=== PATIENT | male | born 1955 | race Caucasian/White ===

== ENCOUNTER 2017-04-09 11:20 | Inpatient (IN) | payer OTHER ==
[~2017-04-09] VITALS: Ht 167.6 cm; Wt 94.5 kg
[~2017-04-09 11:20] MED LIST: BUPR-75; CHOL400C; LISI20TA11; OMEG500C3; SIMV20TA; THIO1CAP; THIO5CAP2; [UNRECOGNIZED DRUG - CODE]
[2017-04-09 11:21] VITALS: Ht 167.6 cm; Wt 94.5 kg
[2017-04-09 12:01] LABS: ABNORMAL IP MESSAGE 1; HEMATOCRIT 22.3 % (42.0-52.0); MEAN CORPUSCULAR HEMOGLOBIN 32.7 pg (29.0-33.0); MEAN CORPUSCULAR HGB CONC 30.5 g/dl (32.0-37.0); MEAN CORPUSCULAR VOLUME 107.2 fl (82.0-101.0); MEAN PLATELET VOLUME 10.6 fl (7.4-10.4); NUCLEATED RED BLOOD CELLS% 37.3 /100WBC (0.0-0.0); PLATELET COUNT 130 10^3/UL (140-415); POSITIVE DIFF @See below; RED BLOOD COUNT 2.08 10^6/ul (4.70-6.10); RED CELL DISTRIBUTION WIDTH 27.4 % (11.5-14.5); WHITE BLOOD COUNT 10.4 10^3/ul (4.8-10.8)
[2017-04-09 12:06] LABS: HEMOGLOBIN 6.8 g/dl (14.0-18.0)
[2017-04-09] MEDS ORDERED: SOD CHLORIDE 0.9% 250 ML IV ONE (12:08)
[2017-04-09 12:24] LABS: INR 1.28; PARTIAL THROMBOPLASTIN TIME 33.2 Sec (25.0-35.0); PROTIME 16.1 Sec (12.2-14.2); PT RATIO 1.3
[2017-04-09 12:32] LABS: ALBUMIN/GLOBULIN RATIO 1.07; BILIRUBIN,INDIRECT 0.6 mg/dl (0-1.1); BILIRUBIN,TOTAL 0.6 mg/dl (0.2-1.3); CALCIUM 8.2 mg/dl (8.4-10.2); CREATININE 0.77 mg/dl (0.61-1.24); POTASSIUM 4.7 mmol/L (3.5-5.1); TOTAL PROTEIN 5.8 g/dl (6.1-8.1)
[2017-04-09 12:38] LABS: ANISOCYTOSIS 2+ (0-0); BASOPHILS % (M) 1 % (0-2); EOSINOPHILS % (M) 2 % (0-7); ERYTHROBLAST% (NRBC) (M) 51 % (0-0); METAMYELOCYTES %M 1 % (0-0); MICROCYTOSIS 1+ (0-0); MONOCYTES % (M) 4 % (0-11); PLATELET ESTIMATE DECREASED; POIKILOCYTOSIS 1+ (0-0); POLYCHROMASIA 3+ (0-0); REACTIVE LYMPHOCYTES% (M) 1 % (0-0)
[2017-04-09 12:43] LABS: TROPONIN-I 0.013 ng/ml (0.00-0.12)
[2017-04-09] MEDS ORDERED: BUPR-75 PO (12:51)
[2017-04-09] MEDS ORDERED: SIMV20TA PO (12:54)
[2017-04-09] MEDS ORDERED: THIO5CAP2 PO (12:55)
[2017-04-09] MEDS ORDERED: ONDANSETRON 4 MG INJ IV PRN ×2 (13:30→15:30)
[2017-04-09] MEDS ORDERED: ACETAMINOPHEN 325 MG TAB PO PRN (13:30)
--- NOTE | 2017-04-09 13:39 | RADRPT ---
PROCEDURE: XR Chest. CLINICAL INDICATION: Shortness of breath. TECHNIQUE: A single portable view of the chest was obtained. COMPARISON: None FINDINGS: The cardiomediastinal silhouette is within normal limits. Mild bibasilar opacities are seen. The rem aining lungs and pleural spaces are clear. The soft tissues and osseous structures are unremarkable . IMPRESSION: Mild bibasilar opacities which may represent atelectasis. RPTAT: HPNM Physician [place] Date Time Electronically viewed and signed by Lyndon Odonnell Physician on 04/09/2017 13:38 /
[2017-04-09 13:45] VITALS: TEMP 98.5
--- NOTE | 2017-04-09 14:24 | ERA ---
ER Documentation Chief Complaint Date/Time DATE: 04/09/17 TIME: 14:19 Chief Complaint Sent from for evaluation and treatment severe Anemia HPI This is a 61-year-old male history of schizophrenia, anemia who was sent by primary care physician's office for anemia. The patient describes generalized malaise for several days. He denies any hematemesis or melena no chest pain or shortness of breath. He denies any fevers or chills. The patient has never had a blood transfusion in the past. He believes he has had a recent colonoscopy but is unsure of the results. ROS All systems reviewed and are negative except as per history of present illness. Medications Home Meds Reported Medications Thiothixene* (Navane*) 5 Mg Cap, 5 MG PO DAILY, CAP 04/09/17 Simvastatin* (Zocor*) 20 Mg Tablet, 20 MG PO QHS, #30 TAB 04/09/17 Bupropion Hcl* (Wellbutrin XL*) 150 Mg Tab.sr.24h, 150 MG PO DAILY, TAB.SA 04/09/17 Discontinued Reported Medications Clayton-3 Fatty Acids (Fish Oil) 500 Mg Capsule 09/23/10 Ergocalciferol (Vitamin D) 400 Unit Capsule 09/23/10 Thiothixene* (Navane*) 1 Mg Cap 09/23/10 Thiothixene* (Navane*) 5 Mg Cap 09/23/10 Bupropion Hcl* (Wellbutrin XL*) 150 Mg Tab.sr.24h 09/23/10 Hctz/Lisinopril (Prinzide 20/12.5) 1 Tab Tab 09/23/10 Lisinopril* (Lisinopril*) 20 Mg Tablet 09/23/10 Simvastatin* (Zocor*) 20 Mg Tablet 09/23/10 Allergies Allergies: Coded Allergies: iodine (Verified Allergy, Intermediate, ITCHING, 04/09/17) amoxicillin (Verified Allergy, Mild, ITCHING, 04/09/17) diphenhydramine (Verified Allergy, Mild, ITCHING, 04/09/17) PMhx/Soc History of Surgery: No Anesthesia Reaction: No Hx Neurological Disorder: No Hx Respiratory Disorders: No Hx Cardiac Disorders: Yes (HTN,HYPERLIPIDEMIA) Hx Psychiatric Problems: Yes (DEPRESSION) Hx Miscellaneous Medical Probl: No Hx Alcohol Use: No Hx Substance Use: No Hx Tobacco Use: No Smoking Status: Never smoker FmHx Family History: No diabetes Physical Exam Vitals Vital Signs Date Time Temp Pulse Resp B/P Pulse Ox O2 Delivery O2 Flow Rate FiO2 04/09/17 14:12 102 23 125/75 100 Nasal Cannula 2.0 04/09/17 13:45 98.5 95 17 126/71 100 Nasal Cannula 2.0 04/09/17 11:21 98.4 131 20 147/64 100 Physical Exam General: Well developed, well nourished, no acute distress, pallor Head: Normocephalic, atraumatic. Eyes: Pupils equally reactive, EOM intact ENT: Moist mucous membranes Neck: Supple, no lymphadenopathy Respiratory: Lungs clear bilaterally, no distress Cardiovascular: RRR, no murmurs, rubs, or gallops Abdominal: Soft, non-tender, non-distended, no peritoneal signs : Brown stool, no melena MSK: No edema, no unilateral swelling, 5/5 strength Neurologic: Alert and oriented, moving all extremities, normal speech, no focal weakness, no cerebellar signs Skin: No rash Psych: Normal mood Result Diagram: 04/09/17 1150 04/09/17 1150 Results 24 hrs Laboratory Tests Test 04/09/17 11:50 White Blood Count 10.410^3/ul Red Blood Count 2.0810^6/ul Hemoglobin 6.8g/dl Hematocrit 22.3% Mean Corpuscular Volume 107.2fl Mean Corpuscular Hemoglobin 32.7pg Mean Corpuscular Hemoglobin Concent 30.5g/dl Red Cell Distribution Width 27.4% Platelet Count 14170^3/UL Mean Platelet Volume 10.6fl Neutrophils % % Segmented Neutrophils % (Manual) 62% Lymphocytes % % Lymphocytes % (Manual) 27% Reactive Lymphocytes % (Manual) 1% Monocytes % % Monocytes % (Manual) 4% Eosinophils % % Eosinophils % (Manual) 2% Basophils % % Basophils % (Manual) 1% Metamyelocytes % (manual) 1% Nucleated Red Blood Cells % 51% Neutrophils # 10^3/ul Absolute Lymphocytes (Manual) 2.810^3/ul Lymphocytes # 10^3/ul Reactive Lymphocytes # 0.110^3/ul Monocytes # 10^3/ul Absolute Monocytes (Manual) 0.410^3/ul Eosinophils # 10^3/ul Basophils # 10^3/ul Basophils # (Manual) 0.110^3/ul Metamyelocytes # 0.110^3/ul Nucleated Red Blood Cells # 10^3/ul Smudge Cells % 4% Platelet Estimate DECREASED Polychromasia 3+ Poikilocytosis 1+ Anisocytosis 2+ Microcytosis 1+ Macrocytosis 1+ Prothrombin Time 16.1Sec Prothrombin Time Ratio 1.3 INR International Normalized Ratio 1.28 Activated Partial Thromboplast Time 33.2Sec Sodium Level 139mmol/L Potassium Level 4.7mmol/L Chloride Level 103mmol/L Carbon Dioxide Level 21mmol/L Anion Gap 20 Blood Urea Nitrogen 18mg/dl Creatinine 0.77mg/dl Glucose Level 156mg/dl Calcium Level 8.2mg/dl Total Bilirubin 0.6mg/dl Direct Bilirubin 0.00mg/dl Indirect Bilirubin 0.6mg/dl Aspartate Amino Transf (AST/SGOT) 90IU/L Alanine Aminotransferase (ALT/SGPT) 78IU/L Alkaline Phosphatase 1319IU/L Troponin I 0.013ng/ml Total Protein 5.8g/dl Albumin 3.0g/dl Globulin 2.80g/dl Albumin/Globulin Ratio 1.07 Current Medications Medications (Trade) Dose Ordered Sig/Vicenta Route PRN Reason Start Time Stop Time Status Last Admin Dose Admin Sodium Chloride (NS) 250 ml @ 0 mls/hr Q0M ONCE IV 04/09/17 12:08 04/09/17 12:10 DC 04/09/17 12:08 Ondansetron HCl (Zofran Inj) 4 mg BRIDGE ORDER PRN IV NAUSEA AND/OR VOMITING 04/09/17 13:30 04/10/17 13:29 Acetaminophen (Tylenol Tab) 650 mg ER BRIDGE PRN PO MILD PAIN/FEVER 04/09/17 13:30 04/10/17 13:29 Procedures/MDM EKG, MONITORS, & DIAGNOSTIC IMAGING: EKG: I reviewed and interpreted a 12-lead EKG. Rhythm: Normal sinus rhythm Ectopy: None Intervals: No abnormalities ST segments: No elevations or depressions T waves: No contiguous inversions Chest x-ray: I reviewed and interpreted a 1 view of the chest Mediastinum: No enlargement Cardiac silhouette: No cardiomegaly Airspace: Clear lung frias bilaterally without evidence of pneumothorax Bones: No evidence of fracture LAB INTERPRETATION: Significant anemia MEDICAL DECISION MAKING: The patient presents for likely symptomatic anemia. Unclear source at this time , consider possible chronic disease. The patient's PSA has been more elevated than baseline per his report, consider malignancy. Further workup as an inpatient as appropriate. I discussed with the patient and/or family the risks, benefits, alternatives of blood transfusion. This includes allergic reaction and infections including HIV and hepatitis. The patient and/or family were able to verbalize these risks , stated understanding. A document has been signed and placed in the chart. ER COURSE: Patient typed and crossmatch for 2 units packed red blood cells and will be transfused. The patient does have some slight thrombus cytopenia of 130. This is concerning for possible malignancy. Further workup is likely indicated. The patient does not have any diarrhea or altered mental status or renal failure to suggest TTP. I kept the patient and/or family informed of laboratory and diagnostic imaging results throughout the emergency room course. DISPOSITION PLAN: Medical surgical admission for treatment of symptomatically anemia CONSULTATION: Accepting care team and consultations: I discussed the current laboratory data, diagnostic imaging and emergency care provided. Admitting team: Dr. Thorpe Admitting team indication: Insurance directed Departure Diagnosis: Primary Impression: Symptomatic anemia Condition: Stable ALLYN JOSEPH MD Apr 09, 2017 14:24
[2017-04-09 14:34] VITALS: BP 137/67; PULSE 102; RESP 16
[2017-04-09] MEDS ORDERED: morphine 2 MG INJ IV PRN (15:30)
[2017-04-09] MEDS ORDERED: ACETAMINOPHEN 650 MG SUPP PR PRN (15:30)
[2017-04-09] MEDS ORDERED: NACL 0.9% 3 ML SYG IV SCH (15:30)
--- NOTE | 2017-04-09 15:35 | HP ---
Date/Time of Note Date/Time of Note DATE: 04/09/17 TIME: 15:35 Assessment/Plan VTE Prophylaxis VTE Prophylaxis Intervention: ambulation, SCD's Lines/Catheters IV Catheter Type (from [facility]): Peripheral IV Urinary Cath still in place: No Assessment/Plan Assessment/Plan This is a 61-year-old male who was sent from primary care physician to the emergency room for anemia workup. 1. Anemia, acute, unknown etiology. Status post 1 unit PRBC from ER -Admit as inpatient. Monitor H&H every 12 hours and transfuse if hemoglobin is less than 8.0 -Obtain urine and stool to detect RBC loss. -GI consult for endoscopy consideration. -Consider heme/onco if indicated 2. Transaminase elevation-needs further investigation. Rule out gallbladder pathology vs possible malignances (pls note tat pt also has significant anemia with elevated LFTs leading suspicion of possible metastatic process). Ofnote, patient also on Wellbutrin 150mg daily-known hepatotoxin with recommended hepatic dosing 150 q 48hrs -Obtain CT abdomen and pelvis to rule out any gallbladder pathologies vs possible malignancies-Consider oncology eval if indicated after imaging studies --Hold home medications including statin for now and monitor LFTs. 3. Dyslipidemia. Obtain a lipid panel. Hold statin secondary to abnormal LFTs. 4. Schizophrenia/depression. Stable -Due to transaminase elevation, we will hold home medications and treat patient with PRN Ativan for now. Plan: Patient will be admitted to medical surgical floor. We will also obtain a baseline CT brain and CT abdomen to rule out any possible malignancies that can cause unexplained anemia. He also presented with abnormal liver function.Follow-up with a.m. labs and diagnostic findings. Follow-up with GI recommendations. Will consider heme/onco if indicated. Monitor H&H closely and transfuse as indicated. Once again, this gentleman who is also somewhat poor historian presented with unexplained acute anemia who needs further work-ups in house and will be closely followed up and referred to appropriate specialities as indicated over the course of hospitalization. Patient does not need any DVT or PUD prophylaxis at this time as he is on a diet and ambulatory. Approximately 60 minutes was spent on this history and physical. Case discussed with Dr. Ila MAX/ELSA Admit Date/Time Admit Date/Time Apr 09, 2017 at 13:02 Hx of Present Illness This is a 61-year-old male,somewhat poor historian, with a past medical history of dyslipidemia, internal hemorrhoids, basal cell carcinoma with status post excision, schizophrenia, depression, epilepsy, hypertension and now off treatment due to hypotension, who was sent from primary care office for evaluation of anemia. Upon further questioning, he also reported poor appetite and malaise for the past few months. Patient denied any shortness of breath, chest pain, palpitation, loss of consciousness, dizziness or headache. Patient denied any nausea, vomiting, abdominal pain, hematochezia, hematemesis, melena, hematuria or other bleeding episodes. Patient denied fever or chills. Patient was not sure about any other malignancies. Up on chart review, in 2010,patient had colonoscopy with finding of internal hemorrhoids. He currently denied any constipation,hematochezia or melena. Initial workup showed a hemoglobin 6.8, hematocrit 22.3 and platelet 130. Patient also had elevated AST, ALT and alkaline phosphatase. CBC with some smudge cells. Patient received 1 unit of packed RBC in the emergency room and was admitted for further evaluation. ROS A 12 point review of system was assessed and is negative other than what is mentioned in HPI. PMH/Family/Social Past Medical History See HPI Past Surgical History See HPI Social History Denied alcohol, smoking or illicit drug use. Smoking Status: Former smoker Exam/Review of Systems Vital Signs Vitals Vital Signs Date Time Temp Pulse Resp B/P Pulse Ox O2 Delivery O2 Flow Rate FiO2 04/09/17 15:04 Nasal Cannula 2.0 04/09/17 14:34 97.7 102 16 137/67 98 Exam Exam General: Well developed,adequately built, not in any acute distress . HEENT: Normocephalic, Atraumatic, No laceration or hematoma; Eyes: PEERL, Conjunctiva clear, Anicteric sclera Neck: Supple without any lymphadenopathy, nontender, no JVD, no carotid bruits, trachea midline, no thyromegaly Cardiac: S1, S2 auscultated, regular rhythm and rate, no mumurs or gallop Pulmonary: Normal respiratory effort. Chest clear to auscultation bilaterally, no adventitious breath sounds GI: Abdomen normal to inspection. Soft, non tender, non- distended, no masses, no rebound tenderness or guarding. Bowel sounds active on all four quadrants Genitourinary: Deferred Extremities: No cyanosis, clubbing, or edema. Pulses [2+] bilaterally. Full ROM on all four extremities. No focal weakness appreciated. Neurologic: Alert to person, place, time, and situation. Affect appropriate, intact sensation. Skin: Pale looking. Clean,dry, and intact. No ecchymosis, no rashes, or lesions Labs Result Diagram: 04/09/17 1150 04/09/17 1150 Medications Medications Current Medications Sodium Chloride (NS) 1,000 ml @ 75 mls/hr [id number] IV ; Start 04/09/17 at 15:25; Status UNV Ondansetron HCl (Zofran Inj) 4 mg Q6H PRN IV NAUSEA AND/OR VOMITING; Start 04/09 at 15:30; Status UNV Acetaminophen (Tylenol Tab) 650 mg Q6H PRN PO PAIN LEVEL 1-3 OR FEVER; Start at 15:30; Status UNV Acetaminophen (Tylenol Supp) 650 mg Q6H PRN [place] PAIN LEVEL 1-3 OR FEVER; Start 04/09/17 at 15:30; Status UNV Morphine Sulfate (morphine) 2 mg Q4H PRN IV SEVERE PAIN LEVEL 7-10; Start at 15:30; Status UNV TONIO HUMPHREY NP Apr 09, 2017 15:35
[2017-04-09 15:41] LABS: FOLATE 11.1 ng/ml (2.8-20.0)
[2017-04-09] MEDS: SOD CHLORIDE 0.9% 1,000 ML IV SCH (15:58)
[2017-04-09 16:33] LABS: HEMATOCRIT 23.1 % (42.0-52.0)
[2017-04-09 16:37] LABS: HEMOGLOBIN 6.9 g/dl (14.0-18.0)
[2017-04-09 16:53] LABS: IRON 81 ug/dl (35-150)
[2017-04-09 17:03] LABS: TOTAL IRON BINDING CAPACITY 301 ug/dl (241-421)
[2017-04-09 19:25] VITALS: BP 121/59; RESP 18
--- NOTE | 2017-04-09 19:28 | OPR ---
Date/Time of Note Date/Time of Note DATE: 04/09/17 TIME: 19:26 Operative Report Preoperative Diagnosis Anemia Postoperative Diagnosis Impression: * Moderate distal esophagitis * Severe antral gastritis. Rule out H. pylori infection. Biopsies obtained Plan: * PPI therapy * Monitor for further bleeding * Advance diet as tolerated Operation/Procedure Performed EGD with biopsies Surgeon: ALEKS HESTER MD Anesthesia Type: MAC Estimated Blood Loss: none Transfusion Required: no Specimens Gastric antrum Grafts/Implants: none Complications: no ALEKS HESTER MD Apr 09, 2017 19:28
--- NOTE | 2017-04-09 20:08 | RADRPT ---
PROCEDURE: Noncontrast CT Head. CLINICAL INDICATION: Intracranial lesion. TECHNIQUE: Noncontrast CT of the head was obtained. The administered radiation dose was CTDI vol = 43.68 mGy, DLP = 810.25 mGy-cm. One or more of the following dose reduction techniques were used: Au tomated exposure control, Adjustment of the mA and/or kV according to patient size, or Use of iterat nu reconstruction technique. COMPARISON: There are no similar studies submitted for comparison. FINDINGS: There is minimal generalized cerebral volume loss. There is prominent bilateral parietal subarachnoid space which may related to focal volume loss. There is no loss of stringer-white differentiation to suggest acute territorial infarction. There is no acute intracranial hemorrhage or extra-axial fluid collection. There is no mass effect. No midline shift is identified. The orbits are within normal limits. The paranasal sinuses are well aerated. No destructive osseous lesion is identified. There is a smooth osseous lesion along the left parieta l inner table which is indeterminate but may represent a hemangioma, venous dietz, pacchionian granul ation, versus other etiologies. IMPRESSION: Evaluation for intracranial lesions is limited on noncontrast CT. 1. No acute intracranial hemorrhage or extra-axial fluid collection. 2. Minimal generalized cerebral volume loss which is more focal within the bilateral parietal lobes. 3. No significant mass effect or midline shift. Further findings as detailed above. RPTAT: HVF .Spencer Gaston MD, Date Time Electronically viewed and signed by .Spencer Gaston MD, on 04/09/2017 20:08 .F/
[2017-04-09] MEDS: ACETAMINOPHEN 325 MG TAB PO PRN (21:08)
[2017-04-09 23:09] LABS: ADD UMIC YES; UR ASCORBIC ACID NEGATIVE (NEGATIVE); UR BILIRUBIN (Dip) NEGATIVE (NEGATIVE); UR BLOOD (Dip) NEGATIVE (NEGATIVE); UR CLARITY CLOUDY (CLEAR); UR COLOR AMBER (YELLOW); UR GLUCOSE (Dip) NEGATIVE (NEGATIVE); UR KETONES (Dip) NEGATIVE (NEGATIVE); UR LEUKOCYTE ESTERASE (Dip) TRACE Leu/ul (NEGATIVE); UR MUCUS MODERATE /HPF (NONE SEEN); UR NITRITE (Dip) NEGATIVE (NEGATIVE); UR RBC 1 /HPF (0-5); UR SQUAMOUS EPITHELIAL CELL FEW /HPF (FEW); UR TOTAL PROTEIN (Dip) 1+ mg/dl (NEGATIVE); UR UROBILINOGEN (Dip) 1+ mg/dL (NEGATIVE)
[2017-04-10] VITALS (18 sets, daily range): BP systolic 97–139; BP diastolic 62–86; PULSE 91–111; RESP 16–25
--- NOTE | 2017-04-10 02:11 | RADRPT ---
PROCEDURE: CT of the abdomen and pelvis without contrast CLINICAL INDICATION: Elevated liver function tests. Question neoplasm.. TECHNIQUE: Spiral CT images through the abdomen and pelvis without the use of contrast. The admin istered radiation dose is CTDI 16.06 and DLP 964.45. One or more of the following dose reduction te chniques were used: automated exposure control, adjustment of the mA and/or kV according to patient size, or use of iterative reconstruction technique. COMPARISON: None FINDINGS: Lack of oral and intravenous contrast somewhat limits evaluation. Moderately large bilateral pleu ral effusions are seen. Bibasilar atelectasis is seen with dense material in the lung bases suggest ing possible prior contrast aspiration. Hyperinflated lung bases suggesting a background of emphyse ma. Normal heart size. Trace pericardial fluid.. Lack of intravenous contrast limits sensitivity for hepatic masses. No definite masses are seen. S mall stones are seen in the gallbladder neck. There is mild pericholecystic fluid. Mild free fluid is seen throughout the upper abdomen. No definite biliary or pancreatic ductal dilatation.. The a drenals are slightly nodular in contour which could reflect hypertrophy or possibly small nodules hernadez ch as tiny adenomas. These are too small to characterize but density. Tiny nonobstructing right re nal calyceal stones are seen. No left renal stones are seen. No hydronephrosis is seen. The pancr eas is unremarkable in appearance. There is a suggestion of wall thickening of the distal esophagus and possible mild wall thickening of the stomach is seen. Edema of the subcutaneous soft tissues i s seen. The appendix is not definitely identified. The prostate is slightly enlarged. The urinary bladder is slightly distended without definite stones or wall thickening. Mild presacral edema is seen. A small of free fluid is seen in the paracolic gutters and the pelvis. No definite small bow el obstruction, free air, or abscess. Tiny fat-containing umbilical hernia. There is extensive diff use sclerotic density of the entire visualized bony skeleton. No definite fracture is seen.. IMPRESSION: Limited noncontrast study without definite hepatic mass. Ascites of the abdomen pelvis. Diffuse sclerotic density of the entire visualized bony skeleton, presumably due to diffuse osseous metastatic disease. The prostate is enlarged, correlate for PSA level. Suggestion of wall thickening of the distal esophagus and stomach. Endoscopic correlation could be considered to evaluate for ulcer disease or underlying mass. Possible tiny bilateral adrenal nodules which could reflect tiny adenomas. Small stones in the neck of the gallbladder without definite ductal dilatation. Probable emphysema. Possible prior contrast aspiration. RPTAT: HLBE Lilly Galvin Physician Date Time Electronically viewed and signed by Lilly Galvin Physician on 04/10/2017 02:10 LE/
[2017-04-10] MEDS: SOD CHLORIDE 0.9% 1,000 ML IV SCH ×3 (04:45→17:23)
[2017-04-10 05:35] LABS: ABNORMAL IP MESSAGE 1; BASOPHIL # 0.1 10^3/ul (0.0-0.1); BASOPHILS % 0.7 % (0.0-2.0); EOSINOPHILS % 0.4 % (0.0-7.0); HEMATOCRIT 26.3 % (42.0-52.0); HEMOGLOBIN 8.2 g/dl (14.0-18.0); LYMPHOCYTES # 2.3 10^3/ul (0.8-2.9); LYMPHOCYTES % 29.8 % (15.0-51.0); MEAN CORPUSCULAR HEMOGLOBIN 30.7 pg (29.0-33.0); MEAN CORPUSCULAR HGB CONC 31.2 g/dl (32.0-37.0); MEAN CORPUSCULAR VOLUME 98.5 fl (82.0-101.0); MEAN PLATELET VOLUME 10.5 fl (7.4-10.4); MONOCYTE # 1.1 10^3/ul (0.3-0.9); MONOCYTES % 14.8 % (0.0-11.0); NEUTROPHILS % 52.2 % (39.0-77.0); NUCLEATED RED BLOOD CELLS # 3.2 10^3/ul (0.0-0.0); PLATELET COUNT 98 10^3/UL (140-415); POSITIVE DIFF @See below; RED BLOOD COUNT 2.67 10^6/ul (4.70-6.10); RED CELL DISTRIBUTION WIDTH 25.3 % (11.5-14.5); WHITE BLOOD COUNT 7.7 10^3/ul (4.8-10.8)
[2017-04-10 06:09] LABS: ALBUMIN 2.5 g/dl (3.3-4.9); ALBUMIN/GLOBULIN RATIO 1.04; BILIRUBIN,INDIRECT 0.7 mg/dl (0-1.1); BILIRUBIN,TOTAL 0.7 mg/dl (0.2-1.3); CALCIUM 7.9 mg/dl (8.4-10.2); CHOL/HDL RATIO 3.7 RATIO; CREATININE 0.74 mg/dl (0.61-1.24); MAGNESIUM 2.3 mg/dl (1.7-2.5); PHOSPHORUS 2.7 mg/dl (2.5-4.9); TOTAL PROTEIN 4.9 g/dl (6.1-8.1)
[2017-04-10] MEDS: THIOTHIXENE 5 MG CAP PO SCH (09:00)
[2017-04-10] MEDS: BUPROPION (XL) 150 MG TAB PO SCH (09:54)
--- NOTE | 2017-04-10 15:41 | CONS ---
Date/Time of Note Date/Time of Note DATE: 04/10/17 TIME: 15:22 Assessment/Plan Assessment/Plan Additional Assessment/Plan Assessment * Anemia Upper GI bleed vs lower GI Bleed CT scan of abdomen Limited noncontrast study without definite hepatic mass. Ascites of the abdomen pelvis. Diffuse sclerotic density of the entire visualized bony skeleton, presumably due to diffuse osseous metastatic disease. The prostate is enlarged, correlate for PSA level. Suggestion of wall thickening of the distal esophagus and stomach. Endoscopic correlation could be considered to evaluate for ulcer disease or underlying mass. Possible tiny bilateral adrenal nodules which could reflect tiny adenomas. Small stones in the neck of the gallbladder without definite ductal dilatation. Elevated transaminase CT cholelithiasis neck of gallbladder R/O Choledocholithiasis Plan * EGD today risks and benefit explained to patient agreed with procedure * MRCP * NPO * continue present management * further orders will depend clinical course Consultation Date/Type/Reason Admit Date/Time Apr 09, 2017 at 13:02 Date of Consultation: Apr 10, 2017 Type of Consultation: Gastroenterology Reason for Consultation anemia/elevated transaminase Referring Provider: CATHY TORRES MD Hx of Present Illness 61 year old male with past medical history of schizophrenia presented in the emergency room with anemia from his primary care,Patient denies any episode of hematemesis,hematochezia,chest pain ,nausea nor vomiting/,He claims recent colonoscopy but results unknown Laboratory workup revealed Anemia with hemoglobin 6.8 transfuse with 2 units of PRBC present hemoglobin 8.2. AST 90, ALT 78,Alkaline phosphatase 1319 Ct scan of abdomen Limited noncontrast study without definite hepatic mass. Ascites of the abdomen pelvis. Diffuse sclerotic density of the entire visualized bony skeleton, presumably due to diffuse osseous metastatic disease. The prostate is enlarged, correlate for PSA level. Suggestion of wall thickening of the distal esophagus and stomach. Endoscopic correlation could be considered to evaluate for ulcer disease or underlying mass. Possible tiny bilateral adrenal nodules which could reflect tiny adenomas. Small stones in the neck of the gallbladder without definite ductal dilatation. Probable emphysema. Possible prior contrast aspiration.Presently ,no episode of vomiting or any active bleeding Constitutional: no complaints Eyes: no complaints ENT: no complaints Respiratory: no complaints Cardiovascular: no complaints Gastrointestinal: no complaints Genitourinary: no complaints Musculoskeletal: no complaints Skin: no complaints Neurologic: no complaints Endocrine: no complaints Lymphatic: no complaints Psychological: nl mood/affect, no complaints Immunologic: no complaints Past Medical History Medical History: other (schizophrenia) Past Surgical History Past Surgical Hx: no surgical history Family History Significant Family History: no pertinent family hx Social History Smoking Status: Former smoker Exam/Review of Systems Vital Signs Vitals Vital Signs Date Time Temp Pulse Resp B/P Pulse Ox O2 Delivery O2 Flow Rate FiO2 04/10/17 13:56 98.0 99 18 130/69 99 04/10/17 09:00 Nasal Cannula 2.0 Intake and Output 04/09/17 04/09/17 04/10/17 15:00 23:00 07:00 Intake Total 250 ml 850 ml Output Total 50 ml 550 ml Balance 200 ml 300 ml Exam Constitutional: alert, oriented, well developed Psych: nl mood/affect, no complaints Head: atraumatic, normocephalic Eyes: PERRL, nl conjunctiva, nl sclera ENMT: nl nasal mucosa & septum Neck: non-tender, supple Respiratory: clear to auscultation, normal air movement Cardiovascular: nl pulses, regular rate and rhythm Gastrointestinal: nl liver, spleen, non-tender, soft Musculoskeletal: nl extremities to inspection, nl gait and stance Extremities: normal pulses Neurological: [employer] II-XII intact, nl mental status, nl speech, nl strength Skin: nl turgor, No rash or lesions Lymph: nl lymph nodes Results Result Diagram: 04/10/17 0433 04/10/17 0433 Results 24 hrs Laboratory Tests Test 04/09/17 16:24 04/09/17 17:57 04/10/17 04:33 04/10/17 08:14 Hemoglobin 6.9 *L 8.2 L Hematocrit 23.1 L 26.3 L Iron Level 81 Total Iron Binding Capacity 301 Percent Iron Saturation 27 Urine Color CLAUDIA Urine Clarity CLOUDY A Urine pH 5.0 Urine Specific [place] 1.030 Urine Ketones NEGATIVE Urine Nitrite NEGATIVE Urine Bilirubin NEGATIVE Urine Urobilinogen 1+ H Urine Leukocyte Esterase TRACE A Urine Microscopic RBC 1 Urine Microscopic WBC 10 H Urine Squamous Epithelial Cells FEW Urine Mucus MODERATE Urine Hemoglobin NEGATIVE Urine Glucose NEGATIVE Urine Total Protein 1+ H White Blood Count 7.7 # Red Blood Count 2.67 #L Mean Corpuscular Volume 98.5 Mean Corpuscular Hemoglobin 30.7 Mean Corpuscular Hemoglobin Concent 31.2 L Red Cell Distribution Width 25.3 H Platelet Count 98 #L Mean Platelet Volume 10.5 H Neutrophils % 52.2 Lymphocytes % 29.8 Monocytes % 14.8 H Eosinophils % 0.4 Basophils % 0.7 Nucleated Red Blood Cells % 41.0 H Neutrophils # 4.0 Lymphocytes # 2.3 Monocytes # 1.1 H Eosinophils # 0.0 Basophils # 0.1 Nucleated Red Blood Cells # 3.2 H Sodium Level 140 Potassium Level 4.0 Chloride Level 107 Carbon Dioxide Level 24 Anion Gap 13 # Blood Urea Nitrogen 15 Creatinine 0.74 Glucose Level 100 # Hemoglobin A1c 4.8 Calcium Level 7.9 L Phosphorus Level 2.7 Magnesium Level 2.3 Total Bilirubin 0.7 Direct Bilirubin 0.00 Indirect Bilirubin 0.7 Aspartate Amino Transf (AST/SGOT) 90 H Alanine Aminotransferase (ALT/SGPT) 75 H Alkaline Phosphatase 1092 H Total Protein 4.9 L Albumin 2.5 L Globulin 2.40 Albumin/Globulin Ratio 1.04 Triglycerides Level 77 Cholesterol Level 82 L LDL Cholesterol, Calculated 45 HDL Cholesterol 22 L Cholesterol/HDL Ratio 3.7 Lab Scanned Report BLOOD TRANSFUSION Medications Medications Current Medications Sodium Chloride (NS) 1,000 ml @ 75 mls/hr [id number] IV Last administered on 14:08; Admin Dose 75 MLS/HR; Start 04/09/17 at 15:25 Ondansetron HCl (Zofran Inj) 4 mg Q6H PRN IV NAUSEA AND/OR VOMITING; Start 04/09 at 15:30 Acetaminophen (Tylenol Tab) 650 mg Q6H PRN PO PAIN LEVEL 1-3 OR FEVER Last administered on 04/09/17 21:08; Admin Dose 650 MG; Start 04/09/17 at 15:30 Acetaminophen (Tylenol Supp) 650 mg Q6H PRN [place] PAIN LEVEL 1-3 OR FEVER; Start 04/09/17 at 15:30 Morphine Sulfate (morphine) 2 mg Q4H PRN IV SEVERE PAIN LEVEL 7-10; Start at 15:30 Bupropion HCl (Wellbutrin Xl) 150 mg DAILY PO Last administered on 04/10/17 09: 54; Admin Dose 150 MG; Start 04/10/17 at 09:00 Thiothixene (Navane) 5 mg DAILY PO ; Start 04/10/17 at 09:00 Atorvastatin Calcium (Lipitor) 10 mg QHS PO ; Start 04/10/17 at 21:00 ALESK HESTER MD Apr 10, 2017 15:39
--- NOTE | 2017-04-10 16:03 | RADRPT ---
PROCEDURE: US Abdomen (right upper quadrant). CLINICAL INDICATION: Abnormal liver function tests. TECHNIQUE: Multiple real-time longitudinal and transverse images of the right upper quadrant of th e abdomen were acquired utilizing a curved array transducer. Images were reviewed on a high-resoluti on PACS workstation. COMPARISON: None FINDINGS: The liver is normal in size and normal in echogenicity. There is no focal hepatic lesion. A gallstone is present in the gallbladder neck. There is no gallbladder wall thickening. The bile ducts are normal with the common bile duct measuring 4.0 mm in diameter. The visualized portions of the pancreas are unremarkable with obscuration of the tail of the pancrea s. There is mild ascites. There is a right pleural effusion. The right kidney measures 11.0 cm. There is normal echogenicity of the right kidney. There is no perinephric fluid collection. No hydronephrosis, mass, or calculus is seen. IMPRESSION: 1. Gallstone in the gallbladder neck. 2. No evidence of cholecystitis. 3. Mild ascites. 4. Right pleural effusion. 5. Otherwise unremarkable right upper quadrant abdomen ultrasound. RPTAT: QQ .Brody Suarez MD, Date Time Electronically viewed and signed by .Brody Suarez MD, on 04/10/2017 16:03 .R/
[2017-04-10 16:53] LABS: HEMATOCRIT 26.5 % (42.0-52.0); HEMOGLOBIN 8.4 g/dl (14.0-18.0)
--- NOTE | 2017-04-10 17:20 | PN ---
Date/Time of Note Date/Time of Note DATE: 04/10/17 TIME: 17:17 Assessment/Plan VTE Prophylaxis VTE Prophylaxis Intervention: SCD's Lines/Catheters IV [facility] Peripheral IV Urinary Cath still in place: No Assessment/Plan Assessment/Plan 61 yo M with pmhx schizophrenia admitted for macrocytic anemia of unclear etio #anemia: b12, folate, TSH all normal hgb responded to transfusion heme consult for further eval. given that platelets low too, might need BMB #transaminitis: etio unclear, US without liver abn, +gallstone in GB neck GI on cs, MRCP ordered #schizophrenia: cont home meds #h/o elevated PSA: consider rechecking after today's heme/onc eval. No mention of large prostate/prostate nodules on abd CT Subjective 24 Hr Interval Summary Free Text/Dictation pt denies being told he had low blood counts before. OF NOTE states he had a period of nausea in November, was ?diagnosed with prostatitis? Since then has unintentionally lost 35 pounds. Denies EtOH use or any hx of known liver disease Exam/Review of Systems Vital Signs Vitals Vital Signs Date Time Temp Pulse Resp B/P Pulse Ox O2 Delivery O2 Flow Rate FiO2 04/10/17 13:56 98.0 99 18 130/69 99 04/10/17 09:00 Nasal Cannula 2.0 Intake and Output 04/09/17 04/09/17 04/10/17 15:00 23:00 07:00 Intake Total 250 ml 850 ml Output Total 50 ml 550 ml Balance 200 ml 300 ml Exam sitting up in bed, nad no mrg lungs clear abd soft no rashes Results Result Diagram: 04/10/17 1645 04/10/17 0433 Results 24 hrs Laboratory Tests Test 04/09/17 17:57 04/10/17 04:33 04/10/17 08:14 04/10/17 16:45 Urine Color CLAUDIA Urine Clarity CLOUDY A Urine pH 5.0 Urine Specific [place] 1.030 Urine Ketones NEGATIVE Urine Nitrite NEGATIVE Urine Bilirubin NEGATIVE Urine Urobilinogen 1+ H Urine Leukocyte Esterase TRACE A Urine Microscopic RBC 1 Urine Microscopic WBC 10 H Urine Squamous Epithelial Cells FEW Urine Mucus MODERATE Urine Hemoglobin NEGATIVE Urine Glucose NEGATIVE Urine Total Protein 1+ H White Blood Count 7.7 # Red Blood Count 2.67 #L Hemoglobin 8.2 L 8.4 L Hematocrit 26.3 L 26.5 L Mean Corpuscular Volume 98.5 Mean Corpuscular Hemoglobin 30.7 Mean Corpuscular Hemoglobin Concent 31.2 L Red Cell Distribution Width 25.3 H Platelet Count 98 #L Mean Platelet Volume 10.5 H Neutrophils % 52.2 Lymphocytes % 29.8 Monocytes % 14.8 H Eosinophils % 0.4 Basophils % 0.7 Nucleated Red Blood Cells % 41.0 H Neutrophils # 4.0 Lymphocytes # 2.3 Monocytes # 1.1 H Eosinophils # 0.0 Basophils # 0.1 Nucleated Red Blood Cells # 3.2 H Sodium Level 140 Potassium Level 4.0 Chloride Level 107 Carbon Dioxide Level 24 Anion Gap 13 # Blood Urea Nitrogen 15 Creatinine 0.74 Glucose Level 100 # Hemoglobin A1c 4.8 Calcium Level 7.9 L Phosphorus Level 2.7 Magnesium Level 2.3 Total Bilirubin 0.7 Direct Bilirubin 0.00 Indirect Bilirubin 0.7 Aspartate Amino Transf (AST/SGOT) 90 H Alanine Aminotransferase (ALT/SGPT) 75 H Alkaline Phosphatase 1092 H Total Protein 4.9 L Albumin 2.5 L Globulin 2.40 Albumin/Globulin Ratio 1.04 Triglycerides Level 77 Cholesterol Level 82 L LDL Cholesterol, Calculated 45 HDL Cholesterol 22 L Cholesterol/HDL Ratio 3.7 Lab Scanned Report BLOOD TRANSFUSION Medications Medications Current Medications Sodium Chloride (NS) 1,000 ml @ 75 mls/hr [id number] IV Last administered on 14:08; Admin Dose 75 MLS/HR; Start 04/09/17 at 15:25 Ondansetron HCl (Zofran Inj) 4 mg Q6H PRN IV NAUSEA AND/OR VOMITING; Start 04/09 at 15:30 Acetaminophen (Tylenol Tab) 650 mg Q6H PRN PO PAIN LEVEL 1-3 OR FEVER Last administered on 04/09/17 21:08; Admin Dose 650 MG; Start 04/09/17 at 15:30 Acetaminophen (Tylenol Supp) 650 mg Q6H PRN [place] PAIN LEVEL 1-3 OR FEVER; Start 04/09/17 at 15:30 Morphine Sulfate (morphine) 2 mg Q4H PRN IV SEVERE PAIN LEVEL 7-10; Start at 15:30 Bupropion HCl (Wellbutrin Xl) 150 mg DAILY PO Last administered on 04/10/17 09: 54; Admin Dose 150 MG; Start 04/10/17 at 09:00 Thiothixene (Navane) 5 mg DAILY PO ; Start 04/10/17 at 09:00 Atorvastatin Calcium (Lipitor) 10 mg QHS PO ; Start 04/10/17 at 21:00 CATHY TORRES MD Apr 10, 2017 17:20
[2017-04-10] MEDS ORDERED: PROPOFOL 20 ML ONE (17:58)
[2017-04-10] MEDS ORDERED: LIDOCAINE 2% (SDV) 5 ML INJ ONE (17:58)
[2017-04-10 18:06] LABS: RETICULOCYTE COUNT % 5.6 % (0.5-1.5)
--- NOTE | 2017-04-10 18:09 | OPPN ---
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 Multiple biopsies obtained * Very large clearly malignant mass in the fundus of the stomach with extensive infiltration to the mid stomach. Biopsies obtained Plan: * Review pathology * Oncology consult/radiation oncology consult * Surgical consult . Operation/Procedure Performed EGD with biopsies Provider: ALEKS HESTER MD Anesthesia Type: MAC Estimated blood loss: minimal Transfusion Required: no Specimens 1. Proximal stomach mass 2. Distal esophagus mass Grafts/Implants: none Complications: no ALEKS HESTER MD Apr 10, 2017 18:09
[2017-04-10] MEDS ORDERED: FENTAnyl 50 MCG/ML VIAL IV PRN (19:00)
[2017-04-10] MEDS ORDERED: morphine (1 MG/ML) 10ML SYRINGE IV PRN (19:00)
[2017-04-10] MEDS ORDERED: MEPERIDINE 25 MG INJ IV PRN (19:00)
[2017-04-10] MEDS ORDERED: ONDANSETRON 4 MG INJ IV PRN (19:00)
[2017-04-10] MEDS ORDERED: LABETALOL HCL 20MG INJ IV PRN (19:00)
[2017-04-10 19:08] LABS: PROSTATE SPECIFIC ANTIGEN 4.4 ng/ml (0.0-4.0)
--- NOTE | 2017-04-10 20:47 | EN ---
Date/Time of Note Date/Time of Note DATE: 04/10/17 TIME: 20:35 Event Note Medicine Medicine Event Note Hematology/Oncology note dictated--JOB #[id number]. Pt is a 61 y/o male with schizophrenia. Admitted with significant macrocytic anemia but B12 and Folate are nl. Peripheral blood demonstrates a leukoerythroblastic picture in RBC shape and size changes, circulating immature neutrophils and many nucleated RBC's (50/100 WBC's). This suggests a bone marrow infiltrative process. Alkaline phosphatase is >1000 and x-rays demonstrate diffuse sclerotic changes. This is most consistent with metastatic prostate carcinoma but the PSA is only 4.4. This does not r/o prostatic carcinoma. Pt has also lost 35 lbs in past 3-4 mos. Denies dysphagia or odynophagia but EGD done today demonstrates a malignant appearing mass in distal esophagus and also in gastic fundus. Bx's have been taken. This may explain entire picture or pt may have 2 separate processes. Will request NM bone scan, metastatic skeletal survey, CT of the chest without contrast and PAP. Copies To: CC: CATHY TORRES MD,ELIEL Guzman MD Apr 10, 2017 20:45
[2017-04-10] MEDS: ATORVASTATIN 10 MG TAB PO SCH ×2 (20:53→21:00)
--- NOTE | 2017-04-10 21:25 | GILP ---
DATE OF PROCEDURE: 04/10/2017 PROCEDURE ESOPHAGOGASTRODUODENOSCOPY WITH BIOPSIES: HISTORY AND INDICATIONS: Patient with significant anemia and questionable thickening of the distal esophagus and proximal stomach. PREMEDICATION: Monitored anesthesia care by anesthesiologist. INSTRUMENT USED: TECHNIQUE: After informed consent, with the patient/relatives understanding the procedure, its indications, potential risks and complications, including but not limited to: allergic reaction, bleeding, perforation or infection, and after all pertinent questions were answered to the patients satisfaction, the patient/relatives signed witnessed informed consent. Following this, premedication was administered slowly IV push under careful cardiovascular and respiratory monitoring with pulse oximetry, automatic blood pressure and monitor and storage bin tender. Once the sedative effect was achieved the patient was place in the left lateral decubitus, the panendoscope was introduced and advanced under visual control. Careful examination of the upper gastrointestinal tract, both on insertion as well as withdrawal of the instrument disclosed the following findings: ESOPHAGUS: The distal esophagus shows the presence of a significant mass which measures at least 4-5 cm and the mass has a clearly malignant appearance and appears to be infiltration in the circumference of the distal esophagus. There is moderate obstruction due to the mass. STOMACH: Upon entrance to the stomach air was insufflated, the gastric singh distended normally. The proximal stomach appears to be infiltrated with significant tumor. Retroflexion disclosed the tumor appears ulcerated and extensive, arising from the area of the fundus at the cardia. Multiple biopsies were obtained. The distal stomach appears unremarkable. PYLORUS: The pylorus appears patent and within normal limits, with no evidence of gastric outlet obstruction. DUODENUM: The duodenal mucosa was carefully examined in the duodenal bulb as well as the second portion of the duodenum and appears unremarkable with no evidence of duodenitis, ulcer or neoplasm. The instrument was then withdrawn, the patient tolerated the procedure well and was transfer out of the endoscopy suite awake, and in good condition to continue recovery under observation. IMPRESSION: 1. Large distal esophageal mass, clearly malignant. Multiple biopsies obtained. 2. Very large malignant neoplasm occupying the proximal half of the stomach. Multiple biopsies obtained. PLAN: The patient will be treated with PPIs and Oncology and Radiation Oncology consultation will be advisable. Surgical consultation should also be considered. Dictated By: Vernon Pittman MD /[email or web address]/berenice /Document#: [id number] ; FAX [phone]
--- NOTE | 2017-04-10 22:49 | CONS ---
DATE OF ADMISSION: 04/09/2017 DATE OF CONSULTATION: 04/10/2017 Hematology Oncology Consultation PHYSICIAN REQUESTING CONSULTATION: Yamile Thorpe MD REASON FOR CONSULTATION: Macrocytic anemia. Dear Dr. Thorpe, Thank you very much for asking me to see this very pleasant patient in hematologic consultation. As you know Mr. Braxton is a 61-year-old male who was admitted to [facility] on 04/09/2017. The patient apparently had been seen by his primary physician and was noted to have anemia. It is unclear for how long this patient has had anemia. He does state; however, that he had been experiencing increasing weakness and fatigue for several days. The patient also states that he has lost approximately 35 pounds in the past 5 or 6 months. On admission to the hospital the patient had a white count of 10,400. This included 62 percent segmented cells, 27 percent lymphocytes. There were 4 percent monocytes, 2 percent eosinophils, 1 percent basophil, 1 percent metamyelocytes, but 51 percent nucleated red blood cells. Red blood cell count was 2.08 million, hemoglobin 6.8, hematocrit 22.3, MCV 107.2, MCH 32.7, MCHC 30.5, RDW 27.4, platelet count 130,000, MPV 10.6. The patient has since been transfused with 2 units of packed red blood cells. Post transfusion, hemoglobin is 8.4, and hematocrit is 26.5. Reticulocyte count is 5.6. Unfortunately, the patient is not a very good historian. He has also recently had an upper GI endoscopy and is somewhat sedated from this procedure. He cannot tell me for how long he has had this anemia. He denies complaints of dysphagia. He does state he has had some nausea after being given ciprofloxacin for some type of infection. He denies hematemesis. He has had no melena or hematochezia. He denies any dysphagia or odynophagia. The patient chemistries on admission included a comprehensive metabolic panel, which was normal except for calcium of 8.2 with an albumin of 3.0 and a total protein of 5.8, the total bilirubin was 0.6 with an indirect of 0.6, AST 98, ALT 78, but an alkaline phosphatase of 1,319. Troponin was 0.013. Repeat bilirubin was 0.7, with indirect 0.7, AST 90, ALT 75, alkaline phosphatase 1,092. Vitamin B12 level is greater than 1,000, folic acid level is 11.2. Serum iron is 81, iron binding capacity 301, and percent saturation 7 percent. LDH is stated to be 1,355. PSA is stated to only be 4.4. The patient on admission did have a CT scan of the abdomen and pelvis without contrast. This did show some diffuse sclerotic density of the entire visualized bony system. The prostate gland was enlarged. There was suggestion of wall thickening of the distal esophagus and stomach. There were possible bilateral tiny adrenal nodules. Small stones were noted in the neck of the gallbladder without ductal dilatation. There is possible emphysema. A CT scan of the brain did not show any intracranial hemorrhage or mass. There was a generalized volume loss. Chest x-ray showed bilateral basilar opacities, which were felt to represent atelectasis. The patient has been seen in consultation by Dr. Pittman and in fact an upper GI endoscopy was performed today. This showed a large "clearly malignant mass" in the distal 3rd of the esophagus. There were multiple biopsies obtained. There was also a very large malignant mass in the fundus of the stomach with extensive infiltration to the mid stomach. PAST MEDICAL HISTORY: Includes a history of schizophrenia. The patient also states he has been told in the past of hypertension as well as hypercholesterolemia. MEDICATION: At the time of admission include: 1. Navane 5 mg daily. 2. Simvastatin 20 mg daily. 3. Bupropion 150 mg daily. 4. Lisinopril 20 mg daily. ALLERGIES: THE PATIENT STATES HE IS ALLERGIC TO IODINE WHICH CAUSES A RASH AND ITCHING. THE PATIENT ALSO HAS IS ALLERGIC TO AMOXICILLIN AND DIPHENHYDRAMINE. PAST SURGICAL HISTORY: Patient has had no prior surgeries. SOCIAL HISTORY: The patient is not . 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 He has not knowingly been exposed to any industrial toxins or ionizing radiation. Does not consume alcohol. Previously smoked a pipe, but has not smoked now since 1981. FAMILY HISTORY: Is remarkable in that his father in his 70s of nonalcoholic cirrhosis. There was also no known history of hepatitis. Patient's mother was a suicide. He has 1 sister who is 60 years old and in good health. He has no children. PHYSICAL EXAMINATION: GENERAL APPEARANCE: Reveals a well-developed, well-nourished, male who is in no acute distress. VITAL SIGNS: Temperature 97.5, pulse 100 per minute and regular, respirations 18, blood pressure 138/68, and pulse oximetry is 96 percent on room air. SKIN: Pale. No ecchymosis. No petechiae or rashes. HEENT: Normocephalic, no evidence of trauma. The pupils equal, round, react to light and accommodation. Sclerae nonicteric. Oral mucosa is moist without lesions. Tongue is well papillated. There is no gingival hyperplasia. No hypertrophy of Waldeyer's ring. Both the oral mucosa and conjunctivae are pale. NECK: Supple. No jugular distention, or thyroid enlargement. No carotid bruits. CHEST: Clear to auscultation and percussion. No rhonchi, wheezes, rales, or rubs. NODES: No palpable lymphadenopathy in any lymph node bearing area. BREASTS: No gynecomastia. HEART: Sinus tachycardia. No S3, S4 or murmurs. ABDOMEN: Soft. No masses. No ascites. Bowel sounds are active. EXTREMITIES: Good range of motion. No clubbing. No edema or cyanosis. No palpable cords or Homans sign. NEUROLOGIC: The patient has somewhat flat affect and stuttering speech. There is increased rigidity and somewhat of a pill- rolling resting tremor. LABORATORY: The peripheral smear has been reviewed. There is full significant red blood cell size and shape changes. There is definite red blood cell fragmentation. There is a population of the echinocytes and acanthocytes. White blood cells are normal in number, but there is a definite leukoerythroblastic picture with myelocytes and promyelocytes, as well as a very large population of nucleated red blood cells. 50 percent of the nucleated cells in the periphery are nucleated red blood cells. There are no blasts seen. Lymphocytes are normal in number and appearance. Platelets are slightly decreased. There is some unusual platelet form seen. DISCUSSION: This patient has a marked macrocytic anemia and thrombocytopenia. Review of the peripheral smear does show a leukoerythroblastic picture. This in concert with the marked elevated alkaline phosphatase as well as the sclerotic bones seen on imaging studies suggest the possibility of metastatic carcinoma. The most frequent malignancy to present with this picture of bone marrow infiltration and diffusely sclerotic bones is metastatic prostate carcinoma. The patient states he has had elevated PSAs up to 15 in the past. The PSA however ordered earlier by myself earlier today is only 4.4. At the same time, this patient has a malignant appearing mass in the distal esophagus as well as in the fundus of the stomach. These masses have been biopsied. Certainly this patient could have both a malignancy of the gastroesophageal junction as well as a prostate carcinoma. It is interesting to note, however, that there does not appear to be retroperitoneal and periaortic lymphadenopathy which one would expect in a prostate carcinoma. The PSA of only 4.4, of course, does not rule out the possibility of prostatic carcinoma. Highly malignant and dedifferentiated prostatic carcinoma may not produce PSA. As noted, the patient has a mass in the distal esophagus and fundus of the stomach. This suggest a primary lesion of the gastroesophageal junction. It is unlikely that this mass would be on the basis of a metastatic prostate carcinoma. I have taken the liberty of requesting a nuclear medicine bone scan. I will expect that this will be a "super scan" in which there is diffuse uptake rather than isolated lesions. Will also obtain a metastatic bone survey. Other studies will include an ultrasound of the kidney. We will also request a CEA. Also a CT scan of the chest. This will have to be done without contrast because of the of the patient's iodine allergy. Any further suggestions regarding treatment or further diagnosis will depend upon the results of the above-mentioned studies. Once again, thank you very much for the opportunity of participating in the medical care of this very pleasant patient. I will be happy to follow this patient with you and assist in his hematologic and oncologic evaluation and followup as necessary. Dictated By: Shyam Cuevas MD /angelika/berenice /Document#: [id number] CC: Yamile Thorpe MD; Dr. John Osman;*EndCC*
[2017-04-11 00:21] VITALS: BP 134/64; RESP 18
[2017-04-11 05:15] LABS: HEMATOCRIT 27.7 % (42.0-52.0); HEMOGLOBIN 8.6 g/dl (14.0-18.0)
[2017-04-11] MEDS: PANTOPRAZOLE 40 MG INJ IV SCH (05:35)
[2017-04-11] MEDS: SOD CHLORIDE 0.9% 1,000 ML IV SCH ×2 (05:35→20:18)
[2017-04-11] MEDS ORDERED: PROPOFOL 200 MG INJ ONE (07:00)
[2017-04-11 07:45] VITALS: BP 136/69; RESP 18
[2017-04-11] MEDS: BUPROPION (XL) 150 MG TAB PO SCH (09:00)
--- NOTE | 2017-04-11 09:07 | RADRPT ---
PROCEDURE: Retroperitoneal US. CLINICAL INDICATION: Flank pain, prostatic cancer TECHNIQUE: Multiple sonographic images of the kidneys and retroperitoneum were obtained. The imag es were reviewed on a PACS workstation. COMPARISON: 04/10/2017, 04/09/2017 FINDINGS: The kidneys are normal in size, contour, cortical thickness and cortical echogenicity. The right kidney measures 12.1 cm. The left kidney measures 11.4 cm. No kidney stones are visualized. There is mild left-sided hydronephrosis. The urinary bladder is moderately distended with internal debris. There is a moderate amount of ascites. There are bilateral pleural effusions. RPTAT: AA IMPRESSION: Mild left-sided hydronephrosis. Moderately distended urinary bladder with internal debris. Moderate amount of ascites. Bilateral pleural effusions. .Leroy Johnston MD, Date Time Electronically viewed and signed by .Leroy Johnston MD, MD on 04/11/2017 09:07 .S/
--- NOTE | 2017-04-11 11:18 | RADRPT ---
PROCEDURE: Whole body bone scan study CLINICAL INDICATION: 61 -year-old patient with diffuse sclerotic density of the entire body skelet on on the CT scan, for evaluation for skeletal metastases. TECHNIQUE: Following the intravenous injection of 25.1 mCi of Tc-99m MDP, whole body anterior and posterior planar images were obtained along with spot views of the chest, abdomen and pelvis. COMPARISON: No prior bone scans are available for comparison. CT scan of the abdomen and pelvis da janay April 09, 2017. FINDINGS: Slightly heterogeneous distribution of radionuclide is visualized throughout the entire skeletal sys tem. No definite abnormal focal areas of increased activity or asymmetries are visualized in the study an d distribution of radionuclide is homogeneous in the skull, spine, rib cages, sternum, pelvis and vi sualized portions of the upper and lower extremities. Of incidental note, the kidneys are poorly visualized. IMPRESSION: Slightly heterogeneous distribution of radionuclide throughout the visualized skeletal system and a poor visualization of the kidneys most consistent with "super scan" due to multiple skeletal metasta ses. RPTAT: HH .Kristal Garibay MD, Date Time Electronically viewed and signed by .Kristal Garibay MD, on 04/10/2017 23:17 .L/
--- NOTE | 2017-04-11 13:23 | PN ---
Date/Time of Note Date/Time of Note DATE: 04/11/17 TIME: 13:22 Assessment/Plan VTE Prophylaxis VTE Prophylaxis Intervention: SCD's Lines/Catheters IV [facility]ter [facility] (from [facility]): Peripheral IV Urinary Cath still in place: No Assessment/Plan Assessment/Plan 61 yo M admitted for symptomatic anemia, EGD done yesterday with multiple malignant looking masses. Bone scan concerning for advanced malignancy PLAN onc already on consult. biopsy results pending defer gen surg/rad onc eval pending biopsy results cont home psych meds Subjective 24 Hr Interval Summary Free Text/Dictation Reviewed results of yesterday's EGD with patient and then with his sister over the phone. Exam/Review of Systems Vital Signs Vitals Vital Signs Date Time Temp Pulse Resp B/P Pulse Ox O2 Delivery O2 Flow Rate FiO2 04/11/17 09:00 Nasal Cannula 2.0 04/11/17 07:45 97.6 110 18 136/69 97 Intake and Output 04/10/17 04/10/17 04/11/17 15:00 23:00 07:00 Intake Total 300 ml 640 ml 360 ml Output Total 450 ml 500 ml Balance 300 ml 190 ml -140 ml Exam nad, laying in bed no mrg lungs clear abd soft no rashes Results Result Diagram: 04/11/17 0452 04/10/17 0433 Results 24 hrs Laboratory Tests Test 04/10/17 16:45 04/10/17 17:00 04/10/17 20:42 04/11/17 04:52 Hemoglobin 8.4 L 8.6 L Hematocrit 26.5 L 27.7 L Absolute Reticulocyte Count 0.150 H Percent Reticulocyte Count 5.6 H Carcinoembryonic Antigen 116.0 H Medications Medications Current Medications Sodium Chloride (NS) 1,000 ml @ 75 mls/hr [id number] IV Last administered on 05:35; Admin Dose 75 MLS/HR; Start 04/09/17 at 15:25 Ondansetron HCl (Zofran Inj) 4 mg Q6H PRN IV NAUSEA AND/OR VOMITING; Start 04/09 at 15:30 Acetaminophen (Tylenol Tab) 650 mg Q6H PRN PO PAIN LEVEL 1-3 OR FEVER Last administered on 04/09/17 21:08; Admin Dose 650 MG; Start 04/09/17 at 15:30 Acetaminophen (Tylenol Supp) 650 mg Q6H PRN OR PAIN LEVEL 1-3 OR FEVER; Start 04/09/17 at 15:30 Morphine Sulfate (morphine) 2 mg Q4H PRN IV SEVERE PAIN LEVEL 7-10; Start at 15:30 Bupropion HCl (Wellbutrin Xl) 150 mg DAILY PO Last administered on 04/10/17 09: 54; Admin Dose 150 MG; Start 04/10/17 at 09:00 Thiothixene (Navane) 5 mg DAILY PO ; Start 04/10/17 at 09:00 Atorvastatin Calcium (Lipitor) 10 mg QHS PO ; Start 04/10/17 at 21:00 Pantoprazole (Protonix Iv) 40 mg DAILY@06 IV Last administered on 04/11/17 05: 35; Admin Dose 40 MG; Start 04/11/17 at 06:00 CATHY TORRES MD Apr 11, 2017 13:23
--- NOTE | 2017-04-11 14:58 | PN ---
Date/Time of Note Date/Time of Note DATE: 04/11/17 TIME: 14:52 Assessment/Plan VTE Prophylaxis VTE Prophylaxis Intervention: SCD's Lines/Catheters IV [facility]): Peripheral IV Urinary Cath still in place: No Assessment/Plan Assessment/Plan Assessment * Anemia * EGD Large clearly malignant mass distal third of the esophagus. Multiple biopsies obtained Very large clearly malignant mass in the fundus of the stomach with extensive infiltration to the mid stomach. Biopsies obtained * Elevated transaminase * Schizophrenia * Multiple metastasis by bone scan Plan * continue present management * will await biopsy results * case discuss with Dr Pittman * Further orders will depend on clinical course Subjective 24 Hr Interval Summary Free Text/Dictation * Course reviewed with RN * Patient seen and examined * EGD . Large distal esophageal mass, clearly malignant. Multiple biopsies obtained. . Very large malignant neoplasm occupying the proximal half of the stomach. Multiple biopsies obtained. Exam/Review of Systems Vital Signs Vitals Vital Signs Date Time Temp Pulse Resp B/P Pulse Ox O2 Delivery O2 Flow Rate FiO2 04/11/17 09:00 Nasal Cannula 2.0 04/11/17 07:45 97.6 110 18 136/69 97 Intake and Output 04/10/17 04/10/17 04/11/17 15:00 23:00 07:00 Intake Total 300 ml 640 ml 360 ml Output Total 450 ml 500 ml Balance 300 ml 190 ml -140 ml Exam Constitutional: frail Neck: non-tender, supple Respiratory: clear to auscultation, normal air movement Cardiovascular: nl pulses, regular rate and rhythm Gastrointestinal: distended, non-tender, soft Musculoskeletal: muscle weakness Extremities: normal pulses Neurological: nl speech Skin: nl turgor, No rash or lesions Lymph: nl lymph nodes Results Result Diagram: 04/11/17 0452 04/10/17 0433 Results 24 hrs Laboratory Tests Test 04/10/17 16:45 04/10/17 17:00 04/10/17 20:42 04/11/17 04:52 Hemoglobin 8.4 L 8.6 L Hematocrit 26.5 L 27.7 L Absolute Reticulocyte Count 0.150 H Percent Reticulocyte Count 5.6 H Carcinoembryonic Antigen 116.0 H Medications Medications Current Medications Sodium Chloride (NS) 1,000 ml @ 75 mls/hr [id number] IV Last administered on t 05:35; Admin Dose 75 MLS/HR; Start 04/09/17 at 15:25 Ondansetron HCl (Zofran Inj) 4 mg Q6H PRN IV NAUSEA AND/OR VOMITING; Start 04/09 at 15:30 Acetaminophen (Tylenol Tab) 650 mg Q6H PRN PO PAIN LEVEL 1-3 OR FEVER Last administered on 04/09/17 21:08; Admin Dose 650 MG; Start 04/09/17 at 15:30 Acetaminophen (Tylenol Supp) 650 mg Q6H PRN [place] PAIN LEVEL 1-3 OR FEVER; Start 04/09/17 at 15:30 Morphine Sulfate (morphine) 2 mg Q4H PRN IV SEVERE PAIN LEVEL 7-10; Start at 15:30 Bupropion HCl (Wellbutrin Xl) 150 mg DAILY PO Last administered on 04/10/17 09: 54; Admin Dose 150 MG; Start 04/10/17 at 09:00 Thiothixene (Navane) 5 mg DAILY PO ; Start 04/10/17 at 09:00 Atorvastatin Calcium (Lipitor) 10 mg QHS PO ; Start 04/10/17 at 21:00 Pantoprazole (Protonix Iv) 40 mg DAILY@06 IV Last administered on 04/11/17 05: 35; Admin Dose 40 MG; Start 04/11/17 at 06:00 ALIREZA PENN NP Apr 11, 2017 14:58
[2017-04-11 15:36] VITALS: BP 137/65; RESP 20
[2017-04-11] MEDS: ATORVASTATIN 10 MG TAB PO SCH (20:18)
[2017-04-11] MEDS ORDERED: SOD CHLORIDE 0.9% 500 ML IV ONE (21:00)
[2017-04-11 21:11] VITALS: BP 167/82; RESP 18
--- NOTE | 2017-04-11 21:42 | PN ---
DATE: 04/11/2017 Hematology Oncology Progress Note SUBJECTIVE: The patient has just come back from an MRI. The patient got up to the bathroom, became diaphoretic. The patient denies chest pain. Denies shortness of breath. He has not had nausea, vomiting. OBJECTIVE DATA: GENERAL: The patient is a well-developed, diaphoretic and pale male. VITAL SIGNS: Temperature is 98.3, pulse 120 per minute and regular, respirations 20, blood pressure 160/80. Pulse oximetry is 99 percent on room air. VITAL SIGNS: Skin is moist to the touch and cool. HEENT: HEENT normocephalic, no evidence of trauma. Pupils equal, round, react to light and accommodation. Sclerae nonicteric. Oral mucosa and conjunctivae are pale. Tongue is well papillated. No gingival hyperplasia. No hypertrophy of Waldeyer's ring. NECK: Neck is supple. No jugular distention, or thyroid enlargement. No carotid bruits. CHEST: Chest is clear to auscultation, percussion. No rhonchi, wheezes, rales, or rubs. No pain on percussion of the spine, sternum, clavicles or ribs. HEART: Heart sinus tachycardia. No S3, S4 or murmurs. NODES: No palpable lymphadenopathy in the lymph node bearing area. ABDOMEN: Abdomen soft. No masses. No ascites. EXTREMITIES: Good range of motion. No clubbing. No edema or cyanosis. No palpable cords or Homans sign. NEUROLOGIC: Neurologic is normal. LABORATORY AND DIAGNOSTIC DATA: Patient's hemoglobin today was 8.6, hematocrit 26.7. The PSA as noted, was only 4.4, CEA is 116. LDH 1,355. The patient has had a nuclear medicine bone scan, which does show changes consistent with a "super scan." There is poor visualization of the kidneys. A renal ultrasound; however, does demonstrate mild left-sided hydronephrosis. There is a mildly distended urinary bladder with internal debris. There was a moderate amount of ascites and bilateral pleural effusions are noted. ASSESSMENT AND PLAN: 1. Anemia with a leukoerythroblastic peripheral blood. This likely represents a bone marrow infiltration by tumor. 2. Abnormal bone scan consistent with metastatic carcinoma. DISCUSSION: As previously noted the patient has a scan consistent with a "super scan", this is usually seen in prostatic carcinoma. The patient has a PSA of only 4.4, but if poorly differentiated, the prostatic tumor may not actually produce PSA. The patient has; however, a malignant-appearing lesion in both the distal esophagus and fundus of the stomach. Biopsies are pending, but the CEA is elevated at 116. This certainly is consistent with a metastatic carcinoma. The patient is diaphoretic following return from MRI and having a bowel movement. Will check a STAT hemoglobin and hematocrit to make sure that the patient has not become more anemic due to GI blood loss. Will also check a CBC in the morning. Will give the patient a 500 mL bolus of normal saline in the next hour also, although the patient's blood pressure is normal. Have discussed the patient the findings with the patient and told him that I do feel a bone marrow aspiration and biopsy is not necessary. Will request a CT-guided needle biopsy to be performed by Interventional Radiology. Dictated By: Shyam Cuevas MD /angelika/berenice /Document#: [id number]
[2017-04-11 22:36] LABS: ABNORMAL IP MESSAGE 1; BASOPHIL # 0.1 10^3/ul (0.0-0.1); BASOPHILS % 0.8 % (0.0-2.0); EOSINOPHILS % 0.2 % (0.0-7.0); HEMOGLOBIN 9.4 g/dl (14.0-18.0); LYMPHOCYTES # 2.1 10^3/ul (0.8-2.9); LYMPHOCYTES % 24.6 % (15.0-51.0); MEAN CORPUSCULAR HEMOGLOBIN 30.8 pg (29.0-33.0); MEAN CORPUSCULAR HGB CONC 30.3 g/dl (32.0-37.0); MEAN CORPUSCULAR VOLUME 101.6 fl (82.0-101.0); MEAN PLATELET VOLUME 11.1 fl (7.4-10.4); MONOCYTES % 11.6 % (0.0-11.0); NEUTROPHIL # 5.2 10^3/ul (1.6-7.5); NEUTROPHILS % 61.2 % (39.0-77.0); NUCLEATED RED BLOOD CELLS # 2.6 10^3/ul (0.0-0.0); NUCLEATED RED BLOOD CELLS% 30.7 /100WBC (0.0-0.0); PLATELET COUNT 109 10^3/UL (140-415); POSITIVE DIFF @See below; RED BLOOD COUNT 3.05 10^6/ul (4.70-6.10); RED CELL DISTRIBUTION WIDTH 26.5 % (11.5-14.5); WHITE BLOOD COUNT 8.6 10^3/ul (4.8-10.8)
[2017-04-12] VITALS (7 sets, daily range): BP systolic 110–147; BP diastolic 54–74; PULSE 95–107; RESP 18–20
[2017-04-12 05:12] LABS: ABNORMAL IP MESSAGE 1; BASOPHIL # 0.1 10^3/ul (0.0-0.1); BASOPHILS % 0.7 % (0.0-2.0); EOSINOPHILS % 0.4 % (0.0-7.0); HEMATOCRIT 28.2 % (42.0-52.0); HEMOGLOBIN 8.5 g/dl (14.0-18.0); LYMPHOCYTES # 2.1 10^3/ul (0.8-2.9); LYMPHOCYTES % 25.3 % (15.0-51.0); MEAN CORPUSCULAR HGB CONC 30.1 g/dl (32.0-37.0); MEAN CORPUSCULAR VOLUME 99.6 fl (82.0-101.0); MEAN PLATELET VOLUME 11.2 fl (7.4-10.4); MONOCYTE # 1.1 10^3/ul (0.3-0.9); MONOCYTES % 13.5 % (0.0-11.0); NEUTROPHIL # 4.8 10^3/ul (1.6-7.5); NUCLEATED RED BLOOD CELLS # 2.4 10^3/ul (0.0-0.0); PLATELET COUNT 106 10^3/UL (140-415); POSITIVE DIFF @See below; RED BLOOD COUNT 2.83 10^6/ul (4.70-6.10); RED CELL DISTRIBUTION WIDTH 26.5 % (11.5-14.5); WHITE BLOOD COUNT 8.1 10^3/ul (4.8-10.8)
[2017-04-12] MEDS: PANTOPRAZOLE 40 MG INJ IV SCH (05:28)
--- NOTE | 2017-04-12 07:09 | RADRPT ---
PROCEDURE: MRCP without contrast. CLINICAL INDICATION: Right upper quadrant abdominal pain. TECHNIQUE: Routine MRCP was obtained without the administration of intravenous contrast. COMPARISON: None. FINDINGS: Essentially nondiagnostic evaluation of the biliary tree. The liver and spleen appear normal in size but are otherwise poorly evaluated. No yarely morphologic changes of cirrhosis. Pancreas, adrenal glands, kidneys, and gallbladder are poorly evaluated. Vis ualized bowel loops are nondilated. Diffuse anasarca, small ascites, and bilateral pleural effusions. IMPRESSION: Nondiagnostic evaluation of the biliary tree due to severe respiratory motion artifact and central s tanding wave artifact. Consider ERCP. Diffuse anasarca, small ascites, and bilateral pleural effusions. RPTAT: EE .Anil Park MD, MD Date Time Electronically viewed and signed by .Anil Park MD, MD on 04/12/2017 07:14 .C/
--- NOTE | 2017-04-12 08:47 | RADRPT ---
PROCEDURE: CT Chest without contrast. CLINICAL INDICATION: Malignancy. TECHNIQUE: Volumetrically acquired images of the thorax without intravenous contrast were reformat janay in the axial, sagittal, and coronal planes. Radiation dose: CTDIvol (mGy) = 14.9; total DLP mGy-cm = 548. One or more of the following radiation dose techniques were used: -Automated exposure control. -Adjust of the mA and/or kV according to patient size. -Use of iterative reconstruction technique. COMPARISON: None. FINDINGS: Moderate pleural effusions with passive atelectasis of the bilateral lower lobes. The atelectatic l ower lobes demonstrates diffuse foci of calcification. Upper lobe predominant along the septal thickening, consistent with hydrostatic interstitial edema. Scattered punctate foci of calcification also noted in the bilateral upper lobes. No pulmonary nodule or mass concerning for primary or secondary malignancy. Normal heart size without pericardial effusion. No mediastinal or hilar lymphadenopathy. Mild overlying anasarca. Included upper abdomen demonstrates small upper abdominal ascites and multiple gallstones. Diffuse sclerotic appearance of the visualized osseous structures. IMPRESSION: 1. Diffuse sclerotic appearance of the visualized osseous structures in the thorax. Differential c onsiderations include a systemic infiltrative marrow disorder, such as myelofibrosis. Recommend eboni ne marrow biopsy. 2. Moderate bilateral pleural effusions with hydrostatic interstitial edema. 3. Diffuse punctate foci of calcification identified throughout the bilateral lung frias, albeit n onspecific. This may be related to chronic renal disease or possibly, a systemic underlying metabol ic disorder. RPTAT: EE .Anil Park MD, MD Date Time Electronically viewed and signed by .Anil Park MD, MD on 04/12/2017 08:52 .C/
[2017-04-12] MEDS: THIOTHIXENE 5 MG CAP PO SCH ×2 (09:00→20:49)
[2017-04-12] MEDS: BUPROPION (XL) 150 MG TAB PO SCH ×2 (09:00→20:49)
--- NOTE | 2017-04-12 09:24 | RADRPT ---
PROCEDURE: Metastatic skeletal survey. CLINICAL INDICATION: History of prostate cancer. TECHNIQUE: Plain radiographs of the skeleton were performed as follows: Frontal and lateral jerod rium, frontal and oblique bilateral ribs, frontal and lateral entire spine, frontal and lateral gurinder ri, frontal and lateral forearms, frontal and lateral femoral, frontal and lateral tibia and fibula, frontal pelvis, frontal chest. COMPARISON: CT scan of the chest done earlier the same day which demonstrated diffuse sclerosis th roughout the entire visualized skeleton. CT scan of the abdomen and pelvis dated 04/09/2018 which d emonstrated diffuse sclerosis throughout the entire visualized skeleton. FINDINGS: As seen on proper CT scan of the chest, abdomen, pelvis, there is diffuse sclerosis throughout the s pine, ribs, pelvis, and proximal femurs consistent with diffuse metastatic disease. There is some s paring of the calvarium, forearms, and calf bones. There is no pathologic fracture. IMPRESSION: 1. Diffuse skeletal sclerotic metastases. 2. No pathologic fracture. RPTAT: QQ .Brody Suarez MD, MD Date Time Electronically viewed and signed by .Brody Suarez MD, MD on 04/12/2017 09:23 .R/
[2017-04-12] MEDS: SOD CHLORIDE 0.9% 1,000 ML IV SCH ×3 (10:25→23:25)
--- NOTE | 2017-04-12 13:55 | PN ---
Date/Time of Note Date/Time of Note DATE: 04/12/17 TIME: 13:52 Assessment/Plan VTE Prophylaxis VTE Prophylaxis Intervention: contraindicated VTE Contraindication Reason: bleeding Lines/Catheters IV [facility] Peripheral IV Urinary Cath still in place: No Assessment/Plan Assessment/Plan ssessment * Anemia * EGD Large clearly malignant mass distal third of the esophagus. Multiple biopsies obtained Very large clearly malignant mass in the fundus of the stomach with extensive infiltration to the mid stomach. Biopsies obtained * Elevated transaminase * Schizophrenia * Multiple metastasis by bone scan Plan * continue present management * will await biopsy results * case discuss with Dr Pittman * Further orders will depend on clinical course Subjective 24 Hr Interval Summary Free Text/Dictation * Course reviewed with rn * patient seen and examined * latest hemoglobin 8.5 * stillll awaiting biopsy results Exam/Review of Systems Vital Signs Vitals Vital Signs Date Time Temp Pulse Resp B/P Pulse Ox O2 Delivery O2 Flow Rate FiO2 04/12/17 08:48 97.6 79 18 132/68 97 04/11/17 09:00 Nasal Cannula 2.0 Intake and Output 04/11/17 04/11/17 04/12/17 15:00 23:00 07:00 Intake Total 1400 ml 1050 ml Output Total 400 ml Balance 1000 ml 1050 ml Exam Constitutional: alert, frail Head: atraumatic, normocephalic Eyes: nl conjunctiva, nl lids, nl sclera Neck: non-tender, supple Respiratory: clear to auscultation, normal air movement Cardiovascular: nl pulses, regular rate and rhythm Gastrointestinal: non-tender, soft Musculoskeletal: nl extremities to inspection, nl gait and stance Extremities: normal pulses Neurological: nl mental status, nl speech Skin: nl turgor, No rash or lesions Lymph: nl lymph nodes Results Result Diagram: 04/12/17 0439 04/10/17 0433 Results 24 hrs Laboratory Tests Test 04/11/17 20:49 04/11/17 21:03 04/12/17 04:39 Bedside Glucose 192 White Blood Count 8.6 8.1 Red Blood Count 3.05 L 2.83 L Hemoglobin 9.4 L 8.5 L Hematocrit 31.0 L 28.2 L Mean Corpuscular Volume 101.6 H 99.6 Mean Corpuscular Hemoglobin 30.8 30.0 Mean Corpuscular Hemoglobin Concent 30.3 L 30.1 L Red Cell Distribution Width 26.5 H 26.5 H Platelet Count 109 L 106 L Mean Platelet Volume 11.1 H 11.2 H Neutrophils % 61.2 59.0 Lymphocytes % 24.6 25.3 Monocytes % 11.6 H 13.5 H Eosinophils % 0.2 0.4 Basophils % 0.8 0.7 Nucleated Red Blood Cells % 30.7 H 29.0 H Neutrophils # 5.2 4.8 Lymphocytes # 2.1 2.1 Monocytes # 1.0 H 1.1 H Eosinophils # 0.0 0.0 Basophils # 0.1 0.1 Nucleated Red Blood Cells # 2.6 H 2.4 H Medications Medications Current Medications Sodium Chloride (NS) 1,000 ml @ 75 mls/hr [id number] IV Last administered on 04/12 10:25; Admin Dose 75 MLS/HR; Start 04/09/17 at 15:25 Ondansetron HCl (Zofran Inj) 4 mg Q6H PRN IV NAUSEA AND/OR VOMITING Last administered on 04/12/17 12:04; Admin Dose 4 MG; Start 04/09/17 at 15:30 Acetaminophen (Tylenol Tab) 650 mg Q6H PRN PO PAIN LEVEL 1-3 OR FEVER Last administered on 04/09/17 21:08; Admin Dose 650 MG; Start 04/09/17 at 15:30 Acetaminophen (Tylenol Supp) 650 mg Q6H PRN [place] PAIN LEVEL 1-3 OR FEVER; Start 04/09/17 at 15:30 Morphine Sulfate (morphine) 2 mg Q4H PRN IV SEVERE PAIN LEVEL 7-10; Start at 15:30 Bupropion HCl (Wellbutrin Xl) 150 mg DAILY PO Last administered on 04/10/17 09: 54; Admin Dose 150 MG; Start 04/10/17 at 09:00 Thiothixene (Navane) 5 mg DAILY PO ; Start 04/10/17 at 09:00 Atorvastatin Calcium (Lipitor) 10 mg QHS PO ; Start 04/10/17 at 21:00 Pantoprazole (Protonix Iv) 40 mg DAILY@06 IV Last administered on 04/12/17 05: 28; Admin Dose 40 MG; Start 04/11/17 at 06:00 ALIREZA PENN NP Apr 12, 2017 13:55
[2017-04-12] MEDS ORDERED: FENTAnyl 50 MCG/ML VIAL ONE (14:41)
[2017-04-12] MEDS ORDERED: ONDANSETRON 4 MG INJ ONE (14:41)
[2017-04-12] MEDS ORDERED: MIDAZOLAM 1 MG/ML 2 ML INJ ONE (14:41)
[2017-04-12] MEDS ORDERED: LIDOCAINE 1% (MDV) 20 ML INJ ONE (14:41)
--- NOTE | 2017-04-12 15:15 | PN ---
Date/Time of Note Date/Time of Note DATE: 04/12/17 TIME: 15:14 Assessment/Plan VTE Prophylaxis VTE Prophylaxis Intervention: SCD's Lines/Catheters IV Catheter Type (from Nrs): Peripheral IV Urinary Cath still in place: No Assessment/Plan Assessment/Plan 61 yo M admitted for symptomatic anemia, EGD done yesterday with multiple malignant looking masses. Bone scan concerning for advanced malignancy PLAN onc already on consult. biopsy results pending defer gen surg/rad onc eval pending biopsy results cont home psych meds Subjective 24 Hr Interval Summary Free Text/Dictation Pt wondering what treatment options are. Dw pt that we don't know as we don't yet know what kind of cancer he has Exam/Review of Systems Vital Signs Vitals Vital Signs Date Time Temp Pulse Resp B/P Pulse Ox O2 Delivery O2 Flow Rate FiO2 04/12/17 14:30 97.5 106 18 140/67 95 04/11/17 09:00 Nasal Cannula 2.0 Intake and Output 04/11/17 04/11/17 04/12/17 15:00 23:00 07:00 Intake Total 1400 ml 1050 ml Output Total 400 ml Balance 1000 ml 1050 ml Exam sitting up in bed, nad no mrg lungs clear abd soft no rashes bone scan + for diffuse bone mets Results Result Diagram: 04/12/17 0439 04/10/17 0433 Results 24 hrs Laboratory Tests Test 04/11/17 20:49 04/11/17 21:03 04/12/17 04:39 Bedside Glucose 192 White Blood Count 8.6 8.1 Red Blood Count 3.05 L 2.83 L Hemoglobin 9.4 L 8.5 L Hematocrit 31.0 L 28.2 L Mean Corpuscular Volume 101.6 H 99.6 Mean Corpuscular Hemoglobin 30.8 30.0 Mean Corpuscular Hemoglobin Concent 30.3 L 30.1 L Red Cell Distribution Width 26.5 H 26.5 H Platelet Count 109 L 106 L Mean Platelet Volume 11.1 H 11.2 H Neutrophils % 61.2 59.0 Lymphocytes % 24.6 25.3 Monocytes % 11.6 H 13.5 H Eosinophils % 0.2 0.4 Basophils % 0.8 0.7 Nucleated Red Blood Cells % 30.7 H 29.0 H Neutrophils # 5.2 4.8 Lymphocytes # 2.1 2.1 Monocytes # 1.0 H 1.1 H Eosinophils # 0.0 0.0 Basophils # 0.1 0.1 Nucleated Red Blood Cells # 2.6 H 2.4 H Medications Medications Current Medications Sodium Chloride (NS) 1,000 ml @ 75 mls/hr [id number] IV Last administered on 04/12 10:25; Admin Dose 75 MLS/HR; Start 04/09/17 at 15:25 Ondansetron HCl (Zofran Inj) 4 mg Q6H PRN IV NAUSEA AND/OR VOMITING Last administered on 04/12/17 12:04; Admin Dose 4 MG; Start 04/09/17 at 15:30 Acetaminophen (Tylenol Tab) 650 mg Q6H PRN PO PAIN LEVEL 1-3 OR FEVER Last administered on 04/09/17 21:08; Admin Dose 650 MG; Start 04/09/17 at 15:30 Acetaminophen (Tylenol Supp) 650 mg Q6H PRN [place] PAIN LEVEL 1-3 OR FEVER; Start 04/09/17 at 15:30 Morphine Sulfate (morphine) 2 mg Q4H PRN IV SEVERE PAIN LEVEL 7-10; Start at 15:30 Bupropion HCl (Wellbutrin Xl) 150 mg DAILY PO Last administered on 04/10/17 09: 54; Admin Dose 150 MG; Start 04/10/17 at 09:00 Thiothixene (Navane) 5 mg DAILY PO ; Start 04/10/17 at 09:00 Atorvastatin Calcium (Lipitor) 10 mg QHS PO ; Start 04/10/17 at 21:00 Pantoprazole (Protonix Iv) 40 mg DAILY@06 IV Last administered on 04/12/17 05: 28; Admin Dose 40 MG; Start 04/11/17 at 06:00 CATHY TORRES MD Apr 12, 2017 15:15
--- NOTE | 2017-04-12 15:40 | RADRPT ---
PROCEDURE: CT guided bone marrow aspiration and left iliac bone biopsy. CLINICAL INDICATION: History of pancytopenia. Diffuse sclerotic bone lesions. TECHNIQUE: Informed consent was obtained. The procedure, risks, benefits, complications and alternatives were e xplained to the patient. Risks including bleeding and infection were explained. The patient understo od and was willing to proceed. A procedural pause was performed. The patient's name, date of , and procedure to be performed were verified. One or more of the following dose reduction techni ques were used: Automated exposure control, adjustment of the mA and/or kV according to patient size , use of iterative reconstruction technique. Using local anesthetic, sterile technique and CT guidance, an 11-gauge On Control bone biopsy needle was advanced into the left iliac bone via a posterior approach. Bone marrow aspiration was attempt ed twice and this yielded no bone marrow due to dense sclerosis. The bone biopsy needle was then ad vanced an additional 4 cm using the power drill device and tissue was obtained. Adequate tissue was obtained according to the pathologist present during the procedure. The needle was removed. A pos tprocedural scan was performed. A dressing was applied. The patient tolerated procedure well. COMPARISON: None. FINDINGS: Initial images demonstrate the tip of the needle at the posterior margin of the left iliac bone. Evans bsequent images demonstrate the needle within the bone. Post biopsy images demonstrate no immediate complication. IMPRESSION: 1. Successful CT guided bone marrow attempted aspiration and successful biopsy. RPTAT: QQ .Brody Suarez MD, Date Time Electronically viewed and signed by .Brody Suarez MD, MD on 04/12/2017 15:40 .R/
--- NOTE | 2017-04-12 19:08 | PN ---
DATE: 04/12/2017 SUBJECTIVE: Patient states he is feeling well. He has no new complaints. The patient has undergone a CT-guided needle biopsy of the left posterior iliac crest. Apparently tolerated the procedure well. It is unclear if both an aspirate and a biopsy were possible. The patient originally had refused the biopsy stating that he had not spoken with me about this procedure, but he was convinced by nursing to proceed with a biopsy. OBJECTIVE DATA: GENERAL: The patient is a well-developed, well-nourished male who is in no acute distress. VITAL SIGNS: Temperature 97.5 orally, pulse 102 per minute and regular, respirations 18, blood pressure 133/62, and pulse oximetry is 97 percent on 2 L of oxygen by nasal cannula. SKIN: Pale. No ecchymosis. No petechiae or rashes. HEENT: No mucosal lesions. No scleral icterus. The pupils equal, round, reactive and accommodation. Oral mucosa and conjunctivae are pale. There is nasal oxygen in place. NECK: Neck is supple. No jugular distention, or thyroid enlargement. CHEST: Clear to auscultation, percussion. No rhonchi, wheezes, rales, or rubs. There is no pain on percussion of spine, sternum, clavicles or ribs. BREASTS: No gynecomastia. HEART: Sinus tachycardia, No S3 or S4, murmurs, and no rubs. ABDOMEN: Soft. There is no masses or ascites. Bowel sounds are active. EXTREMITIES: Good range of motion. No clubbing. No edema or cyanosis. No palpable cords or Arnulfo's sign. NEUROLOGIC: Normal and there are no focal neurologic abnormalities. The patient does have a somewhat flat affect and also stuttering speech. LABORATORY: White count today is 8100. There are 59 percent neutrophils, 25 percent lymphocytes, 13 percent monocytes, and 29 percent nucleated red blood cells. IMAGING: A CT scan of the chest has been done. This reveals moderate pleural effusions bilaterally. There seems to be diffuse foci of calcification. There are no pulmonary nodules or masses. There is no mediastinal or hilar lymphadenopathy noted. The upper abdomen included in this study does show some ascites. There is also the diffuse sclerotic appearance of all the visualized skeletal structures. ASSESSMENT: 1. Anemia with a leukoerythroblastic peripheral blood picture. Bone marrow aspiration and biopsy have been performed and will likely reveal the results. 2. Abnormal bone scan consistent with metastatic carcinoma. 3. Esophageal and gastric lesions. 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 The gastric biopsy does not reveal any gastric mucosa. The esophageal biopsy does reveal that there is esophageal epithelium present. There is an ulcer in the esophagus with the signet ring carcinoma invading. The stains are negative for Helicobacter pylori. I have discussed the situation with Dr. Mahoney, who is a pathologist who has interpreted this. I have told him about my concern regarding the diffuse osteoblastic skeletal metastases, most consistent with prostate carcinoma. He will perform stains to rule out prostate carcinoma. I am still concerned that this patient has 2 separate malignancies, although the diffuse sclerotic skeletal disease may be due to metastatic GI carcinoma. I have talked to the patient's sister, Mrs. Laurie Schaefer who has described the fact that the patient has had persistent nausea and vomiting and weight loss in the past several months. Dictated By: Shyam Cuevas MD /angelika/rebecca /Document#: [id number]
[2017-04-12] MEDS: ATORVASTATIN 10 MG TAB PO SCH (20:49)
[2017-04-13 02:30] VITALS: BP 141/66; PULSE 106; RESP 18
[2017-04-13] MEDS: PANTOPRAZOLE 40 MG INJ IV SCH (06:12)
[2017-04-13] MEDS: SOD CHLORIDE 0.9% 1,000 ML IV SCH (06:13)
[2017-04-13 06:47] LABS: ALBUMIN/GLOBULIN RATIO 0.88
[2017-04-13 06:48] LABS: ALBUMIN 2.2 g/dl (3.3-4.9); BILIRUBIN,INDIRECT 0.6 mg/dl (0-1.1); BILIRUBIN,TOTAL 0.6 mg/dl (0.2-1.3); CALCIUM 7.9 mg/dl (8.4-10.2); CREATININE 1.22 mg/dl (0.61-1.24); TOTAL PROTEIN 4.7 g/dl (6.1-8.1); URIC ACID 8.6 mg/dl (3.1-7.9)
[2017-04-13 08:38] VITALS: BP 130/73; RESP 18
--- NOTE | 2017-04-13 09:20 | PN ---
Date/Time of Note Date/Time of Note DATE: 04/13/17 TIME: 09:16 Assessment/Plan VTE Prophylaxis VTE Prophylaxis Intervention: SCD's Lines/Catheters IV Catheter Type (from [facility]): Peripheral IV Urinary Cath still in place: No Assessment/Plan Assessment/Plan Anemia * EGD Large clearly malignant mass distal third of the esophagus. Multiple biopsies obtained Very large clearly malignant mass in the fundus of the stomach with extensive infiltration to the mid stomach. Biopsies obtained Biopsy result A-Gastric fundus biopsies: -- Infiltrating (diffuse), signet ring cell carcinoma. -- A Giemsa stain with an appropriate control is negative for Helicobacter pylori organisms. -- Mild chronic gastritis. -- No intestinal metaplasia is identified. B-Esophageal biopsies: -- An ulcer base with infiltrating (diffuse), signet ring cell carcinoma. -- Esophageal epithelium is present. * Schizophrenia * Multiple metastasis by bone scan Plan * continue present management * will other await biopsy results * Hemaoncology on board * case discuss with Dr Pittman * Further orders will depend on clinical course Subjective 24 Hr Interval Summary Free Text/Dictation * Course reviewed with RN * Patient seen and examined * Awaiting CT guided biopsy bone marrow * Biopsy results A-Gastric fundus biopsies: -- Infiltrating (diffuse), signet ring cell carcinoma. -- A Giemsa stain with an appropriate control is negative for Helicobacter pylori organisms. -- Mild chronic gastritis. -- No intestinal metaplasia is identified. B-Esophageal biopsies: -- An ulcer base with infiltrating (diffuse), signet ring cell carcinoma. -- Esophageal epithelium is present. Exam/Review of Systems Vital Signs Vitals Vital Signs Date Time Temp Pulse Resp B/P Pulse Ox O2 Delivery O2 Flow Rate FiO2 04/13/17 08:38 97.6 110 18 130/73 96 04/13/17 02:30 Nasal Cannula 2.0 Intake and Output 04/12/17 04/12/17 04/13/17 15:00 23:00 07:00 Intake Total 650 ml 1600 ml Output Total 100 ml Balance 650 ml -100 ml 1600 ml Exam Constitutional: alert, frail Neck: non-tender, supple Respiratory: clear to auscultation, normal air movement Cardiovascular: nl pulses, regular rate and rhythm Musculoskeletal: nl extremities to inspection, nl gait and stance Extremities: normal pulses Neurological: nl speech Skin: nl turgor, rash or lesions Lymph: nl lymph nodes Results Result Diagram: 04/12/17 0439 04/13/17 0451 Results 24 hrs Laboratory Tests Test 04/13/17 03:20 04/13/17 04:51 Stool Occult Blood POSITIVE Sodium Level 142 Potassium Level 4.0 Chloride Level 111 H Carbon Dioxide Level 20 L Anion Gap 15 Blood Urea Nitrogen 35 H Creatinine 1.22 Glucose Level 111 Uric Acid 8.6 H Calcium Level 7.9 L Total Bilirubin 0.6 Direct Bilirubin 0.00 Indirect Bilirubin 0.6 Aspartate Amino Transf (AST/SGOT) 76 H Alanine Aminotransferase (ALT/SGPT) 78 H Alkaline Phosphatase 1062 H Lactate Dehydrogenase 1192 H Total Protein 4.7 L Albumin 2.2 L Globulin 2.50 Albumin/Globulin Ratio 0.88 Medications Medications Current Medications Sodium Chloride (NS) 1,000 ml @ 75 mls/hr [id number] IV Last administered on 04/13 06:13; Admin Dose 75 MLS/HR; Start 04/09/17 at 15:25 Ondansetron HCl (Zofran Inj) 4 mg Q6H PRN IV NAUSEA AND/OR VOMITING Last administered on 04/12/17 12:04; Admin Dose 4 MG; Start 04/09/17 at 15:30 Acetaminophen (Tylenol Tab) 650 mg Q6H PRN PO PAIN LEVEL 1-3 OR FEVER Last administered on 04/09/17 21:08; Admin Dose 650 MG; Start 04/09/17 at 15:30 Acetaminophen (Tylenol Supp) 650 mg Q6H PRN [place] PAIN LEVEL 1-3 OR FEVER; Start 04/09/17 at 15:30 Morphine Sulfate (morphine) 2 mg Q4H PRN IV SEVERE PAIN LEVEL 7-10; Start at 15:30 Bupropion HCl (Wellbutrin Xl) 150 mg DAILY PO Last administered on 04/12/17 20 :49; Admin Dose 150 MG; Start 04/10/17 at 09:00 Thiothixene (Navane) 5 mg DAILY PO Last administered on 04/12/17 20:49; Admin Dose 5 MG; Start 04/10/17 at 09:00 Atorvastatin Calcium (Lipitor) 10 mg QHS PO ; Start 04/10/17 at 21:00 Pantoprazole (Protonix Iv) 40 mg DAILY@06 IV Last administered on 04/13/17 06: 12; Admin Dose 40 MG; Start 04/11/17 at 06:00 ALIREZA PENN NP Apr 13, 2017 09:20
[2017-04-13] MEDS: BUPROPION (XL) 150 MG TAB PO SCH (09:44)
[2017-04-13] MEDS: THIOTHIXENE 5 MG CAP PO SCH (09:44)
--- NOTE | 2017-04-13 10:14 | PN ---
DATE: 04/13/2017 SUBJECTIVE: The patient has no complaints, although he would like to be out of bed. He is not complaining of bone pain. No nausea or vomiting at this time. OBJECTIVE DATA: GENERAL: Physical examination unchanged. The patient is a well- developed, well-nourished male who is in no acute distress. VITAL SIGNS: Temperature 97.6, pulse 110 per minute and regular, respirations 18, blood pressure 130/75, pulse oximetry 95 percent on room air. As noted, physical exam is unchanged. There are no palpable masses or ascites. LABORATORY STUDIES: Sodium 142, potassium 4, BUN 35, creatinine 1.22. Alkaline phosphatase 1062. LDH 1092. Total bilirubin is 0.6. Direct bilirubin is 0. AST 76, ALT 75. ASSESSMENT AND PLAN: 1. Adenocarcinoma of gastroesophageal junction. 2. Diffuse osteoblastic bone metastases, etiology unknown. The patient did have a bone marrow aspiration and biopsy done yesterday. This was a "dry tap". This is not unexpected given the fact that the patient has the leukoerythroblastic peripheral blood picture suggesting bone marrow infiltration by tumor. The biopsy will be available today. Hopefully, it contains some metastatic cells so that we could differentiate a prostatic carcinoma from the GI malignancy the patient has already been diagnosed with. As previously noted, the radiographic picture is that of a metastatic prostate carcinoma. The patient does have prostatic enlargement, but the PSA is only 4.4. Hopefully, there will be malignant cells in the bone marrow sample which immunohistochemical stains can be done in order to determine the their etiology. The patient will require chemotherapy for the tumor of the gastroesophageal junction. It is unclear whether or not the patient should receive chemo and radiation in conjunction. This will depend somewhat on as to whether or not the bony lesions are metastatic GI malignancy or a metastatic prostate carcinoma. Dictated By: Shyam Cuevas MD /[email or web address]/ec /Document#: [id number]
--- NOTE | 2017-04-13 11:59 | PN ---
Date/Time of Note Date/Time of Note DATE: 04/13/17 TIME: 11:56 Assessment/Plan VTE Prophylaxis VTE Prophylaxis Intervention: SCD's Lines/Catheters IV Catheter Type (from Nrs): Peripheral IV Urinary Cath still in place: No Assessment/Plan Assessment/Plan Assessment/Plan 61 yo M admitted for symptomatic anemia, EGD done yesterday with multiple malignant looking masses. Bone scan concerning for advanced malignancy PLAN awaiting biopsy results - Dr.Stanley Cuevas to decide about it Hb stable, will continue to monitor and decide for transfusion prn Low Hb IVF NS at 75 cc/hr- pt is still on full liquids, will advance diet as tolerated to regular diet Subjective 24 Hr Interval Summary Free Text/Dictation awaiting biopsy report today, H & O Dr.Stanley Cuevas has been following Exam/Review of Systems Vital Signs Vitals Vital Signs Date Time Temp Pulse Resp B/P Pulse Ox O2 Delivery O2 Flow Rate FiO2 04/13/17 08:38 97.6 110 18 130/73 96 04/13/17 02:30 Nasal Cannula 2.0 Intake and Output 04/12/17 04/12/17 04/13/17 15:00 23:00 07:00 Intake Total 650 ml 1600 ml Output Total 100 ml Balance 650 ml -100 ml 1600 ml Exam sitting up in bed, nad no mrg lungs clear abd soft no rashes bone scan + for diffuse bone mets Results Result Diagram: 04/12/17 0439 04/13/17 0451 Results 24 hrs Laboratory Tests Test 04/13/17 03:20 04/13/17 04:51 Stool Occult Blood POSITIVE Sodium Level 142 Potassium Level 4.0 Chloride Level 111 H Carbon Dioxide Level 20 L Anion Gap 15 Blood Urea Nitrogen 35 H Creatinine 1.22 Glucose Level 111 Uric Acid 8.6 H Calcium Level 7.9 L Total Bilirubin 0.6 Direct Bilirubin 0.00 Indirect Bilirubin 0.6 Aspartate Amino Transf (AST/SGOT) 76 H Alanine Aminotransferase (ALT/SGPT) 78 H Alkaline Phosphatase 1062 H Lactate Dehydrogenase 1192 H Total Protein 4.7 L Albumin 2.2 L Globulin 2.50 Albumin/Globulin Ratio 0.88 Medications Medications Current Medications Sodium Chloride (NS) 1,000 ml @ 75 mls/hr [id number] IV Last administered on 04/13t 06:13; Admin Dose 75 MLS/HR; Start 04/09/17 at 15:25 Ondansetron HCl (Zofran Inj) 4 mg Q6H PRN IV NAUSEA AND/OR VOMITING Last administered on 04/12/17 12:04; Admin Dose 4 MG; Start 04/09/17 at 15:30 Acetaminophen (Tylenol Tab) 650 mg Q6H PRN PO PAIN LEVEL 1-3 OR FEVER Last administered on 04/09/17 21:08; Admin Dose 650 MG; Start 04/09/17 at 15:30 Acetaminophen (Tylenol Supp) 650 mg Q6H PRN [place] PAIN LEVEL 1-3 OR FEVER; Start 04/09/17 at 15:30 Morphine Sulfate (morphine) 2 mg Q4H PRN IV SEVERE PAIN LEVEL 7-10; Start at 15:30 Bupropion HCl (Wellbutrin Xl) 150 mg DAILY PO Last administered on 04/13/17 09 :44; Admin Dose 150 MG; Start 04/10/17 at 09:00 Thiothixene (Navane) 5 mg DAILY PO Last administered on 04/13/17 09:44; Admin Dose 5 MG; Start 04/10/17 at 09:00 Atorvastatin Calcium (Lipitor) 10 mg QHS PO ; Start 04/10/17 at 21:00 Pantoprazole (Protonix Iv) 40 mg DAILY@06 IV Last administered on 04/13/17 06: 12; Admin Dose 40 MG; Start 04/11/17 at 06:00 JAZIEL ROBERTS MD Apr 13, 2017 11:59
[2017-04-13 15:43] VITALS: BP 136/79; RESP 18
[2017-04-13 20:15] VITALS: BP 130/76; RESP 22
[2017-04-13] MEDS: ATORVASTATIN 10 MG TAB PO SCH (21:00)
[2017-04-13] MEDS ORDERED: LORAZEPAM 2 MG INJ IV ONE (22:30)
[2017-04-14 03:36] VITALS: BP_SYST 133; BP_SYST 166; BP_DIAS 74; BP_DIAS 99; RESP 22
[2017-04-14] MEDS: PANTOPRAZOLE 40 MG INJ IV SCH (05:25)
[2017-04-14 05:52] LABS: INR 1.39; PROTIME 17.1 Sec (12.2-14.2); PT RATIO 1.3
[2017-04-14 05:53] LABS: ABNORMAL IP MESSAGE 1; BASOPHILS % 0.3 % (0.0-2.0); EOSINOPHILS % 0.2 % (0.0-7.0); HEMATOCRIT 27.2 % (42.0-52.0); HEMOGLOBIN 8.6 g/dl (14.0-18.0); LYMPHOCYTES # 1.6 10^3/ul (0.8-2.9); LYMPHOCYTES % 18.2 % (15.0-51.0); MEAN CORPUSCULAR HGB CONC 31.6 g/dl (32.0-37.0); MEAN CORPUSCULAR VOLUME 98.2 fl (82.0-101.0); MEAN PLATELET VOLUME 11.5 fl (7.4-10.4); MONOCYTES % 11.6 % (0.0-11.0); NEUTROPHILS % 68.8 % (39.0-77.0); NUCLEATED RED BLOOD CELLS # 1.2 10^3/ul (0.0-0.0); PLATELET COUNT 102 10^3/UL (140-415); POSITIVE DIFF @See below; RED BLOOD COUNT 2.77 10^6/ul (4.70-6.10); RED CELL DISTRIBUTION WIDTH 25.2 % (11.5-14.5); WHITE BLOOD COUNT 8.7 10^3/ul (4.8-10.8)
[2017-04-14 05:57] LABS: BILIRUBIN,INDIRECT 0.7 mg/dl (0-1.1); BILIRUBIN,TOTAL 0.7 mg/dl (0.2-1.3); CALCIUM 8.1 mg/dl (8.4-10.2); CREATININE 1.56 mg/dl (0.61-1.24); POTASSIUM 4.1 mmol/L (3.5-5.1)
[2017-04-14 05:58] LABS: ALBUMIN 2.3 g/dl (3.3-4.9); ALBUMIN/GLOBULIN RATIO 0.92; TOTAL PROTEIN 4.8 g/dl (6.1-8.1)
[2017-04-14 08:05] VITALS: BP 135/69; RESP 20
[2017-04-14] MEDS: BUPROPION (XL) 150 MG TAB PO SCH (09:46)
[2017-04-14] MEDS: THIOTHIXENE 5 MG CAP PO SCH (09:46)
--- NOTE | 2017-04-14 10:42 | PN ---
Date/Time of Note Date/Time of Note DATE: 04/14/17 TIME: 10:40 Assessment/Plan VTE Prophylaxis VTE Prophylaxis Intervention: SCD's Lines/Catheters IV Catheter Type (from [facility]): Saline Lock Urinary Cath still in place: No Assessment/Plan Assessment/Plan Anemia * EGD Large clearly malignant mass distal third of the esophagus. Multiple biopsies obtained Very large clearly malignant mass in the fundus of the stomach with extensive infiltration to the mid stomach. Biopsies obtained Biopsy result A-Gastric fundus biopsies: -- Infiltrating (diffuse), signet ring cell carcinoma. -- A Giemsa stain with an appropriate control is negative for Helicobacter pylori organisms. -- Mild chronic gastritis. -- No intestinal metaplasia is identified. B-Esophageal biopsies: -- An ulcer base with infiltrating (diffuse), signet ring cell carcinoma. -- Esophageal epithelium is present. * Schizophrenia * Multiple metastasis by bone scan Plan * continue present management * will other await biopsy results * Hemaoncology on board * case discuss with Dr Pittman * Further orders will depend on clinical course Subjective 24 Hr Interval Summary Free Text/Dictation * Course reviewed with RN * Patient seen and examined * NO untoward events overnight * Awaiting biopsy result Exam/Review of Systems Vital Signs Vitals Vital Signs Date Time Temp Pulse Resp B/P Pulse Ox O2 Delivery O2 Flow Rate FiO2 04/14/17 08:05 97.9 109 20 135/69 96 04/13/17 19:44 Nasal Cannula 2.0 Intake and Output 04/13/17 04/13/17 04/14/17 15:00 23:00 07:00 Intake Total 1830 ml 1020 ml Balance 1830 ml 1020 ml Exam Constitutional: frail Neck: non-tender, supple Respiratory: clear to auscultation, normal air movement Cardiovascular: nl pulses, regular rate and rhythm Gastrointestinal: non-tender, soft Musculoskeletal: nl extremities to inspection, nl gait and stance Extremities: normal pulses Neurological: nl speech Skin: nl turgor, No rash or lesions Lymph: nl lymph nodes Results Result Diagram: 04/14/17 0453 04/14/17 0453 Results 24 hrs Laboratory Tests Test 04/14/17 04:53 White Blood Count 8.7 Red Blood Count 2.77 L Hemoglobin 8.6 L Hematocrit 27.2 L Mean Corpuscular Volume 98.2 Mean Corpuscular Hemoglobin 31.0 Mean Corpuscular Hemoglobin Concent 31.6 L Red Cell Distribution Width 25.2 H Platelet Count 102 L Mean Platelet Volume 11.5 H Neutrophils % 68.8 Lymphocytes % 18.2 Monocytes % 11.6 H Eosinophils % 0.2 Basophils % 0.3 Nucleated Red Blood Cells % 14.0 H Neutrophils # 6.0 Lymphocytes # 1.6 Monocytes # 1.0 H Eosinophils # 0.0 Basophils # 0.0 Nucleated Red Blood Cells # 1.2 H Prothrombin Time 17.1 H Prothrombin Time Ratio 1.3 INR International Normalized Ratio 1.39 Activated Partial Thromboplast Time 32.0 Sodium Level 137 Potassium Level 4.1 Chloride Level 107 Carbon Dioxide Level 17 L Anion Gap 17 H Blood Urea Nitrogen 44 H Creatinine 1.56 H Glucose Level 108 Calcium Level 8.1 L Total Bilirubin 0.7 Direct Bilirubin 0.00 Indirect Bilirubin 0.7 Aspartate Amino Transf (AST/SGOT) 74 H Alanine Aminotransferase (ALT/SGPT) 81 H Alkaline Phosphatase 1068 H Total Protein 4.8 L Albumin 2.3 L Globulin 2.50 Albumin/Globulin Ratio 0.92 Medications Medications Current Medications Ondansetron HCl (Zofran Inj) 4 mg Q6H PRN IV NAUSEA AND/OR VOMITING Last administered on 04/12/17 12:04; Admin Dose 4 MG; Start 04/09/17 at 15:30 Acetaminophen (Tylenol Tab) 650 mg Q6H PRN PO PAIN LEVEL 1-3 OR FEVER Last administered on 04/09/17 21:08; Admin Dose 650 MG; Start 04/09/17 at 15:30 Acetaminophen (Tylenol Supp) 650 mg Q6H PRN [place] PAIN LEVEL 1-3 OR FEVER; Start 04/09/17 at 15:30 Morphine Sulfate (morphine) 2 mg Q4H PRN IV SEVERE PAIN LEVEL 7-10; Start at 15:30 Bupropion HCl (Wellbutrin Xl) 150 mg DAILY PO Last administered on 04/14/17 09 :46; Admin Dose 150 MG; Start 04/10/17 at 09:00 Thiothixene (Navane) 5 mg DAILY PO Last administered on 04/14/17 09:46; Admin Dose 5 MG; Start 04/10/17 at 09:00 Atorvastatin Calcium (Lipitor) 10 mg QHS PO ; Start 04/10/17 at 21:00 Pantoprazole (Protonix Iv) 40 mg DAILY@06 IV Last administered on 04/14/17t 05: 25; Admin Dose 40 MG; Start 04/11/17 at 06:00 ALIREZA PENN NP Apr 14, 2017 10:42
--- NOTE | 2017-04-14 10:51 | PN ---
Date/Time of Note Date/Time of Note DATE: 04/14/17 TIME: 10:46 Assessment/Plan VTE Prophylaxis VTE Prophylaxis Intervention: SCD's Lines/Catheters IV Catheter Type (from [facility]): Saline Lock Urinary Cath still in place: No Assessment/Plan Assessment/Plan 61 yo M admitted for symptomatic anemia, EGD done yesterday with multiple malignant looking masses. Bone scan concerning for advanced malignancy PLAN Biopsy showed Infiltrating (diffuse), signet ring cell carcinoma Hb stable, will continue to monitor and decide for transfusion prn Low Hb IVF stopped, hep loc, Tolerating diet well Tele psych consult requested to adjust his psych medications Subjective 24 Hr Interval Summary Free Text/Dictation Hb stable around 8.6, Cr bumped to 1.56, BP stable Exam/Review of Systems Vital Signs Vitals Vital Signs Date Time Temp Pulse Resp B/P Pulse Ox O2 Delivery O2 Flow Rate FiO2 04/14/17 08:05 97.9 109 20 135/69 96 04/13/17 19:44 Nasal Cannula 2.0 Intake and Output 04/13/17 04/13/17 04/14/17 15:00 23:00 07:00 Intake Total 1830 ml 1020 ml Balance 1830 ml 1020 ml Exam Constitutional: alert Psych: no complaints Head: normocephalic Eyes: nl conjunctiva ENMT: nl external ears & nose Neck: supple Respiratory: clear to auscultation, diminished breath sounds, normal air movement Cardiovascular: nl pulses, regular rate and rhythm Gastrointestinal: non-tender, soft Neurological: GUEST SERVICES ASSISTANT II-XII intact Skin: nl turgor Lymph: nl lymph nodes Results Result Diagram: 04/14/17 0453 04/14/17 0453 Results 24 hrs Laboratory Tests Test 04/14/17 04:53 White Blood Count 8.7 Red Blood Count 2.77 L Hemoglobin 8.6 L Hematocrit 27.2 L Mean Corpuscular Volume 98.2 Mean Corpuscular Hemoglobin 31.0 Mean Corpuscular Hemoglobin Concent 31.6 L Red Cell Distribution Width 25.2 H Platelet Count 102 L Mean Platelet Volume 11.5 H Neutrophils % 68.8 Lymphocytes % 18.2 Monocytes % 11.6 H Eosinophils % 0.2 Basophils % 0.3 Nucleated Red Blood Cells % 14.0 H Neutrophils # 6.0 Lymphocytes # 1.6 Monocytes # 1.0 H Eosinophils # 0.0 Basophils # 0.0 Nucleated Red Blood Cells # 1.2 H Prothrombin Time 17.1 H Prothrombin Time Ratio 1.3 INR International Normalized Ratio 1.39 Activated Partial Thromboplast Time 32.0 Sodium Level 137 Potassium Level 4.1 Chloride Level 107 Carbon Dioxide Level 17 L Anion Gap 17 H Blood Urea Nitrogen 44 H Creatinine 1.56 H Glucose Level 108 Calcium Level 8.1 L Total Bilirubin 0.7 Direct Bilirubin 0.00 Indirect Bilirubin 0.7 Aspartate Amino Transf (AST/SGOT) 74 H Alanine Aminotransferase (ALT/SGPT) 81 H Alkaline Phosphatase 1068 H Total Protein 4.8 L Albumin 2.3 L Globulin 2.50 Albumin/Globulin Ratio 0.92 Medications Medications Current Medications Ondansetron HCl (Zofran Inj) 4 mg Q6H PRN IV NAUSEA AND/OR VOMITING Last administered on 04/12/17 12:04; Admin Dose 4 MG; Start 04/09/17 at 15:30 Acetaminophen (Tylenol Tab) 650 mg Q6H PRN PO PAIN LEVEL 1-3 OR FEVER Last administered on 04/09/17 21:08; Admin Dose 650 MG; Start 04/09/17 at 15:30 Acetaminophen (Tylenol Supp) 650 mg Q6H PRN [place] PAIN LEVEL 1-3 OR FEVER; Start 04/09/17 at 15:30 Morphine Sulfate (morphine) 2 mg Q4H PRN IV SEVERE PAIN LEVEL 7-10; Start at 15:30 Bupropion HCl (Wellbutrin Xl) 150 mg DAILY PO Last administered on 04/14/17 09 :46; Admin Dose 150 MG; Start 04/10/17 at 09:00 Thiothixene (Navane) 5 mg DAILY PO Last administered on 04/14/17 09:46; Admin Dose 5 MG; Start 04/10/17 at 09:00 Atorvastatin Calcium (Lipitor) 10 mg QHS PO ; Start 04/10/17 at 21:00 Pantoprazole (Protonix Iv) 40 mg DAILY@06 IV Last administered on 04/14/17 05: 25; Admin Dose 40 MG; Start 04/11/17 at 06:00 JAZIEL ROBERTS MD Apr 14, 2017 10:50
[2017-04-14] MEDS ORDERED: ONDANSETRON 4 MG INJ IV PRN (13:30)
[2017-04-14 15:44] VITALS: BP 139/79; RESP 20
--- NOTE | 2017-04-14 17:19 | PN ---
Date/Time of Note Date/Time of Note DATE: 04/14/17 TIME: 17:15 Assessment/Plan VTE Prophylaxis VTE Prophylaxis Intervention: heparin Lines/Catheters IV [facility] (from [facility] Saline Lock Urinary Cath still in place: No Assessment/Plan Assessment/Plan Patient is a 61 year old man with schizophrenia and 1. Adenocarcinoma of gastroesophageal junction. 2. Diffuse osteoblastic bone metastases, etiology unknown. >Bone Metastases The patient did have a bone marrow aspiration and biopsy done . This was a "dry tap". This is not unexpected given the fact that the patient has the leukoerythroblastic peripheral blood picture suggesting bone marrow infiltration by tumor. The biopsy is still unavailable. Hopefully, it contains some metastatic cells so that we could differentiate a prostatic carcinoma from the GI malignancy the patient has already been diagnosed with. As previously noted, the radiographic picture is that of a metastatic prostate carcinoma. The patient does have prostatic enlargement, but the PSA is only 4.4. Moreover for a gastrointestinal tumor to skip to bone without liver or lung metastases would be unusual. >Gastroesophageal carcinoma The patient will require chemotherapy for the tumor of the gastroesophageal junction. It is unclear whether or not the patient should receive chemo and radiation in conjunction. This will depend somewhat on as to whether or not the bony lesions are metastatic GI malignancy or a metastatic prostate carcinoma. D/W RN Subjective 24 Hr Interval Summary Free Text/Dictation Patient awake, alert. Denies any hallucinations nor delusions Exam/Review of Systems Vital Signs Vitals Vital Signs Date Time Temp Pulse Resp B/P Pulse Ox O2 Delivery O2 Flow Rate FiO2 04/14/17 15:44 97.9 115 20 139/79 95 04/13/17 19:44 Nasal Cannula 2.0 Intake and Output 04/13/17 04/13/17 04/14/17 14:59 22:59 06:59 Intake Total 1830 ml 1020 ml Balance 1830 ml 1020 ml Exam Constitutional: alert, oriented Psych: nl mood/affect, no complaints Eyes: EOMI, nl conjunctiva Neck: non-tender, supple Respiratory: clear to auscultation, normal air movement Cardiovascular: nl pulses, regular rate and rhythm Gastrointestinal: non-tender, soft Extremities: normal pulses, No other, No palpable cord, No pitting pedal edema, No tenderness Results Result Diagram: 04/14/17 0453 04/14/17 045 Results 24 hrs Laboratory Tests Test 04/14/17 04:53 White Blood Count 8.7 Red Blood Count 2.77 L Hemoglobin 8.6 L Hematocrit 27.2 L Mean Corpuscular Volume 98.2 Mean Corpuscular Hemoglobin 31.0 Mean Corpuscular Hemoglobin Concent 31.6 L Red Cell Distribution Width 25.2 H Platelet Count 102 L Mean Platelet Volume 11.5 H Neutrophils % 68.8 Lymphocytes % 18.2 Monocytes % 11.6 H Eosinophils % 0.2 Basophils % 0.3 Nucleated Red Blood Cells % 14.0 H Neutrophils # 6.0 Lymphocytes # 1.6 Monocytes # 1.0 H Eosinophils # 0.0 Basophils # 0.0 Nucleated Red Blood Cells # 1.2 H Prothrombin Time 17.1 H Prothrombin Time Ratio 1.3 INR International Normalized Ratio 1.39 Activated Partial Thromboplast Time 32.0 Sodium Level 137 Potassium Level 4.1 Chloride Level 107 Carbon Dioxide Level 17 L Anion Gap 17 H Blood Urea Nitrogen 44 H Creatinine 1.56 H Glucose Level 108 Calcium Level 8.1 L Total Bilirubin 0.7 Direct Bilirubin 0.00 Indirect Bilirubin 0.7 Aspartate Amino Transf (AST/SGOT) 74 H Alanine Aminotransferase (ALT/SGPT) 81 H Alkaline Phosphatase 1068 H Total Protein 4.8 L Albumin 2.3 L Globulin 2.50 Albumin/Globulin Ratio 0.92 Medications Medications Current Medications Acetaminophen (Tylenol Tab) 650 mg Q6H PRN PO PAIN LEVEL 1-3 OR FEVER Last administered on 04/09/17 21:08; Admin Dose 650 MG; Start 04/09/17 at 15:30 Acetaminophen (Tylenol Supp) 650 mg Q6H PRN [place] PAIN LEVEL 1-3 OR FEVER; Start 04/09/17 at 15:30 Morphine Sulfate (morphine) 2 mg Q4H PRN IV SEVERE PAIN LEVEL 7-10; Start at 15:30 Bupropion HCl (Wellbutrin Xl) 150 mg DAILY PO Last administered on 04/14/17 09 :46; Admin Dose 150 MG; Start 04/10/17 at 09:00 Thiothixene (Navane) 5 mg DAILY PO Last administered on 04/14/17 09:46; Admin Dose 5 MG; Start 04/10/17 at 09:00 Atorvastatin Calcium (Lipitor) 10 mg QHS PO ; Start 04/10/17 at 21:00 Pantoprazole (Protonix Iv) 40 mg DAILY@06 IV Last administered on 04/14/17t 05: 25; Admin Dose 40 MG; Start 04/11/17 at 06:00 Ondansetron HCl (Zofran Inj) 4 mg Q4H PRN IV NAUSEA AND/OR VOMITING; Start 08/19 at 13:30 URBAN BARAJAS MD Apr 14, 2017 17:19
[2017-04-14 20:56] VITALS: BP 121/68; RESP 22
[2017-04-14] MEDS: ATORVASTATIN 10 MG TAB PO SCH (21:00)
[2017-04-14] MEDS: GUAIFENESIN 20 MG/ML 5ML CUP PO PRN (21:59)
[2017-04-14 23:00] VITALS: BP 135/72; PULSE 126; RESP 22
[2017-04-14] MEDS ORDERED: FUROSEMIDE 40 MG INJ IV ONE (23:00)
[2017-04-14] MEDS ORDERED: METOPROLOL 25 MG TAB PO ONE (23:30)
--- NOTE | 2017-04-14 23:40 | RADRPT ---
PROCEDURE: Portable chest x-ray. CLINICAL INDICATION: 61-year male cough TECHNIQUE: Portable AP view of the chest. COMPARISON: Chest x-ray on the [address] April 11, 2017 FINDINGS: Cardiomediastinal contours are normal. There are are increased interstitial markings in the lung parenchyma with a perihilar distribution a nd there are opacities in bilateral lower lobes that have increased since prior chest x-ray. Bilate ral pleural effusions seen on chest CT are not well seen on x-ray. Parenchymal calcifications in th e lower lobes seen on chest CT are also not well seen on x-ray. Negative for pneumothorax. There is diffuse bone sclerosis. IMPRESSION: Increased interstitial markings and bilateral lower lobe infiltrates are increased since prior chest x-ray performed April 09, 2017 that may be due to pulmonary edema or infection. Bilateral pleural effusions seen on recent chest CT are less well seen on x-ray. Negative for pneum othorax. Diffuse of bony sclerosis. Differential diagnosis includes, but is not limited to, renal osteodystr ophy, anemias, metastatic disease, Paget's disease or myelofibrosis. RPTAT: HCTS Physician Christine Date Time Electronically viewed and signed by Physician Christine on 04/14/2017 23:39 /
[2017-04-14 23:44] LABS: ABNORMAL IP MESSAGE 1; BASOPHILS % 0.3 % (0.0-2.0); EOSINOPHILS % 0.1 % (0.0-7.0); HEMATOCRIT 29.2 % (42.0-52.0); LYMPHOCYTES # 1.3 10^3/ul (0.8-2.9); LYMPHOCYTES % 14.4 % (15.0-51.0); MEAN CORPUSCULAR HEMOGLOBIN 30.2 pg (29.0-33.0); MEAN CORPUSCULAR HGB CONC 30.8 g/dl (32.0-37.0); MEAN PLATELET VOLUME 11.5 fl (7.4-10.4); MONOCYTE # 1.1 10^3/ul (0.3-0.9); MONOCYTES % 12.1 % (0.0-11.0); NEUTROPHIL # 6.4 10^3/ul (1.6-7.5); NEUTROPHILS % 72.4 % (39.0-77.0); NUCLEATED RED BLOOD CELLS # 1.1 10^3/ul (0.0-0.0); NUCLEATED RED BLOOD CELLS% 11.8 /100WBC (0.0-0.0); PLATELET COUNT 94 10^3/UL (140-415); POSITIVE DIFF @See below; RED BLOOD COUNT 2.98 10^6/ul (4.70-6.10); RED CELL DISTRIBUTION WIDTH 25.2 % (11.5-14.5); WHITE BLOOD COUNT 8.9 10^3/ul (4.8-10.8)
[2017-04-15] VITALS (11 sets, daily range): BP systolic 96–128; BP diastolic 56–72; PULSE 86–110; RESP 18–22
[2017-04-15 00:04] LABS: CALCIUM 8.1 mg/dl (8.4-10.2); CREATININE 1.62 mg/dl (0.61-1.24); POTASSIUM 4.4 mmol/L (3.5-5.1)
[2017-04-15 05:51] LABS: CALCIUM 7.5 mg/dl (8.4-10.2); CREATININE 1.47 mg/dl (0.61-1.24); POTASSIUM 3.7 mmol/L (3.5-5.1)
[2017-04-15] MEDS: PANTOPRAZOLE 40 MG INJ IV SCH (06:15)
[2017-04-15] MEDS: BENZONATATE 100 MG CAP PO PRN (06:15)
[2017-04-15] MEDS: THIOTHIXENE 5 MG CAP PO SCH (09:06)
[2017-04-15] MEDS: BUPROPION (XL) 150 MG TAB PO SCH (09:06)
--- NOTE | 2017-04-15 10:51 | PN ---
Date/Time of Note Date/Time of Note DATE: 04/15/17 TIME: 10:49 Assessment/Plan VTE Prophylaxis VTE Prophylaxis Intervention: SCD's Lines/Catheters IV [facility] (from [facility] Saline Lock Urinary Cath still in place: Yes Reason Cath still needed: urinary retention Assessment/Plan Assessment/Plan Anemia * EGD Large clearly malignant mass distal third of the esophagus. Multiple biopsies obtained Very large clearly malignant mass in the fundus of the stomach with extensive infiltration to the mid stomach. Biopsies obtained Biopsy result A-Gastric fundus biopsies: -- Infiltrating (diffuse), signet ring cell carcinoma. -- A Giemsa stain with an appropriate control is negative for Helicobacter pylori organisms. -- Mild chronic gastritis. -- No intestinal metaplasia is identified. B-Esophageal biopsies: -- An ulcer base with infiltrating (diffuse), signet ring cell carcinoma. -- Esophageal epithelium is present. * Schizophrenia * Multiple metastasis by bone scan Plan * continue present management * will other await biopsy results * Hemaoncology on board * case discuss with Dr Pittman * Further orders will depend on clinical course Subjective 24 Hr Interval Summary Free Text/Dictation * Course reviewed * Patient seen and examined * No untoward events overnight Exam/Review of Systems Vital Signs Vitals Vital Signs Date Time Temp Pulse Resp B/P Pulse Ox O2 Delivery O2 Flow Rate FiO2 04/15/17 08:06 97.1 85 22 113/60 90 04/15/17 00:30 Room Air 04/13/17 19:44 2.0 Intake and Output 04/14/17 04/14/17 04/15/17 15:00 23:00 07:00 Intake Total 1226 ml 600 ml Output Total 200 ml 3750 ml Balance 1026 ml -3150 ml Exam Constitutional: alert Neck: non-tender, supple Respiratory: congested cough, diminished breath sounds Cardiovascular: regular rate and rhythm Gastrointestinal: non-tender, soft Musculoskeletal: nl extremities to inspection, nl gait and stance Extremities: normal pulses Neurological: nl speech Skin: nl turgor, No rash or lesions Results Result Diagram: 04/14/17 4050 04/15/17 0443 Results 24 hrs Laboratory Tests Test 04/14/17 23:08 04/15/17 04:43 White Blood Count 8.9 Red Blood Count 2.98 L Hemoglobin 9.0 L Hematocrit 29.2 L Mean Corpuscular Volume 98.0 Mean Corpuscular Hemoglobin 30.2 Mean Corpuscular Hemoglobin Concent 30.8 L Red Cell Distribution Width 25.2 H Platelet Count 94 L Mean Platelet Volume 11.5 H Neutrophils % 72.4 Lymphocytes % 14.4 L Monocytes % 12.1 H Eosinophils % 0.1 Basophils % 0.3 Nucleated Red Blood Cells % 11.8 H Neutrophils # 6.4 Lymphocytes # 1.3 Monocytes # 1.1 H Eosinophils # 0.0 Basophils # 0.0 Nucleated Red Blood Cells # 1.1 H Sodium Level 136 138 Potassium Level 4.4 3.7 Chloride Level 107 106 Carbon Dioxide Level 17 L 21 Anion Gap 16 15 Blood Urea Nitrogen 47 H 44 H Creatinine 1.62 H 1.47 H Glucose Level 124 107 Calcium Level 8.1 L 7.5 L B-Type Natriuretic Peptide 1010 H Medications Medications Current Medications Acetaminophen (Tylenol Tab) 650 mg Q6H PRN PO PAIN LEVEL 1-3 OR FEVER Last administered on 04/09/17 21:08; Admin Dose 650 MG; Start 04/09/17 at 15:30 Acetaminophen (Tylenol Supp) 650 mg Q6H PRN [place] PAIN LEVEL 1-3 OR FEVER; Start 04/09/17 at 15:30 Morphine Sulfate (morphine) 2 mg Q4H PRN IV SEVERE PAIN LEVEL 7-10; Start at 15:30 Bupropion HCl (Wellbutrin Xl) 150 mg DAILY PO Last administered on 04/15/17 09 :06; Admin Dose 150 MG; Start 04/10/17 at 09:00 Thiothixene (Navane) 5 mg DAILY PO Last administered on 04/15/17 09:06; Admin Dose 5 MG; Start 04/10/17 at 09:00 Atorvastatin Calcium (Lipitor) 10 mg QHS PO ; Start 04/10/17 at 21:00 Pantoprazole (Protonix Iv) 40 mg DAILY@06 IV Last administered on 04/15/17 06: 15; Admin Dose 40 MG; Start 04/11/17 at 06:00 Ondansetron HCl (Zofran Inj) 4 mg Q4H PRN IV NAUSEA AND/OR VOMITING; Start 08/19 at 13:30 Guaifenesin (Robitussin Liquid Cup) 100 mg Q4H PRN PO COUGH Last administered on 04/14/17 21:59; Admin Dose 100 MG; Start 04/14/17 at 22:00 Benzonatate (Tessalon) 100 mg TID PRN PO cough Last administered on 04/15/17 06:15; Admin Dose 100 MG; Start 04/14/17 at 22:00 ALIREZA PENN NP Apr 15, 2017 10:51
--- NOTE | 2017-04-15 14:41 | PN ---
Date/Time of Note Date/Time of Note DATE: 04/15/17 TIME: 14:37 Assessment/Plan VTE Prophylaxis VTE Prophylaxis Intervention: SCD's Lines/Catheters IV C[facility]ter Type (from [facility] Saline Lock Urinary Cath still in place: No Assessment/Plan Assessment/Plan 61 yo M admitted for symptomatic anemia, EGD done yesterday with multiple malignant looking masses. Bone scan concerning for advanced malignancy PLAN Biopsy showed Infiltrating (diffuse), signet ring cell carcinoma Hb stable, will continue to monitor and decide for transfusion prn Low Hb For increased urinary fequency- will check UA, Start pt on Hytrin 2mg PO QHS for possible BPH ccontinue his schizophrenia medications Oncologist to decide for chemotherapy plan Subjective 24 Hr Interval Summary Free Text/Dictation no acute events, BP stable,a febrile , increased urinary frequency Exam/Review of Systems Vital Signs Vitals Vital Signs Date Time Temp Pulse Resp B/P Pulse Ox O2 Delivery O2 Flow Rate FiO2 04/15/17 08:06 97.1 85 22 113/60 90 04/15/17 00:30 Room Air 04/13/17 19:44 2.0 Intake and Output 04/14/17 04/14/17 04/15/17 15:00 23:00 07:00 Intake Total 1226 ml 600 ml Output Total 200 ml 3750 ml Balance 1026 ml -3150 ml Exam Constitutional: alert Psych: no complaints Head: normocephalic Eyes: nl conjunctiva ENMT: nl external ears & nose Neck: supple Respiratory: clear to auscultation, diminished breath sounds, normal air movement Cardiovascular: nl pulses, regular rate and rhythm Gastrointestinal: non-tender, soft Neurological: RESOURCE PARAPROFESSIONAL II-XII intact Skin: nl turgor Lymph: nl lymph nodes Results Result Diagram: 04/14/17 2308 04/15/17 0443 Results 24 hrs Laboratory Tests Test 04/14/17 23:08 04/15/17 04:43 White Blood Count 8.9 Red Blood Count 2.98 L Hemoglobin 9.0 L Hematocrit 29.2 L Mean Corpuscular Volume 98.0 Mean Corpuscular Hemoglobin 30.2 Mean Corpuscular Hemoglobin Concent 30.8 L Red Cell Distribution Width 25.2 H Platelet Count 94 L Mean Platelet Volume 11.5 H Neutrophils % 72.4 Lymphocytes % 14.4 L Monocytes % 12.1 H Eosinophils % 0.1 Basophils % 0.3 Nucleated Red Blood Cells % 11.8 H Neutrophils # 6.4 Lymphocytes # 1.3 Monocytes # 1.1 H Eosinophils # 0.0 Basophils # 0.0 Nucleated Red Blood Cells # 1.1 H Sodium Level 136 138 Potassium Level 4.4 3.7 Chloride Level 107 106 Carbon Dioxide Level 17 L 21 Anion Gap 16 15 Blood Urea Nitrogen 47 H 44 H Creatinine 1.62 H 1.47 H Glucose Level 124 107 Calcium Level 8.1 L 7.5 L B-Type Natriuretic Peptide 1010 H Medications Medications Current Medications Acetaminophen (Tylenol Tab) 650 mg Q6H PRN PO PAIN LEVEL 1-3 OR FEVER Last administered on 04/09/17 21:08; Admin Dose 650 MG; Start 04/09/17 at 15:30 Acetaminophen (Tylenol Supp) 650 mg Q6H PRN [place] PAIN LEVEL 1-3 OR FEVER; Start 04/09/17 at 15:30 Morphine Sulfate (morphine) 2 mg Q4H PRN IV SEVERE PAIN LEVEL 7-10; Start at 15:30 Bupropion HCl (Wellbutrin Xl) 150 mg DAILY PO Last administered on 04/15/17 09 :06; Admin Dose 150 MG; Start 04/10/17 at 09:00 Thiothixene (Navane) 5 mg DAILY PO Last administered on 04/15/17 09:06; Admin Dose 5 MG; Start 04/10/17 at 09:00 Atorvastatin Calcium (Lipitor) 10 mg QHS PO ; Start 04/10/17 at 21:00 Pantoprazole (Protonix Iv) 40 mg DAILY@06 IV Last administered on 04/15/17 06: 15; Admin Dose 40 MG; Start 04/11/17 at 06:00 Ondansetron HCl (Zofran Inj) 4 mg Q4H PRN IV NAUSEA AND/OR VOMITING; Start 08/19 at 13:30 Guaifenesin (Robitussin Liquid Cup) 100 mg Q4H PRN PO COUGH Last administered on 04/14/17 21:59; Admin Dose 100 MG; Start 04/14/17 at 22:00 Benzonatate (Tessalon) 100 mg TID PRN PO cough Last administered on 04/15/17 06:15; Admin Dose 100 MG; Start 04/14/17 at 22:00 Terazosin HCl (Hytrin) 2 mg ONCE ONCE PO ; Start 04/15/17 at 15:00; Stop at 15:01 Terazosin HCl (Hytrin) 2 mg HS PO ; Start 04/15/17 at 21:00 JAZIEL ROBERTS MD Apr 15, 2017 14:40
[2017-04-15] MEDS ORDERED: TERAZOSIN 2 MG CAP PO ONE (15:00)
--- NOTE | 2017-04-15 17:25 | PN ---
Date/Time of Note Date/Time of Note DATE: 04/15/17 TIME: 17:21 Assessment/Plan VTE Prophylaxis VTE Prophylaxis Intervention: anti-embolic stocking Lines/Catheters IV Catheter Type (from [facility]): Saline Lock Urinary Cath still in place: No Assessment/Plan Assessment/Plan Patient is a 61 year old man with schizophrenia and 1. Adenocarcinoma of gastroesophageal junction. 2. Diffuse osteoblastic bone metastases, etiology unknown. >Bone Metastases The patient did have a bone marrow aspiration and biopsy done . This was a "dry tap". This is not unexpected given the fact that the patient has the leukoerythroblastic peripheral blood picture suggesting bone marrow infiltration by tumor. The biopsy is still unavailable. Hopefully, it contains some metastatic cells so that we could differentiate a prostatic carcinoma from the GI malignancy the patient has already been diagnosed with. As previously noted, the radiographic picture is that of a metastatic prostate carcinoma. The patient does have prostatic enlargement, but the PSA is only 4.4. Moreover for a gastrointestinal tumor to skip to bone without liver or lung metastases would be unusual. >Gastroesophageal carcinoma The patient will require chemotherapy for the tumor of the gastroesophageal junction. It is unclear whether or not the patient should receive chemo and radiation in conjunction. This will depend somewhat on as to whether or not the bony lesions are metastatic GI malignancy or a metastatic prostate carcinoma. If prostate cancer is identified on bone marrow biopsy, I would consider chemotherapy and radiation. D/W RN Subjective 24 Hr Interval Summary Free Text/Dictation Patient awake, alert Exam/Review of Systems Vital Signs Vitals Vital Signs Date Time Temp Pulse Resp B/P Pulse Ox O2 Delivery O2 Flow Rate FiO2 04/15/17 14:51 98.0 92 20 96/56 91 04/15/17 00:30 Room Air 04/13/17 19:44 2.0 Intake and Output 04/14/17 04/14/17 04/15/17 15:00 23:00 07:00 Intake Total 1226 ml 600 ml Output Total 200 ml 3750 ml Balance 1026 ml -3150 ml Exam Constitutional: alert, oriented Psych: nl mood/affect, no complaints Head: atraumatic, normocephalic Eyes: EOMI, nl conjunctiva ENMT: mucosa pink and moist, nl lips & teeth Neck: non-tender, supple Respiratory: clear to auscultation, normal air movement Cardiovascular: nl pulses, regular rate and rhythm Gastrointestinal: non-tender, soft Musculoskeletal: nl extremities to inspection, nl gait and stance Extremities: normal pulses Neurological: nl mental status Results Result Diagram: 04/14/17 2308 04/15/17 0443 Results 24 hrs Laboratory Tests Test 04/14/17 23:08 04/15/17 04:43 White Blood Count 8.9 Red Blood Count 2.98 L Hemoglobin 9.0 L Hematocrit 29.2 L Mean Corpuscular Volume 98.0 Mean Corpuscular Hemoglobin 30.2 Mean Corpuscular Hemoglobin Concent 30.8 L Red Cell Distribution Width 25.2 H Platelet Count 94 L Mean Platelet Volume 11.5 H Neutrophils % 72.4 Lymphocytes % 14.4 L Monocytes % 12.1 H Eosinophils % 0.1 Basophils % 0.3 Nucleated Red Blood Cells % 11.8 H Neutrophils # 6.4 Lymphocytes # 1.3 Monocytes # 1.1 H Eosinophils # 0.0 Basophils # 0.0 Nucleated Red Blood Cells # 1.1 H Sodium Level 136 138 Potassium Level 4.4 3.7 Chloride Level 107 106 Carbon Dioxide Level 17 L 21 Anion Gap 16 15 Blood Urea Nitrogen 47 H 44 H Creatinine 1.62 H 1.47 H Glucose Level 124 107 Calcium Level 8.1 L 7.5 L B-Type Natriuretic Peptide 1010 H Medications Medications Current Medications Acetaminophen (Tylenol Tab) 650 mg Q6H PRN PO PAIN LEVEL 1-3 OR FEVER Last administered on 04/09/17 21:08; Admin Dose 650 MG; Start 04/09/17 at 15:30 Acetaminophen (Tylenol Supp) 650 mg Q6H PRN [place] PAIN LEVEL 1-3 OR FEVER; Start 04/09/17 at 15:30 Morphine Sulfate (morphine) 2 mg Q4H PRN IV SEVERE PAIN LEVEL 7-10; Start at 15:30 Bupropion HCl (Wellbutrin Xl) 150 mg DAILY PO Last administered on 04/15/17 09 :06; Admin Dose 150 MG; Start 04/10/17 at 09:00 Thiothixene (Navane) 5 mg DAILY PO Last administered on 04/15/17 09:06; Admin Dose 5 MG; Start 04/10/17 at 09:00 Atorvastatin Calcium (Lipitor) 10 mg QHS PO ; Start 04/10/17 at 21:00 Pantoprazole (Protonix Iv) 40 mg DAILY@06 IV Last administered on 04/15/17 06: 15; Admin Dose 40 MG; Start 04/11/17 at 06:00 Ondansetron HCl (Zofran Inj) 4 mg Q4H PRN IV NAUSEA AND/OR VOMITING; Start 08/19 at 13:30 Guaifenesin (Robitussin Liquid Cup) 100 mg Q4H PRN PO COUGH Last administered on 04/14/17 21:59; Admin Dose 100 MG; Start 04/14/17 at 22:00 Benzonatate (Tessalon) 100 mg TID PRN PO cough Last administered on 04/15/17 06:15; Admin Dose 100 MG; Start 04/14/17 at 22:00 Terazosin HCl (Hytrin) 2 mg HS PO ; Start 04/15/17 at 21:00 URBAN BARAJAS MD Apr 15, 2017 17:25
[2017-04-15] MEDS: ATORVASTATIN 10 MG TAB PO SCH (21:00)
[2017-04-15] MEDS ORDERED: TERAZOSIN 2 MG CAP PO SCH (21:00)
[2017-04-15] MEDS: GUAIFENESIN 20 MG/ML 5ML CUP PO PRN (21:03)
[2017-04-15 22:34] LABS: ADD UMIC YES; UR ASCORBIC ACID NEGATIVE (NEGATIVE); UR BILIRUBIN (Dip) NEGATIVE (NEGATIVE); UR BLOOD (Dip) 2+ mg/dL (NEGATIVE); UR CLARITY CLEAR (CLEAR); UR COLOR YELLOW (YELLOW); UR GLUCOSE (Dip) NEGATIVE (NEGATIVE); UR KETONES (Dip) NEGATIVE (NEGATIVE); UR LEUKOCYTE ESTERASE (Dip) TRACE Leu/ul (NEGATIVE); UR NITRITE (Dip) NEGATIVE (NEGATIVE); UR RBC 20 /HPF (0-5); UR SPECIFIC GRAVITY (Dip) 1.015 (1.003-1.030); UR TOTAL PROTEIN (Dip) NEGATIVE (NEGATIVE); UR UROBILINOGEN (Dip) NEGATIVE (NEGATIVE)
[2017-04-16] MEDS: BENZONATATE 100 MG CAP PO PRN ×2 (01:00→05:54)
[2017-04-16 01:06] VITALS: BP 122/57; PULSE 103; RESP 19
[2017-04-16] MEDS: PANTOPRAZOLE 40 MG INJ IV SCH (05:02)
[2017-04-16] MEDS: GUAIFENESIN 20 MG/ML 5ML CUP PO PRN ×2 (05:02→15:30)
[2017-04-16 05:04] LABS: ABNORMAL IP MESSAGE 1; BASOPHILS % 0.2 % (0.0-2.0); EOSINOPHILS % 0.5 % (0.0-7.0); HEMATOCRIT 25.8 % (42.0-52.0); HEMOGLOBIN 7.9 g/dl (14.0-18.0); LYMPHOCYTES # 1.1 10^3/ul (0.8-2.9); LYMPHOCYTES % 20.4 % (15.0-51.0); MEAN CORPUSCULAR HEMOGLOBIN 29.9 pg (29.0-33.0); MEAN CORPUSCULAR HGB CONC 30.6 g/dl (32.0-37.0); MEAN CORPUSCULAR VOLUME 97.7 fl (82.0-101.0); MEAN PLATELET VOLUME 10.9 fl (7.4-10.4); MONOCYTE # 0.6 10^3/ul (0.3-0.9); MONOCYTES % 11.5 % (0.0-11.0); NEUTROPHIL # 3.7 10^3/ul (1.6-7.5); NEUTROPHILS % 66.9 % (39.0-77.0); NUCLEATED RED BLOOD CELLS # 0.4 10^3/ul (0.0-0.0); NUCLEATED RED BLOOD CELLS% 7.8 /100WBC (0.0-0.0); PLATELET COUNT 69 10^3/UL (140-415); POSITIVE DIFF @See below; RED BLOOD COUNT 2.64 10^6/ul (4.70-6.10); WHITE BLOOD COUNT 5.5 10^3/ul (4.8-10.8)
[2017-04-16 05:11] LABS: INR 1.6; PROTIME 19.2 Sec (12.2-14.2); PT RATIO 1.5
[2017-04-16 05:12] LABS: PARTIAL THROMBOPLASTIN TIME 37.4 Sec (25.0-35.0)
[2017-04-16 05:15] LABS: BILIRUBIN,INDIRECT 0.7 mg/dl (0-1.1); BILIRUBIN,TOTAL 0.7 mg/dl (0.2-1.3); CALCIUM 7.9 mg/dl (8.4-10.2); CREATININE 0.97 mg/dl (0.61-1.24); POTASSIUM 3.5 mmol/L (3.5-5.1); TOTAL PROTEIN 4.3 g/dl (6.1-8.1)
[2017-04-16 05:16] LABS: ALBUMIN/GLOBULIN RATIO 0.86
[2017-04-16 08:16] VITALS: BP 107/55; RESP 17
[2017-04-16] MEDS: BUPROPION (XL) 150 MG TAB PO SCH (08:20)
[2017-04-16] MEDS: THIOTHIXENE 5 MG CAP PO SCH (08:20)
--- NOTE | 2017-04-16 10:37 | CONS ---
Date/Time of Note Date/Time of Note DATE: 04/16/17 TIME: 10:36 Assessment/Plan Assessment/Plan Additional Assessment/Plan 61 yo M admitted for symptomatic anemia, EGD done yesterday with multiple malignant looking masses. Bone scan concerning for advanced malignancy- s/p EGD with biopsy which showed Infiltrating (diffuse), signet ring cell carcinoma- pt has been having urinary frequency with obstructive symtpoms, renal has been consulted. pt has been on started on hytrin but associated with low BP. 1.acute urinary retention requiring Miranda 2. diffuse osteoblastic bone metastasis 3. S/P EGD with biopsy showed signet ring cell CA Plan: Continue current miranda care Clamping trial Change hytrin to 1 mg PO QHS add flomax 0.4mg PO daily will follo wup Monitor electrolytes and replace as needed Consultation Date/Type/Reason Admit Date/Time Apr 09, 2017 at 13:02 Date of Consultation: Apr 16, 2017 Type of Consultation: NEPHROLOGY Reason for Consultation Urinary Frequency, BPH with obstrucitve uropathy , Hypotension Referring Provider: CATHY TORRES MD Hx of Present Illness 61 yo M admitted for symptomatic anemia, EGD done yesterday with multiple malignant looking masses. Bone scan concerning for advanced malignancy- s/p EGD with biopsy which showed Infiltrating (diffuse), signet ring cell carcinoma- pt has been having urinary frequency with obstructive symtpoms, renal has been consulted. pt has been on started on hytrin but associated with low BP. Constitutional: no complaints Eyes: no complaints ENT: no complaints Respiratory: no complaints Cardiovascular: no complaints Gastrointestinal: no complaints Genitourinary: no complaints, other (inreased frequency ) Musculoskeletal: no complaints Skin: no complaints Neurologic: no complaints Endocrine: no complaints Lymphatic: no complaints Psychological: nl mood/affect, no complaints Immunologic: no complaints Past Medical History Medical History: other (schizophrenia) Past Surgical History Past Surgical Hx: no surgical history Family History Significant Family History: no pertinent family hx Social History Alcohol Use: none Smoking Status: Former smoker Exam/Review of Systems Vital Signs Vitals Vital Signs Date Time Temp Pulse Resp B/P Pulse Ox O2 Delivery O2 Flow Rate FiO2 04/16/17 08:16 98.8 101 17 107/55 98 04/16/17 01:06 Nasal Cannula 2.0 Intake and Output 04/15/17 04/15/17 04/16/17 15:00 23:00 07:00 Intake Total 1000 ml 650 ml Output Total 1000 ml 100 ml Balance 0 ml 550 ml Exam Constitutional: alert Psych: no complaints Head: normocephalic Eyes: nl conjunctiva ENMT: nl external ears & nose Neck: supple Respiratory: clear to auscultation Cardiovascular: regular rate and rhythm Gastrointestinal: non-tender, soft Extremities: normal pulses Neurological: [employer] II-XII intact, nl mental status, nl speech, nl strength Skin: nl turgor Lymph: nl lymph nodes Results Result Diagram: 04/16/17 04204/16/17 042 Results 24 hrs Laboratory Tests Test 04/15/17 20:00 04/16/17 04:20 Urine Color YELLOW Urine Clarity CLEAR Urine pH 5.0 Urine Specific [place] 1.015 Urine Ketones NEGATIVE Urine Nitrite NEGATIVE Urine Bilirubin NEGATIVE Urine Urobilinogen NEGATIVE Urine Leukocyte Esterase TRACE A Urine Microscopic RBC 20 H Urine Microscopic WBC 6 H Urine Hemoglobin 2+ H Urine Glucose NEGATIVE Urine Total Protein NEGATIVE White Blood Count 5.5 # Red Blood Count 2.64 L Hemoglobin 7.9 L Hematocrit 25.8 L Mean Corpuscular Volume 97.7 Mean Corpuscular Hemoglobin 29.9 Mean Corpuscular Hemoglobin Concent 30.6 L Red Cell Distribution Width 25.0 H Platelet Count 69 #L Mean Platelet Volume 10.9 H Neutrophils % 66.9 Lymphocytes % 20.4 Monocytes % 11.5 H Eosinophils % 0.5 Basophils % 0.2 Nucleated Red Blood Cells % 7.8 H Neutrophils # 3.7 Lymphocytes # 1.1 Monocytes # 0.6 Eosinophils # 0.0 Basophils # 0.0 Nucleated Red Blood Cells # 0.4 H Prothrombin Time 19.2 H Prothrombin Time Ratio 1.5 INR International Normalized Ratio 1.60 Activated Partial Thromboplast Time 37.4 H Sodium Level 138 Potassium Level 3.5 Chloride Level 105 Carbon Dioxide Level 22 Anion Gap 15 Blood Urea Nitrogen 34 H Creatinine 0.97 Glucose Level 102 Calcium Level 7.9 L Total Bilirubin 0.7 Direct Bilirubin 0.00 Indirect Bilirubin 0.7 Aspartate Amino Transf (AST/SGOT) 85 H Alanine Aminotransferase (ALT/SGPT) 85 H Alkaline Phosphatase 947 H Total Protein 4.3 L Albumin 2.0 L Globulin 2.30 Albumin/Globulin Ratio 0.86 Medications Medications Current Medications Acetaminophen (Tylenol Tab) 650 mg Q6H PRN PO PAIN LEVEL 1-3 OR FEVER Last administered on 04/09/17 21:08; Admin Dose 650 MG; Start 04/09/17 at 15:30 Acetaminophen (Tylenol Supp) 650 mg Q6H PRN ID PAIN LEVEL 1-3 OR FEVER; Start 04/09/17 at 15:30 Morphine Sulfate (morphine) 2 mg Q4H PRN IV SEVERE PAIN LEVEL 7-10; Start at 15:30 Bupropion HCl (Wellbutrin Xl) 150 mg DAILY PO Last administered on 04/16/17 08 :20; Admin Dose 150 MG; Start 04/10/17 at 09:00 Thiothixene (Navane) 5 mg DAILY PO Last administered on 04/16/17 08:20; Admin Dose 5 MG; Start 04/10/17 at 09:00 Atorvastatin Calcium (Lipitor) 10 mg QHS PO Last administered on 04/15/17 21: 00; Admin Dose 10 MG; Start 04/10/17 at 21:00 Pantoprazole (Protonix Iv) 40 mg DAILY@06 IV Last administered on 04/16/17 05: 02; Admin Dose 40 MG; Start 04/11/17 at 06:00 Ondansetron HCl (Zofran Inj) 4 mg Q4H PRN IV NAUSEA AND/OR VOMITING; Start 08/19 at 13:30 Guaifenesin (Robitussin Liquid Cup) 100 mg Q4H PRN PO COUGH Last administered on 04/16/17 05:02; Admin Dose 100 MG; Start 04/14/17 at 22:00 Benzonatate (Tessalon) 100 mg TID PRN PO cough Last administered on 04/16/17 05:54; Admin Dose 100 MG; Start 04/14/17 at 22:00 Terazosin HCl (Hytrin) 2 mg HS PO Last administered on 04/15/17 21:03; Admin Dose 2 MG; Start 04/15/17 at 21:00 JAZIEL ROBERTS MD Apr 16, 2017 10:37
[2017-04-16] MEDS: TAMSULOSIN (SR) 0.4 MG CAP PO SCH (15:19)
--- NOTE | 2017-04-16 16:38 | PN ---
Date/Time of Note Date/Time of Note DATE: 04/16/17 TIME: 16:35 Assessment/Plan VTE Prophylaxis VTE Prophylaxis Intervention: SCD's Lines/Catheters IV Catheter Type (from [facility]): Peripheral IV Urinary Cath still in place: No Assessment/Plan Chief Complaint/Hosp Course Patient is a 61-year-old male who was originally sent from primary care office for anemia upon further questioning found to have poor appetite and dysphasia. Found to now have adenocarcinoma of the esophagus Problem list assessment Anemia Adenocarcinoma of the esophagus, signet cell Schizophrenia Dyslipidemia Urinary retention, Diffuse osteoblastic bone metastases, etiology unknown Plan -follow-up with hematology recommendations as well as nephrology conditions for acute urinary retention, questionable obstruction from metastases -Continue home meds for now -We will discuss with hematology and oncology regarding disposition, will plan for DC in the next few days as long as okay with consultants Problems: Subjective 24 Hr Interval Summary Free Text/Dictation no acute complaints Exam/Review of Systems Vital Signs Vitals Vital Signs Date Time Temp Pulse Resp B/P Pulse Ox O2 Delivery O2 Flow Rate FiO2 04/16/17 08:16 98.8 101 17 107/55 98 04/16/17 01:06 Nasal Cannula 2.0 Intake and Output 04/15/17 04/15/17 04/16/17 15:00 23:00 07:00 Intake Total 1000 ml 650 ml Output Total 1000 ml 100 ml Balance 0 ml 550 ml Exam Physical exam General: Patient is laying in bed and answers questions appropriately Mentation: Patient is alert and oriented 4, Head: Normocephalic atraumatic Eyes: EOMI, pupils reactive to light Neck: Supple, nontender, midline Respiratory: Clear to auscultation bilaterally Cardiovascular: regular rate, no obvious murmurs Gastrointestinal: non-tender to palpation, bowel sounds heard. Neurological: Moves all extremities spontaneously Skin: No new skin lesions Results Result Diagram: 04/16/1741904/16/17419 Results 24 hrs Laboratory Tests Test 04/15/17 20:00 04/16/17 04:20 Urine Color YELLOW Urine Clarity CLEAR Urine pH 5.0 Urine Specific [place] 1.015 Urine Ketones NEGATIVE Urine Nitrite NEGATIVE Urine Bilirubin NEGATIVE Urine Urobilinogen NEGATIVE Urine Leukocyte Esterase TRACE A Urine Microscopic RBC 20 H Urine Microscopic WBC 6 H Urine Hemoglobin 2+ H Urine Glucose NEGATIVE Urine Total Protein NEGATIVE White Blood Count 5.5 # Red Blood Count 2.64 L Hemoglobin 7.9 L Hematocrit 25.8 L Mean Corpuscular Volume 97.7 Mean Corpuscular Hemoglobin 29.9 Mean Corpuscular Hemoglobin Concent 30.6 L Red Cell Distribution Width 25.0 H Platelet Count 69 #L Mean Platelet Volume 10.9 H Neutrophils % 66.9 Lymphocytes % 20.4 Monocytes % 11.5 H Eosinophils % 0.5 Basophils % 0.2 Nucleated Red Blood Cells % 7.8 H Neutrophils # 3.7 Lymphocytes # 1.1 Monocytes # 0.6 Eosinophils # 0.0 Basophils # 0.0 Nucleated Red Blood Cells # 0.4 H Prothrombin Time 19.2 H Prothrombin Time Ratio 1.5 INR International Normalized Ratio 1.60 Activated Partial Thromboplast Time 37.4 H Sodium Level 138 Potassium Level 3.5 Chloride Level 105 Carbon Dioxide Level 22 Anion Gap 15 Blood Urea Nitrogen 34 H Creatinine 0.97 Glucose Level 102 Calcium Level 7.9 L Total Bilirubin 0.7 Direct Bilirubin 0.00 Indirect Bilirubin 0.7 Aspartate Amino Transf (AST/SGOT) 85 H Alanine Aminotransferase (ALT/SGPT) 85 H Alkaline Phosphatase 947 H Total Protein 4.3 L Albumin 2.0 L Globulin 2.30 Albumin/Globulin Ratio 0.86 Medications Medications Current Medications Acetaminophen (Tylenol Tab) 650 mg Q6H PRN PO PAIN LEVEL 1-3 OR FEVER Last administered on 04/09/17 21:08; Admin Dose 650 MG; Start 04/09/17 at 15:30 Acetaminophen (Tylenol Supp) 650 mg Q6H PRN ID PAIN LEVEL 1-3 OR FEVER; Start 04/09/17 at 15:30 Morphine Sulfate (morphine) 2 mg Q4H PRN IV SEVERE PAIN LEVEL 7-10; Start at 15:30 Bupropion HCl (Wellbutrin Xl) 150 mg DAILY PO Last administered on 04/16/17 08 :20; Admin Dose 150 MG; Start 04/10/17 at 09:00 Thiothixene (Navane) 5 mg DAILY PO Last administered on 04/16/17 08:20; Admin Dose 5 MG; Start 04/10/17 at 09:00 Atorvastatin Calcium (Lipitor) 10 mg QHS PO Last administered on 04/15/17 21: 00; Admin Dose 10 MG; Start 04/10/17 at 21:00 Pantoprazole (Protonix Iv) 40 mg DAILY@06 IV Last administered on 04/16/17 05: 02; Admin Dose 40 MG; Start 04/11/17 at 06:00 Ondansetron HCl (Zofran Inj) 4 mg Q4H PRN IV NAUSEA AND/OR VOMITING; Start 08/19 at 13:30 Guaifenesin (Robitussin Liquid Cup) 100 mg Q4H PRN PO COUGH Last administered on 04/16/17 15:30; Admin Dose 100 MG; Start 04/14/17 at 22:00 Benzonatate (Tessalon) 100 mg TID PRN PO cough Last administered on 04/16/17 05:54; Admin Dose 100 MG; Start 04/14/17 at 22:00 Terazosin HCl (Hytrin) 1 mg HS PO ; Start 04/16/17 at 21:00 Tamsulosin HCl (Flomax) 0.4 mg DAILY PO Last administered on 04/16/17 15:19; Admin Dose 0.4 MG; Start 04/16/17 at 11:00 JYOTI SAWYER Apr 16, 2017 16:38
--- NOTE | 2017-04-16 19:30 | RADRPT ---
Vent Rate: 114 bpm RR Interval: 0 msec OK Interval: 142 msec QRS Duration: 76 msec QT Interval: 310 msec QTC Interval: 427 msec P-R-T [place]: 38 - 38 - 30 degrees Sinus tachycardia Septal infarct , age undetermined Abnormal ECG Electronically Signed By: Shyam Shultz [id number]
[2017-04-16 20:18] VITALS: BP 122/57; RESP 16
[2017-04-16] MEDS: TERAZOSIN 1 MG CAP PO SCH (20:52)
[2017-04-16] MEDS: ATORVASTATIN 10 MG TAB PO SCH (20:52)
[2017-04-16] MEDS: PHYTONADIONE 10 MG/ML INJ SC SCH (20:53)
--- NOTE | 2017-04-16 21:24 | PN ---
DATE: 04/16/2017 SUBJECTIVE DATA: Mr. Braxton complaining of increasing weakness. He is not experiencing any abdominal pain, nausea or vomiting. OBJECTIVE DATA: GENERAL: The patient is a well-developed, well-nourished male who is in no acute distress. VITAL SIGNS: Temperature 98.8, pulse 101 per minute and regular, respirations 17, blood pressure 107/55, and pulse oximetry 98 percent on room air. SKIN: Pale. No ecchymosis. No petechiae or rashes. HEENT: Normocephalic, no evidence of trauma. Pupils equal, round, reactive to light and accommodation. Sclerae nonicteric. Conjunctivae and oral mucosa is pale. NECK: Neck is supple. No jugular venous distention or thyroid enlargement. CHEST: Chest is clear to auscultation and percussion. No rhonchi, wheezes, rales, or rubs. NODES: No palpable lymphadenopathy in lymph node bearing area. HEART: Sinus tachycardia. No S3 or S4 or murmurs. ABDOMEN: Abdomen is mildly distended but soft. There is no masses or ascites. EXTREMITIES: No clubbing, edema, or cyanosis. No palpable cords or Arnulfo's sign. NEUROLOGIC: Neurologic is normal except for the patient's affect. LABORATORY AND DIAGNOSTIC DATA: Prothrombin time 9.2 seconds with INR of 1.6, PTT 37.4 seconds. White count 5500, hemoglobin 7.9, hematocrit 24.8, and platelet count is 69,000. Sodium 138, potassium 3.5, BUN 34, and creatinine 0.79. ASSESSMENT: 1. Adenocarcinoma of gastroesophageal junction. 2. Osteoblastic bone lesions, etiology unknown. 3. Schizophrenia. PLAN: Still awaiting results of bone marrow done last week. The patient does however have a biopsy-proven signet cell adenocarcinoma of the of the stomach and gastroesophageal junction. We will certainly require chemotherapy. At this time would plan to give the patient therapy with oxaliplatin containing combination such as FOLFOX. This will require the placement of a venous access catheter, i.e. Port-A-Cath. I have discussed the situation with the patient and his sister, Mrs Schaefer and both are willing to proceed. The patient will also request pathology to do further investigations on the original biopsy. Will request HER2/ROMY assay as well as PD-L1 and MSI testing to determine if the patient would be a candidate for Trastuzumab or a checkpoint inhibitor such as the Nivolumab. The patient's coagulation status will require some improvement before any type of catheter placement can be undertaken. We will give the patient vitamin K. It is likely the patient will require red blood cell transfusion in the future. Dictated By: Shyam Cuevas MD /angelika/rebecca /Document#: [id number]
[2017-04-17] VITALS (7 sets, daily range): BP systolic 106–129; BP diastolic 57–73; PULSE 102–108; RESP 16–20
[2017-04-17] MEDS: PHYTONADIONE 10 MG/ML INJ SC SCH (00:41)
[2017-04-17] MEDS: PANTOPRAZOLE 40 MG INJ IV SCH (05:16)
[2017-04-17 05:21] LABS: ABNORMAL IP MESSAGE 1; BASOPHILS % 0.1 % (0.0-2.0); EOSINOPHILS % 0.4 % (0.0-7.0); HEMATOCRIT 30.4 % (42.0-52.0); HEMOGLOBIN 9.7 g/dl (14.0-18.0); LYMPHOCYTES # 1.2 10^3/ul (0.8-2.9); LYMPHOCYTES % 16.8 % (15.0-51.0); MEAN CORPUSCULAR HEMOGLOBIN 30.4 pg (29.0-33.0); MEAN CORPUSCULAR HGB CONC 31.9 g/dl (32.0-37.0); MEAN CORPUSCULAR VOLUME 95.3 fl (82.0-101.0); MEAN PLATELET VOLUME 10.4 fl (7.4-10.4); MONOCYTE # 0.9 10^3/ul (0.3-0.9); NEUTROPHILS % 70.2 % (39.0-77.0); NUCLEATED RED BLOOD CELLS # 0.5 10^3/ul (0.0-0.0); PLATELET COUNT 81 10^3/UL (140-415); POSITIVE DIFF @See below; RED BLOOD COUNT 3.19 10^6/ul (4.70-6.10); RED CELL DISTRIBUTION WIDTH 23.3 % (11.5-14.5); WHITE BLOOD COUNT 7.3 10^3/ul (4.8-10.8)
[2017-04-17] MEDS: GUAIFENESIN 20 MG/ML 5ML CUP PO PRN ×2 (05:22→09:07)
[2017-04-17 05:37] LABS: INR 1.5; PARTIAL THROMBOPLASTIN TIME 36.1 Sec (25.0-35.0); PROTIME 18.2 Sec (12.2-14.2); PT RATIO 1.4
[2017-04-17 05:46] LABS: CALCIUM 7.8 mg/dl (8.4-10.2); CREATININE 0.71 mg/dl (0.61-1.24); POTASSIUM 3.5 mmol/L (3.5-5.1)
[2017-04-17] MEDS: THIOTHIXENE 5 MG CAP PO SCH (09:07)
[2017-04-17] MEDS: BUPROPION (XL) 150 MG TAB PO SCH (09:07)
[2017-04-17] MEDS: TAMSULOSIN (SR) 0.4 MG CAP PO SCH (09:08)
[2017-04-17 09:20] LABS: ACANTHOCYTES 1+ (0-0); ANISOCYTOSIS 2+ (0-0); ERYTHROBLAST% (NRBC) (M) 9 % (0-0); GIANT THROMBO% (M) 1 % (0-0); MICROCYTOSIS 1+ (0-0); MONOCYTES % (M) 5 % (0-11); PLATELET ESTIMATE DECREASED; POIKILOCYTOSIS 3+ (0-0); POLYCHROMASIA 1+ (0-0)
[2017-04-17] MEDS ORDERED: ONDANSETRON 4 MG INJ ONE (14:02)
[2017-04-17] MEDS ORDERED: LIDOCAINE 1%/EPI 30 ML INJ ONE (14:02)
[2017-04-17] MEDS ORDERED: FENTAnyl 50 MCG/ML VIAL ONE (14:02)
[2017-04-17] MEDS ORDERED: MIDAZOLAM 1 MG/ML 2 ML INJ ONE (14:02)
[2017-04-17] MEDS ORDERED: HEPARIN 1000 UNITS/ML 10 ML INJ ONE (14:02)
[2017-04-17] MEDS ORDERED: SOD CHLORIDE 0.9% 500 ML ONE (14:02)
--- NOTE | 2017-04-17 16:02 | RADRPT ---
PROCEDURE: RIGHT INTERNAL JUGULAR PORT PLACEMENT, ULTRASOUND AND FLUOROSCOPIC GUIDANCE CLINICAL INDICATION: IV access for chemotherapy FLUOROSCOPY TIME: 0.1 minute TECHNIQUE: The procedure, its potential risks, benefits and alternatives were explained. Risks, including but n ot limited to pain, bleeding, infection, thrombosis, embolism and arrhythmia were discussed and und erstood. Following this discussion with the patient, informed consent was obtained. The right internal jugular vein was imaged with ultrasound and was shown to be compressible, with no evidence of thrombus. An image of this vein was obtained and saved to the PACS system. The neck and chest wall were scrubbed, draped and prepped in a sterile manner. The procedure was ca rried out under aseptic conditions. 1% lidocaine with epinephrine was utilized for local anesthesia . Following the standard prep, and under ultrasound guidance, the right internal jugular vein was punctured using anterior single wall micropuncture technique, and a micropuncture catheter was adva nced into the superior vena cava. Following this, an appropriate site on the anterior chest wall w as selected for port placement. The skin over the port placement site was then anesthetized. The s kin was then incised. Deep anesthesia was then given. Using blunt dissection technique, a pocket w as created in the subcutaneous soft tissue. Following this, a tract connecting the port pocket with the neck entry site was anesthetized. A 6 [place]an catheter was then pulled through the subcutaneous tract. Exchange of the micropuncture catheter was then done for a peel-away sheath. The catheter was then advanced through the sheath, the sheath was removed and the catheter was positioned with it s tip at the cavoatrial junction. Fluoroscopy was utilized to guide placement of the catheter. An im age of its final position was saved to the PACS system. The proximal end of the catheter was then tr immed and attached to a power injectable dual lumen chest wall port. The catheter and the port were then heparinized. The port was then placed within the pocket blank. The wound was then irrigated, and was dried. The wound was then closed using interrupted 3-0 Vicryl sutures, and a running subde rmal 4-0 Vicryl suture. Then over this, Dermabond was applied. A 4-0 Vicryl suture was placed to c lose the neck entry site, over which Dermabond was applied. The patient tolerated the procedure well . COMPARISON: none FINDINGS: as above. IMPRESSION: Placement of power injectable single lumen right chest wall port, as above. The catheter is ready for use. RPTAT: EE Olman Carr Physician Date Time Electronically viewed and signed by Olman Carr, Physician on 04/17/2017 16:02 RA/
--- NOTE | 2017-04-17 16:03 | RADRPT ---
PROCEDURE: ULTRASOUND-GUIDED VASCULAR ACCESS CLINICAL INDICATION: Port-A-Cath placement TECHNIQUE: Informed consent was obtained from the patient after a discussion of the risks, benefit s, and alternatives of the procedure. Risks include, but are not limited to bleeding and infection. The right internal jugular vein was found to be patent and compressible with stringer scale and power D oppler. A picture of it was saved to the PACS. 1% lidocaine was utilized for anesthesia. Under di rect ultrasound guidance, a 21-gauge needle was advanced into the right internal jugular vein. A wi re was advanced through the micropuncture needle. The micropuncture needle was then removed over th e wire and a 5-[place] catheter was advanced over the wire. COMPARISON: None. FINDINGS: Patent and compressible right internal jugular vein. IMPRESSION: Ultrasound guided vascular access for placement of a Port-A-Cath. RPTAT: EE Physician Nicolas Date Time Electronically viewed and signed by Physician Nicolas on 04/17/2017 16:02 /
--- NOTE | 2017-04-17 17:29 | PN ---
Date/Time of Note Date/Time of Note DATE: 04/17/17 TIME: 17:27 Assessment/Plan VTE Prophylaxis VTE Prophylaxis Intervention: ambulation Lines/Catheters IV [facility]ter [facility] (from [facility]): Peripheral IV Urinary Cath still in place: Yes Reason Cath still needed: urinary retention Assessment/Plan Chief Complaint/Hosp Course Patient is a 61-year-old male who was originally sent from primary care office for anemia upon further questioning found to have poor appetite and dysphasia. Found to now have adenocarcinoma of the esophagus Problem list assessment Anemia Adenocarcinoma of the esophagus, signet cell Schizophrenia Dyslipidemia Urinary retention, Diffuse osteoblastic bone metastases, etiology unknown Plan -port a cath placed today, plans for chemotherapy per oncology. -follow-up with hematology recommendations as well as nephrology conditions for acute urinary retention, questionable obstruction from metastases -Continue home meds for now -We will discuss with hematology and oncology regarding disposition, will plan for DC in the next few days pending design center consultant recommendations Problems: Subjective 24 Hr Interval Summary Free Text/Dictation up to chair, agreeable to port-a-cath procedure. Exam/Review of Systems Vital Signs Vitals Vital Signs Date Time Temp Pulse Resp B/P Pulse Ox O2 Delivery O2 Flow Rate FiO2 04/17/17 08:11 97.4 105 20 117/59 99 04/16/17 01:06 Nasal Cannula 2.0 Intake and Output 04/16/17 04/16/17 04/17/17 15:00 23:00 07:00 Intake Total 1290 ml 1080 ml Output Total 1100 ml 1200 ml Balance 190 ml -120 ml Exam Physical exam General: Patient is laying in bed and answers questions appropriately Mentation: Patient is alert and oriented 4, Head: Normocephalic atraumatic Eyes: EOMI, pupils reactive to light Neck: Supple, nontender, midline Respiratory: Clear to auscultation bilaterally Cardiovascular: regular rate, no obvious murmurs Gastrointestinal: non-tender to palpation, bowel sounds heard. Neurological: Moves all extremities spontaneously Skin: No new skin lesions Results Result Diagram: 04/17/17 0430 04/17/17 0430 Results 24 hrs Laboratory Tests Test 04/17/17 04:30 04/17/17 08:52 White Blood Count 7.3 # Red Blood Count 3.19 #L Hemoglobin 9.7 #L Hematocrit 30.4 L Mean Corpuscular Volume 95.3 Mean Corpuscular Hemoglobin 30.4 Mean Corpuscular Hemoglobin Concent 31.9 L Red Cell Distribution Width 23.3 H Platelet Count 81 L Mean Platelet Volume 10.4 Neutrophils % 70.2 Segmented Neutrophils % (Manual) 78 H Band Neutrophils % (Manual) 2 Lymphocytes % 16.8 Lymphocytes % (Manual) 15 Monocytes % 12.0 H Monocytes % (Manual) 5 Eosinophils % 0.4 Basophils % 0.1 Nucleated Red Blood Cells % 9 H Neutrophils # (Manual) 5.7 Band Neutrophils # 0.1 Absolute Lymphocytes (Manual) 1.0 Lymphocytes # 1.2 Monocytes # 0.9 Absolute Monocytes (Manual) 0.3 Eosinophils # 0.0 Basophils # 0.0 Nucleated Red Blood Cells # 0.5 H Thrombocytosis 1 H Platelet Estimate DECREASED Polychromasia 1+ Poikilocytosis 3+ Anisocytosis 2+ Microcytosis 1+ Acanthocytes 1+ Prothrombin Time 18.2 H Prothrombin Time Ratio 1.4 INR International Normalized Ratio 1.50 Activated Partial Thromboplast Time 36.1 H Sodium Level 133 L Potassium Level 3.5 Chloride Level 103 Carbon Dioxide Level 20 L Anion Gap 14 Blood Urea Nitrogen 23 #H Creatinine 0.71 Glucose Level 107 Calcium Level 7.8 L Phosphorus Level 3.0 Magnesium Level 2.0 Lab Scanned Report BLOOD TRANSFUSION Medications Medications Current Medications Acetaminophen (Tylenol Tab) 650 mg Q6H PRN PO PAIN LEVEL 1-3 OR FEVER Last administered on 04/09/17 21:08; Admin Dose 650 MG; Start 04/09/17 at 15:30 Acetaminophen (Tylenol Supp) 650 mg Q6H PRN [place] PAIN LEVEL 1-3 OR FEVER; Start 04/09/17 at 15:30 Morphine Sulfate (morphine) 2 mg Q4H PRN IV SEVERE PAIN LEVEL 7-10; Start at 15:30 Bupropion HCl (Wellbutrin Xl) 150 mg DAILY PO Last administered on 04/17/17 09 :07; Admin Dose 150 MG; Start 04/10/17 at 09:00 Thiothixene (Navane) 5 mg DAILY PO Last administered on 04/17/17 09:07; Admin Dose 5 MG; Start 04/10/17 at 09:00 Atorvastatin Calcium (Lipitor) 10 mg QHS PO Last administered on 04/16/17 20: 52; Admin Dose 10 MG; Start 04/10/17 at 21:00 Pantoprazole (Protonix Iv) 40 mg DAILY@06 IV Last administered on 04/17/17 05: 16; Admin Dose 40 MG; Start 04/11/17 at 06:00 Ondansetron HCl (Zofran Inj) 4 mg Q4H PRN IV NAUSEA AND/OR VOMITING; Start 08/19 at 13:30 Guaifenesin (Robitussin Liquid Cup) 100 mg Q4H PRN PO COUGH Last administered on 04/17/17 09:07; Admin Dose 100 MG; Start 04/14/17 at 22:00 Benzonatate (Tessalon) 100 mg TID PRN PO cough Last administered on 04/16/17 05:54; Admin Dose 100 MG; Start 04/14/17 at 22:00 Terazosin HCl (Hytrin) 1 mg HS PO Last administered on 04/16/17 20:52; Admin Dose 1 MG; Start 04/16/17 at 21:00 Tamsulosin HCl (Flomax) 0.4 mg DAILY PO Last administered on 04/17/17 09:08; Admin Dose 0.4 MG; Start 04/16/17 at 11:00 JYOTI SAWYER Apr 17, 2017 17:28
--- NOTE | 2017-04-17 17:43 | CONS ---
Date/Time of Note Date/Time of Note DATE: 04/17/17 TIME: 17:40 Assessment/Plan Assessment/Plan Chief Complaint/Hosp Course 61 yo M admitted for symptomatic anemia, EGD done yesterday with multiple malignant looking masses. Bone scan concerning for advanced malignancy- s/p EGD with biopsy which showed Infiltrating (diffuse), signet ring cell carcinoma- pt has been having urinary frequency with obstructive symtpoms, renal has been consulted. pt has been on started on hytrin but associated with low BP. Problems: Additional Assessment/Plan 1.acute urinary retention requiring Miranda- likley due to obstructive uropathy from possible metastasis, US renal showed hydronephrosis with distended bladder 2. diffuse osteoblastic bone metastasis 3. S/P EGD with biopsy showed signet ring cell CA Plan: Continue current miranda care, plan for portacath and Chemotherapy as per hematolgoy oncology continue hytrin to 1 mg PO QHS and flomax 0.4mg PO daily Order CT abdomen + pelvis without contrast in AM to better asses for hydronephrosis and to rule out any other obstructive uropathy, if worsening hydro then we will call urology consultation will [facility] Monitor electrolytes and replace as needed Consultation Date/Type/Reason Admit Date/Time Apr 09, 2017 at 13:02 Initial Consult Date 04/16/17 Type of Consultation: NEPHROLOGY Referring Provider: CATHY TORRES MD 24 HR Interval Summary Free Text/Dictation BP stable, HR in 100s, plan for portacath and Possible plan for chemotherapy, pt has urinary retention Exam/Review of Systems Vital Signs Vitals Vital Signs Date Time Temp Pulse Resp B/P Pulse Ox O2 Delivery O2 Flow Rate FiO2 04/17/17 08:11 97.4 105 20 117/59 99 04/16/17 01:06 Nasal Cannula 2.0 Intake and Output 04/16/17 04/16/17 04/17/17 15:00 23:00 07:00 Intake Total 1290 ml 1080 ml Output Total 1100 ml 1200 ml Balance 190 ml -120 ml Exam Constitutional: alert Psych: no complaints Head: normocephalic Eyes: nl conjunctiva ENMT: nl external ears & nose Neck: supple Respiratory: clear to auscultation Cardiovascular: regular rate and rhythm Gastrointestinal: non-tender, soft Extremities: normal pulses Neurological: [employer] II-XII intact, nl mental status, nl speech, nl strength Skin: nl turgor Lymph: nl lymph nodes Results Result Diagram: 04/17/17 0430 04/17/17 0430 Results 24 hrs Laboratory Tests Test 04/17/17 04:30 04/17/17 08:52 White Blood Count 7.3 # Red Blood Count 3.19 #L Hemoglobin 9.7 #L Hematocrit 30.4 L Mean Corpuscular Volume 95.3 Mean Corpuscular Hemoglobin 30.4 Mean Corpuscular Hemoglobin Concent 31.9 L Red Cell Distribution Width 23.3 H Platelet Count 81 L Mean Platelet Volume 10.4 Neutrophils % 70.2 Segmented Neutrophils % (Manual) 78 H Band Neutrophils % (Manual) 2 Lymphocytes % 16.8 Lymphocytes % (Manual) 15 Monocytes % 12.0 H Monocytes % (Manual) 5 Eosinophils % 0.4 Basophils % 0.1 Nucleated Red Blood Cells % 9 H Neutrophils # (Manual) 5.7 Band Neutrophils # 0.1 Absolute Lymphocytes (Manual) 1.0 Lymphocytes # 1.2 Monocytes # 0.9 Absolute Monocytes (Manual) 0.3 Eosinophils # 0.0 Basophils # 0.0 Nucleated Red Blood Cells # 0.5 H Thrombocytosis 1 H Platelet Estimate DECREASED Polychromasia 1+ Poikilocytosis 3+ Anisocytosis 2+ Microcytosis 1+ Acanthocytes 1+ Prothrombin Time 18.2 H Prothrombin Time Ratio 1.4 INR International Normalized Ratio 1.50 Activated Partial Thromboplast Time 36.1 H Sodium Level 133 L Potassium Level 3.5 Chloride Level 103 Carbon Dioxide Level 20 L Anion Gap 14 Blood Urea Nitrogen 23 #H Creatinine 0.71 Glucose Level 107 Calcium Level 7.8 L Phosphorus Level 3.0 Magnesium Level 2.0 Lab Scanned Report BLOOD TRANSFUSION Medications Medications Current Medications Acetaminophen (Tylenol Tab) 650 mg Q6H PRN PO PAIN LEVEL 1-3 OR FEVER Last administered on 04/09/17t 21:08; Admin Dose 650 MG; Start 04/09/17 at 15:30 Acetaminophen (Tylenol Supp) 650 mg Q6H PRN [place] PAIN LEVEL 1-3 OR FEVER; Start 04/09/17 at 15:30 Morphine Sulfate (morphine) 2 mg Q4H PRN IV SEVERE PAIN LEVEL 7-10; Start at 15:30 Bupropion HCl (Wellbutrin Xl) 150 mg DAILY PO Last administered on 04/17/17 09 :07; Admin Dose 150 MG; Start 04/10/17 at 09:00 Thiothixene (Navane) 5 mg DAILY PO Last administered on 04/17/17 09:07; Admin Dose 5 MG; Start 04/10/17 at 09:00 Atorvastatin Calcium (Lipitor) 10 mg QHS PO Last administered on 04/16/17 20: 52; Admin Dose 10 MG; Start 04/10/17 at 21:00 Pantoprazole (Protonix Iv) 40 mg DAILY@06 IV Last administered on 04/17/17 05: 16; Admin Dose 40 MG; Start 04/11/17 at 06:00 Ondansetron HCl (Zofran Inj) 4 mg Q4H PRN IV NAUSEA AND/OR VOMITING; Start 08/19 at 13:30 Guaifenesin (Robitussin Liquid Cup) 100 mg Q4H PRN PO COUGH Last administered on 04/17/17 09:07; Admin Dose 100 MG; Start 04/14/17 at 22:00 Benzonatate (Tessalon) 100 mg TID PRN PO cough Last administered on 04/16/17 05:54; Admin Dose 100 MG; Start 04/14/17 at 22:00 Terazosin HCl (Hytrin) 1 mg HS PO Last administered on 04/16/17 20:52; Admin Dose 1 MG; Start 04/16/17 at 21:00 Tamsulosin HCl (Flomax) 0.4 mg DAILY PO Last administered on 04/17/17 09:08; Admin Dose 0.4 MG; Start 04/16/17 at 11:00 JAZIEL ROBERTS MD Apr 17, 2017 17:43
[2017-04-17] MEDS: ATORVASTATIN 10 MG TAB PO SCH (20:23)
[2017-04-17] MEDS: TERAZOSIN 1 MG CAP PO SCH (20:24)
--- NOTE | 2017-04-17 20:27 | PN ---
Date/Time of Note Date/Time of Note DATE: 04/17/17 TIME: 20:25 Assessment/Plan VTE Prophylaxis VTE Prophylaxis Intervention: ambulation Lines/Catheters [facility] PORT[facility]A-CATH Urinary Cath still in place: Yes Reason Cath still needed: urinary retention Assessment/Plan Assessment/Plan Anemia * EGD Large clearly malignant mass distal third of the esophagus. Multiple biopsies obtained Very large clearly malignant mass in the fundus of the stomach with extensive infiltration to the mid stomach. Biopsies obtained Biopsy result A-Gastric fundus biopsies: -- Infiltrating (diffuse), signet ring cell carcinoma. -- A Giemsa stain with an appropriate control is negative for Helicobacter pylori organisms. -- Mild chronic gastritis. -- No intestinal metaplasia is identified. B-Esophageal biopsies: -- An ulcer base with infiltrating (diffuse), signet ring cell carcinoma. -- Esophageal epithelium is present. * Schizophrenia * Multiple metastasis by bone scan Plan * continue present management * will other await biopsy results * Hemaoncology on board * case discuss with Dr Pittman * Further orders will depend on clinical course Subjective 24 Hr Interval Summary Free Text/Dictation Course reviewed No untoward events overnight Exam/Review of Systems Vital Signs Vitals Vital Signs Date Time Temp Pulse Resp B/P Pulse Ox O2 Delivery O2 Flow Rate FiO2 04/17/17 20:11 97.9 110 18 113/57 98 04/17/17 18:00 Room Air 04/16/17 01:06 2.0 Intake and Output 04/16/17 04/16/17 04/17/17 15:00 23:00 07:00 Intake Total 1290 ml 1080 ml Output Total 1100 ml 1200 ml Balance 190 ml -120 ml Exam Constitutional: alert, oriented Eyes: EOMI, nl conjunctiva Neck: non-tender, supple Respiratory: clear to auscultation, normal air movement Cardiovascular: nl pulses, regular rate and rhythm Gastrointestinal: non-tender, soft Musculoskeletal: nl extremities to inspection, nl gait and stance Extremities: normal pulses Neurological: nl mental status Results Result Diagram: 04/17/17 0430 04/17/17 0430 Results 24 hrs Laboratory Tests Test 04/17/17 04:30 04/17/17 08:52 White Blood Count 7.3 # Red Blood Count 3.19 #L Hemoglobin 9.7 #L Hematocrit 30.4 L Mean Corpuscular Volume 95.3 Mean Corpuscular Hemoglobin 30.4 Mean Corpuscular Hemoglobin Concent 31.9 L Red Cell Distribution Width 23.3 H Platelet Count 81 L Mean Platelet Volume 10.4 Neutrophils % 70.2 Segmented Neutrophils % (Manual) 78 H Band Neutrophils % (Manual) 2 Lymphocytes % 16.8 Lymphocytes % (Manual) 15 Monocytes % 12.0 H Monocytes % (Manual) 5 Eosinophils % 0.4 Basophils % 0.1 Nucleated Red Blood Cells % 9 H Neutrophils # (Manual) 5.7 Band Neutrophils # 0.1 Absolute Lymphocytes (Manual) 1.0 Lymphocytes # 1.2 Monocytes # 0.9 Absolute Monocytes (Manual) 0.3 Eosinophils # 0.0 Basophils # 0.0 Nucleated Red Blood Cells # 0.5 H Thrombocytosis 1 H Platelet Estimate DECREASED Polychromasia 1+ Poikilocytosis 3+ Anisocytosis 2+ Microcytosis 1+ Acanthocytes 1+ Prothrombin Time 18.2 H Prothrombin Time Ratio 1.4 INR International Normalized Ratio 1.50 Activated Partial Thromboplast Time 36.1 H Sodium Level 133 L Potassium Level 3.5 Chloride Level 103 Carbon Dioxide Level 20 L Anion Gap 14 Blood Urea Nitrogen 23 #H Creatinine 0.71 Glucose Level 107 Calcium Level 7.8 L Phosphorus Level 3.0 Magnesium Level 2.0 Lab Scanned Report BLOOD TRANSFUSION Medications Medications Current Medications Acetaminophen (Tylenol Tab) 650 mg Q6H PRN PO PAIN LEVEL 1-3 OR FEVER Last administered on 04/09/17 21:08; Admin Dose 650 MG; Start 04/09/17 at 15:30 Acetaminophen (Tylenol Supp) 650 mg Q6H PRN [place] PAIN LEVEL 1-3 OR FEVER; Start 04/09/17 at 15:30 Morphine Sulfate (morphine) 2 mg Q4H PRN IV SEVERE PAIN LEVEL 7-10; Start at 15:30 Bupropion HCl (Wellbutrin Xl) 150 mg DAILY PO Last administered on 04/17/17 09 :07; Admin Dose 150 MG; Start 04/10/17 at 09:00 Thiothixene (Navane) 5 mg DAILY PO Last administered on 04/17/17 09:07; Admin Dose 5 MG; Start 04/10/17 at 09:00 Atorvastatin Calcium (Lipitor) 10 mg QHS PO Last administered on 04/16/17 20: 52; Admin Dose 10 MG; Start 04/10/17 at 21:00 Pantoprazole (Protonix Iv) 40 mg DAILY@06 IV Last administered on 04/17/17 05: 16; Admin Dose 40 MG; Start 04/11/17 at 06:00 Ondansetron HCl (Zofran Inj) 4 mg Q4H PRN IV NAUSEA AND/OR VOMITING; Start 08/19 at 13:30 Guaifenesin (Robitussin Liquid Cup) 100 mg Q4H PRN PO COUGH Last administered on 04/17/17 09:07; Admin Dose 100 MG; Start 04/14/17 at 22:00 Benzonatate (Tessalon) 100 mg TID PRN PO cough Last administered on 04/16/17 05:54; Admin Dose 100 MG; Start 04/14/17 at 22:00 Terazosin HCl (Hytrin) 1 mg HS PO Last administered on 04/16/17 20:52; Admin Dose 1 MG; Start 04/16/17 at 21:00 Tamsulosin HCl (Flomax) 0.4 mg DAILY PO Last administered on 04/17/17 09:08; Admin Dose 0.4 MG; Start 04/16/17 at 11:00 Bicalutamide (Casodex) 50 mg DAILY PO ; Start 04/18/17 at 09:00 ALIREZA PENN NP Apr 17, 2017 20:27
--- NOTE | 2017-04-17 22:50 | PN ---
DATE: 04/17/2017 SUBJECTIVE: Patient did have Port-A-Cath placed today. He has no complaints of pain related to the port placement. OBJECTIVE DATA: GENERAL: Patient is a well-developed, well-nourished male who is in no acute distress. VITAL SIGNS: Temperature 98.1, pulse 102 per minute and regular, respirations 18, blood pressure 106/67, pulse oximetry 98 percent on room air. SKIN: No ecchymosis. No petechiae or rashes. HEENT: No mucosal lesions. No scleral icterus. Normocephalic and no evidence of trauma. CHEST: Clear to auscultation and percussion. No rhonchi, wheezes, rales, or rubs. No pain on percussion of spine, sternum, clavicles or ribs. There is placement of a Port-A-Cath in the right anterior chest wall. NODES: No palpable lymphadenopathy in any lymph node-bearing area. HEART: Sinus tachycardia. No S3, S4, or murmurs. ABDOMEN: Soft. No masses. No ascites. Bowel sounds are active. EXTREMITIES: Good range of motion. No clubbing. No edema or cyanosis. No palpable cords or Homans sign. NEUROLOGIC: No focal neurologic abnormalities. The patient does have stuttering speech and somewhat flat affect. LABORATORY AND DIAGNOSTIC DATA: The bone marrow biopsy performed on April 12 does demonstrate a bone marrow replacement by poorly differentiated metastatic carcinoma. This is somewhat similar in appearance to the signet ring adenocarcinoma obtained on biopsy of the stomach and the esophagus. It, however, does not henry the same way as the gastric biopsy does. This suggests that perhaps this is a 2nd malignancy, i.e. metastatic prostate adenocarcinoma, although this is still uncertain. White count 7300, hemoglobin 9.7, hematocrit 30.4, and platelet count 81,000. Sodium 133, potassium 3.5, BUN 23, creatinine 0.7. Protime 18.2 seconds, INR 1.5, PTT is 36.1 seconds. ASSESSMENT: 1. 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 2. Diffuse skeletal metastases. Rule out prostatic carcinoma. 3. Schizophrenia. DISCUSSION: 1. The patient has had a port placed and may now be given chemotherapy. Given the diagnosis of the locally advanced and unresectable gastric carcinoma, I will start the patient on FOLFOX chemotherapy. May also add Cyramza. 2. The patient does have skeletal metastases which clinically are consistent with a prostatic carcinoma, although prostate carcinoma has not been proven. Choices would be to do a prostatic biopsy or initiate therapy empirically for prostatic carcinoma. 3. Will start the patient on bicalutamide at this time 50 mg daily. Following 5-7 days of this, will start the patient on leuprolide. The bicalutamide is being given to prevent an androgen flare and increase in bone pain, once the leuprolide has been started. This please go back to the exam into the part of the examination of the chest. Add there was placement of a Port- A-Cath in the right anterior chest wall. Dictated By: Shyam Cuevas MD /[email or web address]/oxana /Document#: [id number]
[2017-04-18 00:56] VITALS: BP 120/62; RESP 18
[2017-04-18] MEDS: ACETAMINOPHEN 325 MG TAB PO PRN (03:27)
[2017-04-18] MEDS: PANTOPRAZOLE 40 MG INJ IV SCH (05:16)
[2017-04-18 05:38] LABS: ABNORMAL IP MESSAGE 1; BASOPHILS % 0.1 % (0.0-2.0); EOSINOPHILS % 0.1 % (0.0-7.0); HEMOGLOBIN 9.7 g/dl (14.0-18.0); LYMPHOCYTES # 1.1 10^3/ul (0.8-2.9); LYMPHOCYTES % 15.3 % (15.0-51.0); MEAN CORPUSCULAR HEMOGLOBIN 30.6 pg (29.0-33.0); MEAN CORPUSCULAR HGB CONC 32.3 g/dl (32.0-37.0); MEAN CORPUSCULAR VOLUME 94.6 fl (82.0-101.0); MEAN PLATELET VOLUME 9.9 fl (7.4-10.4); MONOCYTE # 0.7 10^3/ul (0.3-0.9); MONOCYTES % 9.8 % (0.0-11.0); NEUTROPHILS % 74.1 % (39.0-77.0); NUCLEATED RED BLOOD CELLS # 0.2 10^3/ul (0.0-0.0); NUCLEATED RED BLOOD CELLS% 3.3 /100WBC (0.0-0.0); PLATELET COUNT 82 10^3/UL (140-415); POSITIVE DIFF @See below; RED BLOOD COUNT 3.17 10^6/ul (4.70-6.10); WHITE BLOOD COUNT 6.9 10^3/ul (4.8-10.8)
[2017-04-18 05:44] VITALS: BP 119/63; PULSE 99
[2017-04-18 05:59] LABS: INR 1.53; PROTIME 18.5 Sec (12.2-14.2); PT RATIO 1.4
[2017-04-18 06:00] LABS: PARTIAL THROMBOPLASTIN TIME 36.5 Sec (25.0-35.0)
--- NOTE | 2017-04-18 06:56 | CONS ---
Date/Time of Note Date/Time of Note DATE: 04/18/17 TIME: 06:48 Assessment/Plan Assessment/Plan Additional Assessment/Plan Suggest discontinue his current opioid administration intravenously. Follow his clinical findings when he is taking adequate oral and if he has accelerated pain will begin him on a conservative dose of pain control medications and withhold nonsteroidal anti-inflammatory medications Consultation Date/Type/Reason Admit Date/Time Apr 09, 2017 at 13:02 Type of Consultation: Pain management Problem list assessment Anemia Adenocarcinoma of the esophagus, signet cell Schizophrenia Dyslipidemia Urinary retention, Diffuse osteoblastic bone metastases, etiology unknown Patient is a 61-year-old gentleman who is extremely poor historian. Admitted to [facility] with symptomatic anemia diagnosed with adenocarcinoma of the esophagus. Patient is a poor historian secondary to underlying schizophrenia. He denies any pain [id number] at this time states that he has chest discomfort which is minor 11/10.. Patient states that he does not believe he needs to be treated for accelerated pain however his ability to give me an accurate history of present illness and pain control is suspect. When he describes his pain he says is a throbbing type of discomfort which does not radiate to his back or arm. It did not produce nausea vomiting shortness of breath and he has not asked for pain control medications. There is no evidence to indicate that patient is abusing opioids or any substances as an outpatient. Pain symptomatology management goals of care past medical history of drug use smoking or alcohol was essentially unremarkable however once again patient is a very poor historian the severity of his pain is mild, it is not negotiating with me for higher dosages or route of administration of opioids. There are no side effects associated with his current pain control medications. Constitutional: no complaints Eyes: no complaints ENT: no complaints Respiratory: no complaints Cardiovascular: no complaints Gastrointestinal: no complaints Genitourinary: no complaints, other (inreased frequency ) Musculoskeletal: no complaints Skin: no complaints Neurologic: no complaints Endocrine: no complaints Lymphatic: no complaints Psychological: no complaints Immunologic: no complaints Past Medical History Medical History: other (schizophrenia) Past Surgical History Past Surgical Hx: no surgical history Social History Alcohol Use: none Smoking Status: Former smoker Exam/Review of Systems Vital Signs Vitals Vital Signs Date Time Temp Pulse Resp B/P Pulse Ox O2 Delivery O2 Flow Rate FiO2 04/18/17 05:44 98.0 99 119/63 99 Room Air 04/18/17 00:56 18 04/16/17 01:06 2.0 Intake and Output 04/17/17 04/17/17 04/18/17 15:00 23:00 07:00 Intake Total 300 ml 880 ml Output Total 1300 ml 900 ml Balance -1000 ml -20 ml Exam Constitutional: No alert, No distress, No frail, No non-verbal, No obese, No oriented, No other, No well developed Head: No atraumatic, No hematomas, No lacerations, No normocephalic, No other Neck: No bruits, No jvd, No masses, No non-tender, No nuchal rigidity, No other , No supple, No thyromegaly Respiratory: No clear to auscultation, No congested cough, No crackles/rales, No diminished breath sounds, No intercostal retraction, No labored breathing, No normal air movement, No other, No respirations, No tactile fremitus, No wheezing Cardiovascular: No S3, No S4, No bruits, No diastolic murmur, No edema, No gallop, No irregular rhythm, No jugular venous distention (JVD), No murmurs/ extra sounds, No nl pulses, No other, No regular rate and rhythm, No rub, No systolic murmur Gastrointestinal: No ascites, No bowel sounds, No distended, No firm, No hepatomegaly, No mass, No nl liver, spleen, No non-tender, No other, No rebound or guarding, No soft, No splenomegaly, No surgical scars, No tender Neurological: No RECORD PRESSMAN II-XII intact, No DTR's symmetric, No confused, No focal weakness, No lethargic, No nl mental status, No nl speech, No nl strength, No numbness, No other, No reflexes, No unresponsive Results Result Diagram: 04/18/17 0501 04/17/17 0430 Results 24 hrs Laboratory Tests Test 04/17/17 08:52 04/18/17 05:01 Lab Scanned Report BLOOD TRANSFUSION White Blood Count 6.9 Red Blood Count 3.17 L Hemoglobin 9.7 L Hematocrit 30.0 L Mean Corpuscular Volume 94.6 Mean Corpuscular Hemoglobin 30.6 Mean Corpuscular Hemoglobin Concent 32.3 Red Cell Distribution Width 23.0 H Platelet Count 82 L Mean Platelet Volume 9.9 Neutrophils % 74.1 Lymphocytes % 15.3 Monocytes % 9.8 Eosinophils % 0.1 Basophils % 0.1 Nucleated Red Blood Cells % 3.3 H Neutrophils # (Manual) 5.1 Lymphocytes # 1.1 Monocytes # 0.7 Eosinophils # 0.0 Basophils # 0.0 Nucleated Red Blood Cells # 0.2 H Prothrombin Time 18.5 H Prothrombin Time Ratio 1.4 INR International Normalized Ratio 1.53 Activated Partial Thromboplast Time 36.5 H Fibrinogen 295.0 Medications Medications Current Medications Acetaminophen (Tylenol Tab) 650 mg Q6H PRN PO PAIN LEVEL 1-3 OR FEVER Last administered on 04/18/17 03:27; Admin Dose 650 MG; Start 04/09/17 at 15:30 Acetaminophen (Tylenol Supp) 650 mg Q6H PRN [place] PAIN LEVEL 1-3 OR FEVER; Start 04/09/17 at 15:30 Morphine Sulfate (morphine) 2 mg Q4H PRN IV SEVERE PAIN LEVEL 7-10; Start at 15:30 Bupropion HCl (Wellbutrin Xl) 150 mg DAILY PO Last administered on 04/17/17 09 :07; Admin Dose 150 MG; Start 04/10/17 at 09:00 Thiothixene (Navane) 5 mg DAILY PO Last administered on 04/17/17 09:07; Admin Dose 5 MG; Start 04/10/17 at 09:00 Atorvastatin Calcium (Lipitor) 10 mg QHS PO Last administered on 04/17/17 20: 23; Admin Dose 10 MG; Start 04/10/17 at 21:00 Pantoprazole (Protonix Iv) 40 mg DAILY@06 IV Last administered on 04/18/17 05: 16; Admin Dose 40 MG; Start 04/11/17 at 06:00 Ondansetron HCl (Zofran Inj) 4 mg Q4H PRN IV NAUSEA AND/OR VOMITING; Start 08/19 at 13:30 Guaifenesin (Robitussin Liquid Cup) 100 mg Q4H PRN PO COUGH Last administered on 04/17/17 09:07; Admin Dose 100 MG; Start 04/14/17 at 22:00 Benzonatate (Tessalon) 100 mg TID PRN PO cough Last administered on 04/16/17 05:54; Admin Dose 100 MG; Start 04/14/17 at 22:00 Terazosin HCl (Hytrin) 1 mg HS PO Last administered on 04/17/17 20:24; Admin Dose 1 MG; Start 04/16/17 at 21:00 Tamsulosin HCl (Flomax) 0.4 mg DAILY PO Last administered on 04/17/17 09:08; Admin Dose 0.4 MG; Start 04/16/17 at 11:00 Bicalutamide (Casodex) 50 mg DAILY PO ; Start 04/18/17 at 09:00 SHANEL CHRIS Apr 18, 2017 06:55
[2017-04-18 08:03] VITALS: BP 116/59; RESP 19
[2017-04-18] MEDS: BUPROPION (XL) 150 MG TAB PO SCH (08:35)
[2017-04-18] MEDS: THIOTHIXENE 5 MG CAP PO SCH (08:36)
[2017-04-18] MEDS: TAMSULOSIN (SR) 0.4 MG CAP PO SCH (08:36)
[2017-04-18] MEDS: BICALUTAMIDE 50 MG TAB PO SCH (08:38)
[2017-04-18] MEDS ORDERED: oxyCODONE 5 MG TAB PO PRN (10:00)
--- NOTE | 2017-04-18 12:01 | RADRPT ---
PROCEDURE: CT Abdomen and Pelvis without contrast. CLINICAL INDICATION: Abdominal pain and urinary retention. Evaluate for hydronephrosis. TECHNIQUE: Multiple contiguous axial CT images of the abdomen and pelvis were obtained without the administration of intravenous contrast. Coronal and sagittal reconstructions were also performed. CTDIvol (mGy): 20.65; Total Exam DLP (mGy-cm): 1456.75. One or more of the following dose reduction techniques were utilized: - Automated exposure control. - Adjustment of the mA and/or kV according to patient size. - Use of iterative reconstruction technique. COMPARISON: 04/09/2017. FINDINGS: Limited imaging of the lower thorax demonstrates moderate large bilateral pleural effusions, which h ave increased. Scattered calcification is seen throughout the bilateral lower lobe pulmonary parenc hyma and is unchanged. Mild concentric wall thickening / submucosal edema of the distal esophagus is again identified and unchanged. The liver and spleen are homogeneous in density. Cholelithiasis is present. The pancreas and adren al glands are unremarkable aside from minimal mild nodularity of the adrenal glands, which is unchan ged. The kidneys are symmetric in size. There is a faint punctate stone within the right kidney. There a re no ureteral stones. There is no hydronephrosis or abnormal perinephric inflammation. The abdominal aorta is normal in caliber. There is no periaortic / retroperitoneal lymphadenopathy. The stomach and small and large intestines are unremarkable. The appendix is not visualized. Mesent dary edema is present. Small volume ascites is present and slightly increased. The bladder is collapsed around a Roman. The prostate gland is enlarged measuring approximately 5.2 x 5.6 x 4.3 cm yielding a volume of 65 cc. There is no free pelvic fluid. There is no pelvic sidew all or inguinal lymphadenopathy. Marked sclerosis of the axial and visualized appendicular skeleton is present and unchanged. Diffus e subcutaneous edema is observed and increased. IMPRESSION: Moderate large bilateral pleural effusions, small volume ascites with mesenteric and subcutaneous ed bala, increased. Cholelithiasis. Enlarged prostate. Diffuse sclerosis of the axial and appendicular skeleton suggesting the presence of osseous metastat ic disease. Mild concentric wall thickening / submucosal edema of the distal esophagus. Correlate with signs an d symptoms of esophagitis. Endoscopy versus imaging follow-up recommended. RPTAT: HLST .Colette Trujillo MD, MD Date Time Electronically viewed and signed by .Colette Trujillo MD, MD on 04/18/2017 12:01 .T/
--- NOTE | 2017-04-18 12:35 | CONS ---
Date/Time of Note Date/Time of Note DATE: 04/18/17 TIME: 12:30 Assessment/Plan Assessment/Plan Chief Complaint/Hosp Course 61 yo M admitted for symptomatic anemia, EGD done yesterday with multiple malignant looking masses. Bone scan concerning for advanced malignancy- s/p EGD with biopsy which showed Infiltrating (diffuse), signet ring cell carcinoma- pt has been having urinary frequency with obstructive symtpoms, renal has been consulted. pt has been on started on hytrin but associated with low BP. Problems: Additional Assessment/Plan 1.acute urinary retention requiring Miranda- CT abdomen + pelvis without contast negative for any obstruction, no hydronephrosis 2. diffuse osteoblastic bone metastasis 3. S/P EGD with biopsy showed signet ring cell CA 4. Bilateral pleural effusino large on CT abdomen with Ascites and edema Plan: s/p portacath and Chemotherapy as per hematolgoy oncology d/c miranda catheter and consider voiding trial continue hytrin to 1 mg PO QHS and flomax 0.4mg PO daily, BP stable so far pt CT abdomen + pelvis showed bilateral large pleural effusion- will order US chest to better assess pleural effusion, and see it pt needs thoracentesis Monitor electrolytes and replace as needed Consultation Date/Type/Reason Admit Date/Time Apr 09, 2017 at 13:02 Initial Consult Date 04/16/17 Type of Consultation: NEPHROLOGY Referring Provider: CATHY TORRES MD 24 HR Interval Summary Free Text/Dictation CT abdomen + pelvis showed moderate pleural effusion, no Hydronehrosis/ obstruction, small punctate kidney stone in right kidney , has miranda catheter Exam/Review of Systems Vital Signs Vitals Vital Signs Date Time Temp Pulse Resp B/P Pulse Ox O2 Delivery O2 Flow Rate FiO2 04/18/17 08:03 97.5 103 19 116/59 98 04/18/17 05:44 Room Air 04/16/17 01:06 2.0 Intake and Output 04/17/17 04/17/17 04/18/17 15:00 23:00 07:00 Intake Total 300 ml 880 ml Output Total 1300 ml 900 ml Balance -1000 ml -20 ml Exam Constitutional: alert Respiratory: clear to auscultation Cardiovascular: regular rate and rhythm Gastrointestinal: non-tender, soft Extremities: normal pulses Neurological: BEAD MAKER II-XII intact, nl mental status, nl speech, nl strength Skin: nl turgor Lymph: nl lymph nodes Results Result Diagram: 04/18/17 0501 04/17/17 0430 Results 24 hrs Laboratory Tests Test 04/18/17 05:01 White Blood Count 6.9 Red Blood Count 3.17 L Hemoglobin 9.7 L Hematocrit 30.0 L Mean Corpuscular Volume 94.6 Mean Corpuscular Hemoglobin 30.6 Mean Corpuscular Hemoglobin Concent 32.3 Red Cell Distribution Width 23.0 H Platelet Count 82 L Mean Platelet Volume 9.9 Neutrophils % 74.1 Lymphocytes % 15.3 Monocytes % 9.8 Eosinophils % 0.1 Basophils % 0.1 Nucleated Red Blood Cells % 3.3 H Neutrophils # (Manual) 5.1 Lymphocytes # 1.1 Monocytes # 0.7 Eosinophils # 0.0 Basophils # 0.0 Nucleated Red Blood Cells # 0.2 H Prothrombin Time 18.5 H Prothrombin Time Ratio 1.4 INR International Normalized Ratio 1.53 Activated Partial Thromboplast Time 36.5 H Fibrinogen 295.0 Medications Medications Current Medications Acetaminophen (Tylenol Tab) 650 mg Q6H PRN PO PAIN LEVEL 1-3 OR FEVER Last administered on 04/18/17 03:27; Admin Dose 650 MG; Start 04/09/17 at 15:30 Acetaminophen (Tylenol Supp) 650 mg Q6H PRN [place] PAIN LEVEL 1-3 OR FEVER; Start 04/09/17 at 15:30 Bupropion HCl (Wellbutrin Xl) 150 mg DAILY PO Last administered on 04/18/17 08 :35; Admin Dose 150 MG; Start 04/10/17 at 09:00 Thiothixene (Navane) 5 mg DAILY PO Last administered on 04/18/17 08:36; Admin Dose 5 MG; Start 04/10/17 at 09:00 Atorvastatin Calcium (Lipitor) 10 mg QHS PO Last administered on 04/17/17 20: 23; Admin Dose 10 MG; Start 04/10/17 at 21:00 Pantoprazole (Protonix Iv) 40 mg DAILY@06 IV Last administered on 04/18/17 05: 16; Admin Dose 40 MG; Start 04/11/17 at 06:00 Ondansetron HCl (Zofran Inj) 4 mg Q4H PRN IV NAUSEA AND/OR VOMITING; Start 08/19 at 13:30 Guaifenesin (Robitussin Liquid Cup) 100 mg Q4H PRN PO COUGH Last administered on 04/17/17 09:07; Admin Dose 100 MG; Start 04/14/17 at 22:00 Benzonatate (Tessalon) 100 mg TID PRN PO cough Last administered on 04/16/17 05:54; Admin Dose 100 MG; Start 04/14/17 at 22:00 Terazosin HCl (Hytrin) 1 mg HS PO Last administered on 04/17/17 20:24; Admin Dose 1 MG; Start 04/16/17 at 21:00 Tamsulosin HCl (Flomax) 0.4 mg DAILY PO Last administered on 04/18/17 08:36; Admin Dose 0.4 MG; Start 04/16/17 at 11:00 Bicalutamide (Casodex) 50 mg DAILY PO Last administered on 04/18/17 08:38; Admin Dose 50 MG; Start 04/18/17 at 09:00 Oxycodone HCl (Roxicodone) 5 mg Q4H PRN PO PAIN; Start 04/18/17 at 10:00 JAZIEL ROBERTS MD Apr 18, 2017 12:35
--- NOTE | 2017-04-18 13:54 | RADRPT ---
PROCEDURE: US bilateral chest. CLINICAL INDICATION: Pleural effusion TECHNIQUE: Multiple real-time images were acquired of the patient's chest utilizing a high resolut ion transducer. COMPARISON: Recent x-ray FINDINGS: There are moderate bilateral pleural effusions. IMPRESSION: Moderate bilateral pleural effusions. RPTAT: AA Physician Nicolas Date Time Electronically viewed and signed by Olman Carr Physician on 04/18/2017 13:54 RA/
[2017-04-18 14:15] VITALS: BP 125/64; RESP 20
--- NOTE | 2017-04-18 14:59 | PN ---
Date/Time of Note Date/Time of Note DATE: 04/18/17 TIME: 14:56 Assessment/Plan VTE Prophylaxis VTE Prophylaxis Intervention: SCD's Lines/Catheters IV Catheter Type (from Nrs): STARLA CATH Central line still needed: Yes Urinary Cath still in place: Yes Reason Cath still needed: urinary retention Assessment/Plan Assessment/Plan Anemia * EGD Large clearly malignant mass distal third of the esophagus. Multiple biopsies obtained Very large clearly malignant mass in the fundus of the stomach with extensive infiltration to the mid stomach. Biopsies obtained Biopsy result A-Gastric fundus biopsies: -- Infiltrating (diffuse), signet ring cell carcinoma. -- A Giemsa stain with an appropriate control is negative for Helicobacter pylori organisms. -- Mild chronic gastritis. -- No intestinal metaplasia is identified. B-Esophageal biopsies: -- An ulcer base with infiltrating (diffuse), signet ring cell carcinoma. -- Esophageal epithelium is present. * Schizophrenia * Multiple metastasis by bone scan Plan * continue present management * Hemaoncology on board * case discuss with Dr Pittman * Further orders will depend on clinical course Subjective 24 Hr Interval Summary Free Text/Dictation * course reviewed with RN * Patient seen and examined * No untoward events overnight Exam/Review of Systems Vital Signs Vitals Vital Signs Date Time Temp Pulse Resp B/P Pulse Ox O2 Delivery O2 Flow Rate FiO2 04/18/17 14:15 97.5 107 20 125/64 99 04/18/17 05:44 Room Air 04/16/17 01:06 2.0 Intake and Output 04/17/17 04/17/17 04/18/17 15:00 23:00 07:00 Intake Total 300 ml 880 ml Output Total 1300 ml 900 ml Balance -1000 ml -20 ml Exam Constitutional: alert, frail Neck: non-tender, supple Respiratory: clear to auscultation Cardiovascular: nl pulses, regular rate and rhythm Gastrointestinal: non-tender, soft Musculoskeletal: nl extremities to inspection, nl gait and stance Extremities: normal pulses Neurological: nl speech, nl strength Skin: nl turgor, No rash or lesions Lymph: nl lymph nodes Results Result Diagram: 04/18/17 0501 04/17/17 0430 Results 24 hrs Laboratory Tests Test 04/18/17 05:01 White Blood Count 6.9 Red Blood Count 3.17 L Hemoglobin 9.7 L Hematocrit 30.0 L Mean Corpuscular Volume 94.6 Mean Corpuscular Hemoglobin 30.6 Mean Corpuscular Hemoglobin Concent 32.3 Red Cell Distribution Width 23.0 H Platelet Count 82 L Mean Platelet Volume 9.9 Neutrophils % 74.1 Lymphocytes % 15.3 Monocytes % 9.8 Eosinophils % 0.1 Basophils % 0.1 Nucleated Red Blood Cells % 3.3 H Neutrophils # (Manual) 5.1 Lymphocytes # 1.1 Monocytes # 0.7 Eosinophils # 0.0 Basophils # 0.0 Nucleated Red Blood Cells # 0.2 H Prothrombin Time 18.5 H Prothrombin Time Ratio 1.4 INR International Normalized Ratio 1.53 Activated Partial Thromboplast Time 36.5 H Fibrinogen 295.0 Medications Medications Current Medications Acetaminophen (Tylenol Tab) 650 mg Q6H PRN PO PAIN LEVEL 1-3 OR FEVER Last administered on 04/18/17 03:27; Admin Dose 650 MG; Start 04/09/17 at 15:30 Acetaminophen (Tylenol Supp) 650 mg Q6H PRN [place] PAIN LEVEL 1-3 OR FEVER; Start 04/09/17 at 15:30 Bupropion HCl (Wellbutrin Xl) 150 mg DAILY PO Last administered on 04/18/17 08 :35; Admin Dose 150 MG; Start 04/10/17 at 09:00 Thiothixene (Navane) 5 mg DAILY PO Last administered on 04/18/17 08:36; Admin Dose 5 MG; Start 04/10/17 at 09:00 Atorvastatin Calcium (Lipitor) 10 mg QHS PO Last administered on 04/17/17 20: 23; Admin Dose 10 MG; Start 04/10/17 at 21:00 Pantoprazole (Protonix Iv) 40 mg DAILY@06 IV Last administered on 04/18/17 05: 16; Admin Dose 40 MG; Start 04/11/17 at 06:00 Ondansetron HCl (Zofran Inj) 4 mg Q4H PRN IV NAUSEA AND/OR VOMITING; Start 08/19 at 13:30 Guaifenesin (Robitussin Liquid Cup) 100 mg Q4H PRN PO COUGH Last administered on 04/17/17 09:07; Admin Dose 100 MG; Start 04/14/17 at 22:00 Benzonatate (Tessalon) 100 mg TID PRN PO cough Last administered on 04/16/17 05:54; Admin Dose 100 MG; Start 04/14/17 at 22:00 Terazosin HCl (Hytrin) 1 mg HS PO Last administered on 04/17/17 20:24; Admin Dose 1 MG; Start 04/16/17 at 21:00 Tamsulosin HCl (Flomax) 0.4 mg DAILY PO Last administered on 04/18/17 08:36; Admin Dose 0.4 MG; Start 04/16/17 at 11:00 Bicalutamide (Casodex) 50 mg DAILY PO Last administered on 04/18/17 08:38; Admin Dose 50 MG; Start 04/18/17 at 09:00 Oxycodone HCl (Roxicodone) 5 mg Q4H PRN PO PAIN; Start 04/18/17 at 10:00 ALIREZA PENN NP Apr 18, 2017 14:58
--- NOTE | 2017-04-18 15:25 | PN ---
Date/Time of Note Date/Time of Note DATE: 04/18/17 TIME: 15:21 Assessment/Plan VTE Prophylaxis VTE Prophylaxis Intervention: SCD's Lines/Catheters IV Catheter Type (from Nrs): STARLA CATH Urinary Cath still in place: Yes Reason Cath still needed: urinary retention Assessment/Plan Chief Complaint/Hosp Course Patient is a 61-year-old male who was originally sent from primary care office for anemia upon further questioning found to have poor appetite and dysphasia. Found to now have adenocarcinoma of the esophagus Problem list assessment Anemia Adenocarcinoma of the esophagus, signet cell Bilateral pleural effusions, ?cancer related Schizophrenia Dyslipidemia Urinary retention, Diffuse osteoblastic bone metastases, etiology unknown Plan -port a cath placed heme/onc started medication. Plans on chemo this admission. -incidently found pleural effusion on CT, consulted pulmonology for drainage, will order thoracentesis tomorrow. -nephrology plans to DC miranda and try voiding trial. -Continue home meds for now -We will discuss with hematology and oncology regarding disposition, will plan for DC when stable after chemo. Problems: Subjective 24 Hr Interval Summary Free Text/Dictation no acute complaints Exam/Review of Systems Vital Signs Vitals Vital Signs Date Time Temp Pulse Resp B/P Pulse Ox O2 Delivery O2 Flow Rate FiO2 04/18/17 14:15 97.5 107 20 125/64 99 04/18/17 05:44 Room Air 04/16/17 01:06 2.0 Intake and Output 04/17/17 04/17/17 04/18/17 15:00 23:00 07:00 Intake Total 300 ml 880 ml Output Total 1300 ml 900 ml Balance -1000 ml -20 ml Exam Physical exam General: Patient is laying in bed and answers questions appropriately Mentation: Patient is alert and oriented 4, Head: Normocephalic atraumatic Eyes: EOMI, pupils reactive to light Neck: Supple, nontender, midline Respiratory:diminished to auscultation bilaterally Cardiovascular: regular rate, no obvious murmurs Gastrointestinal: non-tender to palpation, bowel sounds heard. Neurological: Moves all extremities spontaneously Skin: No new skin lesions except new surgical port site, Results Result Diagram: 04/18/17 0501 04/17/17 0430 Results 24 hrs Laboratory Tests Test 04/18/17 05:01 White Blood Count 6.9 Red Blood Count 3.17 L Hemoglobin 9.7 L Hematocrit 30.0 L Mean Corpuscular Volume 94.6 Mean Corpuscular Hemoglobin 30.6 Mean Corpuscular Hemoglobin Concent 32.3 Red Cell Distribution Width 23.0 H Platelet Count 82 L Mean Platelet Volume 9.9 Neutrophils % 74.1 Lymphocytes % 15.3 Monocytes % 9.8 Eosinophils % 0.1 Basophils % 0.1 Nucleated Red Blood Cells % 3.3 H Neutrophils # (Manual) 5.1 Lymphocytes # 1.1 Monocytes # 0.7 Eosinophils # 0.0 Basophils # 0.0 Nucleated Red Blood Cells # 0.2 H Prothrombin Time 18.5 H Prothrombin Time Ratio 1.4 INR International Normalized Ratio 1.53 Activated Partial Thromboplast Time 36.5 H Fibrinogen 295.0 Medications Medications Current Medications Acetaminophen (Tylenol Tab) 650 mg Q6H PRN PO PAIN LEVEL 1-3 OR FEVER Last administered on 04/18/17 03:27; Admin Dose 650 MG; Start 04/09/17 at 15:30 Acetaminophen (Tylenol Supp) 650 mg Q6H PRN [place] PAIN LEVEL 1-3 OR FEVER; Start 04/09/17 at 15:30 Bupropion HCl (Wellbutrin Xl) 150 mg DAILY PO Last administered on 04/18/17 08 :35; Admin Dose 150 MG; Start 04/10/17 at 09:00 Thiothixene (Navane) 5 mg DAILY PO Last administered on 04/18/17 08:36; Admin Dose 5 MG; Start 04/10/17 at 09:00 Atorvastatin Calcium (Lipitor) 10 mg QHS PO Last administered on 04/17/17 20: 23; Admin Dose 10 MG; Start 04/10/17 at 21:00 Pantoprazole (Protonix Iv) 40 mg DAILY@06 IV Last administered on 04/18/17 05: 16; Admin Dose 40 MG; Start 04/11/17 at 06:00 Ondansetron HCl (Zofran Inj) 4 mg Q4H PRN IV NAUSEA AND/OR VOMITING; Start 08/19 at 13:30 Guaifenesin (Robitussin Liquid Cup) 100 mg Q4H PRN PO COUGH Last administered on 04/17/17 09:07; Admin Dose 100 MG; Start 04/14/17 at 22:00 Benzonatate (Tessalon) 100 mg TID PRN PO cough Last administered on 04/16/17 05:54; Admin Dose 100 MG; Start 04/14/17 at 22:00 Terazosin HCl (Hytrin) 1 mg HS PO Last administered on 04/17/17 20:24; Admin Dose 1 MG; Start 04/16/17 at 21:00 Tamsulosin HCl (Flomax) 0.4 mg DAILY PO Last administered on 04/18/17 08:36; Admin Dose 0.4 MG; Start 04/16/17 at 11:00 Bicalutamide (Casodex) 50 mg DAILY PO Last administered on 04/18/17 08:38; Admin Dose 50 MG; Start 04/18/17 at 09:00 Oxycodone HCl (Roxicodone) 5 mg Q4H PRN PO PAIN; Start 04/18/17 at 10:00 JYOTI SAWYER Apr 18, 2017 15:25
[2017-04-18] MEDS: ALPRAZOLAM 0.5 MG TAB PO PRN (16:54)
[2017-04-18] MEDS: FUROSEMIDE 40 MG INJ IV SCH (16:56)
[2017-04-18 20:00] VITALS: BP 119/67; RESP 20
[2017-04-18] MEDS: ATORVASTATIN 10 MG TAB PO SCH (20:48)
[2017-04-18] MEDS: TERAZOSIN 1 MG CAP PO SCH (20:48)
[2017-04-19 02:13] VITALS: BP 125/64; RESP 20
[2017-04-19] MEDS: ALPRAZOLAM 0.5 MG TAB PO PRN ×3 (02:28→23:36)
[2017-04-19] MEDS: PANTOPRAZOLE 40 MG INJ IV SCH (05:09)
[2017-04-19 05:40] LABS: ABNORMAL IP MESSAGE 1; EOSINOPHILS % 0.1 % (0.0-7.0); HEMOGLOBIN 9.9 g/dl (14.0-18.0); LYMPHOCYTES # 1.2 10^3/ul (0.8-2.9); LYMPHOCYTES % 14.5 % (15.0-51.0); MEAN CORPUSCULAR HEMOGLOBIN 31.2 pg (29.0-33.0); MEAN CORPUSCULAR VOLUME 94.6 fl (82.0-101.0); MEAN PLATELET VOLUME 11.3 fl (7.4-10.4); MONOCYTE # 0.9 10^3/ul (0.3-0.9); MONOCYTES % 10.5 % (0.0-11.0); NEUTROPHILS % 74.2 % (39.0-77.0); NUCLEATED RED BLOOD CELLS # 0.1 10^3/ul (0.0-0.0); NUCLEATED RED BLOOD CELLS% 1.7 /100WBC (0.0-0.0); PLATELET COUNT 93 10^3/UL (140-415); POSITIVE DIFF @See below; RED BLOOD COUNT 3.17 10^6/ul (4.70-6.10); RED CELL DISTRIBUTION WIDTH 22.5 % (11.5-14.5); WHITE BLOOD COUNT 8.4 10^3/ul (4.8-10.8)
[2017-04-19 06:26] LABS: CALCIUM 7.8 mg/dl (8.4-10.2); CREATININE 0.71 mg/dl (0.61-1.24); MAGNESIUM 1.9 mg/dl (1.7-2.5); PHOSPHORUS 2.8 mg/dl (2.5-4.9); POTASSIUM 4.1 mmol/L (3.5-5.1)
[2017-04-19 08:21] VITALS: BP 115/62; RESP 20
[2017-04-19] MEDS: TAMSULOSIN (SR) 0.4 MG CAP PO SCH (08:41)
[2017-04-19] MEDS: FUROSEMIDE 40 MG INJ IV SCH (08:41)
[2017-04-19] MEDS: BUPROPION (XL) 150 MG TAB PO SCH (08:41)
[2017-04-19] MEDS: THIOTHIXENE 5 MG CAP PO SCH (08:41)
[2017-04-19] MEDS: BICALUTAMIDE 50 MG TAB PO SCH (08:44)
--- NOTE | 2017-04-19 10:00 | PN ---
DATE: 04/18/2017 SUBJECTIVE: Patient is feeling well. He is concerned about Roman catheter which has been placed. He is not experiencing any pain or hematuria. Patient denies any shortness of breath or chest pain. No cough or hemoptysis. OBJECTIVE DATA: GENERAL: Patient is a well-developed, well-nourished male who is lying flat in bed. VITAL SIGNS: Temperature 97.5, pulse 107, respirations 20, blood pressure 125/64. Pulse oximetry is 99 percent on room air. SKIN: No ecchymosis, no petechiae or rashes. HEENT: No mucosal lesions. No scleral icterus. Pupils equal, round, reactive to light and accommodation. Extraocular movements are intact. Oral mucosa is moist without lesions. Tongue is well papillated. No gingival hyperplasia. No hypertrophy of Waldeyer's ring. NECK: Supple. There is no jugular venous distention or thyroid enlargement. No carotid bruits. CHEST: Chest is clear to auscultation and percussion, except for decreased breath sounds in both bases. There are no rhonchi, wheezes, rales or rubs. NODES: No palpable lymphadenopathy. BREASTS: No gynecomastia. HEART: Sinus tachycardia. No S3, S4, murmurs or rubs. ABDOMEN: Soft. No masses. No ascites. EXTREMITIES: Good range of motion. No clubbing, edema or cyanosis. No palpable cords or Homans sign. GENITOURINARY: There is a Roman catheter in place which is draining clear urine. NEUROLOGIC: Neurologic is normal, except for the patient's flat affect and somewhat stuttering speech. LABORATORY AND DIAGNOSTIC DATA: White count 6900 with an absolute neutrophil count of 5100, hemoglobin 9.7, hematocrit 30, and platelet count is 82,000. A chest ultrasound does demonstrate moderate bilateral pleural effusions. This was also suggested on a CT of the abdomen and pelvis. There was also note of bilateral pleural effusions with subcutaneous edema. ASSESSMENT: 1. 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 2. 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 3. Bilateral pleural effusions. 4. Schizophrenia. PLAN: I am somewhat reluctant to initiate chemotherapy at this time. Would like to clarify the cause of the patient's bilateral pleural effusions, which seemed to have developed during this hospitalization. I feel that it is unlikely that these represent malignant pleural effusions, based on the rapidity of development and perhaps are related to underlying cardiac conditions. The patient has been has been seen by Dr. Robledo. An echocardiogram has been requested. Patient has also been started on furosemide. I have discussed this with the patient. I have told him that it is important that the Roman catheter be left in place, given the fact that the patient does have significant prostatic enlargement and has demonstrated inability to empty his bladder completely. Dictated By: Shyam Cuevas MD /[email or web address]/oxana /Document#: [id number]
--- NOTE | 2017-04-19 10:34 | PN ---
Date/Time of Note Date/Time of Note DATE: 04/19/17 TIME: 10:30 Assessment/Plan VTE Prophylaxis VTE Prophylaxis Intervention: SCD's Lines/Catheters IV [facility]ter Type (from [facility] Port-A-Cath Urinary Cath still in place: Yes Reason Cath still needed: urinary retention Assessment/Plan Chief Complaint/Hosp Course Patient is a 61-year-old male who was originally sent from primary care office for anemia upon further questioning found to have poor appetite and dysphasia. Found to now have adenocarcinoma of the esophagus Problem list assessment Anemia Adenocarcinoma of the esophagus, signet cell Bilateral pleural effusions, ?cancer related hyponatremia Schizophrenia Dyslipidemia Urinary retention, Diffuse osteoblastic bone metastases, etiology unknown Plan -Pulmonology consulted, started lasix for effusion. pending repeat xray. patient diuresing well. echo done today, pending read. -port a cath placed heme/onc started medication. Plans on chemo this admission, but on hold due to pleural effusion. -incidently found pleural effusion on CT, consulted pulmonology, recs appreciated. -nephrology recs appreciated for hyponatremia -patient failed voiding trial, had to re-insert miranda catheter, will consider urology consult. -Continue home meds for now -We will discuss with hematology and oncology regarding disposition, will plan for DC when stable after chemo. Problems: Subjective 24 Hr Interval Summary Free Text/Dictation no sob, no other complaints except inability to urinate without miranda Exam/Review of Systems Vital Signs Vitals Vital Signs Date Time Temp Pulse Resp B/P Pulse Ox O2 Delivery O2 Flow Rate FiO2 04/19/17 08:21 98.6 101 20 115/62 100 04/18/17 05:44 Room Air 04/16/17 01:06 2.0 Intake and Output 04/18/17 04/18/17 04/19/17 15:00 23:00 07:00 Intake Total 500 ml 360 ml Output Total 1200 ml 750 ml Balance -700 ml -390 ml Exam Physical exam General: Patient is laying in bed and answers questions appropriately Mentation: Patient is alert and oriented 4, Head: Normocephalic atraumatic Eyes: EOMI, pupils reactive to light Neck: Supple, nontender, midline Respiratory:diminished to auscultation bilaterally Cardiovascular: regular rate, no obvious murmurs Gastrointestinal: non-tender to palpation, bowel sounds heard. Neurological: Moves all extremities spontaneously Skin: No new skin lesions except new surgical port site, Results Result Diagram: 04/19/17 0500 04/19/17 0500 Results 24 hrs Laboratory Tests Test 04/19/17 05:00 White Blood Count 8.4 # Red Blood Count 3.17 L Hemoglobin 9.9 L Hematocrit 30.0 L Mean Corpuscular Volume 94.6 Mean Corpuscular Hemoglobin 31.2 Mean Corpuscular Hemoglobin Concent 33.0 Red Cell Distribution Width 22.5 H Platelet Count 93 L Mean Platelet Volume 11.3 H Neutrophils % 74.2 Lymphocytes % 14.5 L Monocytes % 10.5 Eosinophils % 0.1 Basophils % 0.0 Nucleated Red Blood Cells % 1.7 H Neutrophils # (Manual) 6.2 Lymphocytes # 1.2 Monocytes # 0.9 Eosinophils # 0.0 Basophils # 0.0 Nucleated Red Blood Cells # 0.1 H Sodium Level 126 L Potassium Level 4.1 Chloride Level 95 L Carbon Dioxide Level 21 Anion Gap 14 Blood Urea Nitrogen 20 Creatinine 0.71 Glucose Level 103 Calcium Level 7.8 L Phosphorus Level 2.8 Magnesium Level 1.9 Medications Medications Current Medications Acetaminophen (Tylenol Tab) 650 mg Q6H PRN PO PAIN LEVEL 1-3 OR FEVER Last administered on 04/18/17 03:27; Admin Dose 650 MG; Start 04/09/17 at 15:30 Acetaminophen (Tylenol Supp) 650 mg Q6H PRN [place] PAIN LEVEL 1-3 OR FEVER; Start 04/09/17 at 15:30 Bupropion HCl (Wellbutrin Xl) 150 mg DAILY PO Last administered on 04/19/17 08 :41; Admin Dose 150 MG; Start 04/10/17 at 09:00 Thiothixene (Navane) 5 mg DAILY PO Last administered on 04/19/17 08:41; Admin Dose 5 MG; Start 04/10/17 at 09:00 Atorvastatin Calcium (Lipitor) 10 mg QHS PO Last administered on 04/18/17 20: 48; Admin Dose 10 MG; Start 04/10/17 at 21:00 Pantoprazole (Protonix Iv) 40 mg DAILY@06 IV Last administered on 04/19/17 05: 09; Admin Dose 40 MG; Start 04/11/17 at 06:00 Ondansetron HCl (Zofran Inj) 4 mg Q4H PRN IV NAUSEA AND/OR VOMITING; Start 08/19 at 13:30 Guaifenesin (Robitussin Liquid Cup) 100 mg Q4H PRN PO COUGH Last administered on 04/17/17 09:07; Admin Dose 100 MG; Start 04/14/17 at 22:00 Benzonatate (Tessalon) 100 mg TID PRN PO cough Last administered on 04/16/17 05:54; Admin Dose 100 MG; Start 04/14/17 at 22:00 Terazosin HCl (Hytrin) 1 mg HS PO Last administered on 04/18/17 20:48; Admin Dose 1 MG; Start 04/16/17 at 21:00 Tamsulosin HCl (Flomax) 0.4 mg DAILY PO Last administered on 04/19/17 08:41; Admin Dose 0.4 MG; Start 04/16/17 at 11:00 Bicalutamide (Casodex) 50 mg DAILY PO Last administered on 04/19/17 08:44; Admin Dose 50 MG; Start 04/18/17 at 09:00 Oxycodone HCl (Roxicodone) 5 mg Q4H PRN PO PAIN; Start 04/18/17 at 10:00 Furosemide (Lasix) 40 mg DAILY IV Last administered on 04/19/17 08:41; Admin Dose 40 MG; Start 04/18/17 at 16:30 Alprazolam (Xanax) 0.5 mg Q6H PRN PO ANXIETY Last administered on 04/19/17 02: 28; Admin Dose 0.5 MG; Start 04/18/17 at 16:30 JYOTI SAWYER Apr 19, 2017 10:34
--- NOTE | 2017-04-19 10:55 | CONS ---
DATE OF ADMISSION: 04/09/2017 DATE OF CONSULTATION: 04/18/2017 REASON FOR CONSULTATION: Bilateral pleural effusions. Thank you, , for this consultation. HISTORY OF PRESENT ILLNESS: This is an unfortunate 61-year-old gentleman admitted on April 09 from primary care physician for evaluation of anemia. In addition, he had transaminitis concerning for gallbladder disease and gave a history of poor appetite. PAST MEDICAL HISTORY: Seizure disorder, schizophrenia. Patient denies any hemoptysis, hematemesis. No nausea. No vomiting. No weight loss. No hematochezia. On admission, hemoglobin was 6.8, platelet count 130, with an elevated AST, ALT, and alk phos. Further workup has confirmed finding of signet cell adenocarcinoma. Recent CT scans demonstrate persistent bilateral pleural effusions with compressive atelectasis. Patient has a positive tobacco history. No prior history of heart disease that he is aware of. In addition, workup also confirmed diffuse osteoblastic bone mets. MEDICATIONS: Per chart. ALLERGIES: AMOXICILLIN. DIPHENHYDRAMINE. TOBACCO HISTORY: As above. PHYSICAL EXAMINATION: GENERAL: Well-nourished well-developed gentleman awake, alert, oriented, talking in full and complete sentences. VITAL SIGNS: Currently afebrile. Pulse 100, blood pressure 125/67, O2 sat 96 percent on room air. NECK: Supple. No JVD. HEENT: Oral mucosa is moist. CARDIAC: S1, S2. No end sounds or murmurs. CHEST: Diminished air entry bilaterally. ABDOMEN: Soft, nontender. No guarding or rebound. EXTREMITIES: Neurologically grossly intact. No focal deficits. LABORATORY: White count 6.9, hemoglobin 9.7, platelets of 82. BUN 23, creatinine 0.7. Alk phos was 947. AST, ALT 85, respectively. BNP was 1010. IMPRESSION AND PLAN: Bilateral pleural effusions of unclear etiology, possibly related to cardiac disease, specifically, systolic or diastolic dysfunction. Etiology also includes possible malignant pleural effusions, given recent finding of signet cell carcinoma. Patient will require: 1. Echocardiogram to evaluate left ventricular wall motion and function. 2. A trial of diuretics. 3. If normal echocardiogram and no response to diuretics, patient will require thoracentesis with cytology specifically. Thank you again, , for this consult. Dictated By: Travon Robledo MD /angelika/oxana /Document#: [id number]
--- NOTE | 2017-04-19 11:54 | CONS ---
Date/Time of Note Date/Time of Note DATE: 04/19/17 TIME: 11:51 Consult Date/Type/Reason Admit Date/Time Apr 09, 2017 at 13:02 Initial Consult Date 04/16/17 Type of Consultation: Pulmonary Ordering Provider: CATHY TORRES MD Subjective Patient comfortable this morning. Pending echocardiogram. Objective Vital Signs Date Time Temp Pulse Resp B/P Pulse Ox O2 Delivery O2 Flow Rate FiO2 04/19/17 08:21 98.6 101 20 115/62 100 04/18/17 05:44 Room Air 04/16/17 01:06 2.0 Intake and Output 04/18/17 04/18/17 04/19/17 15:00 23:00 07:00 Intake Total 500 ml 360 ml Output Total 1200 ml 750 ml Balance -700 ml -390 ml Exam PHYSICAL EXAMINATION GENERAL: Well-nourished well-developed gentleman comfortable at rest VITAL SIGNS: see below. HEENT: Pupils equal, round, and reactive to light CARDIAC: S1, S2, systolic ejection murmur. CHEST: Diminished air entry bilaterally. ABDOMEN: Mildly distended. Diminished bowel sounds. EXTREMITIES: No cyanosis, clubbing edema +1 NEUROLOGIC: Generalized weakness Results/Medications Result Diagram: 04/19/17 0500 04/19/17 0500 Results 24 hrs Laboratory Tests Test 04/19/17 05:00 White Blood Count 8.4 # Red Blood Count 3.17 L Hemoglobin 9.9 L Hematocrit 30.0 L Mean Corpuscular Volume 94.6 Mean Corpuscular Hemoglobin 31.2 Mean Corpuscular Hemoglobin Concent 33.0 Red Cell Distribution Width 22.5 H Platelet Count 93 L Mean Platelet Volume 11.3 H Neutrophils % 74.2 Lymphocytes % 14.5 L Monocytes % 10.5 Eosinophils % 0.1 Basophils % 0.0 Nucleated Red Blood Cells % 1.7 H Neutrophils # (Manual) 6.2 Lymphocytes # 1.2 Monocytes # 0.9 Eosinophils # 0.0 Basophils # 0.0 Nucleated Red Blood Cells # 0.1 H Sodium Level 126 L Potassium Level 4.1 Chloride Level 95 L Carbon Dioxide Level 21 Anion Gap 14 Blood Urea Nitrogen 20 Creatinine 0.71 Glucose Level 103 Calcium Level 7.8 L Phosphorus Level 2.8 Magnesium Level 1.9 Medications Current Medications Acetaminophen (Tylenol Tab) 650 mg Q6H PRN PO PAIN LEVEL 1-3 OR FEVER Last administered on 04/18/17 03:27; Admin Dose 650 MG; Start 04/09/17 at 15:30 Acetaminophen (Tylenol Supp) 650 mg Q6H PRN [place] PAIN LEVEL 1-3 OR FEVER; Start 04/09/17 at 15:30 Bupropion HCl (Wellbutrin Xl) 150 mg DAILY PO Last administered on 04/19/17 08 :41; Admin Dose 150 MG; Start 04/10/17 at 09:00 Thiothixene (Navane) 5 mg DAILY PO Last administered on 04/19/17 08:41; Admin Dose 5 MG; Start 04/10/17 at 09:00 Atorvastatin Calcium (Lipitor) 10 mg QHS PO Last administered on 04/18/17 20: 48; Admin Dose 10 MG; Start 04/10/17 at 21:00 Pantoprazole (Protonix Iv) 40 mg DAILY@06 IV Last administered on 04/19/17 05: 09; Admin Dose 40 MG; Start 04/11/17 at 06:00 Ondansetron HCl (Zofran Inj) 4 mg Q4H PRN IV NAUSEA AND/OR VOMITING; Start 08/19 at 13:30 Guaifenesin (Robitussin Liquid Cup) 100 mg Q4H PRN PO COUGH Last administered on 04/17/17 09:07; Admin Dose 100 MG; Start 04/14/17 at 22:00 Benzonatate (Tessalon) 100 mg TID PRN PO cough Last administered on 04/16/17 05:54; Admin Dose 100 MG; Start 04/14/17 at 22:00 Terazosin HCl (Hytrin) 1 mg HS PO Last administered on 04/18/17 20:48; Admin Dose 1 MG; Start 04/16/17 at 21:00 Tamsulosin HCl (Flomax) 0.4 mg DAILY PO Last administered on 04/19/17 08:41; Admin Dose 0.4 MG; Start 04/16/17 at 11:00 Bicalutamide (Casodex) 50 mg DAILY PO Last administered on 04/19/17 08:44; Admin Dose 50 MG; Start 04/18/17 at 09:00 Oxycodone HCl (Roxicodone) 5 mg Q4H PRN PO PAIN; Start 04/18/17 at 10:00 Furosemide (Lasix) 40 mg DAILY IV Last administered on 04/19/17 08:41; Admin Dose 40 MG; Start 04/18/17 at 16:30 Alprazolam (Xanax) 0.5 mg Q6H PRN PO ANXIETY Last administered on 04/19/17 02: 28; Admin Dose 0.5 MG; Start 04/18/17 at 16:30 Assessment/Plan Chief Complaint/Hosp Course Assessment 1. Signet cell adenocarcinoma of the esophagus. 2. Bilateral pleural effusions. Etiology unclear at present, unlikely to be malignant given bilateral presentation and rapidity of onset. However may require thoracentesis if not resolved with diuretics. 3. Hyponatremia possible SIADH. Plan 1. Currently on diuretics but may need to be held if sodium continues to drop 2. Echocardiogram pending 3. Continue hematology oncology recommendations, agree with holding chemotherapy until etiology of pleural effusions resolved. Problems: FRANCES JOHN MD, [facility] Apr 19, 2017 11:54
--- NOTE | 2017-04-19 13:12 | RADRPT ---
PROCEDURE: XR Chest 1 View. CLINICAL INDICATION: Shortness of breath, pleural effusion. TECHNIQUE: AP view of the chest was obtained. COMPARISON: April 14, 2017 FINDINGS: The cardiomediastinal silhouette is within normal limits. Right-sided chest port has its tip at the expected location of the distal superior vena cava. Patchy bilateral lower lobe infiltrates have de creased. Mild residual remains. Elevated right hemidiaphragm is observed. Small right pleural eff usion may be present. The osseous structures appear grossly intact. Diffuse bony sclerosis is uncha nged. IMPRESSION: Interval right-sided chest port placement. Tip is identified in the expected location of the distal superior vena cava. Interval decrease in bilateral lower lobe infiltrates. Mild residual and small right pleural effusi on remain. Stable diffuse bony sclerosis. RPTAT: AA .Dane Ash MD, Date Time Electronically viewed and signed by .Dane Ash MD, on 04/19/2017 13:12 .P/
--- NOTE | 2017-04-19 14:23 | PN ---
Date/Time of Note Date/Time of Note DATE: 04/19/17 TIME: 14:20 Assessment/Plan VTE Prophylaxis VTE Prophylaxis Intervention: ambulation Lines/Catheters IV Catheter Type (from Nrsg): Port-A-Cath Urinary Cath still in place: Yes Reason Cath still needed: other (indicate) (weakness) Assessment/Plan Assessment/Plan Pt is getting diuretics and will have repeat CXR. Chemotherapy would start after the pleural effusion issue is stabilized. Subjective 24 Hr Interval Summary Free Text/Dictation Pt is alert and awake but anxious to start treatment. Exam/Review of Systems Vital Signs Vitals Vital Signs Date Time Temp Pulse Resp B/P Pulse Ox O2 Delivery O2 Flow Rate FiO2 04/19/17 08:21 98.6 101 20 115/62 100 04/18/17 05:44 Room Air 04/16/17 01:06 2.0 Intake and Output 04/18/17 04/18/17 04/19/17 15:00 23:00 07:00 Intake Total 500 ml 360 ml Output Total 1200 ml 750 ml Balance -700 ml -390 ml Exam Constitutional: alert, oriented Head: normocephalic Respiratory: clear to auscultation Cardiovascular: regular rate and rhythm Gastrointestinal: non-tender, soft Results Result Diagram: 04/19/17 0500 04/19/17 0500 Results 24 hrs Laboratory Tests Test 04/19/17 05:00 White Blood Count 8.4 # Red Blood Count 3.17 L Hemoglobin 9.9 L Hematocrit 30.0 L Mean Corpuscular Volume 94.6 Mean Corpuscular Hemoglobin 31.2 Mean Corpuscular Hemoglobin Concent 33.0 Red Cell Distribution Width 22.5 H Platelet Count 93 L Mean Platelet Volume 11.3 H Neutrophils % 74.2 Lymphocytes % 14.5 L Monocytes % 10.5 Eosinophils % 0.1 Basophils % 0.0 Nucleated Red Blood Cells % 1.7 H Neutrophils # (Manual) 6.2 Lymphocytes # 1.2 Monocytes # 0.9 Eosinophils # 0.0 Basophils # 0.0 Nucleated Red Blood Cells # 0.1 H Sodium Level 126 L Potassium Level 4.1 Chloride Level 95 L Carbon Dioxide Level 21 Anion Gap 14 Blood Urea Nitrogen 20 Creatinine 0.71 Glucose Level 103 Calcium Level 7.8 L Phosphorus Level 2.8 Magnesium Level 1.9 Medications Medications Current Medications Acetaminophen (Tylenol Tab) 650 mg Q6H PRN PO PAIN LEVEL 1-3 OR FEVER Last administered on 04/18/17 03:27; Admin Dose 650 MG; Start 04/09/17 at 15:30 Acetaminophen (Tylenol Supp) 650 mg Q6H PRN [place] PAIN LEVEL 1-3 OR FEVER; Start 04/09/17 at 15:30 Bupropion HCl (Wellbutrin Xl) 150 mg DAILY PO Last administered on 04/19/17 08 :41; Admin Dose 150 MG; Start 04/10/17 at 09:00 Thiothixene (Navane) 5 mg DAILY PO Last administered on 04/19/17 08:41; Admin Dose 5 MG; Start 04/10/17 at 09:00 Atorvastatin Calcium (Lipitor) 10 mg QHS PO Last administered on 04/18/17 20: 48; Admin Dose 10 MG; Start 04/10/17 at 21:00 Pantoprazole (Protonix Iv) 40 mg DAILY@06 IV Last administered on 04/19/17 05: 09; Admin Dose 40 MG; Start 04/11/17 at 06:00 Ondansetron HCl (Zofran Inj) 4 mg Q4H PRN IV NAUSEA AND/OR VOMITING; Start 08/19 at 13:30 Guaifenesin (Robitussin Liquid Cup) 100 mg Q4H PRN PO COUGH Last administered on 04/17/17 09:07; Admin Dose 100 MG; Start 04/14/17 at 22:00 Benzonatate (Tessalon) 100 mg TID PRN PO cough Last administered on 04/16/17 05:54; Admin Dose 100 MG; Start 04/14/17 at 22:00 Terazosin HCl (Hytrin) 1 mg HS PO Last administered on 04/18/17 20:48; Admin Dose 1 MG; Start 04/16/17 at 21:00 Tamsulosin HCl (Flomax) 0.4 mg DAILY PO Last administered on 04/19/17 08:41; Admin Dose 0.4 MG; Start 04/16/17 at 11:00 Bicalutamide (Casodex) 50 mg DAILY PO Last administered on 04/19/17 08:44; Admin Dose 50 MG; Start 04/18/17 at 09:00 Oxycodone HCl (Roxicodone) 5 mg Q4H PRN PO PAIN; Start 04/18/17 at 10:00 Furosemide (Lasix) 40 mg DAILY IV Last administered on 04/19/17 08:41; Admin Dose 40 MG; Start 04/18/17 at 16:30 Alprazolam (Xanax) 0.5 mg Q6H PRN PO ANXIETY Last administered on 04/19/17 02: 28; Admin Dose 0.5 MG; Start 04/18/17 at 16:30 NORBERTO LEBLANC MD Apr 19, 2017 14:22
--- NOTE | 2017-04-19 14:33 | RADRPT ---
Echocardiogram Report Patient Name: MANOLO ZAMAN Gender: Male Date: 1955 Study Date: 19-Apr-2017 Ben Day Artist: Venkata Farooq RDCS Location: [id number] Ref. Physician: FRANCES JOHN Quality: Adequate Procedures: Transthoracic echocardiogram with complete 2D, M-Mode, and doppler examination. Indications: Congestive Heart Failure. 2D/M Mode Doppler Measurement Value Normal Ranges Measurement Value Normal Ranges LVIDd 2D 3.3 3.5 - 5.6 cm AV Peak Jose 1.7 m/sec LVIDs 2D 1.9 2.1 - 4.1 cm AV Peak PG 12.1 mmHg LVPWd 2D 1.1 0.6 - 1.1 cm LVOT Peak Jose 1.5 m/sec IVSd 2D 1.1 0.6 - 1.1 cm LVOT Peak PG 9.0 mmHg AoR Diam 2D 2.7 2.0 - 3.7 cm MV E Peak Jose 0.7 m/sec EDV 2D 44.9 cm3 MV A Peak Jose 1.0 m/sec ESV 2D 6.7 cm3 MV E/A 0.7 LA Dimen 2D 3.9 2.3 - 4.0 cm MV Decel Time 130 msec MV Decel [place] 5 MV E/A 0.7 TR Peak Jose 2.4 m/sec TR Peak PG 22.9 mmHg RVSP 26.0 mmHg Findings Left Ventricle: Hyperdynamic left ventricular systolic function. Normal left ventricular cavity size. Mild concentric left ventricular hypertrophy. Ejection fraction is visually estimated at 75 %. Tissue Doppler/Mitral Doppler indices are consistent with impaired relaxation (Stage I diastolic dysfunction). Right Ventricle: Normal right ventricular size. Normal right ventricular systolic function. Left Atrium: The left atrium is normal in size. Right Atrium: The right atrium is normal in size. Mitral Valve: Normal appearance and function of the mitral valve with trace physiologic regurgitation. Aortic Valve: Normal appearance of the aortic valve. No significant aortic stenosis or insufficiency. Tricuspid Valve: Normal appearance of the tricuspid valve. Estimated peak PA systolic pressure 26 mmHg. There is trace tricuspid regurgitation. Pulmonic Valve: Normal pulmonic valve appearance. Pericardium: Normal pericardium with no significant pericardial effusion. Aorta: Normal aortic root. IVC: Normal size and normal respiratory collapse consistent with normal right atrial pressure. Conclusions 1.Hyperdynamic left ventricular systolic function. Normal left ventricular cavity size. Mild concentric left ventricular hypertrophy. Ejection fraction is visually estimated at 75 %. Tissue Doppler/Mitral Doppler indices are consistent with impaired relaxation (Stage I diastolic dysfunction). 2.Normal right ventricular size. Normal right ventricular systolic function. 3.The left atrium is normal in size. 4.The right atrium is normal in size. 5.No significant valvular stenosis or regurgitation seen. 6.Normal pericardium with no significant pericardial effusion. Electronically Signed By: Christian Paulino 19-Apr-2017 14:32:49 -0700 Patient Name: MANOLO ZAMAN Study Date: 19-Apr-2017 [id number]
[2017-04-19 15:00] VITALS: BP 121/61; RESP 20
--- NOTE | 2017-04-19 15:30 | PN ---
Date/Time of Note Date/Time of Note DATE: 04/19/17 TIME: 15:27 Assessment/Plan VTE Prophylaxis VTE Prophylaxis Intervention: SCD's Lines/Catheters IV Catheter Type (from Nrs): PICC Line (Port-A-Cath) Central line still needed: Yes Urinary Cath still in place: Yes Reason Cath still needed: urinary retention Assessment/Plan Assessment/Plan Pleural effusion managed by pulmonary Anemia * EGD Large clearly malignant mass distal third of the esophagus. Multiple biopsies obtained Very large clearly malignant mass in the fundus of the stomach with extensive infiltration to the mid stomach. Biopsies obtained Biopsy result A-Gastric fundus biopsies: -- Infiltrating (diffuse), signet ring cell carcinoma. -- A Giemsa stain with an appropriate control is negative for Helicobacter pylori organisms. -- Mild chronic gastritis. -- No intestinal metaplasia is identified. B-Esophageal biopsies: -- An ulcer base with infiltrating (diffuse), signet ring cell carcinoma. -- Esophageal epithelium is present. * Schizophrenia * Multiple metastasis by bone scan Plan * will sign off but will follow up patient as needed * continue present management * Hemaoncology on board * case discuss with Dr Pittman * Further orders will depend on clinical course Subjective 24 Hr Interval Summary Free Text/Dictation * Course reviewed * Patient seen and examined * No untoward events overnight Exam/Review of Systems Vital Signs Vitals Vital Signs Date Time Temp Pulse Resp B/P Pulse Ox O2 Delivery O2 Flow Rate FiO2 04/19/17 08:21 98.6 101 20 115/62 100 04/18/17 05:44 Room Air 04/16/17 01:06 2.0 Intake and Output 04/18/17 04/18/17 04/19/17 14:59 22:59 06:59 Intake Total 500 ml 360 ml Output Total 1200 ml 750 ml Balance -700 ml -390 ml Exam Constitutional: alert, frail Neck: non-tender, supple Respiratory: crackles/rales, diminished breath sounds Cardiovascular: nl pulses, regular rate and rhythm Gastrointestinal: non-tender, soft Musculoskeletal: muscle weakness Extremities: normal pulses Neurological: nl speech Skin: nl turgor, No rash or lesions Results Result Diagram: 04/19/17 0500 04/19/17 0500 Results 24 hrs Laboratory Tests Test 04/19/17 05:00 White Blood Count 8.4 # Red Blood Count 3.17 L Hemoglobin 9.9 L Hematocrit 30.0 L Mean Corpuscular Volume 94.6 Mean Corpuscular Hemoglobin 31.2 Mean Corpuscular Hemoglobin Concent 33.0 Red Cell Distribution Width 22.5 H Platelet Count 93 L Mean Platelet Volume 11.3 H Neutrophils % 74.2 Lymphocytes % 14.5 L Monocytes % 10.5 Eosinophils % 0.1 Basophils % 0.0 Nucleated Red Blood Cells % 1.7 H Neutrophils # (Manual) 6.2 Lymphocytes # 1.2 Monocytes # 0.9 Eosinophils # 0.0 Basophils # 0.0 Nucleated Red Blood Cells # 0.1 H Sodium Level 126 L Potassium Level 4.1 Chloride Level 95 L Carbon Dioxide Level 21 Anion Gap 14 Blood Urea Nitrogen 20 Creatinine 0.71 Glucose Level 103 Calcium Level 7.8 L Phosphorus Level 2.8 Magnesium Level 1.9 Medications Medications Current Medications Acetaminophen (Tylenol Tab) 650 mg Q6H PRN PO PAIN LEVEL 1-3 OR FEVER Last administered on 04/18/17 03:27; Admin Dose 650 MG; Start 04/09/17 at 15:30 Acetaminophen (Tylenol Supp) 650 mg Q6H PRN [place] PAIN LEVEL 1-3 OR FEVER; Start 04/09/17 at 15:30 Bupropion HCl (Wellbutrin Xl) 150 mg DAILY PO Last administered on 04/19/17 08 :41; Admin Dose 150 MG; Start 04/10/17 at 09:00 Thiothixene (Navane) 5 mg DAILY PO Last administered on 04/19/17 08:41; Admin Dose 5 MG; Start 04/10/17 at 09:00 Atorvastatin Calcium (Lipitor) 10 mg QHS PO Last administered on 04/18/17 20: 48; Admin Dose 10 MG; Start 04/10/17 at 21:00 Pantoprazole (Protonix Iv) 40 mg DAILY@06 IV Last administered on 04/19/17 05: 09; Admin Dose 40 MG; Start 04/11/17 at 06:00 Ondansetron HCl (Zofran Inj) 4 mg Q4H PRN IV NAUSEA AND/OR VOMITING; Start 08/19 at 13:30 Guaifenesin (Robitussin Liquid Cup) 100 mg Q4H PRN PO COUGH Last administered on 04/17/17 09:07; Admin Dose 100 MG; Start 04/14/17 at 22:00 Benzonatate (Tessalon) 100 mg TID PRN PO cough Last administered on 04/16/17 05:54; Admin Dose 100 MG; Start 04/14/17 at 22:00 Terazosin HCl (Hytrin) 1 mg HS PO Last administered on 04/18/17 20:48; Admin Dose 1 MG; Start 04/16/17 at 21:00 Tamsulosin HCl (Flomax) 0.4 mg DAILY PO Last administered on 04/19/17 08:41; Admin Dose 0.4 MG; Start 04/16/17 at 11:00 Bicalutamide (Casodex) 50 mg DAILY PO Last administered on 04/19/17 08:44; Admin Dose 50 MG; Start 04/18/17 at 09:00 Oxycodone HCl (Roxicodone) 5 mg Q4H PRN PO PAIN; Start 04/18/17 at 10:00 Furosemide (Lasix) 40 mg DAILY IV Last administered on 04/19/17 08:41; Admin Dose 40 MG; Start 04/18/17 at 16:30 Alprazolam (Xanax) 0.5 mg Q6H PRN PO ANXIETY Last administered on 04/19/17 02: 28; Admin Dose 0.5 MG; Start 04/18/17 at 16:30 ALIREZA PENN NP Apr 19, 2017 15:29
--- NOTE | 2017-04-19 15:59 | CONS ---
Date/Time of Note Date/Time of Note DATE: 04/19/17 TIME: 15:52 Assessment/Plan Assessment/Plan Chief Complaint/Hosp Course 61 yo M admitted for symptomatic anemia, EGD done yesterday with multiple malignant looking masses. Bone scan concerning for advanced malignancy- s/p EGD with biopsy which showed Infiltrating (diffuse), signet ring cell carcinoma- pt has been having urinary frequency with obstructive symtpoms, renal has been consulted. pt has been on started on hytrin but associated with low BP. Problems: Additional Assessment/Plan 1.acute urinary retention requiring Roman- CT abdomen + pelvis without contast negative for any obstruction, no hydronephrosis 2. diffuse osteoblastic bone metastasis 3. S/P EGD with biopsy showed signet ring cell CA 4. Bilateral pleural effusino large on CT abdomen with Ascites and edema - US chest showed moderate bilateral pleural effusion Plan: s/p portacath and Chemotherapy as per hematolgoy oncology continue hytrin to 1 mg PO QHS and flomax 0.4mg PO daily, BP stable so far pt CT abdomen + pelvis showed bilateral large pleural effusion- will order US chest showed moderate bilateral pleural effusion - pt will need agressive hydration while getting chemotherapy so it would be very challenging to hydrate him with bilateral effusion, his albumin is also low- pulmonary has been following ECHO to assess EF and diastolic function Monitor electrolytes and replace as needed Consultation Date/Type/Reason Admit Date/Time Apr 09, 2017 at 13:02 Initial Consult Date 04/16/17 Type of Consultation: NEPHROLOGY Referring Provider: CATHY TORRES MD 24 HR Interval Summary Free Text/Dictation stable Cr, no more acute retention, US chest showed moderate bilateral pleural effusion Exam/Review of Systems Vital Signs Vitals Vital Signs Date Time Temp Pulse Resp B/P Pulse Ox O2 Delivery O2 Flow Rate FiO2 04/19/17 08:21 98.6 101 20 115/62 100 04/18/17 05:44 Room Air 04/16/17 01:06 2.0 Intake and Output 04/18/17 04/18/17 04/19/17 15:00 23:00 07:00 Intake Total 500 ml 360 ml Output Total 1200 ml 750 ml Balance -700 ml -390 ml Exam Constitutional: alert Respiratory: decreased BS on both lungs, Crackles upto midlung zone Cardiovascular: regular rate and rhythm Gastrointestinal: non-tender, soft Extremities: normal pulses Neurological: CHEMICAL MANAGER II-XII intact, nl mental status, nl speech, nl strength Skin: nl turgor Lymph: nl lymph nodes Results Result Diagram: 04/19/17 0500 04/19/17 0500 Results 24 hrs Laboratory Tests Test 04/19/17 05:00 White Blood Count 8.4 # Red Blood Count 3.17 L Hemoglobin 9.9 L Hematocrit 30.0 L Mean Corpuscular Volume 94.6 Mean Corpuscular Hemoglobin 31.2 Mean Corpuscular Hemoglobin Concent 33.0 Red Cell Distribution Width 22.5 H Platelet Count 93 L Mean Platelet Volume 11.3 H Neutrophils % 74.2 Lymphocytes % 14.5 L Monocytes % 10.5 Eosinophils % 0.1 Basophils % 0.0 Nucleated Red Blood Cells % 1.7 H Neutrophils # (Manual) 6.2 Lymphocytes # 1.2 Monocytes # 0.9 Eosinophils # 0.0 Basophils # 0.0 Nucleated Red Blood Cells # 0.1 H Sodium Level 126 L Potassium Level 4.1 Chloride Level 95 L Carbon Dioxide Level 21 Anion Gap 14 Blood Urea Nitrogen 20 Creatinine 0.71 Glucose Level 103 Calcium Level 7.8 L Phosphorus Level 2.8 Magnesium Level 1.9 Medications Medications Current Medications Acetaminophen (Tylenol Tab) 650 mg Q6H PRN PO PAIN LEVEL 1-3 OR FEVER Last administered on 04/18/17 03:27; Admin Dose 650 MG; Start 04/09/17 at 15:30 Acetaminophen (Tylenol Supp) 650 mg Q6H PRN [place] PAIN LEVEL 1-3 OR FEVER; Start 04/09/17 at 15:30 Bupropion HCl (Wellbutrin Xl) 150 mg DAILY PO Last administered on 04/19/17 08 :41; Admin Dose 150 MG; Start 04/10/17 at 09:00 Thiothixene (Navane) 5 mg DAILY PO Last administered on 04/19/17 08:41; Admin Dose 5 MG; Start 04/10/17 at 09:00 Atorvastatin Calcium (Lipitor) 10 mg QHS PO Last administered on 04/18/17 20: 48; Admin Dose 10 MG; Start 04/10/17 at 21:00 Pantoprazole (Protonix Iv) 40 mg DAILY@06 IV Last administered on 04/19/17 05: 09; Admin Dose 40 MG; Start 04/11/17 at 06:00 Ondansetron HCl (Zofran Inj) 4 mg Q4H PRN IV NAUSEA AND/OR VOMITING; Start 08/19 at 13:30 Guaifenesin (Robitussin Liquid Cup) 100 mg Q4H PRN PO COUGH Last administered on 04/17/17 09:07; Admin Dose 100 MG; Start 04/14/17 at 22:00 Benzonatate (Tessalon) 100 mg TID PRN PO cough Last administered on 04/16/17 05:54; Admin Dose 100 MG; Start 04/14/17 at 22:00 Terazosin HCl (Hytrin) 1 mg HS PO Last administered on 04/18/17 20:48; Admin Dose 1 MG; Start 04/16/17 at 21:00 Tamsulosin HCl (Flomax) 0.4 mg DAILY PO Last administered on 04/19/17 08:41; Admin Dose 0.4 MG; Start 04/16/17 at 11:00 Bicalutamide (Casodex) 50 mg DAILY PO Last administered on 04/19/17 08:44; Admin Dose 50 MG; Start 04/18/17 at 09:00 Oxycodone HCl (Roxicodone) 5 mg Q4H PRN PO PAIN; Start 04/18/17 at 10:00 Furosemide (Lasix) 40 mg DAILY IV Last administered on 04/19/17 08:41; Admin Dose 40 MG; Start 04/18/17 at 16:30 Alprazolam (Xanax) 0.5 mg Q6H PRN PO ANXIETY Last administered on 04/19/17 02: 28; Admin Dose 0.5 MG; Start 04/18/17 at 16:30 JAZIEL ROBERTS MD Apr 19, 2017 15:59
[2017-04-19 20:45] VITALS: BP 125/60; RESP 20
[2017-04-19] MEDS: TERAZOSIN 1 MG CAP PO SCH (21:05)
[2017-04-19] MEDS: ATORVASTATIN 10 MG TAB PO SCH (21:05)
[2017-04-20] VITALS (10 sets, daily range): BP systolic 114–124; BP diastolic 52–61; PULSE 111–114; RESP 15–20
[2017-04-20] MEDS: ALPRAZOLAM 0.5 MG TAB PO PRN (06:11)
[2017-04-20] MEDS: PANTOPRAZOLE (EC) 40 MG TAB PO SCH (06:11)
--- NOTE | 2017-04-20 06:24 | CONS ---
Date/Time of Note Date/Time of Note DATE: 04/20/17 TIME: 06:22 Consultation Date/Type/Reason Admit Date/Time Apr 09, 2017 at 13:02 Initial Consult Date 04/16/17 Type of Consultation: Palliative care pain managemen Referring Provider: CATHY TORRES MD 24 HR Interval Summary Free Text/Dictation Patient is a 61-year-old gentleman who is extremely poor historian. Admitted to [facility] with symptomatic anemia diagnosed with adenocarcinoma of the esophagus. Patient is a poor historian secondary to underlying schizophrenia. He denies any pain [id number] at this time states that he has chest discomfort which is minor 11/10.. Patient states that he does not believe he needs to be treated for accelerated pain however his ability to give me an accurate history of present illness and pain control is suspect. When he describes his pain he says is a throbbing type of discomfort which does not radiate to his back or arm. It did not produce nausea vomiting shortness of breath and he has not asked for pain control medications. There is no evidence to indicate that patient is abusing opioids or any substances as an outpatient. Pain symptomatology management goals of care past medical history of drug use smoking or alcohol was essentially unremarkable however once again patient is a very poor historian the severity of his pain is mild, it is not negotiating with me for higher dosages or route of administration of opioids. There are no side effects associated with his current pain control medications. Plans are to continue with treatment as per hematology oncology recommendation. Pain is controlled Symptom management is controlled Exam/Review of Systems Vital Signs Vitals Vital Signs Date Time Temp Pulse Resp B/P Pulse Ox O2 Delivery O2 Flow Rate FiO2 04/20/17 03:16 97.6 113 20 124/61 96 04/18/17 05:44 Room Air Intake and Output 04/19/17 04/19/17 04/20/17 15:00 23:00 07:00 Intake Total 840 ml Output Total 1200 ml Balance -360 ml Results Result Diagram: 04/19/17 0500 04/19/17 0500 Medications Medications Current Medications Acetaminophen (Tylenol Tab) 650 mg Q6H PRN PO PAIN LEVEL 1-3 OR FEVER Last administered on 04/18/17t 03:27; Admin Dose 650 MG; Start 04/09/17 at 15:30 Acetaminophen (Tylenol Supp) 650 mg Q6H PRN [place] PAIN LEVEL 1-3 OR FEVER; Start 04/09/17 at 15:30 Bupropion HCl (Wellbutrin Xl) 150 mg DAILY PO Last administered on 04/19/17 08 :41; Admin Dose 150 MG; Start 04/10/17 at 09:00 Thiothixene (Navane) 5 mg DAILY PO Last administered on 04/19/17 08:41; Admin Dose 5 MG; Start 04/10/17 at 09:00 Atorvastatin Calcium (Lipitor) 10 mg QHS PO Last administered on 04/19/17 21: 05; Admin Dose 10 MG; Start 04/10/17 at 21:00 Ondansetron HCl (Zofran Inj) 4 mg Q4H PRN IV NAUSEA AND/OR VOMITING; Start 08/19 at 13:30 Guaifenesin (Robitussin Liquid Cup) 100 mg Q4H PRN PO COUGH Last administered on 04/17/17 09:07; Admin Dose 100 MG; Start 04/14/17 at 22:00 Benzonatate (Tessalon) 100 mg TID PRN PO cough Last administered on 04/16/17 05:54; Admin Dose 100 MG; Start 04/14/17 at 22:00 Terazosin HCl (Hytrin) 1 mg HS PO Last administered on 04/19/17 21:05; Admin Dose 1 MG; Start 04/16/17 at 21:00 Tamsulosin HCl (Flomax) 0.4 mg DAILY PO Last administered on 04/19/17 08:41; Admin Dose 0.4 MG; Start 04/16/17 at 11:00 Bicalutamide (Casodex) 50 mg DAILY PO Last administered on 04/19/17 08:44; Admin Dose 50 MG; Start 04/18/17 at 09:00 Oxycodone HCl (Roxicodone) 5 mg Q4H PRN PO PAIN; Start 04/18/17 at 10:00 Furosemide (Lasix) 40 mg DAILY IV Last administered on 04/19/17 08:41; Admin Dose 40 MG; Start 04/18/17 at 16:30 Alprazolam (Xanax) 0.5 mg Q6H PRN PO ANXIETY Last administered on 04/20/17 06: 11; Admin Dose 0.5 MG; Start 04/18/17 at 16:30 Pantoprazole (Protonix Tab) 40 mg DAILY@06 PO Last administered on 04/20/17 06 :11; Admin Dose 40 MG; Start 04/20/17 at 06:00 SHANEL CHRIS Apr 20, 2017 06:24
[2017-04-20 07:18] LABS: CALCIUM 7.8 mg/dl (8.4-10.2); CREATININE 0.75 mg/dl (0.61-1.24); MAGNESIUM 1.8 mg/dl (1.7-2.5); PHOSPHORUS 2.9 mg/dl (2.5-4.9); POTASSIUM 4.2 mmol/L (3.5-5.1)
[2017-04-20] MEDS: SOD CHLORIDE 0.9% 1,000 ML IV SCH (08:34)
[2017-04-20] MEDS: TAMSULOSIN (SR) 0.4 MG CAP PO SCH (09:12)
[2017-04-20] MEDS: BUPROPION (XL) 150 MG TAB PO SCH (09:12)
[2017-04-20] MEDS: THIOTHIXENE 5 MG CAP PO SCH (09:12)
[2017-04-20] MEDS: BICALUTAMIDE 50 MG TAB PO SCH (09:13)
--- NOTE | 2017-04-20 10:38 | RADRPT ---
PROCEDURE: XR Chest. CLINICAL INDICATION: Dyspnea TECHNIQUE: Single frontal chest x-ray. COMPARISON: FINDINGS: There has been slight interval worsening of diffuse interstitial opacities more evident in the lower lung frias. There are increasing bilateral pleural effusions. There is no pneumothorax. Cardiom ediastinal silhouette is magnified. There is no pneumothorax. Right IJ Port-A-Cath remains in sati sfactory position. Diffuse osseous sclerosis is present. IMPRESSION: 1. Slight interval worsening of diffuse bilateral interstitial opacities and bilateral pleural effu sions with adjacent air space disease. RPTAT: AAEE .Lora Oswald MD, MD Date Time Electronically viewed and signed by .Lora Oswald MD, on 04/20/2017 10:38 .O/
--- NOTE | 2017-04-20 10:45 | PN ---
DATE: 04/20/2017 SUBJECTIVE DATA: Patient has no new complaints. He is not short of breath. He has no cough, no orthopnea, no PND. He has not complained of nausea and vomiting. OBJECTIVE DATA: GENERAL: Patient is a well-developed, well-nourished male, who is no acute distress. VITAL SIGNS: Temperature 98.6, pulse 110 per minute and regular, respirations 18, blood pressure is 119/55, and pulse oximetry is 96 percent on room air. SKIN: No ecchymosis, no petechiae or rashes. HEENT: Normocephalic. No evidence of trauma. Pupils equal, round, react to light and accommodation. Sclerae nonicteric. Oral mucosa is moist without lesions. Tongue is well papillated. No gingival hyperplasia. No hypertrophy of Waldeyer's ring. NECK: Supple. No jugular distention, or thyroid enlargement. CHEST: Decreased breath sounds in both bases but no rhonchi, wheezes, rales or rubs. There is no pain on percussion of spine, sternum, clavicles or ribs. There is a Port-A-Cath in place in the right anterior chest wall. Insertion site is clear. No erythema or drainage. BREASTS: No gynecomastia. HEART: Sinus tachycardia. No S3, S4, murmurs, no rubs. ABDOMEN: Soft. No masses. No ascites. EXTREMITIES: No clubbing, no edema or cyanosis. No palpable cords or Homans sign. NEUROLOGIC: Normal except for the patient's affect, which is somewhat flat and his stuttering speech. LABORATORY AND DIAGNOSTIC DATA: White count is 8400, with an absolute neutrophil count of 6200, hemoglobin is 9.9, hematocrit is 30 and platelet count is 93,000. Sodium 12-, potassium 4.2, chloride 94, BUN 21, creatinine 0.75. The intake in the past 24 hours has been 1190, output is 1800. ASSESSMENT AND PLAN: 1. 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 2. 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 3. Bilateral pleural effusions. 4. Schizophrenia undifferentiated. DISCUSSION: In attempt to treat the patient's pleural effusions, he has been given IV diuresis. This has resulted in significant hyponatremia. I am very reluctant at this time to initiate chemotherapy until the patient's metabolic status is normalized. Dictated By: Shyam Cuevas MD /angelika/jose miguel /Document#: [id number]
--- NOTE | 2017-04-20 11:57 | CONS ---
Date/Time of Note Date/Time of Note DATE: 04/20/17 TIME: 11:56 Consult Date/Type/Reason Admit Date/Time Apr 09, 2017 at 13:02 Initial Consult Date 04/16/17 Type of Consultation: Pulmonary Ordering Provider: CATHY TORRES MD Subjective No new events. Patient still remains comfortable despite moderate bilateral pleural effusions. Worsening hyponatremia noted Objective Vital Signs Date Time Temp Pulse Resp B/P Pulse Ox O2 Delivery O2 Flow Rate FiO2 04/20/17 11:20 98.0 109 18 118/59 91 04/18/17 05:44 Room Air Intake and Output 04/19/17 04/19/17 04/20/17 14:59 22:59 06:59 Intake Total 840 ml 350 ml Output Total 1200 ml 600 ml Balance -360 ml -250 ml Exam PHYSICAL EXAMINATION GENERAL: Well-nourished well-developed gentleman comfortable at rest VITAL SIGNS: see below. HEENT: Pupils equal, round, and reactive to light CARDIAC: S1, S2, systolic ejection murmur. CHEST: Diminished air entry bilaterally. ABDOMEN: Mildly distended. Diminished bowel sounds. EXTREMITIES: No cyanosis, clubbing edema +1 NEUROLOGIC: Generalized weakness Results/Medications Result Diagram: 04/19/17 0500 04/20/17 0634 Results 24 hrs Laboratory Tests Test 04/20/17 06:34 Sodium Level 120 L Potassium Level 4.2 Chloride Level 94 L Carbon Dioxide Level 19 L Anion Gap 11 Blood Urea Nitrogen 21 H Creatinine 0.75 Glucose Level 107 Calcium Level 7.8 L Phosphorus Level 2.9 Magnesium Level 1.8 Medications Current Medications Acetaminophen (Tylenol Tab) 650 mg Q6H PRN PO PAIN LEVEL 1-3 OR FEVER Last administered on 04/18/17 03:27; Admin Dose 650 MG; Start 04/09/17 at 15:30 Acetaminophen (Tylenol Supp) 650 mg Q6H PRN [place] PAIN LEVEL 1-3 OR FEVER; Start 04/09/17 at 15:30 Bupropion HCl (Wellbutrin Xl) 150 mg DAILY PO Last administered on 04/20/17 09 :12; Admin Dose 150 MG; Start 04/10/17 at 09:00 Thiothixene (Navane) 5 mg DAILY PO Last administered on 04/20/17 09:12; Admin Dose 5 MG; Start 04/10/17 at 09:00 Atorvastatin Calcium (Lipitor) 10 mg QHS PO Last administered on 04/19/17 21: 05; Admin Dose 10 MG; Start 04/10/17 at 21:00 Ondansetron HCl (Zofran Inj) 4 mg Q4H PRN IV NAUSEA AND/OR VOMITING; Start 08/19 at 13:30 Guaifenesin (Robitussin Liquid Cup) 100 mg Q4H PRN PO COUGH Last administered on 04/17/17 09:07; Admin Dose 100 MG; Start 04/14/17 at 22:00 Benzonatate (Tessalon) 100 mg TID PRN PO cough Last administered on 04/16/17 05:54; Admin Dose 100 MG; Start 04/14/17 at 22:00 Terazosin HCl (Hytrin) 1 mg HS PO Last administered on 04/19/17 21:05; Admin Dose 1 MG; Start 04/16/17 at 21:00 Tamsulosin HCl (Flomax) 0.4 mg DAILY PO Last administered on 04/20/17 09:12; Admin Dose 0.4 MG; Start 04/16/17 at 11:00 Bicalutamide (Casodex) 50 mg DAILY PO Last administered on 04/20/17 09:13; Admin Dose 50 MG; Start 04/18/17 at 09:00 Oxycodone HCl (Roxicodone) 5 mg Q4H PRN PO PAIN; Start 04/18/17 at 10:00 Alprazolam (Xanax) 0.5 mg Q6H PRN PO ANXIETY Last administered on 04/20/17 06: 11; Admin Dose 0.5 MG; Start 04/18/17 at 16:30 Pantoprazole 40 mg 40 mg DAILY@06 PO Last administered on 04/20/17 06:11; Admin Dose 40 MG; Start 04/20/17 at 06:00 Sodium Chloride (NS) 1,000 ml @ 50 mls/hr Q20H IV Last administered on 08:34; Admin Dose 75 MLS/HR; Start 04/20/17 at 08:30 Assessment/Plan Chief Complaint/Hosp Course Assessment 1. Signet cell adenocarcinoma of the esophagus. 2. Bilateral pleural effusions. Etiology unclear at present, unlikely to be malignant given bilateral presentation and rapidity of onset. However may require thoracentesis if not resolved with diuretics. 3. Hyponatremia possible SIADH. Plan 1. DC Lasix. Continue gentle hydration, renal recommendations 2. Thoracentesis with pleural fluid studies 3. Continue hematology oncology recommendations, agree with holding chemotherapy until etiology of pleural effusions resolved. Agree with transfer to telemetry. Problems: FRANCES JOHN MD, [facility] Apr 20, 2017 11:57
--- NOTE | 2017-04-20 12:57 | CONS ---
Date/Time of Note Date/Time of Note DATE: 04/20/17 TIME: 12:53 Assessment/Plan Assessment/Plan Chief Complaint/Hosp Course 61 yo M admitted for symptomatic anemia, EGD done yesterday with multiple malignant looking masses. Bone scan concerning for advanced malignancy- s/p EGD with biopsy which showed Infiltrating (diffuse), signet ring cell carcinoma- pt has been having urinary frequency with obstructive symtpoms, renal has been consulted. pt has been on started on hytrin but associated with low BP. Problems: Additional Assessment/Plan 1.acute urinary retention requiring Miranda- CT abdomen + pelvis without contast negative for any obstruction, no hydronephrosis 2. diffuse osteoblastic bone metastasis 3. S/P EGD with biopsy showed signet ring cell CA 4. Bilateral pleural effusino large on CT abdomen with Ascites and edema - US chest showed moderate bilateral pleural effusion 5. Hyponatremia with Na dropped to 120 Plan: s/p portacath and Chemotherapy as per hematolgoy oncology Strict I/O, miranda care - will continue to monitor Na at 4 pm- if continues to drop then we will consider starting 3% saline continue hytrin to 1 mg PO QHS and flomax 0.4mg PO daily, BP stable so far ECHO showed EF 75% with stage I diastolic dysfunction will follow up Consultation Date/Type/Reason Admit Date/Time Apr 09, 2017 at 13:02 Initial Consult Date 04/16/17 Type of Consultation: NEPHROLOGY Referring Provider: CATHY TORRES MD 24 HR Interval Summary Free Text/Dictation Pt tranferred to [facility], Na dropped to 120, c/o SOB Exam/Review of Systems Vital Signs Vitals Vital Signs Date Time Temp Pulse Resp B/P Pulse Ox O2 Delivery O2 Flow Rate FiO2 04/20/17 12:10 111 04/20/17 11:20 98.0 18 118/59 91 04/18/17 05:44 Room Air Intake and Output 04/19/17 04/19/17 04/20/17 15:00 23:00 07:00 Intake Total 840 ml 350 ml Output Total 1200 ml 600 ml Balance -360 ml -250 ml Exam Constitutional: alert Respiratory: decreased BS on both lungs, Crackles upto midlung zone , bibasilar wheezing + Cardiovascular: regular rate and rhythm Gastrointestinal: non-tender, soft Extremities: normal pulses 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, nl mental status, nl speech, nl strength Skin: nl turgor Lymph: nl lymph nodes Results Result Diagram: 04/19/17 0500 04/20/17 0634 Results 24 hrs Laboratory Tests Test 04/20/17 06:34 Sodium Level 120 L Potassium Level 4.2 Chloride Level 94 L Carbon Dioxide Level 19 L Anion Gap 11 Blood Urea Nitrogen 21 H Creatinine 0.75 Glucose Level 107 Calcium Level 7.8 L Phosphorus Level 2.9 Magnesium Level 1.8 Medications Medications Current Medications Acetaminophen (Tylenol Tab) 650 mg Q6H PRN PO PAIN LEVEL 1-3 OR FEVER Last administered on 04/18/17 03:27; Admin Dose 650 MG; Start 04/09/17 at 15:30 Acetaminophen (Tylenol Supp) 650 mg Q6H PRN [place] PAIN LEVEL 1-3 OR FEVER; Start 04/09/17 at 15:30 Bupropion HCl (Wellbutrin Xl) 150 mg DAILY PO Last administered on 04/20/17 09 :12; Admin Dose 150 MG; Start 04/10/17 at 09:00 Thiothixene (Navane) 5 mg DAILY PO Last administered on 04/20/17 09:12; Admin Dose 5 MG; Start 04/10/17 at 09:00 Atorvastatin Calcium (Lipitor) 10 mg QHS PO Last administered on 04/19/17 21: 05; Admin Dose 10 MG; Start 04/10/17 at 21:00 Ondansetron HCl (Zofran Inj) 4 mg Q4H PRN IV NAUSEA AND/OR VOMITING; Start 08/19 at 13:30 Guaifenesin (Robitussin Liquid Cup) 100 mg Q4H PRN PO COUGH Last administered on 04/17/17 09:07; Admin Dose 100 MG; Start 04/14/17 at 22:00 Benzonatate (Tessalon) 100 mg TID PRN PO cough Last administered on 04/16/17 05:54; Admin Dose 100 MG; Start 04/14/17 at 22:00 Terazosin HCl (Hytrin) 1 mg HS PO Last administered on 04/19/17 21:05; Admin Dose 1 MG; Start 04/16/17 at 21:00 Tamsulosin HCl (Flomax) 0.4 mg DAILY PO Last administered on 04/20/17 09:12; Admin Dose 0.4 MG; Start 04/16/17 at 11:00 Bicalutamide (Casodex) 50 mg DAILY PO Last administered on 04/20/17 09:13; Admin Dose 50 MG; Start 04/18/17 at 09:00 Oxycodone HCl (Roxicodone) 5 mg Q4H PRN PO PAIN; Start 04/18/17 at 10:00 Alprazolam (Xanax) 0.5 mg Q6H PRN PO ANXIETY Last administered on 04/20/17 06: 11; Admin Dose 0.5 MG; Start 04/18/17 at 16:30 Pantoprazole 40 mg 40 mg DAILY@06 PO Last administered on 04/20/17 06:11; Admin Dose 40 MG; Start 04/20/17 at 06:00 Sodium Chloride (NS) 1,000 ml @ 50 mls/hr Q20H IV Last administered on 08:34; Admin Dose 75 MLS/HR; Start 04/20/17 at 08:30 JAZIEL ROBERTS MD Apr 20, 2017 12:57
[2017-04-20] MEDS ORDERED: PHYTONADIONE (1 MG/ML PO SYG) PO ONE ×2 (16:00→22:00)
[2017-04-20 16:33] LABS: CALCIUM 7.9 mg/dl (8.4-10.2); CREATININE 0.75 mg/dl (0.61-1.24); POTASSIUM 4.3 mmol/L (3.5-5.1)
--- NOTE | 2017-04-20 17:02 | PN ---
Date/Time of Note Date/Time of Note DATE: 04/20/17 TIME: 16:59 Assessment/Plan VTE Prophylaxis VTE Prophylaxis Intervention: SCD's Lines/Catheters [facility] Peripheral IV Urinary Cath still in place: Yes Reason Cath still needed: urinary retention Assessment/Plan Chief Complaint/Hosp Course Patient is a 61-year-old male who was originally sent from primary care office for anemia upon further questioning found to have poor appetite and dysphasia. Found to now have adenocarcinoma of the esophagus Problem list assessment Anemia Adenocarcinoma of the esophagus, signet cell Bilateral pleural effusions, ?cancer related hyponatremia Schizophrenia Dyslipidemia Urinary retention, Diffuse osteoblastic bone metastases, etiology unknown Plan -Pulmonology consulted, started lasix for effusion. however Na dropped to 120, lasix stopped, thoracentesis ordered. vit K ordered for inr. -port a cath placed heme/onc started medication. Plans on chemo this admission, but on hold due to pleural effusion. -nephrology recs appreciated for hyponatremia, may start 3% if persistently low. -patient failed voiding trial, had to re-insert miranda catheter, consulted urology, Dr. Rodney. -Continue home meds for now -We will discuss with hematology and oncology regarding disposition, patient has multiple issues, will plan for DC when stable after chemo. Problems: Subjective 24 Hr Interval Summary Free Text/Dictation patient na 120, upgraded to tele, patient has no acute complaints Exam/Review of Systems Vital Signs Vitals Vital Signs Date Time Temp Pulse Resp B/P Pulse Ox O2 Delivery O2 Flow Rate FiO2 04/20/17 15:28 98.0 104 18 114/54 98 04/18/17 05:44 Room Air Intake and Output 04/19/17 04/19/17 04/20/17 15:00 23:00 07:00 Intake Total 840 ml 350 ml Output Total 1200 ml 600 ml Balance -360 ml -250 ml Exam Physical exam General: Patient is laying in bed and answers questions appropriately Mentation: Patient is alert and oriented 4, Head: Normocephalic atraumatic Eyes: EOMI, pupils reactive to light Neck: Supple, nontender, midline Respiratory:diminished to auscultation bilaterally Cardiovascular: regular rate, no obvious murmurs Gastrointestinal: non-tender to palpation, bowel sounds heard. Neurological: Moves all extremities spontaneously Skin: No new skin lesions except new surgical port site, mild 2 + edema LE Results Result Diagram: 04/19/17 0500 04/20/17 0634 Results 24 hrs Laboratory Tests Test 04/20/17 06:34 Sodium Level 120 L Potassium Level 4.2 Chloride Level 94 L Carbon Dioxide Level 19 L Anion Gap 11 Blood Urea Nitrogen 21 H Creatinine 0.75 Glucose Level 107 Calcium Level 7.8 L Phosphorus Level 2.9 Magnesium Level 1.8 Medications Medications Current Medications Acetaminophen (Tylenol Tab) 650 mg Q6H PRN PO PAIN LEVEL 1-3 OR FEVER Last administered on 04/18/17 03:27; Admin Dose 650 MG; Start 04/09/17 at 15:30 Acetaminophen (Tylenol Supp) 650 mg Q6H PRN [place] PAIN LEVEL 1-3 OR FEVER; Start 04/09/17 at 15:30 Bupropion HCl (Wellbutrin Xl) 150 mg DAILY PO Last administered on 04/20/17 09 :12; Admin Dose 150 MG; Start 04/10/17 at 09:00 Thiothixene (Navane) 5 mg DAILY PO Last administered on 04/20/17 09:12; Admin Dose 5 MG; Start 04/10/17 at 09:00 Atorvastatin Calcium (Lipitor) 10 mg QHS PO Last administered on 04/19/17 21: 05; Admin Dose 10 MG; Start 04/10/17 at 21:00 Ondansetron HCl (Zofran Inj) 4 mg Q4H PRN IV NAUSEA AND/OR VOMITING; Start 08/19 at 13:30 Guaifenesin (Robitussin Liquid Cup) 100 mg Q4H PRN PO COUGH Last administered on 04/17/17 09:07; Admin Dose 100 MG; Start 04/14/17 at 22:00 Benzonatate (Tessalon) 100 mg TID PRN PO cough Last administered on 04/16/17 05:54; Admin Dose 100 MG; Start 04/14/17 at 22:00 Terazosin HCl (Hytrin) 1 mg HS PO Last administered on 04/19/17 21:05; Admin Dose 1 MG; Start 04/16/17 at 21:00 Tamsulosin HCl (Flomax) 0.4 mg DAILY PO Last administered on 04/20/17 09:12; Admin Dose 0.4 MG; Start 04/16/17 at 11:00 Bicalutamide (Casodex) 50 mg DAILY PO Last administered on 04/20/17 09:13; Admin Dose 50 MG; Start 04/18/17 at 09:00 Oxycodone HCl (Roxicodone) 5 mg Q4H PRN PO PAIN; Start 04/18/17 at 10:00 Alprazolam (Xanax) 0.5 mg Q6H PRN PO ANXIETY Last administered on 04/20/17 06: 11; Admin Dose 0.5 MG; Start 04/18/17 at 16:30 Pantoprazole 40 mg 40 mg DAILY@06 PO Last administered on 04/20/17 06:11; Admin Dose 40 MG; Start 04/20/17 at 06:00 Sodium Chloride (NS) 1,000 ml @ 50 mls/hr Q20H IV Last administered on 08:34; Admin Dose 75 MLS/HR; Start 04/20/17 at 08:30 Phytonadione (Vitamin K Soln) 5 mg ONCE ONCE PO ; Start 04/20/17 at 22:00; Stop 04/20/17 at 22:01 JYOTI SAWYER Apr 20, 2017 17:02
--- NOTE | 2017-04-20 19:58 | CONS ---
Date/Time of Note Date/Time of Note DATE: 04/20/17 TIME: 19:36 Assessment/Plan Assessment/Plan Chief Complaint/Hosp Course 61-year-old male with metastatic cancer, osteoblastic, patient does have cancer in the esophagus signet cell. His PSA is mildly elevated 4.4 and one could expect his PSA to be much more elevated if he has metastatic prostate cancer to the bones. Considering his general condition and probably difficulty to follow him as an outpatient to do a transrectal ultrasound and ultrasound-guided biopsy , I ordered MRI of the pelvis to see if there is any suspicious area in the prostate that could be cancerous As for the urinary retention we will put him on Flomax and try to avoid any medication that relaxes his bladder and in that it includes pain medications, muscle relaxant, sleeping pills and also psychiatric medications Problems: Consultation Date/Type/Reason Admit Date/Time Apr 09, 2017 at 13:02 Date of Consultation: Apr 20, 2017 Type of Consultation: Urology Reason for Consultation Urinary retention, possible metastatic prostate cancer Referring Provider: JYOTI SAWYER Hx of Present Illness Patient is a 61-year-old male who was originally sent from primary care office for anemia ,Patient found to have poor appetite and dysphasia. Workup showed that he has adenocarcinoma of the esophagus He also was found to have anemia Adenocarcinoma of the esophagus, signet cell Bilateral pleural effusions, ?cancer related hyponatremia Schizophrenia Dyslipidemia Urinary retention, Diffuse osteoblastic bone metastases, etiology unknown Because of the urinary retention and the diffuse osteoblastic bony metastasis urology consultation was requested. The patient himself is a very poor historian very slow hardly can answer any of the questions related to his urinary system but he is known to have a history of schizophrenia and has been on medication for it. It is not uncommon to find patient who has this psychiatric problem and has been on medication to have urinary retention. Constitutional: no complaints Eyes: no complaints ENT: no complaints Respiratory: no complaints Cardiovascular: no complaints Gastrointestinal: no complaints, other (Poor appetite and dysphagia) Genitourinary: no complaints, other (Urinary retention, patient has an indwelling Roman catheter) Musculoskeletal: no complaints Skin: no complaints Neurologic: no complaints, other (Patient is very slow and has difficulty expressing his symptoms) Endocrine: no complaints Lymphatic: no complaints Psychological: no complaints, other (History of schizophrenia) Immunologic: no complaints Past Medical History Medical History: other (schizophrenia) Past Surgical History Past Surgical Hx: no surgical history, endoscopy Family History Significant Family History: no pertinent family hx Social History Alcohol Use: none Smoking Status: Former smoker Exam/Review of Systems Vital Signs Vitals Vital Signs Date Time Temp Pulse Resp B/P Pulse Ox O2 Delivery O2 Flow Rate FiO2 04/20/17 15:28 98.0 104 18 114/54 98 04/18/17 05:44 Room Air Intake and Output 04/19/17 04/19/17 04/20/17 15:00 23:00 07:00 Intake Total 840 ml 350 ml Output Total 1200 ml 600 ml Balance -360 ml -250 ml Exam Constitutional: alert, obese Psych: no complaints Head: normocephalic Eyes: nl conjunctiva ENMT: nl external ears & nose Neck: non-tender Respiratory: normal air movement Cardiovascular: No edema Gastrointestinal: soft, No mass, No tender Genitourinary - Male: other ( Rectal exam revealed an enlarged prostate and soft. Roman catheter draining clear urine) Musculoskeletal: nl extremities to inspection Extremities: No calf tenderness, No edema Neurological: lethargic Skin: nl turgor Results CT scan of the abdomen and pelvis showed: Moderate large bilateral pleural effusions, small volume ascites with mesenteric and subcutaneous edema, increased. Cholelithiasis. Enlarged prostate. Diffuse sclerosis of the axial and appendicular skeleton suggesting the presence of osseous metastatic disease. Mild concentric wall thickening / submucosal edema of the distal esophagus. Correlate with signs and symptoms of esophagitis. Endoscopy versus imaging follow-up recommended. RPTAT: [facility] .Colette Trujillo MD, MD Date Time Bone scan IMPRESSION: Slightly heterogeneous distribution of radionuclide throughout the visualized skeletal system and a poor visualization of the kidneys most consistent with "super scan" due to multiple skeletal metastases. RPTAT: HH .Kristal Garibay MD, Date Time Electronically viewed and signed by .Kristal Garibay MD, on 04/10/2017 23:17 Result Diagram: 04/19/17 0500 04/20/17 1553 Results 24 hrs Laboratory Tests Test 04/20/17 06:34 04/20/17 15:53 Sodium Level 120 L 120 L Potassium Level 4.2 4.3 Chloride Level 94 L 94 L Carbon Dioxide Level 19 L 20 L Anion Gap 11 10 Blood Urea Nitrogen 21 H 23 H Creatinine 0.75 0.75 Glucose Level 107 119 Calcium Level 7.8 L 7.9 L Phosphorus Level 2.9 Magnesium Level 1.8 Medications Medications Current Medications Acetaminophen (Tylenol Tab) 650 mg Q6H PRN PO PAIN LEVEL 1-3 OR FEVER Last administered on 04/18/17 03:27; Admin Dose 650 MG; Start 04/09/17 at 15:30 Acetaminophen (Tylenol Supp) 650 mg Q6H PRN [place] PAIN LEVEL 1-3 OR FEVER; Start 04/09/17 at 15:30 Bupropion HCl (Wellbutrin Xl) 150 mg DAILY PO Last administered on 04/20/17 09 :12; Admin Dose 150 MG; Start 04/10/17 at 09:00 Thiothixene (Navane) 5 mg DAILY PO Last administered on 04/20/17 09:12; Admin Dose 5 MG; Start 04/10/17 at 09:00 Atorvastatin Calcium (Lipitor) 10 mg QHS PO Last administered on 04/19/17 21: 05; Admin Dose 10 MG; Start 04/10/17 at 21:00 Ondansetron HCl (Zofran Inj) 4 mg Q4H PRN IV NAUSEA AND/OR VOMITING; Start 08/19 at 13:30 Guaifenesin (Robitussin Liquid Cup) 100 mg Q4H PRN PO COUGH Last administered on 04/17/17 09:07; Admin Dose 100 MG; Start 04/14/17 at 22:00 Benzonatate (Tessalon) 100 mg TID PRN PO cough Last administered on 04/16/17 05:54; Admin Dose 100 MG; Start 04/14/17 at 22:00 Terazosin HCl (Hytrin) 1 mg HS PO Last administered on 04/19/17 21:05; Admin Dose 1 MG; Start 04/16/17 at 21:00 Tamsulosin HCl (Flomax) 0.4 mg DAILY PO Last administered on 04/20/17 09:12; Admin Dose 0.4 MG; Start 04/16/17 at 11:00 Bicalutamide (Casodex) 50 mg DAILY PO Last administered on 04/20/17 09:13; Admin Dose 50 MG; Start 04/18/17 at 09:00 Oxycodone HCl (Roxicodone) 5 mg Q4H PRN PO PAIN; Start 04/18/17 at 10:00 Alprazolam (Xanax) 0.5 mg Q6H PRN PO ANXIETY Last administered on 04/20/17 06: 11; Admin Dose 0.5 MG; Start 04/18/17 at 16:30 Pantoprazole 40 mg 40 mg DAILY@06 PO Last administered on 04/20/17 06:11; Admin Dose 40 MG; Start 04/20/17 at 06:00 Sodium Chloride (NS) 1,000 ml @ 50 mls/hr Q20H IV Last administered on 08:34; Admin Dose 75 MLS/HR; Start 04/20/17 at 08:30 Phytonadione (Vitamin K Soln) 5 mg ONCE ONCE PO ; Start 04/20/17 at 22:00; Stop 04/20/17 at 22:01 POOL WOODS MD Apr 20, 2017 19:47
[2017-04-20] MEDS: TERAZOSIN 1 MG CAP PO SCH (21:09)
[2017-04-20] MEDS: ATORVASTATIN 10 MG TAB PO SCH (21:09)
[2017-04-21] VITALS (11 sets, daily range): BP systolic 108–121; BP diastolic 52–67; PULSE 111–117; RESP 15–20
[2017-04-21] MEDS: SOD CHLORIDE 0.9% 1,000 ML IV SCH ×2 (00:04→02:59)
[2017-04-21] MEDS: PANTOPRAZOLE (EC) 40 MG TAB PO SCH (05:35)
[2017-04-21 07:13] LABS: ABNORMAL IP MESSAGE 1; BASOPHILS % 0.1 % (0.0-2.0); HEMATOCRIT 32.5 % (42.0-52.0); HEMOGLOBIN 10.4 g/dl (14.0-18.0); LYMPHOCYTES # 1.3 10^3/ul (0.8-2.9); MEAN CORPUSCULAR HEMOGLOBIN 30.1 pg (29.0-33.0); MEAN CORPUSCULAR VOLUME 93.9 fl (82.0-101.0); MEAN PLATELET VOLUME 12.1 fl (7.4-10.4); MONOCYTES % 8.4 % (0.0-11.0); NEUTROPHILS % 79.5 % (39.0-77.0); NUCLEATED RED BLOOD CELLS # 0.2 10^3/ul (0.0-0.0); NUCLEATED RED BLOOD CELLS% 1.3 /100WBC (0.0-0.0); PLATELET COUNT 106 10^3/UL (140-415); POSITIVE DIFF @See below; RED BLOOD COUNT 3.46 10^6/ul (4.70-6.10); RED CELL DISTRIBUTION WIDTH 22.3 % (11.5-14.5); WHITE BLOOD COUNT 11.3 10^3/ul (4.8-10.8)
[2017-04-21 07:36] LABS: CALCIUM 7.9 mg/dl (8.4-10.2); CREATININE 0.73 mg/dl (0.61-1.24); PHOSPHORUS 2.7 mg/dl (2.5-4.9); POTASSIUM 4.6 mmol/L (3.5-5.1)
[2017-04-21 07:40] LABS: INR 1.62; PROTIME 19.4 Sec (12.2-14.2); PT RATIO 1.5
[2017-04-21 07:41] LABS: PARTIAL THROMBOPLASTIN TIME 34.8 Sec (25.0-35.0)
[2017-04-21] MEDS: THIOTHIXENE 5 MG CAP PO SCH (09:00)
[2017-04-21] MEDS: BUPROPION (XL) 150 MG TAB PO SCH (09:09)
[2017-04-21] MEDS: TAMSULOSIN (SR) 0.4 MG CAP PO SCH (09:10)
[2017-04-21] MEDS: BICALUTAMIDE 50 MG TAB PO SCH (09:18)
--- NOTE | 2017-04-21 11:50 | RADRPT ---
PROCEDURE: XR Chest. CLINICAL INDICATION: Pneumonia, CHF TECHNIQUE: AP Portable chest. COMPARISON: 04/20/2017 FINDINGS: The right Port-A-Cath is unchanged. The cardiomediastinal silhouette is within normal limits. Edema, bilateral interstitial densities a nd small pleural effusions are unchanged. No pneumothorax is seen. The hemidiaphragms are obscured. The bones appear sclerotic. IMPRESSION: Unchanged the bilateral interstitial infiltrates or edema and small pleural effusions. Michelle Wilcox Physician Date Time Electronically viewed and signed by Michelle Wilcox Physician on 04/21/2017 11:49 CS/
--- NOTE | 2017-04-21 11:54 | PN ---
Date/Time of Note Date/Time of Note DATE: 04/21/17 TIME: 11:43 Assessment/Plan VTE Prophylaxis VTE Prophylaxis Intervention: other (per primary MD) Lines/Catheters IV Catheter Type (from Nrsg): STARLA CATH Urinary Cath still in place: Yes Reason Cath still needed: other (indicate) (per urology) Assessment/Plan Assessment/Plan Hyponatremia is a bit better with Na up to 124. Chemotherapy can be considered once the metabolic and respiratory issues have stabilized. Anticipate that this will take at least a few days. Subjective 24 Hr Interval Summary Free Text/Dictation Pt alert but quiet. Exam/Review of Systems Vital Signs Vitals Vital Signs Date Time Temp Pulse Resp B/P Pulse Ox O2 Delivery O2 Flow Rate FiO2 04/21/17 11:33 98.5 113 18 108/57 97 04/18/17 05:44 Room Air Intake and Output 04/20/17 04/20/17 04/21/17 15:00 23:00 07:00 Intake Total 1440 ml 560 ml Output Total 550 ml 400 ml Balance 890 ml 160 ml Exam Constitutional: alert Head: normocephalic Respiratory: diminished breath sounds, other (no resp distress or tachypnea) Cardiovascular: regular rate and rhythm Results Result Diagram: 04/21/17 0640 04/21/17 0640 Results 24 hrs Laboratory Tests Test 04/20/17 15:53 04/21/17 06:40 Sodium Level 120 L 124 L Potassium Level 4.3 4.6 Chloride Level 94 L 93 L Carbon Dioxide Level 20 L 21 Anion Gap 10 15 Blood Urea Nitrogen 23 H 25 H Creatinine 0.75 0.73 Glucose Level 119 115 Calcium Level 7.9 L 7.9 L White Blood Count 11.3 #H Red Blood Count 3.46 L Hemoglobin 10.4 L Hematocrit 32.5 L Mean Corpuscular Volume 93.9 Mean Corpuscular Hemoglobin 30.1 Mean Corpuscular Hemoglobin Concent 32.0 Red Cell Distribution Width 22.3 H Platelet Count 106 L Mean Platelet Volume 12.1 H Neutrophils % 79.5 H Lymphocytes % 11.0 L Monocytes % 8.4 Eosinophils % 0.0 Basophils % 0.1 Nucleated Red Blood Cells % 1.3 H Neutrophils # (Manual) 9 H Lymphocytes # 1.3 Monocytes # 1.0 H Eosinophils # 0.0 Basophils # 0.0 Nucleated Red Blood Cells # 0.2 H Prothrombin Time 19.4 H Prothrombin Time Ratio 1.5 INR International Normalized Ratio 1.62 Activated Partial Thromboplast Time 34.8 Phosphorus Level 2.7 Magnesium Level 2.0 Medications Medications Current Medications Acetaminophen (Tylenol Tab) 650 mg Q6H PRN PO PAIN LEVEL 1-3 OR FEVER Last administered on 04/18/17 03:27; Admin Dose 650 MG; Start 04/09/17 at 15:30 Acetaminophen (Tylenol Supp) 650 mg Q6H PRN [place] PAIN LEVEL 1-3 OR FEVER; Start 04/09/17 at 15:30 Bupropion HCl (Wellbutrin Xl) 150 mg DAILY PO Last administered on 04/21/17 09 :09; Admin Dose 150 MG; Start 04/10/17 at 09:00 Thiothixene (Navane) 5 mg DAILY PO Last administered on 04/21/17 09:00; Admin Dose 5 MG; Start 04/10/17 at 09:00 Atorvastatin Calcium (Lipitor) 10 mg QHS PO Last administered on 04/20/17 21: 09; Admin Dose 10 MG; Start 04/10/17 at 21:00 Ondansetron HCl (Zofran Inj) 4 mg Q4H PRN IV NAUSEA AND/OR VOMITING; Start 08/19 at 13:30 Guaifenesin (Robitussin Liquid Cup) 100 mg Q4H PRN PO COUGH Last administered on 04/17/17 09:07; Admin Dose 100 MG; Start 04/14/17 at 22:00 Benzonatate (Tessalon) 100 mg TID PRN PO cough Last administered on 04/16/17 05:54; Admin Dose 100 MG; Start 04/14/17 at 22:00 Terazosin HCl (Hytrin) 1 mg HS PO Last administered on 04/20/17 21:09; Admin Dose 1 MG; Start 04/16/17 at 21:00 Tamsulosin HCl (Flomax) 0.4 mg DAILY PO Last administered on 04/21/17 09:10; Admin Dose 0.4 MG; Start 04/16/17 at 11:00 Bicalutamide (Casodex) 50 mg DAILY PO Last administered on 04/21/17 09:18; Admin Dose 50 MG; Start 8/16/17 at 09:00 Oxycodone HCl (Roxicodone) 5 mg Q4H PRN PO PAIN; Start 04/18/17 at 10:00 Alprazolam (Xanax) 0.5 mg Q6H PRN PO ANXIETY Last administered on 04/20/17 06: 11; Admin Dose 0.5 MG; Start 04/18/17 at 16:30 Pantoprazole 40 mg 40 mg DAILY@06 PO Last administered on 04/21/17 05:35; Admin Dose 40 MG; Start 04/20/17 at 06:00 Sodium Chloride (NS) 1,000 ml @ 50 mls/hr Q20H IV Last administered on 00:04; Admin Dose 50 MLS/HR; Start 04/20/17 at 08:30 NORBERTO LEBLANC MD Apr 21, 2017 11:53
--- NOTE | 2017-04-21 12:48 | CONS ---
Date/Time of Note Date/Time of Note DATE: 04/21/17 TIME: 12:44 Assessment/Plan Assessment/Plan Additional Assessment/Plan Chest x-ray was reviewed which is showing minimal bilateral pleural effusions. Assessment and recommendations; 1. Patient admitted with shortness of breath with recently diagnosed esophageal carcinoma. 2. Small bilateral pleural effusions. Not warranting thoracentesis. Continue current treatment. Consultation Date/Type/Reason Admit Date/Time Apr 09, 2017 at 13:02 Initial Consult Date 04/20/17 Type of Consultation: Pulmonary Referring Provider: JYOTI SAWYER 24 HR Interval Summary Free Text/Dictation Patient's condition is stable. Remains awake and alert. Denies any shortness of breath, chest pain, abdominal pain, nausea vomiting. Patient is complaining of dysphagia. General exam; elderly male, appears overweight, currently in no distress. Awake and alert. Exam/Review of Systems Vital Signs Vitals Vital Signs Date Time Temp Pulse Resp B/P Pulse Ox O2 Delivery O2 Flow Rate FiO2 04/21/17 12:26 117 04/21/17 11:33 98.5 18 108/57 97 04/18/17 05:44 Room Air Intake and Output 04/20/17 04/20/17 04/21/17 15:00 23:00 07:00 Intake Total 1440 ml 560 ml Output Total 550 ml 400 ml Balance 890 ml 160 ml Exam HEENT exam; supple neck, no JVD. No lymphadenopathy. Midline trachea. No thyromegaly. Pharynx is clear. No neck masses. Pupils are equal and reactive to light. Chest exam; diminished but clear breath sound. S1-S2 audible, no murmurs. Regular rhythm. Abdomen exam; soft, protuberant. Nontender. Bowel sounds audible. Extremity exam; trace peripheral edema. 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 Results Result Diagram: 04/21/17 0640 04/21/17 0640 Results 24 hrs Laboratory Tests Test 04/20/17 15:53 04/21/17 06:40 Sodium Level 120 L 124 L Potassium Level 4.3 4.6 Chloride Level 94 L 93 L Carbon Dioxide Level 20 L 21 Anion Gap 10 15 Blood Urea Nitrogen 23 H 25 H Creatinine 0.75 0.73 Glucose Level 119 115 Calcium Level 7.9 L 7.9 L White Blood Count 11.3 #H Red Blood Count 3.46 L Hemoglobin 10.4 L Hematocrit 32.5 L Mean Corpuscular Volume 93.9 Mean Corpuscular Hemoglobin 30.1 Mean Corpuscular Hemoglobin Concent 32.0 Red Cell Distribution Width 22.3 H Platelet Count 106 L Mean Platelet Volume 12.1 H Neutrophils % 79.5 H Lymphocytes % 11.0 L Monocytes % 8.4 Eosinophils % 0.0 Basophils % 0.1 Nucleated Red Blood Cells % 1.3 H Neutrophils # (Manual) 9 H Lymphocytes # 1.3 Monocytes # 1.0 H Eosinophils # 0.0 Basophils # 0.0 Nucleated Red Blood Cells # 0.2 H Prothrombin Time 19.4 H Prothrombin Time Ratio 1.5 INR International Normalized Ratio 1.62 Activated Partial Thromboplast Time 34.8 Phosphorus Level 2.7 Magnesium Level 2.0 Medications Medications Current Medications Acetaminophen (Tylenol Tab) 650 mg Q6H PRN PO PAIN LEVEL 1-3 OR FEVER Last administered on 04/18/17 03:27; Admin Dose 650 MG; Start 04/09/17 at 15:30 Acetaminophen (Tylenol Supp) 650 mg Q6H PRN [place] PAIN LEVEL 1-3 OR FEVER; Start 04/09/17 at 15:30 Bupropion HCl (Wellbutrin Xl) 150 mg DAILY PO Last administered on 04/21/17 09 :09; Admin Dose 150 MG; Start 04/10/17 at 09:00 Thiothixene (Navane) 5 mg DAILY PO Last administered on 04/21/17 09:00; Admin Dose 5 MG; Start 04/10/17 at 09:00 Atorvastatin Calcium (Lipitor) 10 mg QHS PO Last administered on 04/20/17 21: 09; Admin Dose 10 MG; Start 04/10/17 at 21:00 Ondansetron HCl (Zofran Inj) 4 mg Q4H PRN IV NAUSEA AND/OR VOMITING; Start 08/19 at 13:30 Guaifenesin (Robitussin Liquid Cup) 100 mg Q4H PRN PO COUGH Last administered on 04/17/17 09:07; Admin Dose 100 MG; Start 04/14/17 at 22:00 Benzonatate (Tessalon) 100 mg TID PRN PO cough Last administered on 04/16/17 05:54; Admin Dose 100 MG; Start 04/14/17 at 22:00 Terazosin HCl (Hytrin) 1 mg HS PO Last administered on 04/20/17 21:09; Admin Dose 1 MG; Start 04/16/17 at 21:00 Tamsulosin HCl (Flomax) 0.4 mg DAILY PO Last administered on 04/21/17 09:10; Admin Dose 0.4 MG; Start 04/16/17 at 11:00 Bicalutamide (Casodex) 50 mg DAILY PO Last administered on 04/21/17 09:18; Admin Dose 50 MG; Start 04/18/17 at 09:00 Oxycodone HCl (Roxicodone) 5 mg Q4H PRN PO PAIN; Start 04/18/17 at 10:00 Alprazolam (Xanax) 0.5 mg Q6H PRN PO ANXIETY Last administered on 04/20/17 06: 11; Admin Dose 0.5 MG; Start 04/18/17 at 16:30 Pantoprazole 40 mg 40 mg DAILY@06 PO Last administered on 04/21/17 05:35; Admin Dose 40 MG; Start 04/20/17 at 06:00 Sodium Chloride (NS) 1,000 ml @ 50 mls/hr Q20H IV Last administered on 00:04; Admin Dose 50 MLS/HR; Start 04/20/17 at 08:30 ULICES HENRIQUEZ Apr 21, 2017 12:47
--- NOTE | 2017-04-21 13:36 | PN ---
Date/Time of Note Date/Time of Note DATE: 04/21/17 TIME: 13:34 Assessment/Plan VTE Prophylaxis VTE Prophylaxis Intervention: heparin Lines/Catheters IV Catheter Type (from Nrs): STARLA CATH Urinary Cath still in place: Yes Reason Cath still needed: urinary retention, terminal illness/intractable pain Assessment/Plan Chief Complaint/Hosp Course Patient is a 61-year-old male who was originally sent from primary care office for anemia upon further questioning found to have poor appetite and dysphasia. Found to now have adenocarcinoma of the esophagus Problem list assessment Anemia Adenocarcinoma of the esophagus, signet cell Bilateral pleural effusions, ?cancer related hyponatremia Schizophrenia Dyslipidemia Urinary retention, Diffuse osteoblastic bone metastases, etiology unknown Plan -Pulmonology consulted, holding thoracentesis for now -port a cath placed heme/onc started medication. Plans on chemo this admission, but on hold due to pleural effusion/metabolic issues -nephrology recs appreciated for hyponatremia, may start 3% if persistently low. but increased to 124 today. -stopping fluids, patient showing signs of LE edema -echo noted -patient failed voiding trial, had to re-insert miranda catheter, consulted urology, Dr. Rodney. recs appreciated. -Continue home meds for now -We will discuss with hematology and oncology regarding disposition, patient has multiple issues, will plan for DC when stable after chemo. Problems: Subjective 24 Hr Interval Summary Free Text/Dictation patient weak and tired Exam/Review of Systems Vital Signs Vitals Vital Signs Date Time Temp Pulse Resp B/P Pulse Ox O2 Delivery O2 Flow Rate FiO2 04/21/17 12:26 117 04/21/17 11:33 98.5 18 108/57 97 04/18/17 05:44 Room Air Intake and Output 04/20/17 04/20/17 04/21/17 15:00 23:00 07:00 Intake Total 1440 ml 560 ml Output Total 550 ml 400 ml Balance 890 ml 160 ml Exam Physical exam General: Patient is laying in bed and answers questions appropriately Mentation: Patient is alert and oriented 4, Head: Normocephalic atraumatic Eyes: EOMI, pupils reactive to light Neck: Supple, nontender, midline Respiratory:diminished to auscultation bilaterally Cardiovascular: regular rate, no obvious murmurs Gastrointestinal: non-tender to palpation, bowel sounds heard. Neurological: Moves all extremities spontaneously Skin: No new skin lesions except new surgical port site, mild 2 + edema LE Results Result Diagram: 04/21/17 0640 04/21/17 0640 Results 24 hrs Laboratory Tests Test 04/20/17 15:53 04/21/17 06:40 Sodium Level 120 L 124 L Potassium Level 4.3 4.6 Chloride Level 94 L 93 L Carbon Dioxide Level 20 L 21 Anion Gap 10 15 Blood Urea Nitrogen 23 H 25 H Creatinine 0.75 0.73 Glucose Level 119 115 Calcium Level 7.9 L 7.9 L White Blood Count 11.3 #H Red Blood Count 3.46 L Hemoglobin 10.4 L Hematocrit 32.5 L Mean Corpuscular Volume 93.9 Mean Corpuscular Hemoglobin 30.1 Mean Corpuscular Hemoglobin Concent 32.0 Red Cell Distribution Width 22.3 H Platelet Count 106 L Mean Platelet Volume 12.1 H Neutrophils % 79.5 H Lymphocytes % 11.0 L Monocytes % 8.4 Eosinophils % 0.0 Basophils % 0.1 Nucleated Red Blood Cells % 1.3 H Neutrophils # (Manual) 9 H Lymphocytes # 1.3 Monocytes # 1.0 H Eosinophils # 0.0 Basophils # 0.0 Nucleated Red Blood Cells # 0.2 H Prothrombin Time 19.4 H Prothrombin Time Ratio 1.5 INR International Normalized Ratio 1.62 Activated Partial Thromboplast Time 34.8 Phosphorus Level 2.7 Magnesium Level 2.0 Medications Medications Current Medications Acetaminophen (Tylenol Tab) 650 mg Q6H PRN PO PAIN LEVEL 1-3 OR FEVER Last administered on 04/18/17 03:27; Admin Dose 650 MG; Start 04/09/17 at 15:30 Acetaminophen (Tylenol Supp) 650 mg Q6H PRN [place] PAIN LEVEL 1-3 OR FEVER; Start 04/09/17 at 15:30 Bupropion HCl (Wellbutrin Xl) 150 mg DAILY PO Last administered on 04/21/17 09 :09; Admin Dose 150 MG; Start 04/10/17 at 09:00 Thiothixene (Navane) 5 mg DAILY PO Last administered on 04/21/17 09:00; Admin Dose 5 MG; Start 04/10/17 at 09:00 Atorvastatin Calcium (Lipitor) 10 mg QHS PO Last administered on 04/20/17 21: 09; Admin Dose 10 MG; Start 04/10/17 at 21:00 Ondansetron HCl (Zofran Inj) 4 mg Q4H PRN IV NAUSEA AND/OR VOMITING; Start 08/19 at 13:30 Guaifenesin (Robitussin Liquid Cup) 100 mg Q4H PRN PO COUGH Last administered on 04/17/17 09:07; Admin Dose 100 MG; Start 04/14/17 at 22:00 Benzonatate (Tessalon) 100 mg TID PRN PO cough Last administered on 04/16/17 05:54; Admin Dose 100 MG; Start 04/14/17 at 22:00 Terazosin HCl (Hytrin) 1 mg HS PO Last administered on 04/20/17 21:09; Admin Dose 1 MG; Start 04/16/17 at 21:00 Tamsulosin HCl (Flomax) 0.4 mg DAILY PO Last administered on 04/21/17 09:10; Admin Dose 0.4 MG; Start 04/16/17 at 11:00 Bicalutamide (Casodex) 50 mg DAILY PO Last administered on 04/21/17 09:18; Admin Dose 50 MG; Start 04/18/17 at 09:00 Oxycodone HCl (Roxicodone) 5 mg Q4H PRN PO PAIN; Start 04/18/17 at 10:00 Alprazolam (Xanax) 0.5 mg Q6H PRN PO ANXIETY Last administered on 04/20/17 06: 11; Admin Dose 0.5 MG; Start 04/18/17 at 16:30 Pantoprazole 40 mg 40 mg DAILY@06 PO Last administered on 04/21/17 05:35; Admin Dose 40 MG; Start 04/20/17 at 06:00 Sodium Chloride (NS) 1,000 ml @ 50 mls/hr Q20H IV Last administered on 00:04; Admin Dose 50 MLS/HR; Start 04/20/17 at 08:30 JYOTI SAWYER Apr 21, 2017 13:36
--- NOTE | 2017-04-21 15:40 | CONS ---
Date/Time of Note Date/Time of Note DATE: 04/21/17 TIME: 15:37 Assessment/Plan Assessment/Plan Additional Assessment/Plan 61 yo M admitted for symptomatic anemia, EGD done 04/19/17 with multiple malignant looking masses. Bone scan concerning for advanced malignancy- s/p EGD with biopsy which showed Infiltrating (diffuse), signet ring cell carcinoma- pt has been having urinary frequency with obstructive symptoms, renal has been consulted. pt has been on started on hytrin but associated with low BP. Additional Assessment/Plan 1.acute urinary retention requiring Roman- CT abdomen + pelvis without contast negative for any obstruction, no hydronephrosis 2. diffuse osteoblastic bone metastasis 3. S/P EGD with biopsy showed signet ring cell CA 4. Bilateral pleural effusino large on CT abdomen with Ascites and edema - US chest showed moderate bilateral pleural effusion 5. Hyponatremia with Na dropped to 120- today 124 , will give him NS 1000 L x 1 today Plan: s/p portacath and Chemotherapy as per hematology oncology Strict I/O, Roman care - will continue to monitor Na at 4 pm- if continues to drop then we will consider starting 3% saline continue Hytrin to 1 mg PO QHS and Flomax 0.4mg PO daily, BP stable so far ECHO showed EF 75% with stage I diastolic dysfunction will follow up.. esteban Yee Consultation Date/Type/Reason Admit Date/Time Apr 09, 2017 at 13:02 Initial Consult Date 04/20/17 Type of Consultation: NEPHROLOGY Referring Provider: JYOTI SAWYER 24 HR Interval Summary Free Text/Dictation resting, awake, responsive, confused, hyponatremia, sp MRI Pelvis today, afebrile, dw staff Exam/Review of Systems Vital Signs Vitals Vital Signs Date Time Temp Pulse Resp B/P Pulse Ox O2 Delivery O2 Flow Rate FiO2 04/21/17 15:02 98.2 117 20 113/56 94 04/18/17 05:44 Room Air Intake and Output 04/20/17 04/20/17 04/21/17 15:00 23:00 07:00 Intake Total 1440 ml 560 ml Output Total 550 ml 400 ml Balance 890 ml 160 ml Exam Constitutional: alert, well developed Respiratory: clear to auscultation, diminished breath sounds Cardiovascular: nl pulses, regular rate and rhythm Gastrointestinal: non-tender, soft Musculoskeletal: nl extremities to inspection Extremities: normal pulses Neurological: confused, nl speech Results Result Diagram: 04/21/17 0640 04/21/17 0640 Results 24 hrs Laboratory Tests Test 04/20/17 15:53 04/21/17 06:40 Sodium Level 120 L 124 L Potassium Level 4.3 4.6 Chloride Level 94 L 93 L Carbon Dioxide Level 20 L 21 Anion Gap 10 15 Blood Urea Nitrogen 23 H 25 H Creatinine 0.75 0.73 Glucose Level 119 115 Calcium Level 7.9 L 7.9 L White Blood Count 11.3 #H Red Blood Count 3.46 L Hemoglobin 10.4 L Hematocrit 32.5 L Mean Corpuscular Volume 93.9 Mean Corpuscular Hemoglobin 30.1 Mean Corpuscular Hemoglobin Concent 32.0 Red Cell Distribution Width 22.3 H Platelet Count 106 L Mean Platelet Volume 12.1 H Neutrophils % 79.5 H Lymphocytes % 11.0 L Monocytes % 8.4 Eosinophils % 0.0 Basophils % 0.1 Nucleated Red Blood Cells % 1.3 H Neutrophils # (Manual) 9 H Lymphocytes # 1.3 Monocytes # 1.0 H Eosinophils # 0.0 Basophils # 0.0 Nucleated Red Blood Cells # 0.2 H Prothrombin Time 19.4 H Prothrombin Time Ratio 1.5 INR International Normalized Ratio 1.62 Activated Partial Thromboplast Time 34.8 Phosphorus Level 2.7 Magnesium Level 2.0 Medications Medications Current Medications Acetaminophen (Tylenol Tab) 650 mg Q6H PRN PO PAIN LEVEL 1-3 OR FEVER Last administered on 04/18/17 03:27; Admin Dose 650 MG; Start 04/09/17 at 15:30 Acetaminophen (Tylenol Supp) 650 mg Q6H PRN [place] PAIN LEVEL 1-3 OR FEVER; Start 04/09/17 at 15:30 Bupropion HCl (Wellbutrin Xl) 150 mg DAILY PO Last administered on 04/21/17 09 :09; Admin Dose 150 MG; Start 04/10/17 at 09:00 Thiothixene (Navane) 5 mg DAILY PO Last administered on 04/21/17 09:00; Admin Dose 5 MG; Start 04/10/17 at 09:00 Atorvastatin Calcium (Lipitor) 10 mg QHS PO Last administered on 04/20/17 21: 09; Admin Dose 10 MG; Start 04/10/17 at 21:00 Ondansetron HCl (Zofran Inj) 4 mg Q4H PRN IV NAUSEA AND/OR VOMITING; Start 08/19 at 13:30 Guaifenesin (Robitussin Liquid Cup) 100 mg Q4H PRN PO COUGH Last administered on 04/17/17 09:07; Admin Dose 100 MG; Start 04/14/17 at 22:00 Benzonatate (Tessalon) 100 mg TID PRN PO cough Last administered on 04/16/17 05:54; Admin Dose 100 MG; Start 04/14/17 at 22:00 Terazosin HCl (Hytrin) 1 mg HS PO Last administered on 04/20/17 21:09; Admin Dose 1 MG; Start 04/16/17 at 21:00 Tamsulosin HCl (Flomax) 0.4 mg DAILY PO Last administered on 04/21/17 09:10; Admin Dose 0.4 MG; Start 04/16/17 at 11:00 Bicalutamide (Casodex) 50 mg DAILY PO Last administered on 04/21/17 09:18; Admin Dose 50 MG; Start 04/18/17 at 09:00 Oxycodone HCl (Roxicodone) 5 mg Q4H PRN PO PAIN; Start 04/18/17 at 10:00 Alprazolam (Xanax) 0.5 mg Q6H PRN PO ANXIETY Last administered on 04/20/17 06: 11; Admin Dose 0.5 MG; Start 04/18/17 at 16:30 Pantoprazole (Protonix Tab) 40 mg DAILY@06 PO Last administered on 04/21/17 05 :35; Admin Dose 40 MG; Start 04/20/17 at 06:00 OCTAVIO SIDDIQUI Apr 21, 2017 15:40
[2017-04-21] MEDS ORDERED: SOD CHLORIDE 0.9% 1,000 ML IV SCH (16:00)
[2017-04-21] MEDS: ALBUTEROL/IPRATROPIUM (NEB) 3 ML AMP HHN SCH (16:31)
[2017-04-21 16:39] LABS: AADO2 Arterial 55.4 mmHg (7.0-24.0); Arterial Base Excess -4.1 mmol/L (-3.0-3); Arterial COHb 0.3 % (0.0-3.0); Arterial Fraction of Oxyhgb 93.9 % (93.0-99.0); Arterial HCO3 16.9 mmol/L (22.0-26.0); Arterial MetHb 0.3 % (0.0-1.5); Arterial Total Hemglobin 11.6 g/dl (12.0-18.0); MODE ROOM AIR
[2017-04-21] MEDS: ATORVASTATIN 10 MG TAB PO SCH (20:27)
[2017-04-21] MEDS: TERAZOSIN 1 MG CAP PO SCH (20:27)
--- NOTE | 2017-04-21 20:42 | RADRPT ---
PROCEDURE: MRI Pelvis without and with contrast. CLINICAL INDICATION: Prostate cancer. TECHNIQUE: Multiplanar and multisequence MRI of the pelvis was performed. The patient was scanned b efore and after the uneventful intravenous administration of 20 cc of Magnevist contrast. Images wer e reviewed on a high-resolution PACS workstation. Evaluation is partially limited due to patient con fusion and lack of cooperation. Evaluation is also limited due to the presence of ascites and dielec tric effect. COMPARISON: CT dated 04/18/2017. FINDINGS: The prostate gland is enlarged measuring 5.2 x 3.9 x 4.9 cm with a calculated volume of 5 2 cc. There are changes of benign prostatic hypertrophy with well-formed nodules in the central lob e. The peripheral zone is markedly compressed and thin, demonstrating no gross. Evaluation of the peripheral zone is otherwise limited due to technique artifact as described. There is a Roman catheter within the urinary bladder, which is decompressed. There is ascites withi n the visualized abdomen and pelvis. There is anasarca and diffuse intra muscular edema. There is extensive abnormal signal throughout the visualized marrow, consistent with the patient's history of osseous metastatic disease. IMPRESSION: 1. Enlarged prostate gland with a calculated volume of 52 cc and changes of benign prostatic hypert rophy. No discrete mass lesion in the central lobe. 2. Thin peripheral zone with no gross mass lesion identified, with the examination limited due to a rtifact as above. 3. Ascites, anasarca, and extensive intramuscular edema. 4. Diffuse abnormal marrow signal, consistent with the patient's history of extensive osseous metas tatic disease. RPTAT: HLBP .Juan Alberto Saldana MD, MD Date Time Electronically viewed and signed by .Juan Alberto Saldana MD, MD on 04/21/2017 20:42 .P/
[2017-04-22] VITALS (14 sets, daily range): BP systolic 101–131; BP diastolic 53–73; PULSE 113–128; RESP 18–27
[2017-04-22] MEDS: PANTOPRAZOLE (EC) 40 MG TAB PO SCH (05:40)
[2017-04-22 07:09] LABS: ABNORMAL IP MESSAGE 1; BASOPHILS % 0.2 % (0.0-2.0); HEMATOCRIT 32.1 % (42.0-52.0); HEMOGLOBIN 10.5 g/dl (14.0-18.0); LYMPHOCYTES # 1.4 10^3/ul (0.8-2.9); LYMPHOCYTES % 10.5 % (15.0-51.0); MEAN CORPUSCULAR HEMOGLOBIN 30.8 pg (29.0-33.0); MEAN CORPUSCULAR HGB CONC 32.7 g/dl (32.0-37.0); MEAN CORPUSCULAR VOLUME 94.1 fl (82.0-101.0); MEAN PLATELET VOLUME 10.6 fl (7.4-10.4); MONOCYTE # 1.1 10^3/ul (0.3-0.9); MONOCYTES % 8.3 % (0.0-11.0); NEUTROPHILS % 80.3 % (39.0-77.0); NUCLEATED RED BLOOD CELLS # 0.2 10^3/ul (0.0-0.0); NUCLEATED RED BLOOD CELLS% 1.5 /100WBC (0.0-0.0); PLATELET COUNT 82 10^3/UL (140-415); POSITIVE DIFF @See below; RED BLOOD COUNT 3.41 10^6/ul (4.70-6.10); RED CELL DISTRIBUTION WIDTH 22.4 % (11.5-14.5)
[2017-04-22 07:26] LABS: CREATININE 0.78 mg/dl (0.61-1.24); PHOSPHORUS 2.8 mg/dl (2.5-4.9); POTASSIUM 4.6 mmol/L (3.5-5.1)
[2017-04-22] MEDS: ALBUTEROL/IPRATROPIUM (NEB) 3 ML AMP HHN SCH ×2 (07:48→15:57)
[2017-04-22] MEDS: BUPROPION (XL) 150 MG TAB PO SCH (08:46)
[2017-04-22] MEDS: THIOTHIXENE 5 MG CAP PO SCH (08:46)
[2017-04-22] MEDS: TAMSULOSIN (SR) 0.4 MG CAP PO SCH (08:47)
[2017-04-22] MEDS: BICALUTAMIDE 50 MG TAB PO SCH (08:59)
[2017-04-22] MEDS ORDERED: PHYTONADIONE 10 MG/ML INJ SC ONE (10:30)
--- NOTE | 2017-04-22 10:35 | PN ---
Date/Time of Note Date/Time of Note DATE: 04/22/17 TIME: 10:32 Assessment/Plan VTE Prophylaxis VTE Prophylaxis Intervention: other (thrombocytopenia) Lines/Catheters IV Catheter Type (from Nrs): port a cath Urinary Cath still in place: Yes Reason Cath still needed: other (indicate) (weakness) Assessment/Plan Assessment/Plan Bilateral pleural effusions. Thoracenteses are delayed since INR is prolonged. I will give Vit K and recheck lab in the morning. He may end up needing VATS both for treatment and for diagnostic studies. Chemotherapy is being deferred until his metabolic status and his breathing are stabilized. Subjective 24 Hr Interval Summary Free Text/Dictation Pt stable but has mild tachypnea Exam/Review of Systems Vital Signs Vitals Vital Signs Date Time Temp Pulse Resp B/P Pulse Ox O2 Delivery O2 Flow Rate FiO2 04/22/17 08:31 115 04/22/17 08:02 98.5 20 111/53 95 04/22/17 07:44 21 04/22/17 07:44 2.0 Intake and Output 04/21/17 04/21/17 04/22/17 15:00 23:00 07:00 Intake Total 60 ml 720 ml Output Total 800 ml Balance 60 ml -80 ml Exam Constitutional: alert, oriented Head: normocephalic Eyes: nl conjunctiva Respiratory: clear to auscultation, diminished breath sounds (at bases) Cardiovascular: regular rate and rhythm Gastrointestinal: soft Results Result Diagram: 04/22/17 0623 04/22/17 0623 Results 24 hrs Laboratory Tests Test 04/21/17 13:38 04/22/17 06:23 Blood Gas Specimen Source Blood arterial Arterial Blood Date Drawn 04/21/2017 4:20:30 PM Arterial Blood pH (Temp corrected) 7.524 H Arterial Blood pCO2 (Temp correct) 21.0 L Arterial Blood pO2 (Temp corrected) 69.2 L Arterial Blood HCO3 16.9 L Arterial Blood Base Excess -4.1 L Arterial Blood Oxygen Saturation 94.5 L Deejay Test N/A Arterial Blood Gas Puncture Site Right Brachial Arterial Blood Carboxyhemoglobin 0.3 Arterial Blood Methemoglobin 0.3 Blood Gas A-a O2 Differential 55.4 H Oxyhemoglobin Percent 93.9 Total Hemoglobin 11.6 L Blood Gas Temperature 37.0 Blood Gas Modality ROOM AIR FiO2 21.0 Blood Gas Notified Whom CW Blood Gas Notified Time 04/21/2017 4:39:13 PM White Blood Count 13.0 H Red Blood Count 3.41 L Hemoglobin 10.5 L Hematocrit 32.1 L Mean Corpuscular Volume 94.1 Mean Corpuscular Hemoglobin 30.8 Mean Corpuscular Hemoglobin Concent 32.7 Red Cell Distribution Width 22.4 H Platelet Count 82 #L Mean Platelet Volume 10.6 H Neutrophils % 80.3 H Lymphocytes % 10.5 L Monocytes % 8.3 Eosinophils % 0.0 Basophils % 0.2 Nucleated Red Blood Cells % 1.5 H Neutrophils # (Manual) 10 H Lymphocytes # 1.4 Monocytes # 1.1 H Eosinophils # 0.0 Basophils # 0.0 Nucleated Red Blood Cells # 0.2 H Sodium Level 123 L Potassium Level 4.6 Chloride Level 97 Carbon Dioxide Level 20 L Anion Gap 11 Blood Urea Nitrogen 27 H Creatinine 0.78 Glucose Level 121 Calcium Level 8.0 L Phosphorus Level 2.8 Magnesium Level 2.0 Medications Medications Current Medications Acetaminophen (Tylenol Tab) 650 mg Q6H PRN PO PAIN LEVEL 1-3 OR FEVER Last administered on 04/18/17 03:27; Admin Dose 650 MG; Start 04/09/17 at 15:30 Acetaminophen (Tylenol Supp) 650 mg Q6H PRN [place] PAIN LEVEL 1-3 OR FEVER; Start 04/09/17 at 15:30 Bupropion HCl (Wellbutrin Xl) 150 mg DAILY PO Last administered on 04/22/17 08 :46; Admin Dose 150 MG; Start 04/10/17 at 09:00 Thiothixene (Navane) 5 mg DAILY PO Last administered on 04/22/17 08:46; Admin Dose 5 MG; Start 04/10/17 at 09:00 Atorvastatin Calcium (Lipitor) 10 mg QHS PO Last administered on 04/21/17 20: 27; Admin Dose 10 MG; Start 04/10/17 at 21:00 Ondansetron HCl (Zofran Inj) 4 mg Q4H PRN IV NAUSEA AND/OR VOMITING; Start 08/19 at 13:30 Guaifenesin (Robitussin Liquid Cup) 100 mg Q4H PRN PO COUGH Last administered on 04/17/17 09:07; Admin Dose 100 MG; Start 04/14/17 at 22:00 Benzonatate (Tessalon) 100 mg TID PRN PO cough Last administered on 04/16/17 05:54; Admin Dose 100 MG; Start 04/14/17 at 22:00 Terazosin HCl (Hytrin) 1 mg HS PO Last administered on 04/21/17 20:27; Admin Dose 1 MG; Start 04/16/17 at 21:00 Tamsulosin HCl (Flomax) 0.4 mg DAILY PO Last administered on 04/22/17 08:47; Admin Dose 0.4 MG; Start 04/16/17 at 11:00 Bicalutamide (Casodex) 50 mg DAILY PO Last administered on 04/22/17 08:59; Admin Dose 50 MG; Start 04/18/17 at 09:00 Oxycodone HCl (Roxicodone) 5 mg Q4H PRN PO PAIN; Start 04/18/17 at 10:00 Alprazolam (Xanax) 0.5 mg Q6H PRN PO ANXIETY Last administered on 04/20/17 06: 11; Admin Dose 0.5 MG; Start 04/18/17 at 16:30 Pantoprazole (Protonix Tab) 40 mg DAILY@06 PO Last administered on 04/22/17 05 :40; Admin Dose 40 MG; Start 04/20/17 at 06:00 Sodium Chloride (Nacl) 1 gm TID PO ; Start 04/22/17 at 13:00 NORBERTO LEBLANC MD Apr 22, 2017 10:35
[2017-04-22] MEDS: SODIUM CHLORIDE 1 GM TAB PO SCH ×2 (13:11→20:15)
--- NOTE | 2017-04-22 13:40 | PN ---
Date/Time of Note Date/Time of Note DATE: 04/22/17 TIME: 13:37 Assessment/Plan VTE Prophylaxis VTE Prophylaxis Intervention: heparin Lines/Catheters IV C[facility] Type [facility]from [facility] port a cath Urinary Cath still in place: Yes Reason Cath still needed: urinary retention Assessment/Plan Chief Complaint/Hosp Course Patient is a 61-year-old male who was originally sent from primary care office for anemia upon further questioning found to have poor appetite and dysphasia. Found to now have adenocarcinoma of the esophagus Problem list assessment Anemia Adenocarcinoma of the esophagus, signet cell Bilateral pleural effusions, ?cancer related hyponatremia Schizophrenia Dyslipidemia Urinary retention, Diffuse osteoblastic bone metastases, etiology unknown Plan -Pulmonology consulted, holding thoracentesis for now per radiology due to INR, heme/onc giving vit K. suggests possible VATS if unable to proceed in the short- term future -port a cath placed heme/onc started medication. Plans on chemo this admission, but on hold due to pleural effusion/metabolic issues -nephrology recs appreciated for hyponatremia, may start 3% if persistently low. but holding at 123 -stopping fluids, patient showing signs of LE edema, ordered salt tabs instead -echo noted -patient failed voiding trial, had to re-insert miranda catheter, consulted urology, Dr. Rodney. recs appreciated. -Continue home meds for now -We will discuss with hematology and oncology regarding disposition, patient has multiple issues, will plan for DC when stable after chemo. Problems: Subjective 24 Hr Interval Summary Free Text/Dictation no acute complaints, but patient is getting more lethargic Exam/Review of Systems Vital Signs Vitals Vital Signs Date Time Temp Pulse Resp B/P Pulse Ox O2 Delivery O2 Flow Rate FiO2 04/22/17 13:32 114 04/22/17 11:54 98.3 20 117/58 92 04/22/17 07:44 21 04/22/17 07:44 2.0 Intake and Output 04/21/17 04/21/17 04/22/17 15:00 23:00 07:00 Intake Total 60 ml 720 ml Output Total 800 ml Balance 60 ml -80 ml Exam Physical exam General: Patient is laying in bed and answers questions appropriately Mentation: Patient is alert and oriented 4, but more lethargic Head: Normocephalic atraumatic Eyes: EOMI, pupils reactive to light Neck: Supple, nontender, midline Respiratory:diminished to auscultation bilaterally Cardiovascular: regular rate, no obvious murmurs Gastrointestinal: non-tender to palpation, bowel sounds heard. Neurological: Moves all extremities spontaneously Skin: No new skin lesions except new surgical port site, mild 2 + edema LE Results Result Diagram: 04/22/17 0623 04/22/17 0623 Results 24 hrs Laboratory Tests Test 04/21/17 13:38 04/22/17 06:23 Blood Gas Specimen Source Blood arterial Arterial Blood Date Drawn 04/21/2017 4:20:30 PM Arterial Blood pH (Temp corrected) 7.524 H Arterial Blood pCO2 (Temp correct) 21.0 L Arterial Blood pO2 (Temp corrected) 69.2 L Arterial Blood HCO3 16.9 L Arterial Blood Base Excess -4.1 L Arterial Blood Oxygen Saturation 94.5 L Deejay Test N/A Arterial Blood Gas Puncture Site Right Brachial Arterial Blood Carboxyhemoglobin 0.3 Arterial Blood Methemoglobin 0.3 Blood Gas A-a O2 Differential 55.4 H Oxyhemoglobin Percent 93.9 Total Hemoglobin 11.6 L Blood Gas Temperature 37.0 Blood Gas Modality ROOM AIR FiO2 21.0 Blood Gas Notified Whom CW Blood Gas Notified Time 04/21/2017 4:39:13 PM White Blood Count 13.0 H Red Blood Count 3.41 L Hemoglobin 10.5 L Hematocrit 32.1 L Mean Corpuscular Volume 94.1 Mean Corpuscular Hemoglobin 30.8 Mean Corpuscular Hemoglobin Concent 32.7 Red Cell Distribution Width 22.4 H Platelet Count 82 #L Mean Platelet Volume 10.6 H Neutrophils % 80.3 H Lymphocytes % 10.5 L Monocytes % 8.3 Eosinophils % 0.0 Basophils % 0.2 Nucleated Red Blood Cells % 1.5 H Neutrophils # (Manual) 10 H Lymphocytes # 1.4 Monocytes # 1.1 H Eosinophils # 0.0 Basophils # 0.0 Nucleated Red Blood Cells # 0.2 H Sodium Level 123 L Potassium Level 4.6 Chloride Level 97 Carbon Dioxide Level 20 L Anion Gap 11 Blood Urea Nitrogen 27 H Creatinine 0.78 Glucose Level 121 Calcium Level 8.0 L Phosphorus Level 2.8 Magnesium Level 2.0 Medications Medications Current Medications Acetaminophen (Tylenol Tab) 650 mg Q6H PRN PO PAIN LEVEL 1-3 OR FEVER Last administered on 04/18/17t 03:27; Admin Dose 650 MG; Start 04/09/17 at 15:30 Acetaminophen (Tylenol Supp) 650 mg Q6H PRN [place] PAIN LEVEL 1-3 OR FEVER; Start 04/09/17 at 15:30 Bupropion HCl (Wellbutrin Xl) 150 mg DAILY PO Last administered on 04/22/17 08 :46; Admin Dose 150 MG; Start 04/10/17 at 09:00 Thiothixene (Navane) 5 mg DAILY PO Last administered on 04/22/17 08:46; Admin Dose 5 MG; Start 04/10/17 at 09:00 Atorvastatin Calcium (Lipitor) 10 mg QHS PO Last administered on 04/21/17 20: 27; Admin Dose 10 MG; Start 04/10/17 at 21:00 Ondansetron HCl (Zofran Inj) 4 mg Q4H PRN IV NAUSEA AND/OR VOMITING; Start 08/19 at 13:30 Guaifenesin (Robitussin Liquid Cup) 100 mg Q4H PRN PO COUGH Last administered on 04/17/17 09:07; Admin Dose 100 MG; Start 04/14/17 at 22:00 Benzonatate (Tessalon) 100 mg TID PRN PO cough Last administered on 04/16/17 05:54; Admin Dose 100 MG; Start 04/14/17 at 22:00 Terazosin HCl (Hytrin) 1 mg HS PO Last administered on 04/21/17 20:27; Admin Dose 1 MG; Start 04/16/17 at 21:00 Tamsulosin HCl (Flomax) 0.4 mg DAILY PO Last administered on 04/22/17 08:47; Admin Dose 0.4 MG; Start 04/16/17 at 11:00 Bicalutamide (Casodex) 50 mg DAILY PO Last administered on 04/22/17 08:59; Admin Dose 50 MG; Start 04/18/17 at 09:00 Oxycodone HCl (Roxicodone) 5 mg Q4H PRN PO PAIN; Start 04/18/17 at 10:00 Alprazolam (Xanax) 0.5 mg Q6H PRN PO ANXIETY Last administered on 04/20/17 06: 11; Admin Dose 0.5 MG; Start 04/18/17 at 16:30 Pantoprazole (Protonix Tab) 40 mg DAILY@06 PO Last administered on 04/22/17 05 :40; Admin Dose 40 MG; Start 04/20/17 at 06:00 Sodium Chloride (Nacl) 1 gm TID PO Last administered on 04/22/17 13:11; Admin Dose 1 GM; Start 04/22/17 at 13:00 JYOTI SAWYER Apr 22, 2017 13:40
--- NOTE | 2017-04-22 17:08 | CONS ---
Date/Time of Note Date/Time of Note DATE: 04/22/17 TIME: 17:01 Assessment/Plan Assessment/Plan Additional Assessment/Plan 61 yo M admitted for symptomatic anemia, EGD done 04/19/17 with multiple malignant looking masses. Bone scan concerning for advanced malignancy- s/p EGD with biopsy which showed Infiltrating (diffuse), signet ring cell carcinoma- pt has been having urinary frequency with obstructive symptoms, renal has been consulted. pt has been on started on Hytrin but associated with low BP. Additional Assessment/Plan 1.acute urinary retention requiring Roman- CT abdomen + pelvis without contrast negative for any obstruction, no hydronephrosis 2. diffuse osteoblastic bone metastasis 3. S/P EGD with biopsy showed signet ring cell CA 4. Bilateral pleural effusion large on CT abdomen with Ascites and edema - US chest showed moderate bilateral pleural effusion - Pending Thoracentesis as INR is elevated 5. Hyponatremia with Na dropped to 120- today 123 - NACL tabs 1 po TID - am labs Plan: s/p portacath and Chemotherapy as per hematology oncology Strict I/O, Roman care - will continue to monitor Na at 4 pm- if continues to drop then we will consider starting 3% saline continue Hytrin to 1 mg PO QHS and Flomax 0.4mg PO daily, BP stable so far ECHO showed EF 75% with stage I diastolic dysfunction will follow up.. esteban Yee Consultation Date/Type/Reason Admit Date/Time Apr 09, 2017 at 13:02 Initial Consult Date 04/20/17 Type of Consultation: NEPHROLOGY Referring Provider: JYOTI SAWYER 24 HR Interval Summary Free Text/Dictation Resting, afebrile, bilateral pleural effusion - Pending Thoracentesis as INR is elevated, Hyponatremia with Na dropped to 120- today 123 - started on NACL tabs 1 po TID, esteban staff Exam/Review of Systems Vital Signs Vitals Vital Signs Date Time Temp Pulse Resp B/P Pulse Ox O2 Delivery O2 Flow Rate FiO2 04/22/17 16:51 126 04/22/17 16:11 98.5 20 121/73 96 04/22/17 15:58 Nasal Cannula 2.0 04/22/17 07:44 21 Intake and Output 04/21/17 04/21/17 04/22/17 15:00 23:00 07:00 Intake Total 60 ml 720 ml Output Total 800 ml Balance 60 ml -80 ml Exam Constitutional: alert, oriented, well developed Respiratory: clear to auscultation Cardiovascular: nl pulses, other (ST Hr 110), regular rate and rhythm Gastrointestinal: non-tender, soft Musculoskeletal: nl extremities to inspection Neurological: nl mental status, nl speech Results Result Diagram: 04/22/1723 04/22/17 0623 Results 24 hrs Laboratory Tests Test 04/22/17 06:23 White Blood Count 13.0 H Red Blood Count 3.41 L Hemoglobin 10.5 L Hematocrit 32.1 L Mean Corpuscular Volume 94.1 Mean Corpuscular Hemoglobin 30.8 Mean Corpuscular Hemoglobin Concent 32.7 Red Cell Distribution Width 22.4 H Platelet Count 82 #L Mean Platelet Volume 10.6 H Neutrophils % 80.3 H Lymphocytes % 10.5 L Monocytes % 8.3 Eosinophils % 0.0 Basophils % 0.2 Nucleated Red Blood Cells % 1.5 H Neutrophils # (Manual) 10 H Lymphocytes # 1.4 Monocytes # 1.1 H Eosinophils # 0.0 Basophils # 0.0 Nucleated Red Blood Cells # 0.2 H Sodium Level 123 L Potassium Level 4.6 Chloride Level 97 Carbon Dioxide Level 20 L Anion Gap 11 Blood Urea Nitrogen 27 H Creatinine 0.78 Glucose Level 121 Calcium Level 8.0 L Phosphorus Level 2.8 Magnesium Level 2.0 Medications Medications Current Medications Acetaminophen (Tylenol Tab) 650 mg Q6H PRN PO PAIN LEVEL 1-3 OR FEVER Last administered on 04/18/17 03:27; Admin Dose 650 MG; Start 04/09/17 at 15:30 Acetaminophen (Tylenol Supp) 650 mg Q6H PRN [place] PAIN LEVEL 1-3 OR FEVER; Start 04/09/17 at 15:30 Bupropion HCl (Wellbutrin Xl) 150 mg DAILY PO Last administered on 04/22/17 08 :46; Admin Dose 150 MG; Start 04/10/17 at 09:00 Thiothixene (Navane) 5 mg DAILY PO Last administered on 04/22/17 08:46; Admin Dose 5 MG; Start 04/10/17 at 09:00 Atorvastatin Calcium (Lipitor) 10 mg QHS PO Last administered on 04/21/17 20: 27; Admin Dose 10 MG; Start 04/10/17 at 21:00 Ondansetron HCl (Zofran Inj) 4 mg Q4H PRN IV NAUSEA AND/OR VOMITING; Start 08/19 at 13:30 Guaifenesin (Robitussin Liquid Cup) 100 mg Q4H PRN PO COUGH Last administered on 04/17/17 09:07; Admin Dose 100 MG; Start 04/14/17 at 22:00 Benzonatate (Tessalon) 100 mg TID PRN PO cough Last administered on 04/16/17 05:54; Admin Dose 100 MG; Start 04/14/17 at 22:00 Terazosin HCl (Hytrin) 1 mg HS PO Last administered on 04/21/17 20:27; Admin Dose 1 MG; Start 04/16/17 at 21:00 Tamsulosin HCl (Flomax) 0.4 mg DAILY PO Last administered on 04/22/17 08:47; Admin Dose 0.4 MG; Start 04/16/17 at 11:00 Bicalutamide (Casodex) 50 mg DAILY PO Last administered on 04/22/17 08:59; Admin Dose 50 MG; Start 04/18/17 at 09:00 Oxycodone HCl (Roxicodone) 5 mg Q4H PRN PO PAIN; Start 04/18/17 at 10:00 Alprazolam (Xanax) 0.5 mg Q6H PRN PO ANXIETY Last administered on 04/20/17 06: 11; Admin Dose 0.5 MG; Start 04/18/17 at 16:30 Pantoprazole (Protonix Tab) 40 mg DAILY@06 PO Last administered on 04/22/17 05 :40; Admin Dose 40 MG; Start 04/20/17 at 06:00 Sodium Chloride (Nacl) 1 gm TID PO Last administered on 04/22/17 13:11; Admin Dose 1 GM; Start 04/22/17 at 13:00 OCTAVIO SIDDIQUI Apr 22, 2017 17:07
[2017-04-22] MEDS: TERAZOSIN 1 MG CAP PO SCH (20:15)
[2017-04-22] MEDS: ATORVASTATIN 10 MG TAB PO SCH (20:15)
[2017-04-22 22:18] LABS: AADO2 Arterial 150.8 mmHg (7.0-24.0); Allen Test ACCEPTAB; Arterial Base Excess -7.5 mmol/L (-3.0-3); Arterial COHb 0.3 % (0.0-3.0); Arterial Fraction of Oxyhgb 95.2 % (93.0-99.0); Arterial HCO3 14.5 mmol/L (22.0-26.0); Arterial MetHb 0.3 % (0.0-1.5); Arterial Total Hemglobin 11.6 g/dl (12.0-18.0); MODE NASAL CANNULA
[2017-04-23] VITALS (31 sets, daily range): BP systolic 78–124; BP diastolic 38–75; PULSE 92–150; RESP 13–34
[2017-04-23 04:50] LABS: ABNORMAL IP MESSAGE 1; BASOPHILS % 0.1 % (0.0-2.0); HEMATOCRIT 31.4 % (42.0-52.0); HEMOGLOBIN 10.3 g/dl (14.0-18.0); LYMPHOCYTES # 1.5 10^3/ul (0.8-2.9); LYMPHOCYTES % 10.5 % (15.0-51.0); MEAN CORPUSCULAR HEMOGLOBIN 30.9 pg (29.0-33.0); MEAN CORPUSCULAR HGB CONC 32.8 g/dl (32.0-37.0); MEAN CORPUSCULAR VOLUME 94.3 fl (82.0-101.0); MEAN PLATELET VOLUME 9.4 fl (7.4-10.4); MONOCYTES % 7.2 % (0.0-11.0); NEUTROPHILS % 81.4 % (39.0-77.0); NUCLEATED RED BLOOD CELLS # 0.2 10^3/ul (0.0-0.0); NUCLEATED RED BLOOD CELLS% 1.5 /100WBC (0.0-0.0); PLATELET COUNT 62 10^3/UL (140-415); POSITIVE DIFF @See below; RED BLOOD COUNT 3.33 10^6/ul (4.70-6.10); RED CELL DISTRIBUTION WIDTH 22.8 % (11.5-14.5); WHITE BLOOD COUNT 14.4 10^3/ul (4.8-10.8)
[2017-04-23 05:05] LABS: INR 1.86; PARTIAL THROMBOPLASTIN TIME 34.8 Sec (25.0-35.0); PROTIME 21.6 Sec (12.2-14.2); PT RATIO 1.7
[2017-04-23 05:36] LABS: ALBUMIN 2.1 g/dl (3.3-4.9); ALBUMIN/GLOBULIN RATIO 0.95; BILIRUBIN,DIRECT 0.1 mg/dl (0.00-0.20); BILIRUBIN,INDIRECT 1.4 mg/dl (0-1.1); BILIRUBIN,TOTAL 1.5 mg/dl (0.2-1.3); CALCIUM 7.7 mg/dl (8.4-10.2); POTASSIUM 5.2 mmol/L (3.5-5.1); TOTAL PROTEIN 4.3 g/dl (6.1-8.1)
[2017-04-23 06:09] LABS: LACTIC ACID 3.3 mmol/L (0.5-2.0)
[2017-04-23] MEDS: PANTOPRAZOLE (EC) 40 MG TAB PO SCH (06:18)
[2017-04-23] MEDS ORDERED: SOD CHLORIDE 0.9% 200 ML IV ONE (06:30)
[2017-04-23] MEDS: ALBUTEROL/IPRATROPIUM (NEB) 3 ML AMP HHN SCH (07:51)
[2017-04-23] MEDS: TAMSULOSIN (SR) 0.4 MG CAP PO SCH (08:41)
[2017-04-23] MEDS: SODIUM CHLORIDE 1 GM TAB PO SCH ×3 (08:41→21:39)
[2017-04-23] MEDS: BUPROPION (XL) 150 MG TAB PO SCH (08:41)
[2017-04-23] MEDS: THIOTHIXENE 5 MG CAP PO SCH (08:41)
--- NOTE | 2017-04-23 10:42 | CONS ---
Date/Time of Note Date/Time of Note DATE: 04/23/17 TIME: 10:40 Assessment/Plan Assessment/Plan Additional Assessment/Plan Assessment and recommendations; 1. Patient admitted with shortness of breath due to bilateral pleural effusions , thoracentesis could not be performed because of coagulopathy. However patient is now getting FFP administration and is scheduled for ultrasound- guided thoracentesis today. 2. Recently diagnosed esophageal carcinoma. 3. Underlying coagulopathy with thrombocytopenia. 3. Hyponatremia. 5. 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 Continue current treatment. Prognosis is guarded. Consultation Date/Type/Reason Admit Date/Time Apr 09, 2017 at 13:02 Initial Consult Date 04/20/17 Type of Consultation: Pulmonary/critical care Referring Provider: JYOTI SAWYER 24 HR Interval Summary Free Text/Dictation Patient condition has improved. Patient was transferred to ICU because of tachypnea. However by the time I saw the patient the patient is now awake and alert and did not exhibit any signs of respiratory distress. General exam; elderly male, awake. Somewhat somnolent. Currently in no distress. Exam/Review of Systems Vital Signs Vitals Vital Signs Date Time Temp Pulse Resp B/P Pulse Ox O2 Delivery O2 Flow Rate FiO2 04/23/17 08:00 110 04/23/17 07:53 3.0 04/23/17 07:52 24 100 Nasal Cannula 04/23/17 06:00 92/46 04/23/17 04:55 40 04/23/17 04:00 98.3 Intake and Output 04/22/17 04/22/17 04/23/17 15:00 23:00 07:00 Intake Total 1120 ml 35 ml Output Total 800 ml 151 ml Balance 320 ml -116 ml Exam HEENT exam; supple neck, positive JVD. No lymphadenopathy. Midline trachea. No thyromegaly. Patient has fair dentition. Chest exam; diminished breath on lung bases bilaterally. Upper lobes are fairly clear. S1-S2 audible, no murmurs. Regular rhythm. Abdomen exam; soft, no organomegaly. Bowel sounds audible. Extremity exam; trace edema. Next [employer]TEGRATION DEVEL[employer] exam; is awake and moves all 4 extremities on command. Results Result Diagram: 04/23/17 0430 04/23/17 0430 Results 24 hrs Laboratory Tests Test 04/22/17 21:53 04/23/17 04:30 Blood Gas Specimen Source Blood arterial Arterial Blood Date Drawn 04/22/2017 10:07:11 PM Arterial Blood pH (Temp corrected) 7.454 H Arterial Blood pCO2 (Temp correct) 21.2 L Arterial Blood pO2 (Temp corrected) 81.3 Arterial Blood HCO3 14.5 L Arterial Blood Base Excess -7.5 L Arterial Blood Oxygen Saturation 95.8 Deejay Test ACCEPTAB Arterial Blood Gas Puncture Site Left Radial Arterial Blood Carboxyhemoglobin 0.3 Arterial Blood Methemoglobin 0.3 Blood Gas A-a O2 Differential 150.8 H Oxyhemoglobin Percent 95.2 Total Hemoglobin 11.6 L Blood Gas Temperature 37.0 Blood Gas Actual Respiration Rate 26 Blood Gas Modality NASAL CANNULA FiO2 36.0 Blood Gas Notified Whom KB Blood Gas Notified Time 04/22/2017 10:17:54 PM White Blood Count 14.4 H Red Blood Count 3.33 L Hemoglobin 10.3 L Hematocrit 31.4 L Mean Corpuscular Volume 94.3 Mean Corpuscular Hemoglobin 30.9 Mean Corpuscular Hemoglobin Concent 32.8 Red Cell Distribution Width 22.8 H Platelet Count 62 #L Mean Platelet Volume 9.4 Neutrophils % 81.4 H Lymphocytes % 10.5 L Monocytes % 7.2 Eosinophils % 0.0 Basophils % 0.1 Nucleated Red Blood Cells % 1.5 H Neutrophils # (Manual) 12 H Lymphocytes # 1.5 Monocytes # 1.0 H Eosinophils # 0.0 Basophils # 0.0 Nucleated Red Blood Cells # 0.2 H Prothrombin Time 21.6 H Prothrombin Time Ratio 1.7 INR International Normalized Ratio 1.86 Activated Partial Thromboplast Time 34.8 Sodium Level 127 L Potassium Level 5.2 H Chloride Level 97 Carbon Dioxide Level 19 L Anion Gap 16 Blood Urea Nitrogen 37 H Creatinine 1.00 Glucose Level 129 Lactic Acid Level 3.3 *H Calcium Level 7.7 L Total Bilirubin 1.5 H Direct Bilirubin 0.10 Indirect Bilirubin 1.4 H Aspartate Amino Transf (AST/SGOT) 126 H Alanine Aminotransferase (ALT/SGPT) 134 H Alkaline Phosphatase 1306 H Ammonia 132 H Total Protein 4.3 L Albumin 2.1 L Globulin 2.20 Albumin/Globulin Ratio 0.95 Medications Medications Current Medications Acetaminophen (Tylenol Tab) 650 mg Q6H PRN PO PAIN LEVEL 1-3 OR FEVER Last administered on 04/18/17t 03:27; Admin Dose 650 MG; Start 04/09/17 at 15:30 Acetaminophen (Tylenol Supp) 650 mg Q6H PRN [place] PAIN LEVEL 1-3 OR FEVER; Start 04/09/17 at 15:30 Bupropion HCl (Wellbutrin Xl) 150 mg DAILY PO Last administered on 04/23/17 08 :41; Admin Dose 150 MG; Start 04/10/17 at 09:00 Thiothixene (Navane) 5 mg DAILY PO Last administered on 04/23/17 08:41; Admin Dose 5 MG; Start 04/10/17 at 09:00 Atorvastatin Calcium (Lipitor) 10 mg QHS PO Last administered on 04/22/17 20: 15; Admin Dose 10 MG; Start 04/10/17 at 21:00 Ondansetron HCl (Zofran Inj) 4 mg Q4H PRN IV NAUSEA AND/OR VOMITING; Start 08/19 at 13:30 Guaifenesin (Robitussin Liquid Cup) 100 mg Q4H PRN PO COUGH Last administered on 04/17/17 09:07; Admin Dose 100 MG; Start 04/14/17 at 22:00 Benzonatate (Tessalon) 100 mg TID PRN PO cough Last administered on 04/16/17 05:54; Admin Dose 100 MG; Start 04/14/17 at 22:00 Terazosin HCl (Hytrin) 1 mg HS PO Last administered on 04/22/17 20:15; Admin Dose 1 MG; Start 04/16/17 at 21:00 Tamsulosin HCl (Flomax) 0.4 mg DAILY PO Last administered on 04/23/17 08:41; Admin Dose 0.4 MG; Start 04/16/17 at 11:00 Bicalutamide (Casodex) 50 mg DAILY PO Last administered on 04/22/17 08:59; Admin Dose 50 MG; Start 04/18/17 at 09:00 Oxycodone HCl (Roxicodone) 5 mg Q4H PRN PO PAIN; Start 04/18/17 at 10:00 Alprazolam (Xanax) 0.5 mg Q6H PRN PO ANXIETY Last administered on 04/20/17 06: 11; Admin Dose 0.5 MG; Start 04/18/17 at 16:30 Pantoprazole (Protonix Tab) 40 mg DAILY@06 PO Last administered on 04/23/17 06 :18; Admin Dose 40 MG; Start 04/20/17 at 06:00 Sodium Chloride (Nacl) 1 gm TID PO Last administered on 04/23/17 08:41; Admin Dose 1 GM; Start 04/22/17 at 13:00 ULICES HENRIQUEZ Apr 23, 2017 10:42
[2017-04-23] MEDS ORDERED: NA POLYST SULFON 15 GM/60 ML BTL PO ONE (11:30)
[2017-04-23] MEDS: BICALUTAMIDE 50 MG TAB PO SCH (11:57)
[2017-04-23] MEDS ORDERED: LIDOCAINE 1% (MPF) 5 ML VIAL ONE (12:54)
[2017-04-23 15:29] LABS: FLD MN% 73.8 %; FLD PMN% 26.2 %; FLD RBC 1 /uL; FLD WBC 378 /cmm
[2017-04-23 15:31] LABS: FLD CLARITY CLOUDY; FLD COLOR YELLOW; FLD TYPE THORACENTHESIS
[2017-04-23 15:46] LABS: FLD MN % (M) 81 %; FLD PMN % (M) 19 %
[2017-04-23 15:57] LABS: FLUID LD 817 U/L
[2017-04-23 15:58] LABS: FLUID TOTAL PROTEIN < 2.0 g/dl; FLUID TYPE THORACENTESIS FLUID
[2017-04-23 15:59] LABS: FLUID GLUCOSE 78 mg/dl; FLUID TYPE THORACENTESIS FLUID
--- NOTE | 2017-04-23 16:01 | RADRPT ---
PROCEDURE: US guided right thoracentesis. CLINICAL INDICATION: Shortness of breath. Right pleural effusion. TECHNIQUE: Prior to the procedure, informed consent was obtained. The risks, benefits, and alternatives were e xplained to the patient or the patient's family, including but not limited to bleeding, infection, p ain, visceral or vascular damage, shock, pneumothorax, chest tube placement, air embolism, and . The patient or the patient's family understood the risks and the alternatives and wished to proce ed with the study. Informed written consent was obtained. A procedural pause was performed. The patient's name, date of , and procedure to be performed were verified. Ultrasound of the right hemithorax was performed in the axial and sagittal planes. A right pleural e ffusion is noted. Utilizing ultrasound guidance, optimal location for entry to the pleural cavity wa s ascertained. The overlying skin was prepped and draped in the usual sterile fashion. Approximate ly 10 ml of 1% Xylocaine was injected locally for pain control. Using ultrasound guidance, a 5-Fren Yueh catheter was introduced into the right pleural space without difficulty. Fluid was aspirated . COMPARISON: None. FINDINGS: Initial ultrasound demonstrates fluid in the right pleural space. Approximately 1.2 liters of serou s fluid was aspirated and sent to the laboratory. IMPRESSION: 1. Satisfactory ultrasound-guided right thoracentesis. RPTAT: QQ .Brody Suarez MD, Date Time Electronically viewed and signed by .Brody Suarez MD, on 04/23/2017 16:01 .R/
--- NOTE | 2017-04-23 17:14 | CONS ---
Date/Time of Note Date/Time of Note DATE: 04/23/17 TIME: 17:08 Assessment/Plan Assessment/Plan Chief Complaint/Hosp Course 61 yo M admitted for symptomatic anemia, EGD done yesterday with multiple malignant looking masses. Bone scan concerning for advanced malignancy- s/p EGD with biopsy which showed Infiltrating (diffuse), signet ring cell carcinoma- pt has been having urinary frequency with obstructive symtpoms, renal has been consulted. pt has been on started on hytrin but associated with low BP. Problems: Additional Assessment/Plan 1.acute urinary retention requiring Roman- CT abdomen + pelvis without contrast negative for any obstruction, no hydronephrosis 2. diffuse osteoblastic bone metastasis 3. S/P EGD with biopsy showed signet ring cell CA 4. Bilateral pleural effusion large on CT abdomen with Ascites and edema - US chest showed moderate bilateral pleural effusion 5. Hyponatremia with Na dropped to 120- today 127 - NACL tabs 1 po TID Plan: Cr stable, still SOB off oxygen, plan for thoracentesis today, conitnue ICU care , Pulmonary/Skid Worker has been following Hytrin to 1 mg PO QHS and Flomax 0.4mg PO daily, BP stable so far ECHO showed EF 75% with stage I diastolic dysfunction will continue to follow up we want to avoid IV Fluids for hyponatremia, so salt tablet has been added, Na improved to 127 today Consultation Date/Type/Reason Admit Date/Time Apr 09, 2017 at 13:02 Initial Consult Date 04/16/17 Type of Consultation: NEPHROLOGY Referring Provider: JYOTI SAWYER Exam/Review of Systems Vital Signs Vitals Vital Signs Date Time Temp Pulse Resp B/P Pulse Ox O2 Delivery O2 Flow Rate FiO2 04/23/17 16:00 119 04/23/17 16:00 Nasal Cannula 3.0 04/23/17 16:00 98.6 21 120/64 100 04/23/17 11:10 40 Intake and Output 04/22/17 04/22/17 04/23/17 14:59 22:59 06:59 Intake Total 1120 ml 35 ml Output Total 800 ml 151 ml Balance 320 ml -116 ml Exam Constitutional: alert, oriented, well developed Respiratory: decreased BS on both lungs upto midlung zone , + wheezing Cardiovascular: nl pulses, other (ST Hr 110), regular rate and rhythm Gastrointestinal: non-tender, soft Musculoskeletal: nl extremities to inspection Neurological: nl mental status, nl speech Results Result Diagram: 04/23/17 0430 04/23/17 0430 Results 24 hrs Laboratory Tests Test 04/22/17 21:53 04/23/17 04:30 04/23/17 12:30 Blood Gas Specimen Source Blood arterial Arterial Blood Date Drawn 04/22/2017 10:07:11 PM Arterial Blood pH (Temp corrected) 7.454 H Arterial Blood pCO2 (Temp correct) 21.2 L Arterial Blood pO2 (Temp corrected) 81.3 Arterial Blood HCO3 14.5 L Arterial Blood Base Excess -7.5 L Arterial Blood Oxygen Saturation 95.8 Deejay Test ACCEPTAB Arterial Blood Gas Puncture Site Left Radial Arterial Blood Carboxyhemoglobin 0.3 Arterial Blood Methemoglobin 0.3 Blood Gas A-a O2 Differential 150.8 H Oxyhemoglobin Percent 95.2 Total Hemoglobin 11.6 L Blood Gas Temperature 37.0 Blood Gas Actual Respiration Rate 26 Blood Gas Modality NASAL CANNULA FiO2 36.0 Blood Gas Notified Whom KB Blood Gas Notified Time 04/22/2017 10:17:54 PM White Blood Count 14.4 H Red Blood Count 3.33 L Hemoglobin 10.3 L Hematocrit 31.4 L Mean Corpuscular Volume 94.3 Mean Corpuscular Hemoglobin 30.9 Mean Corpuscular Hemoglobin Concent 32.8 Red Cell Distribution Width 22.8 H Platelet Count 62 #L Mean Platelet Volume 9.4 Neutrophils % 81.4 H Lymphocytes % 10.5 L Monocytes % 7.2 Eosinophils % 0.0 Basophils % 0.1 Nucleated Red Blood Cells % 1.5 H Neutrophils # (Manual) 12 H Lymphocytes # 1.5 Monocytes # 1.0 H Eosinophils # 0.0 Basophils # 0.0 Nucleated Red Blood Cells # 0.2 H Prothrombin Time 21.6 H Prothrombin Time Ratio 1.7 INR International Normalized Ratio 1.86 Activated Partial Thromboplast Time 34.8 Sodium Level 127 L Potassium Level 5.2 H Chloride Level 97 Carbon Dioxide Level 19 L Anion Gap 16 Blood Urea Nitrogen 37 H Creatinine 1.00 Glucose Level 129 Lactic Acid Level 3.3 *H Calcium Level 7.7 L Total Bilirubin 1.5 H Direct Bilirubin 0.10 Indirect Bilirubin 1.4 H Aspartate Amino Transf (AST/SGOT) 126 H Alanine Aminotransferase (ALT/SGPT) 134 H Alkaline Phosphatase 1306 H Ammonia 132 H Total Protein 4.3 L Albumin 2.1 L Globulin 2.20 Albumin/Globulin Ratio 0.95 Body Fluid Type THORACENTESIS FLUID Body Fluid Volume 1000.0 Body Fluid Color YELLOW Body Fluid Appearance CLOUDY Body Fluid WBC 378 Body Fluid RBC (Auto) 1 Body Fluid Polynuclear WBCs 19 Body Fluid Polynuclear WBCs (%) 26.2 Body Fluid Mononuclear WBCs 81 Body Fluid Mononuclear Cells % Auto 73.8 Body Fluid Glucose 78 Body Fluid Total Protein < 2.0 Body Fluid Lactate Dehydrogenase 817 Medications Medications Current Medications Acetaminophen (Tylenol Tab) 650 mg Q6H PRN PO PAIN LEVEL 1-3 OR FEVER Last administered on 04/18/17 03:27; Admin Dose 650 MG; Start 04/09/17 at 15:30 Acetaminophen (Tylenol Supp) 650 mg Q6H PRN [place] PAIN LEVEL 1-3 OR FEVER; Start 04/09/17 at 15:30 Bupropion HCl (Wellbutrin Xl) 150 mg DAILY PO Last administered on 04/23/17 08 :41; Admin Dose 150 MG; Start 04/10/17 at 09:00 Thiothixene (Navane) 5 mg DAILY PO Last administered on 04/23/17 08:41; Admin Dose 5 MG; Start 04/10/17 at 09:00 Atorvastatin Calcium (Lipitor) 10 mg QHS PO Last administered on 04/22/17 20: 15; Admin Dose 10 MG; Start 04/10/17 at 21:00 Ondansetron HCl (Zofran Inj) 4 mg Q4H PRN IV NAUSEA AND/OR VOMITING; Start 08/19 at 13:30 Guaifenesin (Robitussin Liquid Cup) 100 mg Q4H PRN PO COUGH Last administered on 04/17/17 09:07; Admin Dose 100 MG; Start 04/14/17 at 22:00 Benzonatate (Tessalon) 100 mg TID PRN PO cough Last administered on 04/16/17 05:54; Admin Dose 100 MG; Start 04/14/17 at 22:00 Terazosin HCl (Hytrin) 1 mg HS PO Last administered on 04/22/17 20:15; Admin Dose 1 MG; Start 04/16/17 at 21:00 Tamsulosin HCl (Flomax) 0.4 mg DAILY PO Last administered on 04/23/17 08:41; Admin Dose 0.4 MG; Start 04/16/17 at 11:00 Bicalutamide (Casodex) 50 mg DAILY PO Last administered on 04/23/17 11:57; Admin Dose 50 MG; Start 04/18/17 at 09:00 Oxycodone HCl (Roxicodone) 5 mg Q4H PRN PO PAIN; Start 04/18/17 at 10:00 Alprazolam (Xanax) 0.5 mg Q6H PRN PO ANXIETY Last administered on 04/20/17 06: 11; Admin Dose 0.5 MG; Start 04/18/17 at 16:30 Pantoprazole (Protonix Tab) 40 mg DAILY@06 PO Last administered on 04/23/17 06 :18; Admin Dose 40 MG; Start 04/20/17 at 06:00 Sodium Chloride (Nacl) 1 gm TID PO Last administered on 04/23/17 12:55; Admin Dose 1 GM; Start 04/22/17 at 13:00 JAZIEL ROBERTS MD Apr 23, 2017 17:13
--- NOTE | 2017-04-23 18:08 | PN ---
Date/Time of Note Date/Time of Note DATE: 04/23/17 TIME: 18:03 Assessment/Plan VTE Prophylaxis VTE Prophylaxis Intervention: LMWH Lines/Catheters IV Catheter Type (from Nrs): STARLA CATH Urinary Cath still in place: Yes Reason Cath still needed: urinary retention Assessment/Plan Chief Complaint/Hosp Course Patient is a 61-year-old male who was originally sent from primary care office for anemia upon further questioning found to have poor appetite and dysphasia. 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 Would consider simple FW restriction Acute kidney injury: - Patient anasarcic, will avoid further fluids - Roman - BPH meds PSYCH: Schizophrenia - Continue buproprion Problems: Subjective 24 Hr Interval Summary Free Text/Dictation Pt had thoracentesis today, removed > 1 L fluid Complains of weakness mostly in legs, also in b/l arms Exam/Review of Systems Vital Signs Vitals Vital Signs Date Time Temp Pulse Resp B/P Pulse Ox O2 Delivery O2 Flow Rate FiO2 04/23/17 16:00 119 04/23/17 16:00 Nasal Cannula 3.0 04/23/17 16:00 98.6 21 120/64 100 04/23/17 11:10 40 Intake and Output 04/22/17 04/22/17 04/23/17 15:00 23:00 07:00 Intake Total 1120 ml 35 ml Output Total 800 ml 151 ml Balance 320 ml -116 ml Results Result Diagram: 04/23/17 0430 04/23/17 0430 Results 24 hrs Laboratory Tests Test 04/22/17 21:53 04/23/17 04:30 04/23/17 12:30 Blood Gas Specimen Source Blood arterial Arterial Blood Date Drawn 04/22/2017 10:07:11 PM Arterial Blood pH (Temp corrected) 7.454 H Arterial Blood pCO2 (Temp correct) 21.2 L Arterial Blood pO2 (Temp corrected) 81.3 Arterial Blood HCO3 14.5 L Arterial Blood Base Excess -7.5 L Arterial Blood Oxygen Saturation 95.8 Deejay Test ACCEPTAB Arterial Blood Gas Puncture Site Left Radial Arterial Blood Carboxyhemoglobin 0.3 Arterial Blood Methemoglobin 0.3 Blood Gas A-a O2 Differential 150.8 H Oxyhemoglobin Percent 95.2 Total Hemoglobin 11.6 L Blood Gas Temperature 37.0 Blood Gas Actual Respiration Rate 26 Blood Gas Modality NASAL CANNULA FiO2 36.0 Blood Gas Notified Whom KB Blood Gas Notified Time 04/22/2017 10:17:54 PM White Blood Count 14.4 H Red Blood Count 3.33 L Hemoglobin 10.3 L Hematocrit 31.4 L Mean Corpuscular Volume 94.3 Mean Corpuscular Hemoglobin 30.9 Mean Corpuscular Hemoglobin Concent 32.8 Red Cell Distribution Width 22.8 H Platelet Count 62 #L Mean Platelet Volume 9.4 Neutrophils % 81.4 H Lymphocytes % 10.5 L Monocytes % 7.2 Eosinophils % 0.0 Basophils % 0.1 Nucleated Red Blood Cells % 1.5 H Neutrophils # (Manual) 12 H Lymphocytes # 1.5 Monocytes # 1.0 H Eosinophils # 0.0 Basophils # 0.0 Nucleated Red Blood Cells # 0.2 H Prothrombin Time 21.6 H Prothrombin Time Ratio 1.7 INR International Normalized Ratio 1.86 Activated Partial Thromboplast Time 34.8 Sodium Level 127 L Potassium Level 5.2 H Chloride Level 97 Carbon Dioxide Level 19 L Anion Gap 16 Blood Urea Nitrogen 37 H Creatinine 1.00 Glucose Level 129 Lactic Acid Level 3.3 *H Calcium Level 7.7 L Total Bilirubin 1.5 H Direct Bilirubin 0.10 Indirect Bilirubin 1.4 H Aspartate Amino Transf (AST/SGOT) 126 H Alanine Aminotransferase (ALT/SGPT) 134 H Alkaline Phosphatase 1306 H Ammonia 132 H Total Protein 4.3 L Albumin 2.1 L Globulin 2.20 Albumin/Globulin Ratio 0.95 Body Fluid Type THORACENTESIS FLUID Body Fluid Volume 1000.0 Body Fluid Color YELLOW Body Fluid Appearance CLOUDY Body Fluid WBC 378 Body Fluid RBC (Auto) 1 Body Fluid Polynuclear WBCs 19 Body Fluid Polynuclear WBCs (%) 26.2 Body Fluid Mononuclear WBCs 81 Body Fluid Mononuclear Cells % Auto 73.8 Body Fluid Glucose 78 Body Fluid Total Protein < 2.0 Body Fluid Lactate Dehydrogenase 817 Medications Medications Current Medications Acetaminophen (Tylenol Tab) 650 mg Q6H PRN PO PAIN LEVEL 1-3 OR FEVER Last administered on 04/18/17 03:27; Admin Dose 650 MG; Start 04/09/17 at 15:30 Acetaminophen (Tylenol Supp) 650 mg Q6H PRN [place] PAIN LEVEL 1-3 OR FEVER; Start 04/09/17 at 15:30 Bupropion HCl (Wellbutrin Xl) 150 mg DAILY PO Last administered on 04/23/17 08 :41; Admin Dose 150 MG; Start 04/10/17 at 09:00 Thiothixene (Navane) 5 mg DAILY PO Last administered on 04/23/17 08:41; Admin Dose 5 MG; Start 04/10/17 at 09:00 Atorvastatin Calcium (Lipitor) 10 mg QHS PO Last administered on 04/22/17 20: 15; Admin Dose 10 MG; Start 04/10/17 at 21:00 Ondansetron HCl (Zofran Inj) 4 mg Q4H PRN IV NAUSEA AND/OR VOMITING; Start 08/19 at 13:30 Guaifenesin (Robitussin Liquid Cup) 100 mg Q4H PRN PO COUGH Last administered on 04/17/17 09:07; Admin Dose 100 MG; Start 04/14/17 at 22:00 Benzonatate (Tessalon) 100 mg TID PRN PO cough Last administered on 04/16/17 05:54; Admin Dose 100 MG; Start 04/14/17 at 22:00 Terazosin HCl (Hytrin) 1 mg HS PO Last administered on 04/22/17 20:15; Admin Dose 1 MG; Start 04/16/17 at 21:00 Tamsulosin HCl (Flomax) 0.4 mg DAILY PO Last administered on 04/23/17 08:41; Admin Dose 0.4 MG; Start 04/16/17 at 11:00 Bicalutamide (Casodex) 50 mg DAILY PO Last administered on 04/23/17 11:57; Admin Dose 50 MG; Start 04/18/17 at 09:00 Oxycodone HCl (Roxicodone) 5 mg Q4H PRN PO PAIN; Start 04/18/17 at 10:00 Alprazolam (Xanax) 0.5 mg Q6H PRN PO ANXIETY Last administered on 04/20/17 06: 11; Admin Dose 0.5 MG; Start 04/18/17 at 16:30 Pantoprazole (Protonix Tab) 40 mg DAILY@06 PO Last administered on 04/23/17 06 :18; Admin Dose 40 MG; Start 04/20/17 at 06:00 Sodium Chloride (Nacl) 1 gm TID PO Last administered on 04/23/17 12:55; Admin Dose 1 GM; Start 04/22/17 at 13:00 CARLOS OWENS MD Apr 23, 2017 18:08
--- NOTE | 2017-04-23 19:15 | PN ---
Date/Time of Note Date/Time of Note DATE: 04/23/17 TIME: 19:08 Assessment/Plan VTE Prophylaxis VTE Prophylaxis Intervention: SCD's Lines/Catheters IV C[facility]ter Type (from [facility]): [facility] CATH Urinary Cath still in place: Yes Reason Cath still needed: urinary retention Assessment/Plan Chief Complaint/Hosp Course 61-year-old male with metastatic cancer, osteoblastic, patient does have cancer in the esophagus signet cell. His PSA is mildly elevated 4.4 and one could expect his PSA to be much more elevated if he has metastatic prostate cancer to the bones. Considering his general condition and probably difficulty to follow him as an outpatient to do a transrectal ultrasound and ultrasound-guided biopsy , I ordered MRI of the pelvis to see if there is any suspicious area in the prostate that could be cancerous The MRI did not show a suspicious lesion in the prostate IMPRESSION: 1. Enlarged prostate gland with a calculated volume of 52 cc and changes of benign prostatic hypertrophy. No discrete mass lesion in the central lobe. 2. Thin peripheral zone with no gross mass lesion identified, with the examination limited due to artifact as above. 3. Ascites, anasarca, and extensive intramuscular edema. 4. Diffuse abnormal marrow signal, consistent with the patient's history of extensive osseous metastatic disease. RPTAT: HLBP .Juan Alberto Saldana MD, MD Date Time Electronically viewed and signed by .Juan Alberto Saldana MD, on 04/21/2017 20:42 As for the urinary retention we will put him on Flomax and try to avoid any medication that relaxes his bladder and in that it includes pain medications, muscle relaxant, sleeping pills and also psychiatric medications Problems: Subjective 24 Hr Interval Summary Constitutional: disoriented Eyes: no complaints Respiratory: other (had US guided thoracenthesis) Cardiovascular: no complaints Genitourinary: other (miranda catheter), No bleeding, No hematuria Musculoskeletal: bone/joint pain Skin: no complaints Exam/Review of Systems Vital Signs Vitals Vital Signs Date Time Temp Pulse Resp B/P Pulse Ox O2 Delivery O2 Flow Rate FiO2 04/23/17 18:00 118 30 114/69 100 Nasal Cannula 3.0 04/23/17 16:00 98.6 04/23/17 11:10 40 Intake and Output 04/22/17 04/22/17 04/23/17 15:00 23:00 07:00 Intake Total 1120 ml 35 ml Output Total 800 ml 151 ml Balance 320 ml -116 ml Exam Constitutional: alert Psych: confusion Head: normocephalic Eyes: nl conjunctiva ENMT: nl external ears & nose Neck: supple Respiratory: normal air movement Cardiovascular: No edema Gastrointestinal: distended Genitourinary - Male: other (miranda draining clear urine) Extremities: No calf tenderness, No edema Results Pelvic MRI: IMPRESSION: 1. Enlarged prostate gland with a calculated volume of 52 cc and changes of benign prostatic hypertrophy. No discrete mass lesion in the central lobe. 2. Thin peripheral zone with no gross mass lesion identified, with the examination limited due to artifact as above. 3. Ascites, anasarca, and extensive intramuscular edema. 4. Diffuse abnormal marrow signal, consistent with the patient's history of extensive osseous metastatic disease. RPTAT: HLBP .Juan Alberto Saldana MD, MD Date Time Electronically viewed and signed by .Juan Alberto Saldana MD, MD on 04/21/2017 20:42 Result Diagram: 04/23/17 0430 04/23/17 0430 Results 24 hrs Laboratory Tests Test 04/22/17 21:53 04/23/17 04:30 04/23/17 12:30 Blood Gas Specimen Source Blood arterial Arterial Blood Date Drawn 04/22/2017 10:07:11 PM Arterial Blood pH (Temp corrected) 7.454 H Arterial Blood pCO2 (Temp correct) 21.2 L Arterial Blood pO2 (Temp corrected) 81.3 Arterial Blood HCO3 14.5 L Arterial Blood Base Excess -7.5 L Arterial Blood Oxygen Saturation 95.8 Deejay Test ACCEPTAB Arterial Blood Gas Puncture Site Left Radial Arterial Blood Carboxyhemoglobin 0.3 Arterial Blood Methemoglobin 0.3 Blood Gas A-a O2 Differential 150.8 H Oxyhemoglobin Percent 95.2 Total Hemoglobin 11.6 L Blood Gas Temperature 37.0 Blood Gas Actual Respiration Rate 26 Blood Gas Modality NASAL CANNULA FiO2 36.0 Blood Gas Notified Whom KB Blood Gas Notified Time 04/22/2017 10:17:54 PM White Blood Count 14.4 H Red Blood Count 3.33 L Hemoglobin 10.3 L Hematocrit 31.4 L Mean Corpuscular Volume 94.3 Mean Corpuscular Hemoglobin 30.9 Mean Corpuscular Hemoglobin Concent 32.8 Red Cell Distribution Width 22.8 H Platelet Count 62 #L Mean Platelet Volume 9.4 Neutrophils % 81.4 H Lymphocytes % 10.5 L Monocytes % 7.2 Eosinophils % 0.0 Basophils % 0.1 Nucleated Red Blood Cells % 1.5 H Neutrophils # (Manual) 12 H Lymphocytes # 1.5 Monocytes # 1.0 H Eosinophils # 0.0 Basophils # 0.0 Nucleated Red Blood Cells # 0.2 H Prothrombin Time 21.6 H Prothrombin Time Ratio 1.7 INR International Normalized Ratio 1.86 Activated Partial Thromboplast Time 34.8 Sodium Level 127 L Potassium Level 5.2 H Chloride Level 97 Carbon Dioxide Level 19 L Anion Gap 16 Blood Urea Nitrogen 37 H Creatinine 1.00 Glucose Level 129 Lactic Acid Level 3.3 *H Calcium Level 7.7 L Total Bilirubin 1.5 H Direct Bilirubin 0.10 Indirect Bilirubin 1.4 H Aspartate Amino Transf (AST/SGOT) 126 H Alanine Aminotransferase (ALT/SGPT) 134 H Alkaline Phosphatase 1306 H Ammonia 132 H Total Protein 4.3 L Albumin 2.1 L Globulin 2.20 Albumin/Globulin Ratio 0.95 Body Fluid Type THORACENTESIS FLUID Body Fluid Volume 1000.0 Body Fluid Color YELLOW Body Fluid Appearance CLOUDY Body Fluid WBC 378 Body Fluid RBC (Auto) 1 Body Fluid Polynuclear WBCs 19 Body Fluid Polynuclear WBCs (%) 26.2 Body Fluid Mononuclear WBCs 81 Body Fluid Mononuclear Cells % Auto 73.8 Body Fluid Glucose 78 Body Fluid Total Protein < 2.0 Body Fluid Lactate Dehydrogenase 817 Medications Medications Current Medications Acetaminophen (Tylenol Tab) 650 mg Q6H PRN PO PAIN LEVEL 1-3 OR FEVER Last administered on 04/18/17 03:27; Admin Dose 650 MG; Start 04/09/17 at 15:30 Acetaminophen (Tylenol Supp) 650 mg Q6H PRN [place] PAIN LEVEL 1-3 OR FEVER; Start 04/09/17 at 15:30 Bupropion HCl (Wellbutrin Xl) 150 mg DAILY PO Last administered on 04/23/17 08 :41; Admin Dose 150 MG; Start 04/10/17 at 09:00 Thiothixene (Navane) 5 mg DAILY PO Last administered on 04/23/17 08:41; Admin Dose 5 MG; Start 04/10/17 at 09:00 Atorvastatin Calcium (Lipitor) 10 mg QHS PO Last administered on 04/22/17 20: 15; Admin Dose 10 MG; Start 04/10/17 at 21:00 Ondansetron HCl (Zofran Inj) 4 mg Q4H PRN IV NAUSEA AND/OR VOMITING; Start 08/19 at 13:30 Guaifenesin (Robitussin Liquid Cup) 100 mg Q4H PRN PO COUGH Last administered on 04/17/17 09:07; Admin Dose 100 MG; Start 04/14/17 at 22:00 Benzonatate (Tessalon) 100 mg TID PRN PO cough Last administered on 04/16/17 05:54; Admin Dose 100 MG; Start 04/14/17 at 22:00 Terazosin HCl (Hytrin) 1 mg HS PO Last administered on 04/22/17 20:15; Admin Dose 1 MG; Start 04/16/17 at 21:00 Tamsulosin HCl (Flomax) 0.4 mg DAILY PO Last administered on 04/23/17 08:41; Admin Dose 0.4 MG; Start 04/16/17 at 11:00 Bicalutamide (Casodex) 50 mg DAILY PO Last administered on 04/23/17 11:57; Admin Dose 50 MG; Start 04/18/17 at 09:00 Oxycodone HCl (Roxicodone) 5 mg Q4H PRN PO PAIN; Start 04/18/17 at 10:00 Alprazolam (Xanax) 0.5 mg Q6H PRN PO ANXIETY Last administered on 04/20/17 06: 11; Admin Dose 0.5 MG; Start 04/18/17 at 16:30 Pantoprazole (Protonix Tab) 40 mg DAILY@06 PO Last administered on 04/23/17 06 :18; Admin Dose 40 MG; Start 04/20/17 at 06:00 Sodium Chloride (Nacl) 1 gm TID PO Last administered on 04/23/17 12:55; Admin Dose 1 GM; Start 04/22/17 at 13:00 POOL WOODS MD Apr 23, 2017 19:15
--- NOTE | 2017-04-23 21:24 | PN ---
DATE: 04/23/2017 HEMATOLOGY ONCOLOGY PROGRESS NOTE: SUBJECTIVE: The patient is presently sleeping and did not wish to disturb patient. OBJECTIVE DATA: GENERAL: The patient is a well-developed, well-nourished, tachypneic male who is sleeping at present time. VITAL SIGNS: Temperature 98.6 axillary, pulse 120 per minute and regular, respirations 30, blood pressure 114/69, and pulse oximetry is 100 percent on 3 L of oxygen by nasal cannula. LABORATORY AND DIAGNOSTIC DATA: The patient did undergo a right- sided x-ray ultrasound-guided right thoracentesis today. This yielded 1.2 L of serous fluid. There was no postprocedure pneumothorax. The pleural fluid had a white blood cell count of 3778 and no red blood cell count of only 1. The white blood cells were 26 percent polys and 73 percent mononuclear cells. The pleural fluid glucose was 78. Pleural fluid total protein was less than 2 and fluid LDH was 187. Other chemistries today include a sodium 127, potassium 5.2, BUN 37, creatinine 1, lactic acid level is 3.3, and ammonia is 132. ASSESSMENT: 1. 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 2. Diffuse skeletal metastases, secondary to poorly differentiated adenocarcinoma, this possibly is a prostatic carcinoma. 3. Bilateral pleural effusions. 4. Schizophrenia. PLAN: The pleural fluid obtained today suggests a transudate rather than exudate. Gram stain is not yet available. Cultures are pending as will be the cytology. I find it difficult to believe that this patient has an ammonia level of 132, given the appearance of this of liver on CT scan we will repeat this again in the morning. This patient has alkaline phosphatase of 1206 is more likely due to the skeletal disease than to any liver abnormalities. As noted, we will repeat liver functions, as well as ammonia in the morning. Dictated By: Shyam Cuevas MD /[email or web address]/rebecca /Document#: [id number]
[2017-04-23] MEDS: ALPRAZOLAM 0.5 MG TAB PO PRN (21:39)
[2017-04-23] MEDS: ATORVASTATIN 10 MG TAB PO SCH (21:39)
[2017-04-23] MEDS: TERAZOSIN 1 MG CAP PO SCH (21:39)
[2017-04-24] VITALS (37 sets, daily range): BP systolic 87–113; BP diastolic 36–68; PULSE 95–127; RESP 23–38
[2017-04-24 05:12] LABS: ABNORMAL IP MESSAGE 1; BASOPHILS % 0.1 % (0.0-2.0); HEMATOCRIT 29.1 % (42.0-52.0); HEMOGLOBIN 9.2 g/dl (14.0-18.0); LYMPHOCYTES # 1.4 10^3/ul (0.8-2.9); LYMPHOCYTES % 9.7 % (15.0-51.0); MEAN CORPUSCULAR HEMOGLOBIN 30.1 pg (29.0-33.0); MEAN CORPUSCULAR HGB CONC 31.6 g/dl (32.0-37.0); MEAN CORPUSCULAR VOLUME 95.1 fl (82.0-101.0); MEAN PLATELET VOLUME 10.5 fl (7.4-10.4); MONOCYTES % 7.2 % (0.0-11.0); NEUTROPHILS % 82.3 % (39.0-77.0); NUCLEATED RED BLOOD CELLS # 0.2 10^3/ul (0.0-0.0); NUCLEATED RED BLOOD CELLS% 1.4 /100WBC (0.0-0.0); PLATELET COUNT 50 10^3/UL (140-415); POSITIVE DIFF @See below; RED BLOOD COUNT 3.06 10^6/ul (4.70-6.10); RED CELL DISTRIBUTION WIDTH 23.5 % (11.5-14.5); WHITE BLOOD COUNT 14.1 10^3/ul (4.8-10.8)
[2017-04-24 05:23] LABS: ALBUMIN 2.1 g/dl (3.3-4.9); ALBUMIN/GLOBULIN RATIO 0.87; BILIRUBIN,DIRECT 0.2 mg/dl (0.00-0.20); BILIRUBIN,INDIRECT 1.8 mg/dl (0-1.1); CALCIUM 7.7 mg/dl (8.4-10.2); CREATININE 1.07 mg/dl (0.61-1.24); POTASSIUM 4.7 mmol/L (3.5-5.1); TOTAL PROTEIN 4.5 g/dl (6.1-8.1)
[2017-04-24] MEDS: PANTOPRAZOLE (EC) 40 MG TAB PO SCH (06:46)
[2017-04-24] MEDS: BUPROPION (XL) 150 MG TAB PO SCH (08:31)
[2017-04-24] MEDS: SODIUM CHLORIDE 1 GM TAB PO SCH ×3 (08:31→20:22)
[2017-04-24] MEDS: TAMSULOSIN (SR) 0.4 MG CAP PO SCH (08:31)
[2017-04-24] MEDS: THIOTHIXENE 5 MG CAP PO SCH (08:31)
[2017-04-24] MEDS: BICALUTAMIDE 50 MG TAB PO SCH (08:33)
--- NOTE | 2017-04-24 09:51 | CONS ---
Date/Time of Note Date/Time of Note DATE: 04/24/17 TIME: 09:47 Consult Date/Type/Reason Admit Date/Time Apr 09, 2017 at 13:02 Initial Consult Date 04/16/17 Type of Consultation: Pulmonary Ordering Provider: JYOTI SAWYER Subjective Patient more comfortable this morning. On nasal cannula O2. No vasopressors. Follow simple commands. Still has significant neuro muscular weakness. Status post thoracentesis 1.2 L Objective Vital Signs Date Time Temp Pulse Resp B/P Pulse Ox O2 Delivery O2 Flow Rate FiO2 04/24/17 08:00 97.6 04/24/17 08:00 113 37 105/55 96 04/24/17 06:00 Nasal Cannula 3.0 04/23/17 11:10 40 Intake and Output 04/23/17 04/23/17 04/24/17 15:00 23:00 07:00 Intake Total 531 ml Output Total 1283 ml 125 ml 155 ml Balance -752 ml -125 ml -155 ml Exam GENERAL: Chronically ill-appearing gentleman in bed comfortable at rest no acute distress VITAL SIGNS: per chart NECK: Supple. No JVD or lymphadenopathy. CARDIAC EXAM: S1, S2. No added sounds or murmurs. CHEST: clear bilaterally, No added sounds, rales or wheezes ABDOMEN: Soft, nontender. No guarding or rebound. EXTREMITIES: No cyanosis, clubbing, edema +2 NEUROLOGIC: Generalized weakness. No focal deficits. Results/Medications Result Diagram: 04/24/17 0345 04/24/17 0345 Results 24 hrs Laboratory Tests Test 04/23/17 12:30 04/24/17 03:45 04/24/17 05:00 Body Fluid Type THORACENTESIS FLUID Body Fluid Volume 1000.0 Body Fluid Color YELLOW Body Fluid Appearance CLOUDY Body Fluid WBC 378 Body Fluid RBC (Auto) 1 Body Fluid Polynuclear WBCs 19 Body Fluid Polynuclear WBCs (%) 26.2 Body Fluid Mononuclear WBCs 81 Body Fluid Mononuclear Cells % Auto 73.8 Body Fluid Glucose 78 Body Fluid Total Protein < 2.0 Body Fluid Lactate Dehydrogenase 817 White Blood Count 14.1 H Red Blood Count 3.06 L Hemoglobin 9.2 L Hematocrit 29.1 L Mean Corpuscular Volume 95.1 Mean Corpuscular Hemoglobin 30.1 Mean Corpuscular Hemoglobin Concent 31.6 L Red Cell Distribution Width 23.5 H Platelet Count 50 L Mean Platelet Volume 10.5 H Neutrophils % 82.3 H Lymphocytes % 9.7 L Monocytes % 7.2 Eosinophils % 0.0 Basophils % 0.1 Nucleated Red Blood Cells % 1.4 H Neutrophils # (Manual) 12 H Lymphocytes # 1.4 Monocytes # 1.0 H Eosinophils # 0.0 Basophils # 0.0 Nucleated Red Blood Cells # 0.2 H Sodium Level 128 L Potassium Level 4.7 Chloride Level 101 Carbon Dioxide Level 19 L Anion Gap 13 Blood Urea Nitrogen 47 H Creatinine 1.07 Glucose Level 115 Calcium Level 7.7 L Total Bilirubin 2.0 H Direct Bilirubin 0.20 Indirect Bilirubin 1.8 H Aspartate Amino Transf (AST/SGOT) 114 H Alanine Aminotransferase (ALT/SGPT) 116 H Alkaline Phosphatase 1281 H Ammonia 76 H Total Protein 4.5 L Albumin 2.1 L Globulin 2.40 Albumin/Globulin Ratio 0.87 Lab Scanned Report BLOOD TRANSFUSION Medications Current Medications Acetaminophen (Tylenol Tab) 650 mg Q6H PRN PO PAIN LEVEL 1-3 OR FEVER Last administered on 04/18/17 03:27; Admin Dose 650 MG; Start 04/09/17 at 15:30 Acetaminophen (Tylenol Supp) 650 mg Q6H PRN [place] PAIN LEVEL 1-3 OR FEVER; Start 04/09/17 at 15:30 Bupropion HCl (Wellbutrin Xl) 150 mg DAILY PO Last administered on 04/24/17 08 :31; Admin Dose 150 MG; Start 04/10/17 at 09:00 Thiothixene (Navane) 5 mg DAILY PO Last administered on 04/24/17 08:31; Admin Dose 5 MG; Start 04/10/17 at 09:00 Atorvastatin Calcium (Lipitor) 10 mg QHS PO Last administered on 04/23/17 21: 39; Admin Dose 10 MG; Start 04/10/17 at 21:00 Ondansetron HCl (Zofran Inj) 4 mg Q4H PRN IV NAUSEA AND/OR VOMITING; Start 08/19 at 13:30 Guaifenesin (Robitussin Liquid Cup) 100 mg Q4H PRN PO COUGH Last administered on 04/17/17 09:07; Admin Dose 100 MG; Start 04/14/17 at 22:00 Benzonatate (Tessalon) 100 mg TID PRN PO cough Last administered on 04/16/17 05:54; Admin Dose 100 MG; Start 04/14/17 at 22:00 Terazosin HCl (Hytrin) 1 mg HS PO Last administered on 04/23/17 21:39; Admin Dose 1 MG; Start 04/16/17 at 21:00 Tamsulosin HCl (Flomax) 0.4 mg DAILY PO Last administered on 04/24/17 08:31; Admin Dose 0.4 MG; Start 04/16/17 at 11:00 Bicalutamide (Casodex) 50 mg DAILY PO Last administered on 04/24/17 08:33; Admin Dose 50 MG; Start 04/18/17 at 09:00 Oxycodone HCl (Roxicodone) 5 mg Q4H PRN PO PAIN; Start 04/18/17 at 10:00 Alprazolam (Xanax) 0.5 mg Q6H PRN PO ANXIETY Last administered on 04/23/17 21: 39; Admin Dose 0.5 MG; Start 04/18/17 at 16:30 Pantoprazole (Protonix Tab) 40 mg DAILY@06 PO Last administered on 04/24/17 06 :46; Admin Dose 40 MG; Start 04/20/17 at 06:00 Sodium Chloride (Nacl) 1 gm TID PO Last administered on 04/24/17 08:31; Admin Dose 1 GM; Start 04/22/17 at 13:00 Assessment/Plan Chief Complaint/Hosp Course Assessment and recommendations; 1. Patient admitted with shortness of breath due to bilateral pleural effusions , thoracentesis could not be performed because of coagulopathy. However patient is now getting FFP administration and is scheduled for ultrasound- guided thoracentesis today. 2. Recently diagnosed esophageal carcinoma. 3. Underlying coagulopathy with thrombocytopenia. 3. Hyponatremia. 5. 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 Continue current treatment. Prognosis is guarded. Assessment 1. Signet cell adenocarcinoma of the esophagus. 2. Bilateral pleural effusions. Status post thoracentesis right lung 3. Hyponatremia possible SIADH. 4. Possible paraneoplastic syndrome Plan 1. Continue Hemoccult recommendations 2. Thoracentesis with pleural fluid studies 3. Aspiration precautions 4. Consider family conference to discuss goals of care. Prognosis guarded. Problems: FRANCES JOHN MD, [facility] Apr 24, 2017 09:51
[2017-04-24] MEDS ORDERED: NACL 3% 500 ML IV SCH (10:00)
[2017-04-24] MEDS: ALPRAZOLAM 0.5 MG TAB PO PRN (11:06)
--- NOTE | 2017-04-24 16:26 | PN ---
Date/Time of Note Date/Time of Note DATE: 04/24/17 TIME: 16:21 Assessment/Plan VTE Prophylaxis VTE Prophylaxis Intervention: LMWH Lines/Catheters IV Catheter Type (from Nrs): PORTOCATH Central line still needed: Yes Urinary Cath still in place: Yes Reason Cath still needed: urinary retention Assessment/Plan Chief Complaint/Hosp Course Patient is a 61-year-old male who was originally sent from primary care office for anemia found to now have adenocarcinoma of the esophagus, diffusely metastatic tumor burden. Worsening mental status and systemic weakness, hyponatremia of unclear etiology. NEURO: Encephelopathic, diffuse weakness of unclear etiology. 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 Would consider simple FW restriction, volume impairing respiratory status Acute kidney injury: - Patient anasarcic, will avoid further fluids - Roman - BPH meds PSYCH: Schizophrenia - Hold buproprion given hyponatremia Poor prognosis, unable to participate in GOC currently Problems: Subjective 24 Hr Interval Summary Free Text/Dictation Mentation is worse today, more lethargic Unable to respond to voice Responds only to very noxiosu stimuli Has been started on hypertonic saline Exam/Review of Systems Vital Signs Vitals Vital Signs Date Time Temp Pulse Resp B/P Pulse Ox O2 Delivery O2 Flow Rate FiO2 04/24/17 16:00 109 04/24/17 14:00 24 94/44 99 04/24/17 12:00 97.5 04/24/17 08:00 Nasal Cannula 3.0 04/23/17 11:10 40 Intake and Output 04/23/17 04/23/17 04/24/17 15:00 23:00 07:00 Intake Total 531 ml Output Total 1283 ml 125 ml 180 ml Balance -752 ml -125 ml -180 ml Exam Somnunlent, lethargic Does not respond to voice Winces to deep sternal rub. Does not withdraw to pain throughout Flaccid throughout, areflexic CN: pupils react appropriately, dolls eye in tact, corneal intact Lungs w slight rhonchi, somewhat tachypneic but nonlabored Ext with edema Abdomen somewhat distended Results Result Diagram: 04/24/17 0345 04/24/17 0345 Results 24 hrs Laboratory Tests Test 04/24/17 03:45 04/24/17 05:00 White Blood Count 14.1 H Red Blood Count 3.06 L Hemoglobin 9.2 L Hematocrit 29.1 L Mean Corpuscular Volume 95.1 Mean Corpuscular Hemoglobin 30.1 Mean Corpuscular Hemoglobin Concent 31.6 L Red Cell Distribution Width 23.5 H Platelet Count 50 L Mean Platelet Volume 10.5 H Neutrophils % 82.3 H Lymphocytes % 9.7 L Monocytes % 7.2 Eosinophils % 0.0 Basophils % 0.1 Nucleated Red Blood Cells % 1.4 H Neutrophils # (Manual) 12 H Lymphocytes # 1.4 Monocytes # 1.0 H Eosinophils # 0.0 Basophils # 0.0 Nucleated Red Blood Cells # 0.2 H Sodium Level 128 L Potassium Level 4.7 Chloride Level 101 Carbon Dioxide Level 19 L Anion Gap 13 Blood Urea Nitrogen 47 H Creatinine 1.07 Glucose Level 115 Calcium Level 7.7 L Total Bilirubin 2.0 H Direct Bilirubin 0.20 Indirect Bilirubin 1.8 H Aspartate Amino Transf (AST/SGOT) 114 H Alanine Aminotransferase (ALT/SGPT) 116 H Alkaline Phosphatase 1281 H Ammonia 76 H Total Protein 4.5 L Albumin 2.1 L Globulin 2.40 Albumin/Globulin Ratio 0.87 Lab Scanned Report BLOOD TRANSFUSION Medications Medications Current Medications Acetaminophen (Tylenol Tab) 650 mg Q6H PRN PO PAIN LEVEL 1-3 OR FEVER Last administered on 04/18/17 03:27; Admin Dose 650 MG; Start 04/09/17 at 15:30 Acetaminophen (Tylenol Supp) 650 mg Q6H PRN [place] PAIN LEVEL 1-3 OR FEVER; Start 04/09/17 at 15:30 Bupropion HCl (Wellbutrin Xl) 150 mg DAILY PO Last administered on 04/24/17 08 :31; Admin Dose 150 MG; Start 04/10/17 at 09:00 Thiothixene (Navane) 5 mg DAILY PO Last administered on 04/24/17 08:31; Admin Dose 5 MG; Start 04/10/17 at 09:00 Atorvastatin Calcium (Lipitor) 10 mg QHS PO Last administered on 04/23/17 21: 39; Admin Dose 10 MG; Start 04/10/17 at 21:00 Ondansetron HCl (Zofran Inj) 4 mg Q4H PRN IV NAUSEA AND/OR VOMITING; Start 08/19 at 13:30 Guaifenesin (Robitussin Liquid Cup) 100 mg Q4H PRN PO COUGH Last administered on 04/17/17 09:07; Admin Dose 100 MG; Start 04/14/17 at 22:00 Benzonatate (Tessalon) 100 mg TID PRN PO cough Last administered on 04/16/17 05:54; Admin Dose 100 MG; Start 04/14/17 at 22:00 Terazosin HCl (Hytrin) 1 mg HS PO Last administered on 04/23/17 21:39; Admin Dose 1 MG; Start 04/16/17 at 21:00 Tamsulosin HCl (Flomax) 0.4 mg DAILY PO Last administered on 04/24/17 08:31; Admin Dose 0.4 MG; Start 04/16/17 at 11:00 Bicalutamide (Casodex) 50 mg DAILY PO Last administered on 04/24/17 08:33; Admin Dose 50 MG; Start 04/18/17 at 09:00 Oxycodone HCl (Roxicodone) 5 mg Q4H PRN PO PAIN; Start 04/18/17 at 10:00 Alprazolam (Xanax) 0.5 mg Q6H PRN PO ANXIETY Last administered on 04/24/17 11: 06; Admin Dose 0.5 MG; Start 04/18/17 at 16:30 Pantoprazole (Protonix Tab) 40 mg DAILY@06 PO Last administered on 04/24/17 06 :46; Admin Dose 40 MG; Start 04/20/17 at 06:00 Sodium Chloride 1 gm 1 gm TID PO Last administered on 04/24/17 13:43; Admin Dose 1 GM; Start 04/22/17 at 13:00 Sodium Chloride (Sodium Chloride Iv 3%) 500 ml @ 30 mls/hr [id number] IV Last administered on 04/24/17 12:11; Admin Dose 30 MLS/HR; Start 04/24/17 at 10:00; Stop 04/24/17 at 21:59 CARLOS OWENS MD Apr 24, 2017 16:26
[2017-04-24 18:57] LABS: CALCIUM 8.3 mg/dl (8.4-10.2); CREATININE 1.15 mg/dl (0.61-1.24); POTASSIUM 5.2 mmol/L (3.5-5.1)
[2017-04-24] MEDS: TERAZOSIN 1 MG CAP PO SCH (20:21)
[2017-04-24] MEDS: ATORVASTATIN 10 MG TAB PO SCH (20:22)
--- NOTE | 2017-04-24 21:38 | CONS ---
Date/Time of Note Date/Time of Note DATE: 04/24/17 TIME: 21:36 Assessment/Plan Assessment/Plan Chief Complaint/Hosp Course 61 yo M admitted for symptomatic anemia, EGD done yesterday with multiple malignant looking masses. Bone scan concerning for advanced malignancy- s/p EGD with biopsy which showed Infiltrating (diffuse), signet ring cell carcinoma- pt has been having urinary frequency with obstructive symtpoms, renal has been consulted. pt has been on started on hytrin but associated with low BP. Problems: Additional Assessment/Plan 1.acute urinary retention requiring Roman- CT abdomen + pelvis without contrast negative for any obstruction, no hydronephrosis 2. diffuse osteoblastic bone metastasis, 3. S/P EGD with biopsy showed signet ring cell CA 4. Bilateral pleural effusion large on CT abdomen with Ascites and edema - US chest showed moderate bilateral pleural effusion 5. Hyponatremia with Na dropped to 120- today 128 - NACL tabs 1 po TID Plan: Cr stable, still SOB off oxygen, s/p thoracentesis yesterday 1.2 L removed, , conitnue ICU care, Pulmonary/Product Inspection Supervisor has been following Hytrin to 1 mg PO QHS and Flomax 0.4mg PO daily, BP stable so far ECHO showed EF 75% with stage I diastolic dysfunction will continue to follow up we want to avoid IV Fluids for hyponatremia, o Na CL table, Still Na 128- will give 3% saline for 12 hr today then stop, Monitor Electrolytes and will follow up Consultation Date/Type/Reason Admit Date/Time Apr 09, 2017 at 13:02 Initial Consult Date 04/16/17 Type of Consultation: NEPHROLOGY Referring Provider: JYOTI SAWYER 24 HR Interval Summary Free Text/Dictation Na still 128, BP stable, s/p Throacentesis Exam/Review of Systems Vital Signs Vitals Vital Signs Date Time Temp Pulse Resp B/P Pulse Ox O2 Delivery O2 Flow Rate FiO2 04/24/17 20:00 Nasal Cannula 3.0 04/24/17 20:00 97.5 111 28 87/55 100 04/23/17 11:10 40 Intake and Output 04/23/17 04/23/17 04/24/17 15:00 23:00 07:00 Intake Total 531 ml Output Total 1283 ml 125 ml 180 ml Balance -752 ml -125 ml -180 ml Exam Constitutional: alert, oriented, well developed Respiratory: decreased BS on both lungs upto midlung zone , + wheezing Cardiovascular: nl pulses, other (ST Hr 110), regular rate and rhythm Gastrointestinal: non-tender, soft Musculoskeletal: nl extremities to inspection Neurological: nl mental status, nl speech Results Result Diagram: 04/24/17 0345 04/24/17 1800 Results 24 hrs Laboratory Tests Test 04/24/17 03:45 04/24/17 05:00 04/24/17 18:00 White Blood Count 14.1 H Red Blood Count 3.06 L Hemoglobin 9.2 L Hematocrit 29.1 L Mean Corpuscular Volume 95.1 Mean Corpuscular Hemoglobin 30.1 Mean Corpuscular Hemoglobin Concent 31.6 L Red Cell Distribution Width 23.5 H Platelet Count 50 L Mean Platelet Volume 10.5 H Neutrophils % 82.3 H Lymphocytes % 9.7 L Monocytes % 7.2 Eosinophils % 0.0 Basophils % 0.1 Nucleated Red Blood Cells % 1.4 H Neutrophils # (Manual) 12 H Lymphocytes # 1.4 Monocytes # 1.0 H Eosinophils # 0.0 Basophils # 0.0 Nucleated Red Blood Cells # 0.2 H Sodium Level 128 L 129 L Potassium Level 4.7 5.2 H Chloride Level 101 99 Carbon Dioxide Level 19 L 19 L Anion Gap 13 16 Blood Urea Nitrogen 47 H 56 H Creatinine 1.07 1.15 Glucose Level 115 98 Calcium Level 7.7 L 8.3 L Total Bilirubin 2.0 H Direct Bilirubin 0.20 Indirect Bilirubin 1.8 H Aspartate Amino Transf (AST/SGOT) 114 H Alanine Aminotransferase (ALT/SGPT) 116 H Alkaline Phosphatase 1281 H Ammonia 76 H Total Protein 4.5 L Albumin 2.1 L Globulin 2.40 Albumin/Globulin Ratio 0.87 Lab Scanned Report BLOOD TRANSFUSION Medications Medications Current Medications Acetaminophen (Tylenol Tab) 650 mg Q6H PRN PO PAIN LEVEL 1-3 OR FEVER Last administered on 04/18/17 03:27; Admin Dose 650 MG; Start 04/09/17 at 15:30 Acetaminophen (Tylenol Supp) 650 mg Q6H PRN [place] PAIN LEVEL 1-3 OR FEVER; Start 04/09/17 at 15:30 Bupropion HCl (Wellbutrin Xl) 150 mg DAILY PO Last administered on 04/24/17 08 :31; Admin Dose 150 MG; Start 04/10/17 at 09:00 Thiothixene (Navane) 5 mg DAILY PO Last administered on 04/24/17 08:31; Admin Dose 5 MG; Start 04/10/17 at 09:00 Atorvastatin Calcium (Lipitor) 10 mg QHS PO Last administered on 04/24/17 20: 22; Admin Dose 10 MG; Start 04/10/17 at 21:00 Ondansetron HCl (Zofran Inj) 4 mg Q4H PRN IV NAUSEA AND/OR VOMITING; Start 08/19 at 13:30 Guaifenesin (Robitussin Liquid Cup) 100 mg Q4H PRN PO COUGH Last administered on 04/17/17 09:07; Admin Dose 100 MG; Start 04/14/17 at 22:00 Benzonatate (Tessalon) 100 mg TID PRN PO cough Last administered on 04/16/17 05:54; Admin Dose 100 MG; Start 04/14/17 at 22:00 Terazosin HCl (Hytrin) 1 mg HS PO Last administered on 04/23/17 21:39; Admin Dose 1 MG; Start 04/16/17 at 21:00 Tamsulosin HCl (Flomax) 0.4 mg DAILY PO Last administered on 04/24/17 08:31; Admin Dose 0.4 MG; Start 04/16/17 at 11:00 Bicalutamide (Casodex) 50 mg DAILY PO Last administered on 04/24/17 08:33; Admin Dose 50 MG; Start 04/18/17 at 09:00 Oxycodone HCl (Roxicodone) 5 mg Q4H PRN PO PAIN; Start 04/18/17 at 10:00 Alprazolam (Xanax) 0.5 mg Q6H PRN PO ANXIETY Last administered on 04/24/17 11: 06; Admin Dose 0.5 MG; Start 04/18/17 at 16:30 Pantoprazole (Protonix Tab) 40 mg DAILY@06 PO Last administered on 04/24/17 06 :46; Admin Dose 40 MG; Start 04/20/17 at 06:00 Sodium Chloride 1 gm 1 gm TID PO Last administered on 04/24/17 20:22; Admin Dose 1 GM; Start 04/22/17 at 13:00 Sodium Chloride (Sodium Chloride Iv 3%) 500 ml @ 30 mls/hr [id number] IV Last administered on 04/24/17t 12:11; Admin Dose 30 MLS/HR; Start 04/24/17 at 10:00; Stop 04/24/17 at 21:59 JAZIEL ROBERTS MD Apr 24, 2017 21:38
[2017-04-25] VITALS (67 sets, daily range): BP systolic 72–128; BP diastolic 28–75; PULSE 88–122; RESP 23–33
[2017-04-25] MEDS: PANTOPRAZOLE (EC) 40 MG TAB PO SCH (05:12)
[2017-04-25 05:22] LABS: ABNORMAL IP MESSAGE 1; BASOPHILS % 0.1 % (0.0-2.0); HEMATOCRIT 30.3 % (42.0-52.0); HEMOGLOBIN 9.5 g/dl (14.0-18.0); LYMPHOCYTES # 1.4 10^3/ul (0.8-2.9); LYMPHOCYTES % 9.5 % (15.0-51.0); MEAN CORPUSCULAR HEMOGLOBIN 30.5 pg (29.0-33.0); MEAN CORPUSCULAR HGB CONC 31.4 g/dl (32.0-37.0); MEAN CORPUSCULAR VOLUME 97.4 fl (82.0-101.0); MEAN PLATELET VOLUME 11.6 fl (7.4-10.4); NEUTROPHILS % 82.8 % (39.0-77.0); NUCLEATED RED BLOOD CELLS # 0.1 10^3/ul (0.0-0.0); PLATELET COUNT 48 10^3/UL (140-415); POSITIVE DIFF @See below; RED BLOOD COUNT 3.11 10^6/ul (4.70-6.10); RED CELL DISTRIBUTION WIDTH 24.6 % (11.5-14.5); WHITE BLOOD COUNT 14.5 10^3/ul (4.8-10.8)
[2017-04-25 05:31] LABS: CALCIUM 7.8 mg/dl (8.4-10.2); CREATININE 1.29 mg/dl (0.61-1.24); MAGNESIUM 2.1 mg/dl (1.7-2.5); PHOSPHORUS 3.6 mg/dl (2.5-4.9); POTASSIUM 5.1 mmol/L (3.5-5.1)
[2017-04-25] MEDS: BUPROPION (XL) 150 MG TAB PO SCH (09:00)
[2017-04-25] MEDS: THIOTHIXENE 5 MG CAP PO SCH (09:00)
[2017-04-25] MEDS: SODIUM CHLORIDE 1 GM TAB PO SCH ×2 (09:00→13:00)
[2017-04-25] MEDS: TAMSULOSIN (SR) 0.4 MG CAP PO SCH (09:00)
[2017-04-25] MEDS: BICALUTAMIDE 50 MG TAB PO SCH (09:00)
--- NOTE | 2017-04-25 09:08 | RADRPT ---
PROCEDURE: XR Chest. CLINICAL INDICATION: Shortness of breath TECHNIQUE: An AP view of the chest was obtained. COMPARISON: Chest x-ray dated 04/21/2017 FINDINGS: There is a right chest Port-A-Cath with tip in the upper right atrium. Lung volumes are low. There are diffuse reticulonodular interstitial opacities with with small tran ateral pleural effusions. No pneumothorax is seen. The cardiomediastinal silhouette is within nor mal limits for size. The osseous structures demonstrate diffuse sclerosis. IMPRESSION: 1. Findings suggestive of interstitial edema with small bilateral pleural effusions, increased on t he left when compared to the prior examination. 2. Low lung volumes. 3. Diffuse sclerotic osseous metastases. 4. Right chest Port-A-Cath with tip in the upper right atrium. RPTAT: HH .Lexy Romero MD, Date Time Electronically viewed and signed by .Lexy Romero MD, on 04/25/2017 09:07 .Kourtney/
--- NOTE | 2017-04-25 09:46 | CONS ---
Date/Time of Note Date/Time of Note DATE: 04/25/17 TIME: 09:43 Consult Date/Type/Reason Admit Date/Time Apr 09, 2017 at 13:02 Initial Consult Date 04/16/17 Type of Consultation: Pulmonary Ordering Provider: JYOTI SAWYER Subjective No significant changes. Patient remains mostly somnolent today. Unable to take in p.o.'s Objective Vital Signs Date Time Temp Pulse Resp B/P Pulse Ox O2 Delivery O2 Flow Rate FiO2 04/25/17 08:30 97.8 111 30 99/54 98 Nasal Cannula 3.0 04/23/17 11:10 40 Intake and Output 04/24/17 04/24/17 04/25/17 15:00 23:00 07:00 Intake Total 340 ml 150 ml 128 ml Output Total 265 ml 75 ml 180 ml Balance 75 ml 75 ml -52 ml Exam GENERAL: Chronically ill-appearing gentleman in bed comfortable at rest no acute distress VITAL SIGNS: per chart NECK: Supple. No JVD or lymphadenopathy. CARDIAC EXAM: S1, S2. No added sounds or murmurs. CHEST: clear bilaterally, No added sounds, rales or wheezes ABDOMEN: Soft, nontender. No guarding or rebound. EXTREMITIES: No cyanosis, clubbing, edema +2 NEUROLOGIC: Generalized weakness. No focal deficits. Results/Medications Result Diagram: 04/25/17 0400 04/25/17 0400 Results 24 hrs Chest x-ray ongoing pulmonary edema Laboratory Tests Test 04/24/17 18:00 04/25/17 04:00 Sodium Level 129 L 133 L Potassium Level 5.2 H 5.1 Chloride Level 99 103 Carbon Dioxide Level 19 L 19 L Anion Gap 16 16 Blood Urea Nitrogen 56 H 65 H Creatinine 1.15 1.29 H Glucose Level 98 106 Calcium Level 8.3 L 7.8 L White Blood Count 14.5 H Red Blood Count 3.11 L Hemoglobin 9.5 L Hematocrit 30.3 L Mean Corpuscular Volume 97.4 Mean Corpuscular Hemoglobin 30.5 Mean Corpuscular Hemoglobin Concent 31.4 L Red Cell Distribution Width 24.6 H Platelet Count 48 L Mean Platelet Volume 11.6 H Neutrophils % 82.8 H Lymphocytes % 9.5 L Monocytes % 7.0 Eosinophils % 0.0 Basophils % 0.1 Nucleated Red Blood Cells % 1.0 H Neutrophils # (Manual) 12 H Lymphocytes # 1.4 Monocytes # 1.0 H Eosinophils # 0.0 Basophils # 0.0 Nucleated Red Blood Cells # 0.1 H Phosphorus Level 3.6 Magnesium Level 2.1 Medications Current Medications Acetaminophen (Tylenol Tab) 650 mg Q6H PRN PO PAIN LEVEL 1-3 OR FEVER Last administered on 04/18/17 03:27; Admin Dose 650 MG; Start 04/09/17 at 15:30 Acetaminophen (Tylenol Supp) 650 mg Q6H PRN [place] PAIN LEVEL 1-3 OR FEVER; Start 04/09/17 at 15:30 Bupropion HCl (Wellbutrin Xl) 150 mg DAILY PO Last administered on 04/24/17 08 :31; Admin Dose 150 MG; Start 04/10/17 at 09:00 Thiothixene (Navane) 5 mg DAILY PO Last administered on 04/24/17 08:31; Admin Dose 5 MG; Start 04/10/17 at 09:00 Atorvastatin Calcium (Lipitor) 10 mg QHS PO Last administered on 04/24/17 20: 22; Admin Dose 10 MG; Start 04/10/17 at 21:00 Ondansetron HCl (Zofran Inj) 4 mg Q4H PRN IV NAUSEA AND/OR VOMITING; Start 08/19 at 13:30 Guaifenesin (Robitussin Liquid Cup) 100 mg Q4H PRN PO COUGH Last administered on 04/17/17 09:07; Admin Dose 100 MG; Start 04/14/17 at 22:00 Benzonatate (Tessalon) 100 mg TID PRN PO cough Last administered on 04/16/17 05:54; Admin Dose 100 MG; Start 04/14/17 at 22:00 Terazosin HCl (Hytrin) 1 mg HS PO Last administered on 04/23/17 21:39; Admin Dose 1 MG; Start 04/16/17 at 21:00 Tamsulosin HCl (Flomax) 0.4 mg DAILY PO Last administered on 04/24/17 08:31; Admin Dose 0.4 MG; Start 04/16/17 at 11:00 Bicalutamide (Casodex) 50 mg DAILY PO Last administered on 04/24/17 08:33; Admin Dose 50 MG; Start 04/18/17 at 09:00 Oxycodone HCl (Roxicodone) 5 mg Q4H PRN PO PAIN; Start 04/18/17 at 10:00 Alprazolam (Xanax) 0.5 mg Q6H PRN PO ANXIETY Last administered on 04/24/17 11: 06; Admin Dose 0.5 MG; Start 04/18/17 at 16:30 Pantoprazole (Protonix Tab) 40 mg DAILY@06 PO Last administered on 04/25/17 05 :12; Admin Dose 40 MG; Start 04/20/17 at 06:00 Sodium Chloride (Nacl) 1 gm TID PO Last administered on 04/24/17 20:22; Admin Dose 1 GM; Start 04/22/17 at 13:00 Assessment/Plan Chief Complaint/Hosp Course Assessment and recommendations; 1. Patient admitted with shortness of breath due to bilateral pleural effusions , chest x-ray shows ongoing pulmonary edema 2. Recently diagnosed esophageal carcinoma. 3. Underlying coagulopathy with thrombocytopenia. 3. Hyponatremia. 5. 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 Plan 1. Continue aspiration precautions 2. Continue diuretics if tolerated 3. Place nasogastric tube if okay with GI 4. Keep in ICU today given his mentation Problems: FRANCES JOHN MD, [facility] Apr 25, 2017 09:45
[2017-04-25] MEDS ORDERED: NORepinephrine 8MG/250 ML (PMX 250 ML ONE (11:38)
[2017-04-25] MEDS ORDERED: SOD CHLORIDE 0.9% 500 ML IV ONE (12:30)
[2017-04-25] MEDS ORDERED: NORepinephrine 8MG/250 ML (PMX 250 ML IV SCH (12:30)
[2017-04-25] MEDS ORDERED: VANCOMYCIN IV PER PHARMACY XX SCH (13:30)
[2017-04-25] MEDS ORDERED: PIPER-TAZO 3.375 GM IV (PMX) 100 ML IVPB SCH (13:30)
--- NOTE | 2017-04-25 13:50 | PRO ---
DATE OF PROCEDURE: 04/24/2017 HISTORY: This is a 61-year-old male, who was admitted with generalized muscular weakness, possibly a paraneoplastic syndrome, hyponatremia, limbic encephalitis. EEG is to rule out encephalopathy. CURRENT MEDICATIONS: 1. Protonix. 2. Xanax. 3. Wellbutrin. DESCRIPTION OF PROCEDURE: Utilizing a 16 channel EEG machine, cap scalp electrodes are applied in accordance with the International 10-20system. [id number] and [id number] montages were displayed. Electrical impedances were measured and reported. Description during a resting state, posterior dominant rhythm of about 3-4 Hz with low amplitude waves seen throughout the tracing. There was no focal lateralizing or epileptiform discharge identified. INTERPRETATION: This is an abnormal EEG due to presence of generalized bihemispheric background slowing with appearance of delta activity bihemispherically without any epileptiform activity consistent with severe encephalopathy. Please correlate these findings with the patient's clinical picture. Dictated By: Ling Martines MD /angelika/jose miguel /Document#: [id number]
[2017-04-25] MEDS ORDERED: VANCOMYCIN 2 GM in SOD CHLORIDE 0.9% 500 ML IVPB SCH (14:30)
[2017-04-25] MEDS: CEFEPIME 1GM/50 ML IVPB SCH ×2 (14:37→23:06)
--- NOTE | 2017-04-25 16:28 | RADRPT ---
PROCEDURE: XR Chest. CLINICAL INDICATION: Ng tube placement TECHNIQUE: Single portable view of the chest was obtained COMPARISON: Same day FINDINGS: There is a NG tube within the stomach. There is a right chest wall port in place. The heart is norm al in size. There are worsening extensive bilateral upper lobe and lower lobe infiltrates. There i s worsening moderate bilateral pleural effusions, left greater than right. The heart, lungs and med iastinum are otherwise unchanged. RPTAT:AA IMPRESSION: New NG tube within the stomach Worsening extensive infiltrates throughout the lungs. Worsening bilateral pleural effusions. .Leroy Johnston MD, MD Date Time Electronically viewed and signed by .Leroy Johnston MD, on 04/25/2017 16:28 .S/
--- NOTE | 2017-04-25 16:52 | PN ---
Date/Time of Note Date/Time of Note DATE: 04/25/17 TIME: 16:48 Assessment/Plan VTE Prophylaxis VTE Prophylaxis Intervention: LMWH Lines/Catheters IV C[facility]ter Type [facility]from [facility] portacath Urinary Cath still in place: Yes Reason Cath still needed: urinary retention Assessment/Plan Chief Complaint/Hosp Course Patient is a 61-year-old male who was originally sent from primary care office for anemia found to now have adenocarcinoma of the esophagus, diffusely metastatic tumor burden. Worsening mental status and systemic weakness, hyponatremia of unclear etiology. Now on pressors for shock. Transitioning to comfort care measures NEURO: Encephelopathic, diffuse weakness of unclear etiology. 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 Would consider simple FW restriction, volume impairing respiratory status Acute kidney injury: - Patient anasarcic, will avoid further fluids - Roman - BPH meds PSYCH: Schizophrenia - Hold buproprion given hyponatremia Poor prognosis, unable to participate in GOC currently DNR/DNI Palliaitve measures tomorrow Problems: Subjective 24 Hr Interval Summary Free Text/Dictation I spoke to the patient's sister Laurie who is the patient's only relative and his designated HCP. We discussed that her brother is extremely sick and is likely in the process of dying. She understands this very well, as she has been here to visit him many times and seen his decline. She says he would never want to be coded, and actually had already signed a DNR previously with his sister. Laurie prefers that given the dire nature of his care, we should switch to more palliative measures instead. She is planning on coming to the hospital tomorrow , and requests that we maintain full care until tomorrow in order for her and friends to say goodbyes Exam/Review of Systems Vital Signs Vitals Vital Signs Date Time Temp Pulse Resp B/P Pulse Ox O2 Delivery O2 Flow Rate FiO2 04/25/17 16:15 115 30 91/47 96 Nasal Cannula 3.0 04/25/17 16:00 98.7 04/23/17 11:10 40 Intake and Output 04/24/17 04/24/17 04/25/17 15:00 23:00 07:00 Intake Total 340 ml 150 ml 128 ml Output Total 265 ml 75 ml 180 ml Balance 75 ml 75 ml -52 ml Exam Increasingly somnulent, nonresponive Tachyneipc Worsening edema Results Result Diagram: 04/25/17 0400 04/25/17 0400 Results 24 hrs Laboratory Tests Test 04/24/17 18:00 04/25/17 04:00 04/25/17 10:03 Sodium Level 129 L 133 L Potassium Level 5.2 H 5.1 Chloride Level 99 103 Carbon Dioxide Level 19 L 19 L Anion Gap 16 16 Blood Urea Nitrogen 56 H 65 H Creatinine 1.15 1.29 H Glucose Level 98 106 Calcium Level 8.3 L 7.8 L White Blood Count 14.5 H Red Blood Count 3.11 L Hemoglobin 9.5 L Hematocrit 30.3 L Mean Corpuscular Volume 97.4 Mean Corpuscular Hemoglobin 30.5 Mean Corpuscular Hemoglobin Concent 31.4 L Red Cell Distribution Width 24.6 H Platelet Count 48 L Mean Platelet Volume 11.6 H Neutrophils % 82.8 H Lymphocytes % 9.5 L Monocytes % 7.0 Eosinophils % 0.0 Basophils % 0.1 Nucleated Red Blood Cells % 1.0 H Neutrophils # (Manual) 12 H Lymphocytes # 1.4 Monocytes # 1.0 H Eosinophils # 0.0 Basophils # 0.0 Nucleated Red Blood Cells # 0.1 H Phosphorus Level 3.6 Magnesium Level 2.1 Ammonia 80 H Medications Medications Current Medications Acetaminophen (Tylenol Tab) 650 mg Q6H PRN PO PAIN LEVEL 1-3 OR FEVER Last administered on 04/18/17 03:27; Admin Dose 650 MG; Start 04/09/17 at 15:30 Acetaminophen (Tylenol Supp) 650 mg Q6H PRN [place] PAIN LEVEL 1-3 OR FEVER; Start 04/09/17 at 15:30 Thiothixene (Navane) 5 mg DAILY PO Last administered on 04/24/17 08:31; Admin Dose 5 MG; Start 04/10/17 at 09:00 Atorvastatin Calcium (Lipitor) 10 mg QHS PO Last administered on 04/24/17 20: 22; Admin Dose 10 MG; Start 04/10/17 at 21:00 Ondansetron HCl (Zofran Inj) 4 mg Q4H PRN IV NAUSEA AND/OR VOMITING; Start 08/19 at 13:30 Guaifenesin (Robitussin Liquid Cup) 100 mg Q4H PRN PO COUGH Last administered on 04/17/17 09:07; Admin Dose 100 MG; Start 04/14/17 at 22:00 Benzonatate (Tessalon) 100 mg TID PRN PO cough Last administered on 04/16/17 05:54; Admin Dose 100 MG; Start 04/14/17 at 22:00 Bicalutamide (Casodex) 50 mg DAILY PO Last administered on 04/24/17 08:33; Admin Dose 50 MG; Start 04/18/17 at 09:00 Oxycodone HCl (Roxicodone) 5 mg Q4H PRN PO PAIN; Start 04/18/17 at 10:00 Alprazolam (Xanax) 0.5 mg Q6H PRN PO ANXIETY Last administered on 04/24/17 11: 06; Admin Dose 0.5 MG; Start 04/18/17 at 16:30 Pantoprazole (Protonix Tab) 40 mg DAILY@06 PO Last administered on 04/25/17 05 :12; Admin Dose 40 MG; Start 04/20/17 at 06:00 Sodium Chloride 1 gm 1 gm TID PO Last administered on 04/24/17 20:22; Admin Dose 1 GM; Start 04/22/17 at 13:00 Norepinephrine 250 ml @ 1.875 mls/ hr TITRATE IV Last administered on 13:06; Admin Dose 15 MLS/HR; Start 04/25/17 at 12:30 Vancomycin HCl 2 gm/Sodium Chloride 500 ml @ 125 mls/hr NOW IVPB Last administered on 04/25/17 15:35; Admin Dose 125 MLS/HR; Start 04/25/17 at 14:30 ; Stop 04/25/17 at 18:00 Vancomycin HCl 250 ml @ 125 mls/hr Q12H IVPB ; Start 04/26/17 at 05:00 Cefepime HCl (Maxipime 1gm/50 ml (Pmx)) 50 ml @ 100 mls/hr Q12 IVPB Last administered on 04/25/17t 14:37; Admin Dose 100 MLS/HR; Start 04/25/17 at 14:14 Lactulose (Enulose) 20 gm Q6 NGT ; Start 04/25/17 at 18:00 CARLOS OWENS MD Apr 25, 2017 16:52
--- NOTE | 2017-04-25 16:59 | CONS ---
Date/Time of Note Date/Time of Note DATE: 04/25/17 TIME: 16:55 Assessment/Plan Assessment/Plan Chief Complaint/Hosp Course 61 yo M admitted for symptomatic anemia, EGD done yesterday with multiple malignant looking masses. Bone scan concerning for advanced malignancy- s/p EGD with biopsy which showed Infiltrating (diffuse), signet ring cell carcinoma- pt has been having urinary frequency with obstructive symtpoms, renal has been consulted. pt has been on started on hytrin but associated with low BP. Problems: Additional Assessment/Plan ASSESSMENT: 1.acute urinary retention requiring Roman- CT abdomen + pelvis without contrast negative for any obstruction, no hydronephrosis 2. diffuse osteoblastic bone metastasis, 3. S/P EGD with biopsy showed signet ring cell CA 4. Acute hypoxemic resp failure due to Bilateral Pleural effusion - Bilateral pleural effusion large on CT abdomen with Ascites and edema - US chest showed moderate bilateral pleural effusion s/p Thoracentesis 04/23/17- 1.2 L removed 5. Hyponatremia with Na dropped to 120- today 128 - NACL tabs 1 po TID Plan: Cr 1.27, Na 133 with 3 saline 1 liter, still SOB off oxygen, s/p thoracentesis 1.2 L removed, , conitnue ICU care, Pulmonary/[facility] has been following Hytrin to 1 mg PO QHS and Flomax 0.4mg PO daily, BP stable so far ECHO showed EF 75% with stage I diastolic dysfunction will continue to follow up Consultation Date/Type/Reason Admit Date/Time Apr 09, 2017 at 13:02 Initial Consult Date 04/16/17 Type of Consultation: NEPHROLOGY Referring Provider: JYOTI SAWYER 24 HR Interval Summary Free Text/Dictation Na 133, Cr 1.27, BP stable Exam/Review of Systems Vital Signs Vitals Vital Signs Date Time Temp Pulse Resp B/P Pulse Ox O2 Delivery O2 Flow Rate FiO2 04/25/17 16:15 115 30 91/47 96 Nasal Cannula 3.0 04/25/17 16:00 98.7 04/23/17 11:10 40 Intake and Output 04/24/17 04/24/17 04/25/17 15:00 23:00 07:00 Intake Total 340 ml 150 ml 128 ml Output Total 265 ml 75 ml 180 ml Balance 75 ml 75 ml -52 ml Exam Constitutional: alert, oriented, well developed Respiratory: decreased BS on both lungs upto midlung zone , + wheezing Cardiovascular: nl pulses, other (ST Hr 110), regular rate and rhythm Gastrointestinal: non-tender, soft Musculoskeletal: nl extremities to inspection Neurological: nl mental status, nl speech Results Result Diagram: 04/25/17 0400 04/25/17 0400 Results 24 hrs Laboratory Tests Test 04/24/17 18:00 04/25/17 04:00 04/25/17 10:03 Sodium Level 129 L 133 L Potassium Level 5.2 H 5.1 Chloride Level 99 103 Carbon Dioxide Level 19 L 19 L Anion Gap 16 16 Blood Urea Nitrogen 56 H 65 H Creatinine 1.15 1.29 H Glucose Level 98 106 Calcium Level 8.3 L 7.8 L White Blood Count 14.5 H Red Blood Count 3.11 L Hemoglobin 9.5 L Hematocrit 30.3 L Mean Corpuscular Volume 97.4 Mean Corpuscular Hemoglobin 30.5 Mean Corpuscular Hemoglobin Concent 31.4 L Red Cell Distribution Width 24.6 H Platelet Count 48 L Mean Platelet Volume 11.6 H Neutrophils % 82.8 H Lymphocytes % 9.5 L Monocytes % 7.0 Eosinophils % 0.0 Basophils % 0.1 Nucleated Red Blood Cells % 1.0 H Neutrophils # (Manual) 12 H Lymphocytes # 1.4 Monocytes # 1.0 H Eosinophils # 0.0 Basophils # 0.0 Nucleated Red Blood Cells # 0.1 H Phosphorus Level 3.6 Magnesium Level 2.1 Ammonia 80 H Medications Medications Current Medications Acetaminophen (Tylenol Tab) 650 mg Q6H PRN PO PAIN LEVEL 1-3 OR FEVER Last administered on 04/18/17 03:27; Admin Dose 650 MG; Start 04/09/17 at 15:30 Acetaminophen (Tylenol Supp) 650 mg Q6H PRN [place] PAIN LEVEL 1-3 OR FEVER; Start 04/09/17 at 15:30 Thiothixene (Navane) 5 mg DAILY PO Last administered on 04/24/17 08:31; Admin Dose 5 MG; Start 04/10/17 at 09:00 Atorvastatin Calcium (Lipitor) 10 mg QHS PO Last administered on 04/24/17 20: 22; Admin Dose 10 MG; Start 04/10/17 at 21:00 Ondansetron HCl (Zofran Inj) 4 mg Q4H PRN IV NAUSEA AND/OR VOMITING; Start 08/19 at 13:30 Guaifenesin (Robitussin Liquid Cup) 100 mg Q4H PRN PO COUGH Last administered on 04/17/17 09:07; Admin Dose 100 MG; Start 04/14/17 at 22:00 Benzonatate (Tessalon) 100 mg TID PRN PO cough Last administered on 04/16/17 05:54; Admin Dose 100 MG; Start 04/14/17 at 22:00 Bicalutamide (Casodex) 50 mg DAILY PO Last administered on 04/24/17 08:33; Admin Dose 50 MG; Start 04/18/17 at 09:00 Oxycodone HCl (Roxicodone) 5 mg Q4H PRN PO PAIN; Start 04/18/17 at 10:00 Alprazolam (Xanax) 0.5 mg Q6H PRN PO ANXIETY Last administered on 04/24/17 11: 06; Admin Dose 0.5 MG; Start 04/18/17 at 16:30 Pantoprazole (Protonix Tab) 40 mg DAILY@06 PO Last administered on 04/25/17 05 :12; Admin Dose 40 MG; Start 04/20/17 at 06:00 Sodium Chloride 1 gm 1 gm TID PO Last administered on 04/24/17 20:22; Admin Dose 1 GM; Start 04/22/17 at 13:00 Norepinephrine 250 ml @ 1.875 mls/ hr TITRATE IV Last administered on 13:06; Admin Dose 15 MLS/HR; Start 04/25/17 at 12:30 Vancomycin HCl 2 gm/Sodium Chloride 500 ml @ 125 mls/hr NOW IVPB Last administered on 04/25/17 15:35; Admin Dose 125 MLS/HR; Start 04/25/17 at 14:30 ; Stop 04/25/17 at 18:00 Vancomycin HCl 250 ml @ 125 mls/hr Q12H IVPB ; Start 04/26/17 at 05:00 Cefepime HCl (Maxipime 1gm/50 ml (Pmx)) 50 ml @ 100 mls/hr Q12 IVPB Last administered on 04/25/17 14:37; Admin Dose 100 MLS/HR; Start 04/25/17 at 14:14 Lactulose (Enulose) 20 gm Q6 NGT ; Start 04/25/17 at 18:00 JAZIEL ROBERTS MD Apr 25, 2017 16:59
--- NOTE | 2017-04-25 17:20 | CONS ---
Date/Time of Note Date/Time of Note DATE: 04/25/17 TIME: 17:10 Assessment/Plan Assessment/Plan Chief Complaint/Hosp Course 61 yo male with anemia, metastatic esophageal cancer with progressive weakness, encephalopathy, hyponatremia. Recommendations: Routine EEG MRI Brain with and without contrast may send paraneoplastic panel (miscellaneous lab as a send out to evaluate) treatment of suspected paraneoplastic syndrome is treatment of underlying malignancy will follow Problems: Consultation Date/Type/Reason Admit Date/Time Apr 09, 2017 at 13:02 Date of Consultation: Apr 26, 2017 Type of Consultation: Neurology Reason for Consultation evaluation for encephalopathy r/o paraneoplastic syndrome, seizures Referring Provider: CARLOS OWENS MD Hx of Present Illness 61 year old male with anemia dx with esophageal adenocarcinoma with diffuse sclerotic skeletal and lung metastasis with hypoxic respiratory failure from lung metastasis, pleural effusions, hyponatremia, schizophrenia admitted to the ICU with poor mental status and progressive weakness. Neurology consultation requested to evaluate for paraneoplastic syndrome and rule out non-convulsive status. Patient noted to have some jaw thrusting movements that began this morning. Subjective hx not possible: pt non-verbal, pt critical Constitutional: disoriented Eyes: no complaints ENT: no complaints Respiratory: other (had US guided thoracenthesis) Cardiovascular: no complaints Gastrointestinal: no complaints, other (Poor appetite and dysphagia) Genitourinary: other (miranda catheter), No bleeding, No hematuria Musculoskeletal: bone/joint pain Skin: no complaints Neurologic: no complaints, other (Patient is very slow and has difficulty expressing his symptoms) Endocrine: no complaints Lymphatic: no complaints Psychological: confusion Immunologic: no complaints Past Medical History Medical History: other (schizophrenia) Past Surgical History Past Surgical Hx: no surgical history, endoscopy Social History Alcohol Use: none Smoking Status: Former smoker Exam/Review of Systems Vital Signs Vitals Vital Signs Date Time Temp Pulse Resp B/P Pulse Ox O2 Delivery O2 Flow Rate FiO2 04/25/17 16:15 115 30 91/47 96 Nasal Cannula 3.0 04/25/17 16:00 98.7 04/23/17 11:10 40 Intake and Output 04/24/17 04/24/17 04/25/17 15:00 23:00 07:00 Intake Total 340 ml 150 ml 128 ml Output Total 265 ml 75 ml 180 ml Balance 75 ml 75 ml -52 ml Exam unresponsive to verbal stimuli unable to open eyes to stimuli or noxious CN: pupils 1 mm bilaterally Dolls intact corneals and gag present brief tongue/jaw myoclonus Motor: absent withdrawal to extremities decreased tone throughout Reflexes 2+ UE, LE 1+ toes upgoing bilaterally Results Result Diagram: 04/25/17 0400 04/25/17 0400 Results 24 hrs Laboratory Tests Test 04/24/17 18:00 04/25/17 04:00 04/25/17 10:03 Sodium Level 129 L 133 L Potassium Level 5.2 H 5.1 Chloride Level 99 103 Carbon Dioxide Level 19 L 19 L Anion Gap 16 16 Blood Urea Nitrogen 56 H 65 H Creatinine 1.15 1.29 H Glucose Level 98 106 Calcium Level 8.3 L 7.8 L White Blood Count 14.5 H Red Blood Count 3.11 L Hemoglobin 9.5 L Hematocrit 30.3 L Mean Corpuscular Volume 97.4 Mean Corpuscular Hemoglobin 30.5 Mean Corpuscular Hemoglobin Concent 31.4 L Red Cell Distribution Width 24.6 H Platelet Count 48 L Mean Platelet Volume 11.6 H Neutrophils % 82.8 H Lymphocytes % 9.5 L Monocytes % 7.0 Eosinophils % 0.0 Basophils % 0.1 Nucleated Red Blood Cells % 1.0 H Neutrophils # (Manual) 12 H Lymphocytes # 1.4 Monocytes # 1.0 H Eosinophils # 0.0 Basophils # 0.0 Nucleated Red Blood Cells # 0.1 H Phosphorus Level 3.6 Magnesium Level 2.1 Ammonia 80 H Medications Medications Current Medications Acetaminophen (Tylenol Tab) 650 mg Q6H PRN PO PAIN LEVEL 1-3 OR FEVER Last administered on 04/18/17 03:27; Admin Dose 650 MG; Start 04/09/17 at 15:30 Acetaminophen (Tylenol Supp) 650 mg Q6H PRN [place] PAIN LEVEL 1-3 OR FEVER; Start 04/09/17 at 15:30 Thiothixene (Navane) 5 mg DAILY PO Last administered on 04/24/17 08:31; Admin Dose 5 MG; Start 04/10/17 at 09:00 Ondansetron HCl (Zofran Inj) 4 mg Q4H PRN IV NAUSEA AND/OR VOMITING; Start 08/19 at 13:30 Guaifenesin (Robitussin Liquid Cup) 100 mg Q4H PRN PO COUGH Last administered on 04/17/17 09:07; Admin Dose 100 MG; Start 04/14/17 at 22:00 Benzonatate (Tessalon) 100 mg TID PRN PO cough Last administered on 04/16/17 05:54; Admin Dose 100 MG; Start 04/14/17 at 22:00 Oxycodone HCl (Roxicodone) 5 mg Q4H PRN PO PAIN; Start 04/18/17 at 10:00 Alprazolam 0.5 mg 0.5 mg Q6H PRN PO ANXIETY Last administered on 04/24/17 11: 06; Admin Dose 0.5 MG; Start 04/18/17 at 16:30 Norepinephrine 250 ml @ 1.875 mls/ hr TITRATE IV Last administered on 13:06; Admin Dose 15 MLS/HR; Start 04/25/17 at 12:30 Vancomycin HCl 2 gm/Sodium Chloride 500 ml @ 125 mls/hr NOW IVPB Last administered on 04/25/17 15:35; Admin Dose 125 MLS/HR; Start 04/25/17 at 14:30 ; Stop 04/25/17 at 18:00 Vancomycin HCl 250 ml @ 125 mls/hr Q12H IVPB ; Start 04/26/17 at 05:00 Cefepime HCl (Maxipime 1gm/50 ml (Pmx)) 50 ml @ 100 mls/hr Q12 IVPB Last administered on 04/25/17 14:37; Admin Dose 100 MLS/HR; Start 04/25/17 at 14:14 MARICRUZ DOHERTY MD Apr 25, 2017 17:19
[2017-04-25] MEDS ORDERED: LACTULOSE 30ML CUP NGT SCH (18:00)
--- NOTE | 2017-04-25 19:46 | PN ---
DATE: 04/25/2017 MEDICAL ONCOLOGY PROGRESS NOTE: SUBJECTIVE DATA: The patient remains somnolent. He is barely arousable. OBJECTIVE DATA: Repeat ammonia level is 80 verifying the previous level of 76. There is no result of any cytologic evaluation regarding the patient's pleural fluid. The Gram stain, however, was negative for organisms. ASSESSMENT AND PLAN: Apparently, it has been decided by the family that no further active therapy is warranted. I do actually agree with this. The patient does have at least very locally advanced gastric carcinoma. At the same time the patient has diffuse skeletal metastases which may represent prostatic carcinoma. The patient does not have an elevated PSA. If this were a prostatic carcinoma it would suggest a very poorly differentiated lesion which is so differentiated that does not produce PSA. Even if the patient had only 1 process the likelihood of any meaningful response to chemotherapy for this gastric carcinoma is unlikely and it would be associated with significant toxicity. I therefore do agree with the patient being given supportive and comfort measures only. We will see the patient again as needed. Once again, thank you very much for the opportunity of participating in the medical care of this very pleasant gentle gentleman. Dictated By: Shyam Cuevas MD /angelika/rebecca /Document#: [id number]
[2017-04-26] VITALS (78 sets, daily range): BP systolic 54–112; BP diastolic 30–63; PULSE 97–120; RESP 11–40
[2017-04-26] MEDS ORDERED: NORepinephrine 8MG/250 ML (PMX 250 ML IV SCH (00:30)
[2017-04-26] MEDS: VANCOMYCIN 1 GM in NS 250 ML IVPB SCH ×2 (05:00→16:38)
[2017-04-26] MEDS: THIOTHIXENE 5 MG CAP PO SCH (09:03)
[2017-04-26] MEDS: CEFEPIME 1GM/50 ML IVPB SCH (09:03)
--- NOTE | 2017-04-26 10:41 | CONS ---
Date/Time of Note Date/Time of Note DATE: 04/26/17 TIME: 10:37 Consult Date/Type/Reason Admit Date/Time Apr 09, 2017 at 13:02 Initial Consult Date 04/16/17 Type of Consultation: Pulmonary Ordering Provider: CARLOS OWENS MD Subjective Patient remains mostly somnolent on nasal cannula oxygen with vasopressor support. Objective Vital Signs Date Time Temp Pulse Resp B/P Pulse Ox O2 Delivery O2 Flow Rate FiO2 04/26/17 09:45 118 29 102/60 97 04/26/17 08:00 Nasal Cannula 3.0 04/26/17 07:30 98.7 04/23/17 11:10 40 Intake and Output 04/25/17 04/25/17 04/26/17 15:00 23:00 07:00 Intake Total 552.5 ml 815 ml 693.50 ml Output Total 100 ml 85 ml 90 ml Balance 452.5 ml 730 ml 603.50 ml Exam GENERAL: Chronically ill-appearing gentleman in bed comfortable at rest no acute distress VITAL SIGNS: per chart NECK: Supple. No JVD or lymphadenopathy. CARDIAC EXAM: S1, S2. No added sounds or murmurs. CHEST: clear bilaterally, No added sounds, rales or wheezes ABDOMEN: Soft, nontender. No guarding or rebound. EXTREMITIES: No cyanosis, clubbing, edema +2 NEUROLOGIC: Generalized weakness. No focal deficits. Results/Medications Result Diagram: 04/25/17 0400 04/25/17 0400 Medications Current Medications Acetaminophen (Tylenol Tab) 650 mg Q6H PRN PO PAIN LEVEL 1-3 OR FEVER Last administered on 04/18/17 03:27; Admin Dose 650 MG; Start 04/09/17 at 15:30 Acetaminophen (Tylenol Supp) 650 mg Q6H PRN [place] PAIN LEVEL 1-3 OR FEVER; Start 04/09/17 at 15:30 Thiothixene (Navane) 5 mg DAILY PO Last administered on 04/26/17 09:03; Admin Dose 5 MG; Start 04/10/17 at 09:00 Ondansetron HCl (Zofran Inj) 4 mg Q4H PRN IV NAUSEA AND/OR VOMITING; Start 08/19 at 13:30 Guaifenesin (Robitussin Liquid Cup) 100 mg Q4H PRN PO COUGH Last administered on 04/17/17 09:07; Admin Dose 100 MG; Start 04/14/17 at 22:00 Benzonatate (Tessalon) 100 mg TID PRN PO cough Last administered on 04/16/17 05:54; Admin Dose 100 MG; Start 04/14/17 at 22:00 Oxycodone HCl (Roxicodone) 5 mg Q4H PRN PO PAIN; Start 04/18/17 at 10:00 Alprazolam 0.5 mg 0.5 mg Q6H PRN PO ANXIETY Last administered on 04/24/17 11: 06; Admin Dose 0.5 MG; Start 04/18/17 at 16:30 Vancomycin HCl 250 ml @ 125 mls/hr Q12H IVPB Last administered on 04/26/17 05 :00; Admin Dose 125 MLS/HR; Start 04/26/17 at 05:00 Cefepime HCl 50 ml @ 100 mls/hr Q12 IVPB Last administered on 04/26/17 09:03 ; Admin Dose 100 MLS/HR; Start 04/25/17 at 14:14 Norepinephrine/ Dextrose (Levophed/D5W) 500 ml @ 1.87 mls/hr TITRATE IV Last administered on 04/26/17 09:32; Admin Dose 18.75 MLS/HR; Start 04/25/17 at 18: 00 Assessment/Plan Chief Complaint/Hosp Course Assessment and recommendations; 1. Patient admitted with shortness of breath due to bilateral pleural effusions , chest x-ray shows ongoing pulmonary edema 2. Recently diagnosed esophageal carcinoma. 3. Underlying coagulopathy with thrombocytopenia. 3. Hyponatremia. 5. 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 Metastatic cancer and skeletal metastases. Plan 1. Continue aspiration precautions 2. Continue diuretics if tolerated 3. Agree with palliative care. 4. Continue vasopressor for note. Problems: FRANCES JOHN MD, [facility] Apr 26, 2017 10:41
--- NOTE | 2017-04-26 11:33 | CONS ---
Date/Time of Note Date/Time of Note DATE: 04/26/17 TIME: 11:30 Consult Date/Type/Reason Admit Date/Time Apr 09, 2017 at 13:02 Initial Consult Date 04/26/17 Type of Consultation: Neurology Reason for Consultation encephalopathy metastatic CA Ordering Provider: CARLOS OWENS MD Subjective remains unresponsive jaw,tongue myoclonus EEG done yesterday with generalized bihemispheric background slowing w delta no epileptiform dc Objective Vital Signs Date Time Temp Pulse Resp B/P Pulse Ox O2 Delivery O2 Flow Rate FiO2 04/26/17 11:00 118 30 98/61 97 04/26/17 08:00 Nasal Cannula 3.0 04/26/17 07:30 98.7 04/23/17 11:10 40 Intake and Output 04/25/17 04/25/17 04/26/17 15:00 23:00 07:00 Intake Total 552.5 ml 815 ml 693.50 ml Output Total 100 ml 85 ml 90 ml Balance 452.5 ml 730 ml 603.50 ml Exam unresponsive to verbal stimuli unable to open eyes to stimuli or noxious CN: pupils 1 mm bilaterally Dolls intact corneals and gag present brief tongue/jaw myoclonus Motor: absent withdrawal to extremities decreased tone throughout Reflexes 2+ UE, LE 1+ toes upgoing bilaterally Results/Medications Result Diagram: 04/25/17 0400 04/25/17 0400 Medications Current Medications Acetaminophen (Tylenol Tab) 650 mg Q6H PRN PO PAIN LEVEL 1-3 OR FEVER Last administered on 04/18/17 03:27; Admin Dose 650 MG; Start 04/09/17 at 15:30 Acetaminophen (Tylenol Supp) 650 mg Q6H PRN [place] PAIN LEVEL 1-3 OR FEVER; Start 04/09/17 at 15:30 Thiothixene (Navane) 5 mg DAILY PO Last administered on 04/26/17 09:03; Admin Dose 5 MG; Start 04/10/17 at 09:00 Ondansetron HCl (Zofran Inj) 4 mg Q4H PRN IV NAUSEA AND/OR VOMITING; Start 08/19 at 13:30 Guaifenesin (Robitussin Liquid Cup) 100 mg Q4H PRN PO COUGH Last administered on 04/17/17 09:07; Admin Dose 100 MG; Start 04/14/17 at 22:00 Benzonatate (Tessalon) 100 mg TID PRN PO cough Last administered on 04/16/17 05:54; Admin Dose 100 MG; Start 04/14/17 at 22:00 Oxycodone HCl (Roxicodone) 5 mg Q4H PRN PO PAIN; Start 04/18/17 at 10:00 Alprazolam 0.5 mg 0.5 mg Q6H PRN PO ANXIETY Last administered on 04/24/17 11: 06; Admin Dose 0.5 MG; Start 04/18/17 at 16:30 Vancomycin HCl 250 ml @ 125 mls/hr Q12H IVPB Last administered on 04/26/17 05 :00; Admin Dose 125 MLS/HR; Start 04/26/17 at 05:00 Cefepime HCl 50 ml @ 100 mls/hr Q12 IVPB Last administered on 04/26/17 09:03 ; Admin Dose 100 MLS/HR; Start 04/25/17 at 14:14 Norepinephrine/ Dextrose (Levophed/D5W) 500 ml @ 1.87 mls/hr TITRATE IV Last administered on 04/26/17 09:32; Admin Dose 18.75 MLS/HR; Start 04/25/17 at 18: 00 Assessment/Plan Chief Complaint/Hosp Course 61 yo male with anemia, metastatic esophageal cancer with progressive weakness, encephalopathy, hyponatremia. Recommendations: Routine EEG- no seizures MRI Brain with and without contrast pending may send paraneoplastic panel (miscellaneous lab as a send out to evaluate) treatment of suspected paraneoplastic syndrome is treatment of underlying malignancy planned for palliative extubation if consistent with goals of care may pursue further imaging and further blood work to eval for paraneoplastic syndrome Problems: MARICRUZ DOHERTY MD Apr 26, 2017 11:32
--- NOTE | 2017-04-26 15:51 | CONS ---
Date/Time of Note Date/Time of Note DATE: 04/26/17 TIME: 15:48 Assessment/Plan Assessment/Plan Chief Complaint/Hosp Course 61 yo M admitted for symptomatic anemia, EGD done yesterday with multiple malignant looking masses. Bone scan concerning for advanced malignancy- s/p EGD with biopsy which showed Infiltrating (diffuse), signet ring cell carcinoma- pt has been having urinary frequency with obstructive symtpoms, renal has been consulted. pt has been on started on hytrin but associated with low BP. Problems: Additional Assessment/Plan 1.Acute hypoxemic resp failure due to Bilateral Pleural effusion - Bilateral pleural effusion large on CT abdomen with Ascites and edema - US chest showed moderate bilateral pleural effusion s/p Thoracentesis 04/23/17- 1.2 L removed 2. diffuse osteoblastic bone metastasis, 3. S/P EGD with biopsy showed signet ring cell CA 4.acute urinary retention requiring Roman- CT abdomen + pelvis without contrast negative for any obstruction, no hydronephrosis 5. Hyponatremia - NACL tabs 1 po TID Plan: Continue ICU care, no labs today to review yet, pt has metastatic cancer Hytrin to 1 mg PO QHS and Flomax 0.4mg PO daily, ECHO showed EF 75% with stage I diastolic dysfunction Palliative care has been consulted to discuss goals of care will follow up Consultation Date/Type/Reason Admit Date/Time Apr 09, 2017 at 13:02 Initial Consult Date 04/16/17 Type of Consultation: NEPHROLOGY Referring Provider: CARLOS OWENS MD 24 HR Interval Summary Free Text/Dictation no labs today to review yet, BP stable, pt is not doing well Exam/Review of Systems Vital Signs Vitals Vital Signs Date Time Temp Pulse Resp B/P Pulse Ox O2 Delivery O2 Flow Rate FiO2 04/26/17 15:00 116 28 95/63 97 04/26/17 12:00 98.0 04/26/17 08:00 Nasal Cannula 3.0 04/23/17 11:10 40 Intake and Output 04/25/17 04/25/17 04/26/17 15:00 23:00 07:00 Intake Total 552.5 ml 815 ml 693.50 ml Output Total 100 ml 85 ml 90 ml Balance 452.5 ml 730 ml 603.50 ml Exam Constitutional: alert, oriented, well developed Respiratory: decreased BS on both lungs upto midlung zone , + wheezing Cardiovascular: nl pulses, other (ST Hr 110), regular rate and rhythm Gastrointestinal: non-tender, soft Musculoskeletal: nl extremities to inspection Neurological: nl mental status, nl speech Results Result Diagram: 04/25/17 0400 04/25/17 0400 Medications Medications Current Medications Acetaminophen (Tylenol Tab) 650 mg Q6H PRN PO PAIN LEVEL 1-3 OR FEVER Last administered on 04/18/17 03:27; Admin Dose 650 MG; Start 04/09/17 at 15:30 Acetaminophen (Tylenol Supp) 650 mg Q6H PRN [place] PAIN LEVEL 1-3 OR FEVER; Start 04/09/17 at 15:30 Thiothixene (Navane) 5 mg DAILY PO Last administered on 04/26/17 09:03; Admin Dose 5 MG; Start 04/10/17 at 09:00 Ondansetron HCl (Zofran Inj) 4 mg Q4H PRN IV NAUSEA AND/OR VOMITING; Start 08/19 at 13:30 Guaifenesin (Robitussin Liquid Cup) 100 mg Q4H PRN PO COUGH Last administered on 04/17/17 09:07; Admin Dose 100 MG; Start 04/14/17 at 22:00 Benzonatate (Tessalon) 100 mg TID PRN PO cough Last administered on 04/16/17 05:54; Admin Dose 100 MG; Start 04/14/17 at 22:00 Oxycodone HCl (Roxicodone) 5 mg Q4H PRN PO PAIN; Start 04/18/17 at 10:00 Alprazolam 0.5 mg 0.5 mg Q6H PRN PO ANXIETY Last administered on 04/24/17 11: 06; Admin Dose 0.5 MG; Start 04/18/17 at 16:30 Vancomycin HCl 250 ml @ 125 mls/hr Q12H IVPB Last administered on 04/26/17 05 :00; Admin Dose 125 MLS/HR; Start 04/26/17 at 05:00 Cefepime HCl 50 ml @ 100 mls/hr Q12 IVPB Last administered on 04/26/17 09:03 ; Admin Dose 100 MLS/HR; Start 04/25/17 at 14:14 Norepinephrine/ Dextrose (Levophed/D5W) 500 ml @ 1.87 mls/hr TITRATE IV Last administered on 04/26/17t 09:32; Admin Dose 18.75 MLS/HR; Start 04/25/17 at 18: 00 Miscellaneous Information (*Rx Drug Level Order Reminder*) 1 ONCE ONCE XX ; Start 04/27/17 at 04:00; Stop 04/27/17 at 04:01 JAZIEL ROBERTS MD Apr 26, 2017 15:51
--- NOTE | 2017-04-26 17:23 | PN ---
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 Worsening mental status and systemic weakness, hyponatremia of unclear etiology. Now on pressors for shock. Transitioning to comfort care measures NEURO: Encephelopathic, diffuse weakness of unclear etiology. Nonconvulsive status possible, limbic encephalitis/paraneoplastic syndrome possible PULM: Hypoxic respiratory failure 2/2 lung mets and pleural effusions - s/p thora, f/u studies - Oxygen as needed HEME: Adenocarcinoma of the esophagus, signet cell - Chemo per heme/onc Anemia: - Chronic disease, trend RENAL: Hyponatremia - Salt infusion, though he is hypervolemic on exam. Would consider simple FW restriction, volume impairing respiratory status Acute kidney injury: - Patient anasarcic, will avoid further fluids - Roman - BPH meds PSYCH: Schizophrenia - Hold buproprion given hyponatremia Poor prognosis, unable to participate in GOC currently DNR/DNI Palliaitve measures tomorrow Problems: Subjective 24 Hr Interval Summary Free Text/Dictation No change to clinical status Remains very lethargic, encephelopathic, tachypneic On pressors 15 mcg levophed Exam/Review of Systems Vital Signs Vitals Vital Signs Date Time Temp Pulse Resp B/P Pulse Ox O2 Delivery O2 Flow Rate FiO2 04/26/17 16:15 118 29 95/56 98 04/26/17 12:00 98.0 04/26/17 08:00 Nasal Cannula 3.0 04/23/17 11:10 40 Intake and Output 04/25/17 04/25/17 04/26/17 14:59 22:59 06:59 Intake Total 537.5 ml 800 ml 704.75 ml Output Total 110 ml 80 ml 105 ml Balance 427.5 ml 720 ml 599.75 ml Results Result Diagram: 04/25/17 0400 04/25/17 0400 Medications Medications Current Medications Acetaminophen (Tylenol Tab) 650 mg Q6H PRN PO PAIN LEVEL 1-3 OR FEVER Last administered on 04/18/17 03:27; Admin Dose 650 MG; Start 04/09/17 at 15:30 Acetaminophen (Tylenol Supp) 650 mg Q6H PRN [place] PAIN LEVEL 1-3 OR FEVER; Start 04/09/17 at 15:30 Thiothixene (Navane) 5 mg DAILY PO Last administered on 04/26/17 09:03; Admin Dose 5 MG; Start 04/10/17 at 09:00 Ondansetron HCl (Zofran Inj) 4 mg Q4H PRN IV NAUSEA AND/OR VOMITING; Start 08/19 at 13:30 Guaifenesin (Robitussin Liquid Cup) 100 mg Q4H PRN PO COUGH Last administered on 04/17/17 09:07; Admin Dose 100 MG; Start 04/14/17 at 22:00 Benzonatate (Tessalon) 100 mg TID PRN PO cough Last administered on 04/16/17 05:54; Admin Dose 100 MG; Start 04/14/17 at 22:00 Oxycodone HCl (Roxicodone) 5 mg Q4H PRN PO PAIN; Start 04/18/17 at 10:00 Alprazolam 0.5 mg 0.5 mg Q6H PRN PO ANXIETY Last administered on 04/24/17 11: 06; Admin Dose 0.5 MG; Start 04/18/17 at 16:30 Vancomycin HCl 250 ml @ 125 mls/hr Q12H IVPB Last administered on 04/26/17 16 :38; Admin Dose 125 MLS/HR; Start 04/26/17 at 05:00 Cefepime HCl 50 ml @ 100 mls/hr Q12 IVPB Last administered on 04/26/17 09:03 ; Admin Dose 100 MLS/HR; Start 04/25/17 at 14:14 Norepinephrine/ Dextrose (Levophed/D5W) 500 ml @ 1.87 mls/hr TITRATE IV Last administered on 04/26/17 09:32; Admin Dose 18.75 MLS/HR; Start 04/25/17 at 18: 00 Miscellaneous Information (*Rx Drug Level Order Reminder*) 1 ONCE ONCE XX ; Start 04/27/17 at 04:00; Stop 04/27/17 at 04:01 CARLOS OWENS MD Apr 26, 2017 17:23
[2017-04-26] MEDS ORDERED: morphine (DRIP) 100 MG/100 ML 100 ML IV SCH (18:30)
--- NOTE | 2017-04-26 18:36 | CONS ---
Date/Time of Note Date/Time of Note DATE: 04/26/17 TIME: 18:34 Assessment/Plan Assessment/Plan Additional Assessment/Plan Pt sister request comfort measures tonight ... agree with their decision pt has no prognosis for meaningful recovery Consultation Date/Type/Reason Admit Date/Time Apr 09, 2017 at 13:02 Initial Consult Date 04/16/17 Type of Consultation: palliuative care Referring Provider: CARLOS OWENS MD Exam/Review of Systems Vital Signs Vitals Vital Signs Date Time Temp Pulse Resp B/P Pulse Ox O2 Delivery O2 Flow Rate FiO2 04/26/17 18:00 114 34 104/55 97 04/26/17 16:30 98.7 04/26/17 08:00 Nasal Cannula 3.0 04/23/17 11:10 40 Intake and Output 04/25/17 04/25/17 04/26/17 15:00 23:00 07:00 Intake Total 552.5 ml 815 ml 693.50 ml Output Total 100 ml 85 ml 90 ml Balance 452.5 ml 730 ml 603.50 ml Results Result Diagram: 04/25/17 0400 04/25/17 0400 Medications Medications Current Medications Acetaminophen (Tylenol Tab) 650 mg Q6H PRN PO PAIN LEVEL 1-3 OR FEVER Last administered on 04/18/17 03:27; Admin Dose 650 MG; Start 04/09/17 at 15:30 Acetaminophen (Tylenol Supp) 650 mg Q6H PRN [place] PAIN LEVEL 1-3 OR FEVER; Start 04/09/17 at 15:30 Thiothixene (Navane) 5 mg DAILY PO Last administered on 04/26/17 09:03; Admin Dose 5 MG; Start 04/10/17 at 09:00 Ondansetron HCl (Zofran Inj) 4 mg Q4H PRN IV NAUSEA AND/OR VOMITING; Start 08/19 at 13:30 Guaifenesin (Robitussin Liquid Cup) 100 mg Q4H PRN PO COUGH Last administered on 04/17/17 09:07; Admin Dose 100 MG; Start 04/14/17 at 22:00 Benzonatate (Tessalon) 100 mg TID PRN PO cough Last administered on 04/16/17 05:54; Admin Dose 100 MG; Start 04/14/17 at 22:00 Oxycodone HCl (Roxicodone) 5 mg Q4H PRN PO PAIN; Start 04/18/17 at 10:00 Alprazolam 0.5 mg 0.5 mg Q6H PRN PO ANXIETY Last administered on 04/24/17 11: 06; Admin Dose 0.5 MG; Start 04/18/17 at 16:30 Vancomycin HCl 250 ml @ 125 mls/hr Q12H IVPB Last administered on 04/26/17 16 :38; Admin Dose 125 MLS/HR; Start 04/26/17 at 05:00 Cefepime HCl 50 ml @ 100 mls/hr Q12 IVPB Last administered on 04/26/17 09:03 ; Admin Dose 100 MLS/HR; Start 04/25/17 at 14:14 Norepinephrine/ Dextrose (Levophed/D5W) 500 ml @ 1.87 mls/hr TITRATE IV Last administered on 04/26/17 09:32; Admin Dose 18.75 MLS/HR; Start 04/25/17 at 18: 00 Miscellaneous Information (*Rx Drug Level Order Reminder*) 1 ONCE ONCE XX ; Start 04/27/17 at 04:00; Stop 04/27/17 at 04:01 SAHNEL CHRIS Apr 26, 2017 18:36
[2017-04-26] MEDS ORDERED: LORAZEPAM 2 MG INJ IV PRN (19:00)
[2017-04-27] VITALS: BP 54/35; PULSE 101; PULSE 107; RESP 33
[2017-04-27 00:50] VITALS: BP 62/30; PULSE 99; RESP 18
[2017-04-27 02:15] VITALS: BP 52/30; PULSE 97; RESP 16
[2017-04-27 03:43] VITALS: BP 52/33; PULSE 97; RESP 18
[2017-04-27 04:34] VITALS: BP 43/28; PULSE 101; RESP 16
[2017-04-27 05:17] VITALS: BP 45/27; PULSE 101; RESP 22
--- NOTE | 2017-04-27 08:52 | DES ---
Date/Time of Note Date/Time of Note DATE: 04/27/17 TIME: 08:51 Discharge/ Summary Admission/Discharge Info Admit Date/Time Apr 09, 2017 at 13:02 Discharge Date/Time 04/27/17, 8:40 AM Final Diagnosis Septic shock Metastatic esophageal cancer Preliminary Cause of Septic shock Hx of Present Illness This is a 61-year-old male,somewhat poor historian, with a past medical history of dyslipidemia, internal hemorrhoids, basal cell carcinoma with status post excision, schizophrenia, depression, epilepsy, hypertension and now off treatment due to hypotension, who was sent from primary care office for evaluation of anemia. Upon further questioning, he also reported poor appetite and malaise for the past few months. Patient denied any shortness of breath, chest pain, palpitation, loss of consciousness, dizziness or headache. Patient denied any nausea, vomiting, abdominal pain, hematochezia, hematemesis, melena, hematuria or other bleeding episodes. Patient denied fever or chills. Patient was not sure about any other malignancies. Up on chart review, in 2010,patient had colonoscopy with finding of internal hemorrhoids. He currently denied any constipation,hematochezia or melena. Initial workup showed a hemoglobin 6.8, hematocrit 22.3 and platelet 130. Patient also had elevated AST, ALT and alkaline phosphatase. CBC with some smudge cells. Patient received 1 unit of packed RBC in the emergency room and was admitted for further evaluation. Hospital Course Patient is a 61-year-old male with schizophrenia who was originally sent from primary care office for anemia found to now have adenocarcinoma of the esophagus , diffusely metastatic tumor burden. Underwent EGD showing tumor. Patient's neurologic and hemodynamic status progessively worsened throughout his stay. He was transferred to ICU. Hyponatremia worsened. Anasarca develoepd wtih pleural effusions compromising his respiratoyr status. Eventually he completely lost his mental status and became diffusely weak. Shock developed and he was started on pressors. Due to the grave nature of both his acute and underlying illnesses, convesrations were held with his siter and HCP Laurie regarding goals of care. It was decided that Brody would not have wanted to pursue heroic measures as such, and would prefer to be allowed to pass away comfortably. He was thus transitioned to comfort care. IV morhpine was initiated and the patient comfortably. His sister Laurie was just notified by phone. Pending Labs/Cultures Laboratory Tests Test 04/27/17 04:02 Vancomycin Level Trough 32.4ug/ml (10.0-20.0) CARLOS OWENS MD Apr 27, 2017 08:52 Vancomycin Level Trough 32.4ug/ml (10.0-20.0) CARLOS OWENS MD Apr 27, 2017 08:52
--- NOTE | 2017-04-27 17:41 | CONS ---
Date/Time of Note Date/Time of Note DATE: 04/27/17 TIME: 17:40 Assessment/Plan Assessment/Plan Chief Complaint/Hosp Course 61 yo M admitted for symptomatic anemia, EGD done yesterday with multiple malignant looking masses. Bone scan concerning for advanced malignancy- s/p EGD with biopsy which showed Infiltrating (diffuse), signet ring cell carcinoma- pt has been having urinary frequency with obstructive symtpoms, renal has been consulted. pt has been on started on hytrin but associated with low BP. Problems: Additional Assessment/Plan 1.Acute hypoxemic resp failure due to Bilateral Pleural effusion - Bilateral pleural effusion large on CT abdomen with Ascites and edema - US chest showed moderate bilateral pleural effusion s/p Thoracentesis 04/23/17- 1.2 L removed 2. diffuse osteoblastic bone metastasis, 3. S/P EGD with biopsy showed signet ring cell CA 4.acute urinary retention requiring Roman- CT abdomen + pelvis without contrast negative for any obstruction, no hydronephrosis 5. Hyponatremia - NACL tabs 1 po TID Plan: family decided for comfort care Hytrin to 1 mg PO QHS and Flomax 0.4mg PO daily, ECHO showed EF 75% with stage I diastolic dysfunction Palliative care has been consulted to discuss goals of care will follow up Consultation Date/Type/Reason Admit Date/Time Apr 09, 2017 at 13:02 Initial Consult Date 04/16/17 Type of Consultation: NEPHROLOGY Referring Provider: CARLOS OWENS MD Exam/Review of Systems Vital Signs Vitals Vital Signs Date Time Temp Pulse Resp B/P Pulse Ox O2 Delivery O2 Flow Rate FiO2 04/27/17 08:00 Simple Mask 6.0 04/27/17 05:17 101 22 45/27 98 04/27/17 03:43 98.6 04/23/17 11:10 40 Intake and Output 04/26/17 04/26/17 04/27/17 15:00 23:00 07:00 Intake Total 732.515 ml 453 ml 47 ml Output Total 120 ml 30 ml Balance 732.515 ml 333 ml 17 ml Results Result Diagram: 04/25/17 0400 04/25/17 0400 Results 24 hrs Laboratory Tests Test 04/27/17 04:02 Vancomycin Level Trough 32.4 *H JAZIEL ROBERTS MD Apr 27, 2017 17:41
== END 2017-04-27 08:40 | disposition expired | DRG 840 ==
LOC: E/R 11:20 → MS1 13:02 → TEL 04-20 09:23 → ICU 04-22 22:23 → MS1 04-27 01:09
PROVIDERS: ADMIT Internal Medicine; ATTEND Internal Medicine
PROC: 30233N1 Transfusion of Nonautologous Red Blood Cells into Peripheral Vein, Percutaneous Approach (ICD-10-PCS; 2017-04-09)
PROC: 0DB68ZX Excision of Stomach, Via Natural or Artificial Opening Endoscopic, Diagnostic (ICD-10-PCS; 2017-04-10)
PROC: 0DB58ZX Excision of Esophagus, Via Natural or Artificial Opening Endoscopic, Diagnostic (ICD-10-PCS; principal; 2017-04-10 17:00)
PROC: 07DR3ZX Extraction of Iliac Bone Marrow, Percutaneous Approach, Diagnostic (ICD-10-PCS; 2017-04-12)
PROC: 05HM33Z Insertion of Infusion Device into Right Internal Jugular Vein, Percutaneous Approach (ICD-10-PCS; 2017-04-17)
PROC: B5131ZA Fluoroscopy of Right Jugular Veins using Low Osmolar Contrast, Guidance (ICD-10-PCS; 2017-04-17)
PROC: 0W9930Z Drainage of Right Pleural Cavity with Drainage Device, Percutaneous Approach (ICD-10-PCS; 2017-04-23)
DX: D61.82 Myelophthisis (principal); A41.9 Sepsis, unspecified organism; R65.21 Severe sepsis with septic shock; J96.01 Acute respiratory failure with hypoxia; J90 Pleural effusion, not elsewhere classified; C16.9 Malignant neoplasm of stomach, unspecified; N17.9 Acute kidney failure, unspecified; C78.89 Secondary malignant neoplasm of other digestive organs; C79.51 Secondary malignant neoplasm of bone; K22.10 Ulcer of esophagus without bleeding; D68.9 Coagulation defect, unspecified; E87.1 Hypo-osmolality and hyponatremia; R18.8 Other ascites; K22.9 Disease of esophagus, unspecified; K29.50 Unspecified chronic gastritis without bleeding; I95.9 Hypotension, unspecified; D69.6 Thrombocytopenia, unspecified; D53.9 Nutritional anemia, unspecified; F20.9 Schizophrenia, unspecified; E78.5 Hyperlipidemia, unspecified; F32.9 Major depressive disorder, single episode, unspecified; R74.0 Nonspecific elevation of levels of transaminase and lactic acid dehydrogenase [LDH]; R33.9 Retention of urine, unspecified; B96.89 Other specified bacterial agents as the cause of diseases classified elsewhere; N40.0 Benign prostatic hyperplasia without lower urinary tract symptoms; M62.81 Muscle weakness (generalized); Z85.828 Personal history of other malignant neoplasm of skin; Z66 Do not resuscitate; Z51.5 Encounter for palliative care
CPT/HCPCS: 32555; 36415; 36430; 36561; 36600; 70450; 71010; 71250; 72197; 74176; 74181; 76604; 76705; 76775; 76942; 77012; 77075; 78306; 80048; 80053; 80061; 80202; 81001; 82140; 82270; 82378; 82607; 82746; 82803; 82945; 82962; 83036; 83540; 83605; 83615; 83735; 83880; 84100; 84153; 84154; 84157; 84443; 84484; 84560; 85014; 85018; 85025; 85045; 85384; 85610; 85730; 86644; 86850; 86900; 86901; 86920; 87040; 87070; 87081; 87102; 87116; 88104; 88305; 88312; 88313; 88341; 88342; 89051; 92610; 93005; 93306; 94640; 94660; 94664; 95819; 97116; 97162; 97530; A9503; A4310; C1788; C9113; J0692; J1644; J1940; J2060; J2250; J2270; J2405; J3010; J3370; J7030; J7040; J7060; P9016; P9059